=== PATIENT | male | born 1945 | race Caucasian/White ===

== ENCOUNTER 2016-07-05 00:11 | Emergency (ER) | payer MEDICARE, OTHER ==
[~2016-07-05] VITALS: Ht 177.8 cm; Wt 81.8 kg
[2016-07-05 00:22] VITALS: Ht 177.8 cm; Wt 81.8 kg
[2016-07-05] MEDS ORDERED: SODIUM CHLORIDE 0.9% 1L BAG IV* STA (00:31)
[2016-07-05] MEDS ORDERED: VANCOMYCIN 1 GM (PMX) 250 ML IVPB SCH (01:00)
[2016-07-05] MEDS ORDERED: CEFEPIME 1GM/50 ML (PMX) 50 ML IVPB ONE (01:00)
[2016-07-05 01:49] LABS: INR 0.9; PROTIME 12.1 Sec (12.2-14.2); PT RATIO 0.9
[2016-07-05 01:50] LABS: PARTIAL THROMBOPLASTIN TIME 27.7 Sec (25.0-35.0)
[2016-07-05 01:57] LABS: BASOPHILS % 0.3 % (0.0-2.0); EOSINOPHILS # 0.4 10^3/ul (0.0-0.5); EOSINOPHILS % 4.2 % (0.0-7.0); HEMATOCRIT 27.8 % (42.0-52.0); HEMOGLOBIN 8.6 g/dl (14.0-18.0); LYMPHOCYTES # 1.9 10^3/ul (0.8-2.9); LYMPHOCYTES % 19.6 % (15.0-51.0); MEAN CORPUSCULAR HEMOGLOBIN 29.5 pg (29.0-33.0); MEAN CORPUSCULAR HGB CONC 30.9 g/dl (32.0-37.0); MEAN CORPUSCULAR VOLUME 95.2 fl (82.0-101.0); MEAN PLATELET VOLUME 10.9 fl (7.4-10.4); MONOCYTE # 1.2 10^3/ul (0.3-0.9); MONOCYTES % 11.8 % (0.0-11.0); NEUTROPHIL # 6.3 10^3/ul (1.6-7.5); NEUTROPHILS % 63.6 % (39.0-77.0); PLATELET COUNT 215 10^3/UL (140-415); RED BLOOD COUNT 2.92 10^6/ul (4.70-6.10); RED CELL DISTRIBUTION WIDTH 15.7 % (11.5-14.5); WHITE BLOOD COUNT 9.9 10^3/ul (4.8-10.8)
[2016-07-05 02:28] LABS: ALBUMIN 3.5 g/dl (3.3-4.9); POTASSIUM 5.6 mmol/L (3.5-5.1)
[2016-07-05 02:31] LABS: ALBUMIN/GLOBULIN RATIO 0.87; CALCIUM 9.2 mg/dl (8.4-10.2); CREATININE 0.99 mg/dl (0.61-1.24); TOTAL PROTEIN 7.5 g/dl (6.1-8.1)
[2016-07-05 02:44] LABS: TROPONIN-I 0.037 ng/ml (0.00-0.12)
[2016-07-05] MEDS ORDERED: DEXTROSE 50% 50 ML SYRINGE IV ONE (02:56)
[2016-07-05] MEDS ORDERED: ALBUTEROL 0.083% (NEB) 2.5 MG/3 ML AMP HHN ONE (03:00)
[2016-07-05] MEDS ORDERED: INSULIN REGULAR, HUMAN 100 UNIT/1 ML 3ML VIAL IV ONE (03:00)
--- NOTE | 2016-07-05 03:42 | RADRPT ---
PROCEDURE: XR Chest. CLINICAL INDICATION: Sepsis. TECHNIQUE: Single frontal chest x-ray. COMPARISON: None. FINDINGS: Tracheostomy tube tip is at the level of the clavicles. Heart is normal in size.. There is no CHF. . No focal infiltrate is seen. There is no pleural effusion. There is no pneumothorax. The osseou s structures are unremarkable. IMPRESSION: Tracheostomy tube. No focal infiltrate. RPTAT: HMVK .López Rodarte MD, MD Date Time Electronically viewed and signed by .López Rodarte MD, on 07/05/2016 03:41 .K/
--- NOTE | 2016-07-05 03:48 | ERD ---
ER Documentation Chief Complaint Date/Time DATE: 07/05/16 TIME: 03:36 Chief Complaint Gtube pulled out,BIBA RA 89,low O2 sat At [facility] per EMS HPI 71-year-old man with a history of chronic encephalopathy, tracheostomy tube mechanical ventilator dependence, and gastrostomy tube brought in by EMS from snf after gastrostomy tube fell out. He was being suctioned and had increased phlegm and after gastrostomy tube came out nurses had trouble getting a good pulse oximeter reading. Patient has had no recent fevers or chills, no vomiting. HPI was limited as patient is nonverbal although supplemented by reviewing past medical history, snf records, speaking to EMS. Patient was transported here by EMS without further complication. ROS All systems reviewed and are negative except as per history of present illness. Allergies Allergies: Coded Allergies: aspirin (Verified Allergy, Unknown, 07/05/16) PMhx/Soc Chronic encephalopathy and respiratory failure with tracheostomy on mechanical ventilator, hypertension, seizures, stroke with left-sided paralysis dysphagia with gastrostomy tube Hx Neurological Disorder: Yes (epilepsy) Hx Respiratory Disorders: Yes (chronic respiratory failure) Hx Miscellaneous Medical Probl: Yes (DM type 2) Smoking Status: Unknown if ever smoked FmHx Family History: No diabetes Physical Exam Vitals Vital Signs Date Time Temp Pulse Resp B/P Pulse Ox O2 Delivery O2 Flow Rate FiO2 07/05/16 05:03 77 18 100 50 07/05/16 05:00 79 16 112/69 97 Mechanical Ventilator Trach Collar 07/05/16 03:30 84 16 103/65 97 Mechanical Ventilator Trach Collar 07/05/16 03:05 78 19 100 50 07/05/16 02:10 98.0 71 19 105/61 100 Mechanical Ventilator 07/05/16 01:47 77 16 100 50 07/05/16 00:25 94 29 100 50 07/05/16 00:22 99.0 98 29 135/111 100 Physical Exam GENERAL: Elderly, chronically debilitated man, unresponsive, eyes closed, afebrile with tracheostomy in place HEENT: Skin around the tracheostomy site appears clean and dry, no cervical spine deformity, positive dry mucous membranes NEURO: GCS equals 3, left-sided contractures and paralysis on the left, unresponsive, pupils round and reactive CARDIAC: Regular rate and rhythm, no murmurs rubs or gallops LUNGS: Clear bilaterally no wheezing crackles or stridor, secretions through the tracheostomy tube ABDOMEN: Soft nontender, no guarding, no rigidity, no rebound, no psoas sign no obturator sign. Normoactive bowel sounds. Skin around the gastrostomy tube appears clean and dry SKIN: Warm and dry to touch, no abrasions, contusions, or hematomas, no lacerations, no ecchymosis, no target lesions, and without ulcers EXTREMITIES: No clubbing cyanosis or edema, calves are bilaterally symmetrical, no Homans sign, no popliteal cord sign. Distal pulses equal and bilateral PSYCH: Unable to assess Result Diagram: 07/05/16 0050 07/05/16 0512 Results 24 hrs Laboratory Tests Test 07/05/16 00:31 07/05/16 00:50 07/05/16 05:12 07/05/16 05:15 Arterial Blood HCO3 30.9mmol/L Arterial Blood Base Excess 4.6mmol/L Arterial Blood Oxygen Saturation 86.5mmHG [place] Test ACCEPTAB Arterial Blood Gas Puncture Site Right Radial Arterial Blood Carboxyhemoglobin 0.3% Arterial Blood Date Drawn 07/05/2016 12:35:00 AM Arterial Blood Methemoglobin 0.2% Arterial Blood pCO2 (Temp correct) 55.0mmhg Arterial Blood pH (Temp corrected) 7.368 Arterial Blood pO2 (Temp corrected) 54.3mmHG Blood Gas A-a O2 Differential 240.3mmHg Blood Gas Actual Respiration Rate 29 Blood Gas Critical Value Read Back RYAN Colon MD Blood Gas Low PEEP Setting 5.0cmH2O Blood Gas Modality VENT - AC Blood Gas Notified Time 07/05/2016 12:42:00 AM Blood Gas Notified Whom MG Blood Gas Respiration Rate 14.0 Blood Gas Specimen Source Blood arterial Blood Gas Temperature 37.0C Blood Gas Tidal Volume 14.0mL FiO2 50.0% Oxyhemoglobin Percent 86.1% Total Hemoglobin 10.4g/dl Activated Partial Thromboplast Time 27.7Sec Alanine Aminotransferase (ALT/SGPT) 31IU/L Albumin 3.5g/dl Albumin/Globulin Ratio 0.87 Alkaline Phosphatase 75IU/L Anion Gap 15 11 Aspartate Amino Transf (AST/SGOT) 37IU/L Basophils # 0.010^3/ul Basophils % 0.3% Blood Urea Nitrogen 30mg/dl 25mg/dl Calcium Level 9.2mg/dl 8.1mg/dl Carbon Dioxide Level 32mmol/L 29mmol/L Chloride Level 100mmol/L 106mmol/L Creatinine 0.99mg/dl 0.89mg/dl Direct Bilirubin 0.00mg/dl Eosinophils # 0.410^3/ul Eosinophils % 4.2% Globulin 4.00g/dl Glucose Level 93mg/dl 56mg/dl Hematocrit 27.8% Hemoglobin 8.6g/dl INR International Normalized Ratio 0.90 Indirect Bilirubin 0.0mg/dl Lactic Acid Level 1.0mmol/L 0.6mmol/L Lipase 118U/L Lymphocytes # 1.910^3/ul Lymphocytes % 19.6% Mean Corpuscular Hemoglobin 29.5pg Mean Corpuscular Hemoglobin Concent 30.9g/dl Mean Corpuscular Volume 95.2fl Mean Platelet Volume 10.9fl Monocytes # 1.210^3/ul Monocytes % 11.8% Neutrophils # 6.310^3/ul Neutrophils % 63.6% Nucleated Red Blood Cells # 0.010^3/ul Nucleated Red Blood Cells % 0.0/100WBC Platelet Count 95043^3/UL Potassium Level 5.6mmol/L 4.7mmol/L Prothrombin Time 12.1Sec Prothrombin Time Ratio 0.9 Red Blood Count 2.9210^6/ul Red Cell Distribution Width 15.7% Sodium Level 141mmol/L 141mmol/L Total Bilirubin 0.0mg/dl Total Protein 7.5g/dl Troponin I 0.037ng/ml White Blood Count 9.910^3/ul Current Medications Medications (Trade) Dose Ordered Sig/Emma Route PRN Reason Start Time Stop Time Status Last Admin Dose Admin Sodium Chloride 2540 ml 2,540 ml BOLUS OVER 2 HOURS STAT IV* 07/05/16 00:31 07/05/16 00:34 DC 07/05/16 01:39 Cefepime HCl 50 ml @ 100 mls/hr ONCE ONCE IVPB 07/05/16 01:00 07/05/16 01:29 DC 07/05/16 02:08 Vancomycin HCl (Vancocin) 250 ml @ 125 mls/hr ONCE IVPB 07/05/16 01:00 07/05/16 02:59 07/05/16 02:35 Albuterol (Proventil 0.083% (Neb)) 10 mg ONCE ONCE HHN 07/05/16 03:00 07/05/16 03:01 07/05/16 03:05 Dextrose (D50w Syringe) 50 ml ONCE ONCE IV 07/05/16 02:56 07/05/16 02:57 07/05/16 03:21 Insulin Human Regular (Humulin R) 8 unit ONCE ONCE IV 07/05/16 03:00 07/05/16 03:01 07/05/16 03:22 Procedures/MDM My initial suspicion was for sepsis so blood and urine cultures were ordered and antibiotics were administered, although patient's temperature was repeated a couple of times and each time he was afebrile. Given his respiratory secretions I ordered automotive paint technician to provide in-line suctioning through the tracheostomy tube, there was good clear mucus secretion output and resolution of symptoms. Patient's skin remained pink and oxygen saturation was 100% with a good waveform. I initially treated him with cefepime 1 g IV and vancomycin 1 g IV (although I held the full dose of vancomycin as I do not suspect any sort of infection). For dehydration patient received 2.5 L of normal saline intravenously. ABG performed, read by me revealed a pH of 7.37, PCO2 55, PO2 54 consistent with chronic respiratory acidosis. One view chest x-ray performed, read by me revealed atelectatic changes bilaterally, no acute infiltrates, no pneumothorax. There is a tracheostomy tube in proper position. EKG performed, read by me revealed a normal sinus rhythm at 96 bpm with PVCs, there is a first-degree atrioventricular block, normal axis, narrow QRS complex , no concerning ST elevations or depressions noted I reinserted the patient's gastrostomy tube at the bedside. It was 18 Maltese tube which was placed in sterile fashion, balloon was insufflated with 10 cc of normal saline, and placement was verified by me. Tube was secured in place with gauze and tape. Patient tolerated procedure well. CBC revealed anemia with a hematocrit of 28, electrolytes revealed dehydration with a BUN/creatinine of 30/1 and hyperkalemia 5.6. Liver function tests were unremarkable, troponin was negative, lactic acid was low at 1. Critical Care: Time: 35 minutes, this was time separate from other procedures. Treatments/Evaluations: Close monitoring and treatment of unstable vital signs, cardiorespiratory, and neurologic status, while maintaining tight balance of fluid, respiratory, and cardiac interventions. I treated the patient with albuterol 10 mg via nebulizer, dextrose 25 g IV, and regular insulin 8 units IV for mild hyperkalemia. Repeat potassium was normal, lactic acid fell to 0.6. Departure Diagnosis: Primary Impression: Encounter for feeding tube placement Additional Impressions: Dehydration Hyperkalemia Respiratory failure Chronicity: acute on chronic Respiratory failure complication: hypoxia and hypercapnia Qualified Code: J96.21 - Acute on chronic respiratory failure with hypoxia and hypercapnia Condition: Stable KEVAN DAVIS MD Jul 05, 2016 03:46
[2016-07-05 05:40] LABS: POTASSIUM 4.7 mmol/L (3.5-5.1)
[2016-07-05 05:43] LABS: CREATININE 0.89 mg/dl (0.61-1.24)
[2016-07-05 05:44] LABS: CALCIUM 8.1 mg/dl (8.4-10.2)
[2016-07-05 06:17] LABS: AADO2 Arterial 240.3 mmHg (7.0-24.0); Allen Test ACCEPTAB; Arterial Base Excess 4.6 mmol/L (-3.0-3); Arterial COHb 0.3 % (0.0-3.0); Arterial Fraction of Oxyhgb 86.1 % (93.0-99.0); Arterial HCO3 30.9 mmol/L (22.0-26.0); Arterial MetHb 0.2 % (0.0-1.5); Arterial Total Hemglobin 10.4 g/dl (12.0-18.0); MODE VENT - AC
[2016-07-05 06:37] VITALS: TEMP 98.2
[2016-07-05 07:49] VITALS: BP 108/73; PULSE 74; RESP 16
[2016-07-05] MEDS ORDERED: ATOR10TA65 GTB (11:21)
[2016-07-05] MEDS ORDERED: CHLO473M4 MM (11:22)
[2016-07-05] MEDS ORDERED: DIGO250T GTB (11:23)
[2016-07-05] MEDS ORDERED: DOCU-159 GTB (11:24)
[2016-07-05] MEDS ORDERED: FERR325T5 GTB (11:25)
[2016-07-05] MEDS ORDERED: LEVE500S9 GTB (11:26)
[2016-07-05] MEDS ORDERED: LISI2.5T59 GTB (11:26)
[2016-07-05] MEDS ORDERED: MULT9LIQ4 GTB (11:27)
[2016-07-05] MEDS ORDERED: AMIN887L6 GTB (11:28)
[2016-07-05] MEDS ORDERED: FAMO20TA18 GTB (11:28)
[2016-07-05] MEDS ORDERED: ALBU2.5V3 NEB (11:29)
[2016-07-05] MEDS ORDERED: LORA1TAB GTB (11:29)
[2016-07-05] MEDS ORDERED: MAGN400O4 GTB (11:30)
[2016-07-05] MEDS ORDERED: BEN50 GTB (11:30)
[2016-07-05] MEDS ORDERED: DULR PR (11:31)
[2016-07-05] MEDS ORDERED: FLEETOIL PR (11:31)
[2016-07-05] MEDS ORDERED: ACET-141 PO (11:32)
== END 2016-07-05 07:51 | disposition short-term general hospital (02) ==
LOC: E/R 00:11
DX: Z43.1 Encounter for attention to gastrostomy (principal); E86.0 Dehydration; E87.5 Hyperkalemia; J96.21 Acute and chronic respiratory failure with hypoxia; E11.9 Type 2 diabetes mellitus without complications; I10 Essential (primary) hypertension
CPT/HCPCS: 36600; 43760; 71010; 80048; 80053; 82803; 82962; 83605; 83690; 84484; 85025; 85610; 85730; 87040; 94002; 94644; J0692; J1815; J3370; J7030; 93005; 96374; 96375

== ENCOUNTER 2016-07-05 10:10 | Emergency (ER) | payer MEDICARE, OTHER ==
[~2016-07-05] VITALS: Ht 167.6 cm; Wt 70.0 kg
[2016-07-05 10:12] VITALS: Ht 167.6 cm; Wt 70.0 kg
--- NOTE | 2016-07-05 11:04 | ERD ---
ER Documentation Chief Complaint Date/Time DATE: 07/05/16 TIME: 11:02 Chief Complaint BIB RA FOR GTUBE REPLACEMENT. PT WAS SEEN EARLIER TODAY FOR SAME. HPI 71-year-old male with a history of CVA, diabetes mellitus, seizure disorder, chronic encephalopathy, vent dependent respiratory failure status post tracheostomy, decubitus ulcers and G-tube was sent to the ED via rescue ambulance from [facility] for evaluation and replacement of his G- tube. Patient was just seen earlier this morning for G-tube placement after he pulled out his G-tube and a 18 Yemeni was placed. The patient was discharged and transported at approximately 8 AM and now being returned as there is leakage from the tube. No fevers. History is obtained entirely from paramedics and group home records. No other concerns. ROS All systems reviewed and are negative except as per history of present illness. Medications Home Meds Reported Medications Acetaminophen* (Acetaminophen*) 500 MG Extra Strength Tablet, 1000 MG PO Q6H Y for MILD PAIN LEVEL 1-3, TAB 07/05/16 Mineral Oil* (Fleet* Mineral Oil Enema) 133 Ml Oil, 133 ML IL DAILY Y for CONSTIPATION, ENEMA 07/05/16 Bisacodyl* (Bisacodyl*) 10 Mg Supp, 10 MG IL DAILY Y for CONSTIPATION, SUPP 07/05/16 Magnesium Hydroxide* (Milk Of Magnesia*) 400 Mg/5 Ml Oral.susp, 30 ML GTB DAILY Y for CONSTIPATION, ML 07/05/16 Diphenhydramine Hcl* (Benadryl*) 50 Mg Cap, 50 MG GTB Q6 Y for ITCHING, CAP 07/05/16 Albuterol Sulfate* (Albuterol Sulfate* Neb) 0.083%-3 Ml Neb, 2.5 MG NEB Q6 Y for WHEEZING AND SOB, #30 VIAL 07/05/16 Lorazepam* (Lorazepam*) 1 Mg Tablet, 1 MG GTB Q6 Y for ANXIETY, #30 TAB 07/05/16 Amino Acids/Protein Hydrolys (PRO-STAT AWC LIQUID) 887 Ml Liquid, 30 ML GTB BID 07/05/16 Famotidine* (Famotidine*) 20 Mg Tablet, 20 MG GTB BID, #30 TAB 07/05/16 Multivit &Minerals/Ferrous Fum (MULTIVITAMIN LIQUID) 9 Mg/15 Ml Liquid, 9 MG GTB BID 07/05/16 Lisinopril* (Lisinopril*) 2.5 Mg Tablet, 2.5 MG GTB DAILY, #30 TAB HOLD IF SBP<100 AND CALL MD 07/05/16 Levetiracetam* (Keppra*) 500 Mg/5 Ml Solution, 500 MG GTB BID, BOTTLE 07/05/16 Ferrous Sulfate (Ferrous Sulfate) 325 Mg Tablet.dr, 325 MG GTB TID 07/05/16 Docusate Sodium* (Docusate Sodium*) 100 Mg Capsule, 100 MG GTB DAILY, #30 CAP HOLD FOR LOOSE STOOLS 07/05/16 Digoxin* (Digitek*) 250 Mcg Tablet, 50 MCG GTB DAILY, TAB HOLD IF APICAL PULSE<50BPM 07/05/16 Chlorhexidine Gluconate (Peridex) 473 Ml Mouthwash, 15 ML MM BID, BOTTLE 07/05/16 Atorvastatin Calcium (Atorvastatin Calcium) 10 Mg Tablet, 10 MG GTB QHS, #30 TAB 07/05/16 Allergies Allergies: Coded Allergies: aspirin (Verified Allergy, Unknown, 07/05/16) PMhx/Soc Reviewed in chart. As per HPI. Hx Neurological Disorder: Yes (epilepsy) Hx Respiratory Disorders: Yes (chronic respiratory failure) Hx Miscellaneous Medical Probl: Yes (DM type 2) Smoking Status: Never smoker FmHx Unknown Physical Exam Vitals Vital Signs Date Time Temp Pulse Resp B/P Pulse Ox O2 Delivery O2 Flow Rate FiO2 07/05/16 13:20 80 15 100 40 07/05/16 13:00 98.6 74 12 125/78 100 Mechanical Ventilator 07/05/16 11:20 98.6 75 17 129/65 100 Mechanical Ventilator 07/05/16 10:50 75 17 100 40 07/05/16 10:12 98.6 82 19 132/87 100 Physical Exam Const: Chronically ill-appearing, elderly, unresponsive Head: Atraumatic Eyes: Normal Conjunctiva ENT: Normal External Ears, Nose and Mouth. Neck: Supple, nontender. Tracheostomy site clean without erythema , induration or drainage.. Resp: Breath sounds are equal and clear to auscultation bilaterally Cardio: Regular rate and rhythm, no murmurs Abd: Soft, non tender, non distended. Normal bowel sounds. G-tube site with mild surrounding erythema and but no evidence of cellulitis or fasciitis. Ext: No cyanosis, or edema. Contracted. Neur: Unresponsive. Results 24 hrs PROCEDURE: XR Abdomen CLINICAL INDICATION: Confirm NG tube placement TECHNIQUE: An AP supine radiograph of the abdomen was submitted. COMPARISON: None FINDINGS: Contrast has been injected into the stomach through a G tube. The tip of the G tube appears to lie within the fundus of the stomach which is opacified with contrast. There is no extravasation of contrast. The bowel gas pattern is nonspecific. No organomegaly or discrete mass is identified. Vascular calcification is noted. The osseous elements are rarefied with degenerative endplate changes seen to the spine. An inferior vena cava filter is seen to be in place. IMPRESSION: 1. Contrast was injected into the fundus of the stomach through a gastric tube and there is no extravasation of contrast. 2. Nonspecific bowel gas pattern 3. Inferior vena cava filter in place 4. Vascular calcification. 5. Degenerative spine changes. Physician Ranjit Date Time Electronically viewed and signed by Physician Ranjit on 07/05/2016 12:01 RH/ Procedures/MDM DOCUMENTS REVIEWED: ED nurse, prior ED, group home records PROCEDURE: Time: 10:55. G-tube placement: Balloon deflated and 18-gauge G-tube removed and a 20-gauge G-tube inserted without difficulty. Balloon inflated with 10 cc of normal saline. MEDICAL DECISION MAKIN-year-old male with a history of CVA, diabetes mellitus, seizure disorder, chronic encephalopathy, vent dependent respiratory failure status post tracheostomy, decubitus ulcers and G-tube was sent to the ED via rescue ambulance from [facility] for evaluation and replacement of his G-tube. Patient was just seen earlier for similar symptoms an 18 Yemeni was placed. This was removed and a 20 Yemeni was inserted and placement confirmed with a KUB and Gastrografin. There is no leakage. Stable for discharge with precautionary instructions and follow-up with PMD. Departure Diagnosis: Primary Impression: Encounter for feeding tube placement Additional Impressions: Chronic respiratory failure Respiratory failure complication: unspecified whether with hypoxia or hypercapnia Qualified Code: J96.10 - Chronic respiratory failure, unspecified whether with hypoxia or hypercapnia Ventilator dependent Encephalopathy chronic Condition: Stable ELIZABETH DUMONT MD Jul 05, 2016 11:03
[2016-07-05] MEDS ORDERED: ATOR10TA65 GTB (11:21)
[2016-07-05] MEDS ORDERED: CHLO473M4 MM (11:22)
[2016-07-05] MEDS ORDERED: DIGO250T GTB (11:23)
[2016-07-05] MEDS ORDERED: DOCU-159 GTB (11:24)
[2016-07-05] MEDS ORDERED: FERR325T5 GTB (11:25)
[2016-07-05] MEDS ORDERED: LISI2.5T59 GTB (11:26)
[2016-07-05] MEDS ORDERED: LEVE500S9 GTB (11:26)
[2016-07-05] MEDS ORDERED: MULT9LIQ4 GTB (11:27)
[2016-07-05] MEDS ORDERED: FAMO20TA18 GTB (11:28)
[2016-07-05] MEDS ORDERED: AMIN887L6 GTB (11:28)
[2016-07-05] MEDS ORDERED: LORA1TAB GTB (11:29)
[2016-07-05] MEDS ORDERED: ALBU2.5V3 NEB (11:29)
[2016-07-05] MEDS ORDERED: BEN50 GTB (11:30)
[2016-07-05] MEDS ORDERED: MAGN400O4 GTB (11:30)
[2016-07-05] MEDS ORDERED: FLEETOIL PR (11:31)
[2016-07-05] MEDS ORDERED: DULR PR (11:31)
[2016-07-05] MEDS ORDERED: ACET-141 PO (11:32)
--- NOTE | 2016-07-05 12:01 | RADRPT ---
PROCEDURE: XR Abdomen CLINICAL INDICATION: Confirm NG tube placement TECHNIQUE: An AP supine radiograph of the abdomen was submitted. COMPARISON: None FINDINGS: Contrast has been injected into the stomach through a G tube. The tip of the G tube appears to lie within the fundus of the stomach which is opacified with contrast. There is no extravasation of con trast. The bowel gas pattern is nonspecific. No organomegaly or discrete mass is identified. Vascular calcification is noted. The osseous elements are rarefied with degenerative endplate changes seen to the spine. An inferior vena cava filter is seen to be in place. IMPRESSION: 1. Contrast was injected into the fundus of the stomach through a gastric tube and there is no extr avasation of contrast. 2. Nonspecific bowel gas pattern 3. Inferior vena cava filter in place 4. Vascular calcification. 5. Degenerative spine changes. Physician Ranjit Date Time Electronically viewed and signed by Physician Ranjit on 07/05/2016 12:01 /
[2016-07-05 13:00] VITALS: BP 125/78; PULSE 74; TEMP 98.6
[2016-07-05 13:20] VITALS: RESP 15
== END 2016-07-05 15:08 | disposition home or self-care (01) ==
LOC: E/R 10:10
DX: Z43.1 Encounter for attention to gastrostomy (principal); J96.10 Chronic respiratory failure, unspecified whether with hypoxia or hypercapnia; G93.40 Encephalopathy, unspecified; E11.9 Type 2 diabetes mellitus without complications; Z99.11 Dependence on respirator [ventilator] status
CPT/HCPCS: 74000; 94002

== ENCOUNTER 2016-07-30 20:42 | Inpatient (IN) | payer MEDICARE, OTHER ==
[~2016-07-30] VITALS: Ht 172.7 cm; Wt 75.0 kg
[~2016-07-30 20:42] MED LIST: ACET-141 GTB; ALBU2.5V3 NEB; AMIN887L6 GTB; ATOR10TA65 GTB; BEN50 GTB; CHLO473M4 MM; DIGO250T GTB; DOCU-159 GTB; DULR PR; FAMO20TA18 GTB; FERR325T5 GTB; FLEETOIL PR; LEVE500S9 GTB; LISI2.5T59 GTB; LORA1TAB GTB; MAGN400O4 GTB; MULT9LIQ4 GTB
[2016-07-30 20:45] VITALS: Ht 172.7 cm; Wt 75.0 kg
[2016-07-30] MEDS ORDERED: SODIUM CHLORIDE 0.9% 1L BAG IV* STA (20:48)
[2016-07-30] MEDS ORDERED: PIPER-TAZO 3.375 GM IV (PMX) 100 ML IVPB STA (20:48)
[2016-07-30] MEDS ORDERED: ACETAMINOPHEN 650 MG SUPP PR ONE (21:00)
[2016-07-30] MEDS ORDERED: VANCOMYCIN 1 GM (PMX) 250 ML IVPB ONE (21:00)
[2016-07-30 21:12] LABS: ADD SCAN DIFF NO
[2016-07-30 21:22] LABS: Allen Test ACCEPTAB; Arterial Base Excess 3.8 mmol/L (-3.0-3); Arterial COHb 0.3 % (0.0-3.0); Arterial Fraction of Oxyhgb 87.7 % (93.0-99.0); Arterial HCO3 27.1 mmol/L (22.0-26.0); Arterial MetHb 0.5 % (0.0-1.5); Arterial Total Hemglobin 10.7 g/dl (12.0-18.0); MODE VENT - AC
[2016-07-30 21:24] LABS: ADD UMIC YES; URINE BILIRUBIN (Dip) NEGATIVE (NEGATIVE); URINE BLOOD (Dip) 3+ (NEGATIVE); URINE COLOR YELLOW (YELLOW); URINE GLUCOSE (Dip) NEGATIVE (NEGATIVE); URINE KETONES (Dip) NEGATIVE (NEGATIVE); URINE LEUKOCYTE ESTERASE (Dip) 3+ (NEGATIVE); URINE NITRITE (Dip) NEGATIVE (NEGATIVE); URINE TOTAL PROTEIN (Dip) 2+ (NEGATIVE); URINE UROBILINOGEN (Dip) 0.2 E.U./dL (0.1-1.0)
[2016-07-30 21:28] LABS: BASOPHIL # 0.1 10^3/ul (0.0-0.1); BASOPHILS % 0.4 % (0.0-2.0); EOSINOPHILS # 0.1 10^3/ul (0.0-0.5); EOSINOPHILS % 0.7 % (0.0-7.0); HEMATOCRIT 34.4 % (42.0-52.0); HEMOGLOBIN 10.6 g/dl (14.0-18.0); LYMPHOCYTES # 2.1 10^3/ul (0.8-2.9); MEAN CORPUSCULAR HEMOGLOBIN 29.2 pg (29.0-33.0); MEAN CORPUSCULAR HGB CONC 30.8 g/dl (32.0-37.0); MEAN CORPUSCULAR VOLUME 94.8 fl (82.0-101.0); MEAN PLATELET VOLUME 11.2 fl (7.4-10.4); MONOCYTE # 0.9 10^3/ul (0.3-0.9); MONOCYTES % 5.1 % (0.0-11.0); NEUTROPHIL # 13.9 10^3/ul (1.6-7.5); NEUTROPHILS % 81.1 % (39.0-77.0); PLATELET COUNT 287 10^3/UL (140-415); RED BLOOD COUNT 3.63 10^6/ul (4.70-6.10); RED CELL DISTRIBUTION WIDTH 16.4 % (11.5-14.5); WHITE BLOOD COUNT 17.2 10^3/ul (4.8-10.8)
[2016-07-30 21:36] LABS: ALBUMIN/GLOBULIN RATIO 0.88; BILIRUBIN,INDIRECT 0.1 mg/dl (0-1.1); BILIRUBIN,TOTAL 0.1 mg/dl (0.2-1.3); CREATININE 2.42 mg/dl (0.61-1.24); TOTAL PROTEIN 8.5 g/dl (6.1-8.1)
[2016-07-30 21:37] LABS: CALCIUM 9.8 mg/dl (8.4-10.2)
[2016-07-30 21:38] LABS: INR 0.95; PARTIAL THROMBOPLASTIN TIME 26.5 Sec (25.0-35.0); PROTIME 12.7 Sec (12.2-14.2)
[2016-07-30] MEDS ORDERED: AMIN30LI GTB (21:40)
[2016-07-30] MEDS ORDERED: MULT-843 GTB (21:41)
[2016-07-30] MEDS ORDERED: KEP100S GTB (21:42)
[2016-07-30 21:45] LABS: BACTERIA,URINE MODERATE
[2016-07-30] MEDS ORDERED: FERR220S13 GTB (21:45)
[2016-07-30] MEDS ORDERED: UDCOL GTB (21:46)
[2016-07-30] MEDS ORDERED: DIGO0.12 GTB (21:49)
[2016-07-30] MEDS ORDERED: ACET325T33 GTB (21:50)
--- NOTE | 2016-07-30 21:50 | RADRPT ---
PROCEDURE: XR Chest. CLINICAL INDICATION: Shortness of breath. TECHNIQUE: A single portable view of the chest was obtained. COMPARISON: 07/05/2016 FINDINGS: A tracheostomy tube is unchanged. The cardiomediastinal silhouette is within normal limits. Diffuse reticular interstitial changes are once again seen. No dense consolidation or pleural effusion is s een. The soft tissues and osseous structures are unremarkable. IMPRESSION: Stable diffuse reticular interstitial changes. RPTAT: HPNM Physician Dangelo Date Time Electronically viewed and signed by Julio Schneider Physician on 07/30/2016 21:50 /
[2016-07-30] MEDS ORDERED: DIPH50CA30 GTB (21:51)
[2016-07-30] MEDS ORDERED: IPRA3AMP INHALATION (21:52)
[2016-07-30 22:12] LABS: TROPONIN-I 0.102 ng/ml (0.00-0.12)
[2016-07-30] MEDS ORDERED: morphine 4 MG/ML VIAL IV STA (22:17)
[2016-07-31] VITALS (34 sets, daily range): BP systolic 84–161; BP diastolic 44–89; PULSE 78–115; RESP 22–34; TEMP 98.6
--- NOTE | 2016-07-31 00:12 | ERA ---
ER Documentation Chief Complaint Date/Time DATE: 07/30/16 TIME: 23:59 Chief Complaint bib ra c/o tachycardia and fever today, vent dependant. Full code. HPI This 71-year-old male [facility] tachy[facility] and fever. Patient is apparently full code. His normal mental status is noncommunicative according to paramedics. He is a chronic trach vent patient. Unable to obtain a history from the patient for these reasons. ROS Unobtainable Medications Home Meds Reported Medications Ipratropium-Albuterol (Ipratropium-Albuterol) 0.5-3 Mg/3 Ml Ampul.neb, 3 ML INHALATION Q6, #30 VIAL 07/30/16 Diphenhydramine Hcl (BANOPHEN) 50 Mg Capsule, 50 MG GTB Q6H Y for PRN, CAP 07/30/16 Acetaminophen* (Tylenol*) 325 Mg Tablet, 650 MG GTB Q4H Y for MILD PAIN LEVEL 1- 3, TAB 07/30/16 Digoxin* (Lanoxin*) 0.125 Mg/2.5 Ml Solution, 2.5 ML GTB DAILY, ML HOLD IF APICAL PULSE<60BPM 07/30/16 Docusate Sodium* (Docusate Sodium* Liq) 50 Mg/5 Ml Liquid, 10 ML GTB DAILY, ML 07/30/16 Ferrous Sulfate* (Ferrous Sulfate*) 220 Mg/5 Ml Solution, 7.5 ML GTB TID, ML 07/30/16 Levetiracetam* (Keppra* (Ped)) 100 Mg/Ml Liq, 5 ML GTB Q12H for 30 Days, BOTTLE 07/30/16 Multivits,Ca,Minerals/Iron/FA (Thera M Plus Tablet) 1 Each Tablet, 1 EACH GTB BID, TAB 07/30/16 Amino Acids/Protein Hydrolys (PRO-STAT LIQUID) 30 Ml Liquid.pkt, 30 ML GTB BID SUGAR FREE 07/30/16 Acetaminophen* (Acetaminophen*) 500 MG Extra Strength Tablet, 1000 MG GTB Q8H Y for MILD PAIN 4-6/10, TAB 07/05/16 Mineral Oil* (Fleet* Mineral Oil Enema) 133 Ml Oil, 133 ML [place] DAILY Y for CONSTIPATION, ENEMA 07/05/16 Bisacodyl* (Bisacodyl*) 10 Mg Supp, 10 MG FL DAILY Y for CONSTIPATION, SUPP 07/05/16 Magnesium Hydroxide* (Milk Of Magnesia*) 400 Mg/5 Ml Oral.susp, 30 ML GTB DAILY Y for CONSTIPATION, ML 07/05/16 Lorazepam* (Lorazepam*) 1 Mg Tablet, 1 MG GTB Q6 Y for ANXIETY, #30 TAB 07/05/16 Famotidine* (Famotidine*) 20 Mg Tablet, 20 MG GTB BID, #30 TAB 07/05/16 Lisinopril* (Lisinopril*) 2.5 Mg Tablet, 2.5 MG GTB DAILY, #30 TAB HOLD IF SBP<100 AND CALL MD 07/05/16 Chlorhexidine Gluconate (Peridex) 473 Ml Mouthwash, 15 ML MM BID, BOTTLE 07/05/16 Atorvastatin Calcium (Atorvastatin Calcium) 10 Mg Tablet, 5 MG GTB QHS, #30 TAB 07/05/16 Discontinued Reported Medications Diphenhydramine Hcl* (Benadryl*) 50 Mg Cap, 50 MG GTB Q6 Y for ITCHING, CAP 07/05/16 Albuterol Sulfate* (Albuterol Sulfate* Neb) 0.083%-3 Ml Neb, 2.5 MG NEB Q6 Y for WHEEZING AND SOB, #30 VIAL 07/05/16 Amino Acids/Protein Hydrolys (PRO-STAT AWC LIQUID) 887 Ml Liquid, 30 ML GTB BID 07/05/16 Multivit &Minerals/Ferrous Fum (MULTIVITAMIN LIQUID) 9 Mg/15 Ml Liquid, 9 MG GTB BID 07/05/16 Levetiracetam* (Keppra*) 500 Mg/5 Ml Solution, 500 MG GTB BID, BOTTLE 07/05/16 Ferrous Sulfate (Ferrous Sulfate) 325 Mg Tablet.dr, 325 MG GTB TID 07/05/16 Docusate Sodium* (Docusate Sodium*) 100 Mg Capsule, 100 MG GTB DAILY, #30 CAP HOLD FOR LOOSE STOOLS 07/05/16 Digoxin* (Digitek*) 250 Mcg Tablet, 50 MCG GTB DAILY, TAB HOLD IF APICAL PULSE<50BPM 07/05/16 Allergies Allergies: Coded Allergies: aspirin (Verified Allergy, Unknown, 07/30/16) PMhx/Soc Medical and Surgical Hx: pt denies Surgical Hx History of Surgery: Yes (trach, gtube) Anesthesia Reaction: No Hx Neurological Disorder: Yes (epilepsy) Hx Respiratory Disorders: Yes (chronic respiratory failure) Hx Cardiac Disorders: Yes (afib) Hx Psychiatric Problems: No Hx Miscellaneous Medical Probl: Yes (DM type 2) Hx Alcohol Use: No (unable to obtain) Hx Substance Use: No (unable to obtain) Hx Tobacco Use: No (unable to obtain) Smoking Status: Unknown if ever smoked Physical Exam Vitals Vital Signs Date Time Temp Pulse Resp B/P Pulse Ox O2 Delivery O2 Flow Rate FiO2 07/30/16 20:45 104.4 129 20 117/72 100 Physical Exam Const: [] Head: Atraumatic Eyes: Normal Conjunctiva ENT: Normal External Ears, Nose and Mouth. Neck: Full range of motion..~ No meningismus. Resp: Clear to auscultation bilaterally Cardio: Regular rate and rhythm, no murmurs Abd: Soft, non tender, non distended. Normal bowel sounds Skin: No petechiae or rashes Back: No midline or flank tenderness Ext: No cyanosis, or edema Neur: Awake and alert Psych: Normal Mood and Affect Result Diagram: 07/30/16205407/30/162054 Results 24 hrs Laboratory Tests Test 07/30/16 20:54 07/30/16 20:55 07/30/16 22:50 Arterial Blood HCO3 27.1mmol/L Arterial Blood Base Excess 3.8mmol/L Arterial Blood Oxygen Saturation 88.4mmHG [place] Test ACCEPTAB Arterial Blood Gas Puncture Site Right Radial Arterial Blood Carboxyhemoglobin 0.3% Arterial Blood Date Drawn 07/30/2016 9:15:41 PM Arterial Blood Methemoglobin 0.5% Arterial Blood pCO2 (Temp correct) 36.0mmhg Arterial Blood pH (Temp corrected) 7.495 Arterial Blood pO2 (Temp corrected) 53.8mmHG Blood Gas A-a O2 Differential 190.0mmHg Blood Gas Actual Respiration Rate 27 Blood Gas Critical Value Read Back Yareli MCDUFFIE MD Blood Gas Inspiratory Pressure 28.0 Blood Gas Modality VENT - AC Blood Gas Notified Time 07/30/2016 9:22:36 PM Blood Gas Notified Whom MG Blood Gas Respiration Rate 14.0 Blood Gas Specimen Source Blood arterial Blood Gas Temperature 37.0C Blood Gas Tidal Volume 500.0mL FiO2 40.0% Oxyhemoglobin Percent 87.7% Total Hemoglobin 10.7g/dl Activated Partial Thromboplast Time 26.5Sec Alanine Aminotransferase (ALT/SGPT) 24IU/L Albumin 4.0g/dl Albumin/Globulin Ratio 0.88 Alkaline Phosphatase 83IU/L Anion Gap 20 Aspartate Amino Transf (AST/SGOT) 27IU/L Basophils # 0.110^3/ul Basophils % 0.4% Blood Urea Nitrogen 97mg/dl Calcium Level 9.8mg/dl Carbon Dioxide Level 34mmol/L Chloride Level 97mmol/L Creatinine 2.42mg/dl Direct Bilirubin 0.00mg/dl Eosinophils # 0.110^3/ul Eosinophils % 0.7% Globulin 4.50g/dl Glucose Level 120mg/dl Hematocrit 34.4% Hemoglobin 10.6g/dl INR International Normalized Ratio 0.95 Indirect Bilirubin 0.1mg/dl Lactic Acid Level 2.0mmol/L 1.4mmol/L Lymphocytes # 2.110^3/ul Lymphocytes % 12.0% Mean Corpuscular Hemoglobin 29.2pg Mean Corpuscular Hemoglobin Concent 30.8g/dl Mean Corpuscular Volume 94.8fl Mean Platelet Volume 11.2fl Monocytes # 0.910^3/ul Monocytes % 5.1% Neutrophils # 13.910^3/ul Neutrophils % 81.1% Nucleated Red Blood Cells # 0.010^3/ul Nucleated Red Blood Cells % 0.0/100WBC Platelet Count 38154^3/UL Potassium Level 5.0mmol/L Prothrombin Time 12.7Sec Prothrombin Time Ratio 1.0 Red Blood Count 3.6310^6/ul Red Cell Distribution Width 16.4% Sodium Level 146mmol/L Total Bilirubin 0.1mg/dl Total Protein 8.5g/dl Troponin I 0.102ng/ml Urine Bacteria MODERATE Urine Bilirubin NEGATIVE Urine Clarity CLOUDY Urine Color YELLOW Urine Glucose NEGATIVE% Urine Hemoglobin 3+ Urine Ketones NEGATIVE Urine Leukocyte Esterase 3+ Urine Microscopic RBC 2-5/HPF Urine Microscopic WBC >50/HPF Urine Nitrite NEGATIVE Urine Specific [place] 1.010 Urine Total Protein 2+ Urine Urobilinogen 0.2 E.U./dL Urine Yeast OCCASIONAL Urine pH 7.5 White Blood Count 17.210^3/ul Current Medications Medications (Trade) Dose Ordered Sig/Emma Route PRN Reason Start Time Stop Time Status Last Admin Dose Admin Sodium Chloride 2330 ml 2,330 ml BOLUS OVER 2 HOURS STAT IV* 07/30/16 20:48 07/30/16 20:49 DC 07/30/16 21:05 Vancomycin HCl 250 ml @ 125 mls/hr ONCE ONCE IVPB 07/30/16 21:00 07/30/16 22:59 DC 07/30/16 22:10 Piperacillin Sod/ Tazobactam Sod (Zosyn 3.375gm/ 100 ml (Pmx)) 100 ml @ 200 mls/hr ONCE STAT IVPB 07/30/16 20:48 07/30/16 21:17 DC 07/30/16 21:05 Acetaminophen (Tylenol Supp) 650 mg ONCE ONCE FL 07/30/16 21:00 07/30/16 21:01 DC 07/30/16 21:04 Morphine Sulfate (morphine) 4 mg ONCE STAT IV 07/30/16 22:17 07/30/16 22:19 DC 07/30/16 22:24 Procedures/MDM UTI with sepsis accompanied by acute kidney injury and low PaO2 on his normal vent settings. Patient was immediately hydrated with normal saline and treated empirically with vancomycin and Zosyn as he had a very high fever. Tachycardia improved. Patient was a difficult IV stick and central line was placed and noted to administer fluid resuscitation. Ischemic changes on EKG with negative initial troponin. Repeat troponin is pending. Elevated CO2 consistent with contraction alkalosis. Patient had developed lower blood pressure prior to central line placement and fluid administration. Blood cultures, lactate, urine cultures were drawn. Patient responded well to fluids. No signs of fluid overload after fluid both. Is going to be admitted to telemetry in serious condition for further treatment of his septic infection. EKG interpretation: Junctional tachycardia rate of 129, ST depressions in her lateral leads concerning for acute ischemia, normal axis, no consistent ST elevations concerning for STEMI. forepart rounder interpretation: Sinus tachycardia versus junctional rhythm with improved with fluid resuscitation, no other arrhythmias Chest x-ray interpretation: I see no acute process, no widened mediastinum, no infiltrate, no pneumothorax, no fractures Ultrasound-guided central line placement note: Left femoral line. Patient was anesthetized with 2 cc of lidocaine after being sterilized with chlorhexidine wipe, sterile technique was used with count mass Close drape, under ultrasound guidance Seldinger technique was used easily introduce a 7 Vietnamese triple-lumen catheter in the left femoral vein. All ports flushed well is good blood flow. Patient tolerated the procedure well with no complications. Critical care time 38 minutes: Includes management of urinary tract infection with sepsis and some hypotension in a very ill patient with ischemic changes on his EKG, careful fluid administration, immediate empiric antibiotic administration, multiple visits the patient's bedside to reassess status with fluid I resuscitation, chart reviewed, discussion with admitting doctor. This does not include any billable procedures per Departure Diagnosis: Primary Impression: Sepsis secondary to UTI Additional Impressions: ST segment changes on electrocardiogram Acute kidney injury Dehydration Normocytic anemia Condition: Serious LAKISHA ANTONIO DO Jul 31, 2016 00:09
--- NOTE | 2016-07-31 00:39 | HP ---
Date/Time of Note Date/Time of Note DATE: 07/31/16 TIME: 00:39 Assessment/Plan VTE Prophylaxis VTE Prophylaxis Intervention: anti-embolic stocking, other (Enoxaparin) Lines/Catheters IV [facility] Type ([facility] Central Line (Left Femoral) Central line still needed: Yes Assessment/Plan Chief Complaint/Hosp Course ER Course per ER Physician: UTI with sepsis accompanied by acute kidney injury and low PaO2 on his normal vent settings. Patient was immediately hydrated with normal saline and treated empirically with vancomycin and Zosyn as he had a very high fever. Tachycardia improved. Patient was a difficult IV stick and central line was placed and noted to administer fluid resuscitation. Ischemic changes on EKG with negative initial troponin. Repeat troponin is pending. Elevated CO2 consistent with contraction alkalosis. Patient had developed lower blood pressure prior to central line placement and fluid administration. Blood cultures, lactate, urine cultures were drawn. Patient responded well to fluids. No signs of fluid overload after fluid both. Is going to be admitted to telemetry in serious condition for further treatment of his septic infection. EKG interpretation: Junctional tachycardia rate of 129, ST depressions in her lateral leads concerning for acute ischemia, normal axis, no consistent ST elevations concerning for STEMI. commissions specialist interpretation: Sinus tachycardia versus junctional rhythm with improved with fluid resuscitation, no other arrhythmias Chest x-ray interpretation: I see no acute process, no widened mediastinum, no infiltrate, no pneumothorax, no fractures Ultrasound-guided central line placement note: Left femoral line. Patient was anesthetized with 2 cc of lidocaine after being sterilized with chlorhexidine wipe, sterile technique was used with count mass Close drape, under ultrasound guidance Seldinger technique was used easily introduce a 7 [place] triple-lumen catheter in the left femoral vein. All ports flushed well is good blood flow. Patient tolerated the procedure well with no complications. Problems: Assessment/Plan 1) Sepsis secondary to UTI - Blood Cultures x 2 and Urine Culture pending - [facility] - Zosyn 3.35 mg Q 6 hours - AM Labs 2) ST segment changes on electrocardiogram - Monitor on Tele 3) Hypotension despite fluid boluses - Start on Levophed. Titrate to keep SBP > 100 - Upgraded from Tele to ICU status 4) Acute kidney injury - creatinine 2.42, up from baseline per ER Physician 4) Dehydration due to sepsis. BUN = 97 - IV Hydration - AM Labs 5) Normocytic anemia, mild. Hgb = 10.6 - Consider Stool for Occult Blood 6) Chronic Respiratory Failure with Tracheostomy and on Ventilator CONSULT: Dr. Scott 7) Chronic Tube Feeding status. CONSULT: Dietary HPI/ROS Admit Date/Time Admit Date/Time Hx of Present Illness CC and HPI as per ER Physician. No family at bedside. Chief Complaint bib ra c/o tachycardia and fever today, vent dependant. Full code. HPI This 71-year-old male was brought in by ambulance [facility] for tachycardia and fever. Patient is apparently full code. His normal mental status is noncommunicative according to paramedics. He is a chronic trach vent patient. Unable to obtain a history from the patient for these reasons. Despite getting 2.3 L IVF, patient's BP was still low SBP 75 documented, but I saw SBPs in the mid to upper 60s. It was at this time that I made the decision to start Levophed Drip and upgrade patient to the ICU. ROS unobtainable due to patient's condition PMH/Family/Social Past Medical History Medical History: diabetes, other (Epilepsy; Atrial Fibrillation, Chronic Respiratory Failure, Vent-Dependent) Past Surgical History Past Surgical Hx: other (Tracheostomy; G-Tube; unknown if others) Family History Significant Family History: other (No Family History available.) Social History Smoking Status: Unknown if ever smoked Exam/Review of Systems Vital Signs Vitals Vital Signs Date Time Temp Pulse Resp B/P Pulse Ox O2 Delivery O2 Flow Rate FiO2 07/30/16 23:50 74 16 100 60 07/30/16 20:45 104.4 117/72 Exam Exam Const: [] Resting comfortably Head: Normocaphalic/Atraumatic Eyes: Some crusting noted around eyes/eye lashes. Patient did not follow commands to open eyes, and when I tried to gently open each eye individually, patient closed his eyes even tighter. ENT: Normal External Ears, Nose and Mouth. Not cooperative with opening mouth. Neck: Tight muscles with significantly decreased ROM. No meningismus appreciated. Resp: Clear to auscultation bilaterally Cardio: Difficult to hear heart over ventilator, but radial pulses and DP pulses are +2/4, regular and equal. Tele Monitor: Demonstrates a pattern of 2 normal beats and 1 PVC. Abd: Noroactivel bowel sounds. Obese, soft, non tender, non distended. Unable to palpate internal organs well due to body habitus. Skin: No petechiae or rashes. Feet are warm. Pale. Fair turgor. Back: Unable to assess. Ext: No cyanosis, or edema Neur: Sleeping. Only rouses to painful stimuli, but does not open his eyes. Psych: Unable to assess. Labs Result Diagram: 07/30/16205407/30/162054 Medications Medications Home Meds Reported Medications Ipratropium-Albuterol (Ipratropium-Albuterol) 0.5-3 Mg/3 Ml Ampul.neb, 3 ML INHALATION Q6, #30 VIAL 07/30/16 Diphenhydramine Hcl (BANOPHEN) 50 Mg Capsule, 50 MG GTB Q6H Y for PRN, CAP 07/30/16 Acetaminophen* (Tylenol*) 325 Mg Tablet, 650 MG GTB Q4H Y for MILD PAIN LEVEL 1- 3, TAB 07/30/16 Digoxin* (Lanoxin*) 0.125 Mg/2.5 Ml Solution, 2.5 ML GTB DAILY, ML HOLD IF APICAL PULSE<60BPM 07/30/16 Docusate Sodium* (Docusate Sodium* Liq) 50 Mg/5 Ml Liquid, 10 ML GTB DAILY, ML 07/30/16 Ferrous Sulfate* (Ferrous Sulfate*) 220 Mg/5 Ml Solution, 7.5 ML GTB TID, ML 07/30/16 Levetiracetam* (Keppra* (Ped)) 100 Mg/Ml Liq, 5 ML GTB Q12H for 30 Days, BOTTLE 07/30/16 Multivits,Ca,Minerals/Iron/FA (Thera M Plus Tablet) 1 Each Tablet, 1 EACH GTB BID, TAB 07/30/16 Amino Acids/Protein Hydrolys (PRO-STAT LIQUID) 30 Ml Liquid.pkt, 30 ML GTB BID SUGAR FREE 07/30/16 Acetaminophen* (Acetaminophen*) 500 MG Extra Strength Tablet, 1000 MG GTB Q8H Y for MILD PAIN 4-6/10, TAB 07/05/16 Mineral Oil* (Fleet* Mineral Oil Enema) 133 Ml Oil, 133 ML [place] DAILY Y for CONSTIPATION, ENEMA 07/05/16 Bisacodyl* (Bisacodyl*) 10 Mg Supp, 10 MG [place] DAILY Y for CONSTIPATION, SUPP 07/05/16 Magnesium Hydroxide* (Milk Of Magnesia*) 400 Mg/5 Ml Oral.susp, 30 ML GTB DAILY Y for CONSTIPATION, ML 07/05/16 Lorazepam* (Lorazepam*) 1 Mg Tablet, 1 MG GTB Q6 Y for ANXIETY, #30 TAB 07/05/16 Famotidine* (Famotidine*) 20 Mg Tablet, 20 MG GTB BID, #30 TAB 07/05/16 Lisinopril* (Lisinopril*) 2.5 Mg Tablet, 2.5 MG GTB DAILY, #30 TAB HOLD IF SBP<100 AND CALL MD 07/05/16 Chlorhexidine Gluconate (Peridex) 473 Ml Mouthwash, 15 ML MM BID, BOTTLE 07/05/16 Atorvastatin Calcium (Atorvastatin Calcium) 10 Mg Tablet, 5 MG GTB QHS, #30 TAB 07/05/16 Procedures Procedures Laboratory Tests Test 07/30/16 20:54 07/30/16 20:55 07/30/16 22:50 Arterial Blood HCO3 27.1mmol/L Arterial Blood Base Excess 3.8mmol/L Arterial Blood Oxygen Saturation 88.4mmHG [place] Test ACCEPTAB Arterial Blood Gas Puncture Site Right Radial Arterial Blood Carboxyhemoglobin 0.3% Arterial Blood Date Drawn 07/30/2016 9:15:41 PM Arterial Blood Methemoglobin 0.5% Arterial Blood pCO2 (Temp correct) 36.0mmhg Arterial Blood pH (Temp corrected) 7.495 Arterial Blood pO2 (Temp corrected) 53.8mmHG Blood Gas A-a O2 Differential 190.0mmHg Blood Gas Actual Respiration Rate 27 Blood Gas Critical Value Read Back Yareli MCDUFFIE MD Blood Gas Inspiratory Pressure 28.0 Blood Gas Modality VENT - AC Blood Gas Notified Time 07/30/2016 9:22:36 PM Blood Gas Notified Whom MG Blood Gas Respiration Rate 14.0 Blood Gas Specimen Source Blood arterial Blood Gas Temperature 37.0C Blood Gas Tidal Volume 500.0mL FiO2 40.0% Oxyhemoglobin Percent 87.7% Total Hemoglobin 10.7g/dl Activated Partial Thromboplast Time 26.5Sec Alanine Aminotransferase (ALT/SGPT) 24IU/L Albumin 4.0g/dl Albumin/Globulin Ratio 0.88 Alkaline Phosphatase 83IU/L Anion Gap 20 Aspartate Amino Transf (AST/SGOT) 27IU/L Basophils # 0.110^3/ul Basophils % 0.4% Blood Urea Nitrogen 97mg/dl Calcium Level 9.8mg/dl Carbon Dioxide Level 34mmol/L Chloride Level 97mmol/L Creatinine 2.42mg/dl Direct Bilirubin 0.00mg/dl Eosinophils # 0.110^3/ul Eosinophils % 0.7% Globulin 4.50g/dl Glucose Level 120mg/dl Hematocrit 34.4% Hemoglobin 10.6g/dl INR International Normalized Ratio 0.95 Indirect Bilirubin 0.1mg/dl Lactic Acid Level 2.0mmol/L 1.4mmol/L Lymphocytes # 2.110^3/ul Lymphocytes % 12.0% Mean Corpuscular Hemoglobin 29.2pg Mean Corpuscular Hemoglobin Concent 30.8g/dl Mean Corpuscular Volume 94.8fl Mean Platelet Volume 11.2fl Monocytes # 0.910^3/ul Monocytes % 5.1% Neutrophils # 13.910^3/ul Neutrophils % 81.1% Nucleated Red Blood Cells # 0.010^3/ul Nucleated Red Blood Cells % 0.0/100WBC Platelet Count 16273^3/UL Potassium Level 5.0mmol/L Prothrombin Time 12.7Sec Prothrombin Time Ratio 1.0 Red Blood Count 3.6310^6/ul Red Cell Distribution Width 16.4% Sodium Level 146mmol/L Total Bilirubin 0.1mg/dl Total Protein 8.5g/dl Troponin I 0.102ng/ml Urine Bacteria MODERATE Urine Bilirubin NEGATIVE Urine Clarity CLOUDY Urine Color YELLOW Urine Glucose NEGATIVE% Urine Hemoglobin 3+ Urine Ketones NEGATIVE Urine Leukocyte Esterase 3+ Urine Microscopic RBC 2-5/HPF Urine Microscopic WBC >50/HPF Urine Nitrite NEGATIVE Urine Specific [place] 1.010 Urine Total Protein 2+ Urine Urobilinogen 0.2 E.U./dL Urine Yeast OCCASIONAL Urine pH 7.5 White Blood Count 17.210^3/ul RADIOLOGY: PROCEDURE: XR Chest. IMPRESSION: Stable diffuse reticular interstitial changes. ARNULFO BAY DO Jul 31, 2016 00:39
[2016-07-31] MEDS: NORepinephrine 8MG/250 ML (PMX 250 ML IV SCH ×2 (01:26→08:00)
[2016-07-31] MEDS ORDERED: VANCOMYCIN IV PER PHARMACY XX SCH (01:30)
[2016-07-31] MEDS ORDERED: SOD CHLORIDE 0.9% 1,000 ML IV SCH (01:48)
[2016-07-31] MEDS ORDERED: DOBUTamine/D5W 1 MG/ML DRIP 250 ML IV SCH (02:00)
[2016-07-31] MEDS: ACETAMINOPHEN 650 MG SUPP PR PRN ×2 (04:45→20:27)
[2016-07-31] MEDS: PIPER-TAZO 2.25 GM (PMX) 50 ML IVPB SCH ×2 (05:47→14:50)
[2016-07-31] MEDS: FAMOTIDINE 20 MG TAB GTB SCH (09:02)
[2016-07-31] MEDS: ENOXAPARIN 40 MG/0.4 ML SYG SC SCH (09:03)
--- NOTE | 2016-07-31 09:34 | CONS ---
Date/Time of Note Date/Time of Note DATE: 07/31/16 TIME: 09:28 Assessment/Plan Assessment/Plan Additional Assessment/Plan Ventilator settings; AC of 14, tidal volume 500, PEEP of 5, 40% FiO2. Chest x-ray was reviewed from yesterday which is essentially unremarkable except for prominence of bilateral interstitial changes which in all likelihood are chronic in appearance. Assessment recommendations; 1. Patient admitted with UTI and sepsis. Only on low-dose Levophed drip. Patient adequately fluid resuscitated. 2. Renal injury likely acute on chronic. 3. Stable seizure disorder. 4. History of anoxic encephalopathy, patient ventilator dependent. 5. Interstitial lung disease. Next Continue current treatment. Wean down FiO2 to keep O2 saturation between 90-94% . Continue current antibiotic coverage. Further antibiotic adjustment to be done once culture results are obtained. Obtain follow-up serum chemistries. Monitor renal function. Resume tube feeding. Consultation Date/Type/Reason Admit Date/Time Date of Consultation: Jul 31, 2016 Type of Consultation: Pulmonary/critical care Reason for Consultation Pulmonary consultation obtained for management of respiratory failure. Patient admitted for hypotension and sepsis from UTI. Next History of present illness; patient is a 71-year-old white male who was transferred over from assisted after being found to be hypotensive and hypoxemic upon evaluation here patient was diagnosed with UTI with sepsis. Patient was fluid resuscitated and started on pressor support with Levophed drip. Mechanical ventilation was continued. She was obtained from medical records as patient because of advanced dementia/anoxic encephalopathy is unable to give any history whatsoever. The time I saw him in ICU the patient is on ventilator via tracheostomy is awake but does not follow any commands. Next Past medical history; 1. Chronic respiratory failure, ventilator dependent. 2. Status post tracheostomy and G-tube placement. 3. Seizure disorder. 4. Anemia. 5. Hypertension. 6. Hyperlipidemia. 7. History of cardiac arrhythmia. Medications; were reviewed. Allergies; not aspirin. Next Social history, family history, occupational history; all not available. Next Review of systems; currently unable to be obtained. General exam; elderly male, on ventilator via tracheostomy awake currently in no distress. Patient does not respond to any commands. Past Medical History Medical History: diabetes, other (Epilepsy; Atrial Fibrillation, Chronic Respiratory Failure, Vent-Dependent) Past Surgical History Past Surgical Hx: other (Tracheostomy; G-Tube; unknown if others) Social History Smoking Status: Unknown if ever smoked Exam/Review of Systems Vital Signs Vitals Vital Signs Date Time Temp Pulse Resp B/P Pulse Ox O2 Delivery O2 Flow Rate FiO2 07/31/16 06:00 88 24 106/64 100 Mechanical Ventilator 07/31/16 05:03 60 07/31/16 04:30 101.2 Intake and Output 07/30/16 07/30/16 07/31/16 15:00 23:00 07:00 Intake Total 150 ml Output Total 600 ml Balance -450 ml Exam H EENT examination; supple neck, no JVD. No lymphadenopathy. Midline trachea. No thyromegaly. Patient has small pupils bilaterally. Bilateral intraocular lens implants are present. Patient does have fair dentition. Tracheostomy in place with clean insertion site. Chest examination; diminished but clear breath sounds bilaterally. S1-S2 audible, no murmurs. Regular rhythm. Abdomen examination; soft, nondistended. Bowel sounds are audible. G-tube in place. No scars are present. Umbilicus is inverted. Extremity examination; no peripheral edema. Patient does have contractures involving all 4 extremities. BRICK WASHER examination; patient is awake but does not respond to any commands. Results Result Diagram: 07/30/16205407/30/162054 Results 24 hrs Laboratory Tests Test 07/30/16 20:54 07/30/16 20:55 07/30/16 22:50 07/31/16 03:40 Arterial Blood HCO3 27.1 H Arterial Blood Base Excess 3.8 H Arterial Blood Oxygen Saturation 88.4 L Jefferson Test ACCEPTAB Arterial Blood Gas Puncture Site Right Radial Arterial Blood Carboxyhemoglobin 0.3 Arterial Blood Date Drawn 07/30/2016 9:15:41 PM Arterial Blood Methemoglobin 0.5 Arterial Blood pCO2 (Temp correct) 36.0 Arterial Blood pH (Temp corrected) 7.495 H Arterial Blood pO2 (Temp corrected) 53.8 *L Blood Gas A-a O2 Differential 190.0 H Blood Gas Actual Respiration Rate 27 Blood Gas Critical Value Read Back Yareli MCDUFFIE MD Blood Gas Inspiratory Pressure 28.0 Blood Gas Modality VENT - AC Blood Gas Notified Time 07/30/2016 9:22:36 PM Blood Gas Notified Whom MG Blood Gas Respiration Rate 14.0 Blood Gas Specimen Source Blood arterial Blood Gas Temperature 37.0 Blood Gas Tidal Volume 500.0 FiO2 40.0 Oxyhemoglobin Percent 87.7 L Total Hemoglobin 10.7 L Activated Partial Thromboplast Time 26.5 Alanine Aminotransferase (ALT/SGPT) 24 Albumin 4.0 Albumin/Globulin Ratio 0.88 Alkaline Phosphatase 83 Anion Gap 20 H Aspartate Amino Transf (AST/SGOT) 27 Basophils # 0.1 Basophils % 0.4 Blood Urea Nitrogen 97 H Calcium Level 9.8 Carbon Dioxide Level 34 H Chloride Level 97 Creatinine 2.42 H Direct Bilirubin 0.00 Eosinophils # 0.1 Eosinophils % 0.7 Globulin 4.50 H Glucose Level 120 Hematocrit 34.4 #L Hemoglobin 10.6 #L INR International Normalized Ratio 0.95 Indirect Bilirubin 0.1 Lactic Acid Level 2.0 1.4 1.1 Lymphocytes # 2.1 Lymphocytes % 12.0 L Mean Corpuscular Hemoglobin 29.2 Mean Corpuscular Hemoglobin Concent 30.8 L Mean Corpuscular Volume 94.8 Mean Platelet Volume 11.2 H Monocytes # 0.9 Monocytes % 5.1 Neutrophils # 13.9 H Neutrophils % 81.1 H Nucleated Red Blood Cells # 0.0 Nucleated Red Blood Cells % 0.0 Platelet Count 287 # Potassium Level 5.0 Prothrombin Time 12.7 Prothrombin Time Ratio 1.0 Red Blood Count 3.63 #L Red Cell Distribution Width 16.4 H Sodium Level 146 H Total Bilirubin 0.1 L Total Protein 8.5 H Troponin I 0.102 0.229 *H Urine Bacteria MODERATE Urine Bilirubin NEGATIVE Urine Clarity CLOUDY H Urine Color YELLOW Urine Glucose NEGATIVE Urine Hemoglobin 3+ H Urine Ketones NEGATIVE Urine Leukocyte Esterase 3+ H Urine Microscopic RBC 2-5 Urine Microscopic WBC >50 Urine Nitrite NEGATIVE Urine Specific [place] 1.010 Urine Total Protein 2+ H Urine Urobilinogen 0.2 E.U./dL Urine Yeast OCCASIONAL Urine pH 7.5 White Blood Count 17.2 #H Medications Medications Current Medications Piperacillin Sod/ Tazobactam Sod 50 ml @ 200 mls/hr Q8 IVPB Last administered on 07/31/16 05:47; Admin Dose 200 MLS/HR; Start 07/31/16 at 06:00 Sodium Chloride (NS) 1,000 ml @ 80 mls/hr [id number] IV Last administered on 02:42; Admin Dose 80 MLS/HR; Start 07/31/16 at 01:48 Famotidine (Pepcid) 20 mg DAILY GTB Last administered on 07/31/16 09:02; Admin Dose 20 MG; Start 07/31/16 at 09:00 Enoxaparin Sodium 40 mg 40 mg DAILY SC Last administered on 07/31/16 09:03; Admin Dose 40 MG; Start 07/31/16 at 09:00 Dobutamine HCl/ Dextrose 250 ml @ 11.25 mls/ hr TITRATE IV ; Start 07/31/16 at 02:00 Acetaminophen 650 mg 650 mg Q4H PRN [place] PAIN OR TEMP ABOVE 38C Last administered on 07/31/16 04:45; Admin Dose 650 MG; Start 07/31/16 at 05:00 Norepinephrine/ Dextrose (Levophed/D5W) 500 ml @ 1.87 mls/hr TITRATE IV ; Start 07/31/16 at 09:00 Lorazepam (Ativan) 0.25 mg Q4H PRN IV for shaking; Start 07/31/16 at 05:30 AUGUST TERAN Jul 31, 2016 09:34
[2016-07-31] MEDS ORDERED: MAGNESIUM HYDROXIDE 30ML CUP GTB PRN (10:00)
[2016-07-31] MEDS ORDERED: LEVETIRACETAM (100 MG/ML PO SYG) GTB SCH (10:00)
[2016-07-31] MEDS ORDERED: BISACODYL 10 MG SUPP PR PRN (10:00)
[2016-07-31] MEDS ORDERED: MINERAL OIL 133 ML ENEMA PR PRN (10:00)
[2016-07-31 10:10] LABS: ADD SCAN DIFF NO
[2016-07-31 10:17] LABS: BASOPHILS % 0.2 % (0.0-2.0); EOSINOPHILS # 0.3 10^3/ul (0.0-0.5); EOSINOPHILS % 2.6 % (0.0-7.0); HEMATOCRIT 31.1 % (42.0-52.0); HEMOGLOBIN 9.3 g/dl (14.0-18.0); LYMPHOCYTES # 1.2 10^3/ul (0.8-2.9); LYMPHOCYTES % 9.3 % (15.0-51.0); MEAN CORPUSCULAR HEMOGLOBIN 29.2 pg (29.0-33.0); MEAN CORPUSCULAR HGB CONC 29.9 g/dl (32.0-37.0); MEAN CORPUSCULAR VOLUME 97.5 fl (82.0-101.0); MEAN PLATELET VOLUME 11.2 fl (7.4-10.4); MONOCYTE # 0.6 10^3/ul (0.3-0.9); MONOCYTES % 4.5 % (0.0-11.0); NEUTROPHIL # 10.7 10^3/ul (1.6-7.5); NEUTROPHILS % 82.9 % (39.0-77.0); PLATELET COUNT 242 10^3/UL (140-415); RED BLOOD COUNT 3.19 10^6/ul (4.70-6.10); RED CELL DISTRIBUTION WIDTH 16.4 % (11.5-14.5); WHITE BLOOD COUNT 12.9 10^3/ul (4.8-10.8)
--- NOTE | 2016-07-31 11:17 | CONS ---
DATE OF ADMISSION: 07/31/2016 DATE OF CONSULTATION: 07/31/2016 HISTORY OF PRESENT ILLNESS: All this information is taken from the patient's medical record. He is noncommunicative communicate, PEG/trached, and by medical records anoxic brain damage. He was brou ght from a [facility] facility, found to be tachycardic and febrile. Urinary tract infection a pparently the source. His chest x-ray was stable and unchanged per radiologist. Apparently there w as an old chest x-ray done, on an old admission which I will review. The patient is a FULL CODE. F urther than that, we have an incomplete database. MEDICATIONS: Please refer to reconciliation sheet. ALLERGIES: ASPIRIN ACCORDING TO THE PATIENT'S MEDICAL RECORDS. MAJOR MEDICAL PROBLEMS IN THE PAST: To be determined. From what I can obtain from the patient's ch art reading over other physicians' notes, history of acute on chronic kidney failure, normocytic nor mochromic anemia, respiratory failure, PEG trached, tube feeding is all I can ascertain from the jenny rice's medical records. SOCIAL HISTORY: Unknown. FAMILY HISTORY: Unknown. REVIEW OF SYSTEMS: Cannot be obtained. In reviewing the patient's medical records, the next of kin and person to notify is Afua Hunter. I have tried to contact this person. I reached a denice hernandez only, which was full. I could not leave a message for this person. I will review his records fro m fpc facility and see if there is more contact information. PHYSICAL EXAMINATION: GENERAL: Shows a gentleman who looks somewhat dehydrated and drawn. HEENT: He is normocephalic, atraumatic. anicteric, acyanotic. VITAL SIGNS: Blood pressure 121/50, respirations of 23, pulse 95, and 100% saturation on 60% FIO2. CHEST: Shows distant breath sounds throughout both lung bosch. COR: S1, S2, without S3, S4, murmur, gallop, rub. Normal rate, normal rhythm. LABORATORIES: CBC: White blood cell count of 12.9, hemoglobin 9.3, hematocrit 31.1, MCV of 97.5, p latelet count 242,000. Chemistries: Serum sodium 146, potassium 5.0, chloride 97, bicarbonate 34, BUN of 97, creatinine 2.42, blood sugar 120. ASSESSMENT AND PLAN: I will continue to try patient's next of kin person of contact. In the event that we cannot do so, we will letter to her home. The patient is currently a FULL CODE. We may hav e to send a referral to bioethics committee in the event that there is no callback from patient's ne xt of kin, early within the next 3 days, and urgently in the event the patient becomes more hemodyna mically unstable. Dictated By: JODI CONTRERAS MD, LP/SALOME Conf#: [id number] DID#: [id number]
[2016-07-31 12:36] LABS: POTASSIUM 4.7 mmol/L (3.5-5.1)
[2016-07-31 12:39] LABS: CREATININE 1.9 mg/dl (0.61-1.24)
[2016-07-31 12:40] LABS: CALCIUM 7.9 mg/dl (8.4-10.2)
[2016-07-31] MEDS ORDERED: FERROUS SULFATE 220 MG/5 ML ML GTB SCH (13:00)
--- NOTE | 2016-07-31 13:04 | CONS ---
DATE OF ADMISSION: 07/31/2016 DATE OF CONSULTATION: 07/31/2016 TYPE OF CONSULTATION: Infectious disease. REASON FOR CONSULTATION: Antibiotic management. HISTORY OF PRESENT ILLNESS: The patient is a 71-year-old male who was brought in to the emergency r oom from the residential with a fever and tachycardia. He is noncommunicative. He has a chronic t li and he is ventilator dependent. He also has a G-tube in place. On admission, his white count was 17.2, H and H of 10.6 and 34.4, platelet count 287,000. BUN and creatinine 97/2.42. The patien t has a history of heart disease, on digoxin. His urine is growing greater than 10 to the 5th gram-negative rods. His chest x-ray shows stable di ffuse reticular interstitial changes. PAST MEDICAL HISTORY: Operations as outlined. FAMILY HISTORY: Noncontributory. SOCIAL HISTORY: He does not smoke, drink or abuse drugs. ALLERGIES: NONE TO PENICILLIN, SULFA OR FOODS. MEDICATIONS: Per chart review. REVIEW OF SYSTEMS: Positive for epilepsy and atrial fibrillation, as well as chronic respiratory fa ilure, ventilator dependent. PHYSICAL EXAMINATION: GENERAL: The patient is resting comfortably, in no acute distress. VITAL SIGNS: T-max of 104.4. SKIN: Without generalized rash. HEENT: Within normal limits. NECK: Supple. LYMPH NODES: None palpable. CHEST: Decreased breath sounds at the bases. HEART: Without murmur or gallop. ABDOMEN: Soft, obese, nontender, without organosplenomegaly or masses. As noted, he has a tracheos paco in place on his neck and he has a G-tube in the abdomen, without discharge. EXTREMITIES: Without cyanosis, clubbing, or edema. RECTAL AND GENITAL: Exam deferred. NEUROLOGIC EVALUATION: Arouses to painful stimuli. Does not open his eyes. He has no obvious foca l neurological abnormalities, but he is noncommunicative. IMPRESSION: Urinary tract infection with sepsis accompanied by acute kidney injury. The patient was well-hydrated in the emergency room and started on vancomycin and Zosyn. Blood cult ures, lactate and urine cultures were done. He was seen also in consultation by Dr. Sanchez, who note d he had bilateral interstitial changes in the lung. Patient with a UTI and sepsis, on low dose Levo phed. Will continue him currently on his vancomycin and Zosyn. I will dictate my findings to the ulisses rosa, Dr. Sanchez, and Dr. Lopez. Dictated By: MARINO LOGAN MD, JD/SALOME Conf#: [id number] DID#: [id number]
[2016-07-31 13:48] LABS: CK-MB 3.53 ng/ml (0.0-2.4); TROPONIN-I 0.135 ng/ml (0.00-0.12)
--- NOTE | 2016-07-31 14:26 | RADRPT ---
PROCEDURE: Renal US. CLINICAL INDICATION: Renal dysfunction. TECHNIQUE: Multiple sonographic images of the kidneys and urinary bladder were obtained. The imag es were reviewed on a PACS workstation. COMPARISON: No prior studies are available for comparison. FINDINGS: The right kidney measures 11.5 cm. The left kidney measures 10.5 cm. There is no renal mass. There is no hydronephrosis. There is no renal calculus. Renal parenchymal thickness and echogenicity is normal bilaterally. The perirenal regions are normal with no fluid collection or mass. There is a Bernstein catheter in the urinary bladder. IMPRESSION: 1. Normal kidneys with no hydronephrosis. 2. Bernstein catheter in the bladder. 3. Otherwise normal renal ultrasound. RPTAT: QQ .John Jiménez MD, Date Time Electronically viewed and signed by .John Jiménez MD, on 07/31/2016 14:26 .R/
[2016-07-31] MEDS: DEXTROSE 5%-0.45% NACL 1,000 ML IV SCH (14:49)
[2016-07-31] MEDS ORDERED: VANCOMYCIN 750 MG in SOD CHLORIDE 0.9% 150 ML IVPB SCH (15:00)
[2016-07-31] MEDS: FERROUS SULFATE 60 MG/ML 5ML CUP GTB SCH ×2 (16:28→23:12)
--- NOTE | 2016-07-31 17:32 | CONS ---
DATE OF ADMISSION: 07/31/2016 DATE OF CONSULTATION: 07/31/2016 TYPE OF CONSULTATION: Nephrology. REFERRING PHYSICIAN: ARNULFO BAY MD. REASON FOR CONSULTATION: Acute kidney injury, metabolic acidosis, hypernatremia. HISTORY OF PRESENT ILLNESS: This is a 71-year-old male who has a past medical history of hypertensi on, hyperlipidemia, history of a normocytic anemia, chronic respiratory failure with tracheostomy on ventilator. The patient presented with sepsis secondary to UTI and ST segment changes on electroca rdiogram. The patient was very hypotensive. He received fluid boluses for resuscitations and noted to have acute kidney injury with a creatinine of 2.2 up from her baseline as per the emergency room physician. Her BUN was 97. The patient gets admitted to the ICU, has been evaluated by pulmonary and infectious disease service and renal has been consulted for acute kidney injury. REVIEW OF SYSTEMS: As per HPI. PAST MEDICAL HISTORY: Notable for epilepsy, atrial fibrillation, type 2 diabetes, chronic respirato ry failure, status post tracheostomy, status post G-tube. PAST SURGICAL HISTORY: History of tracheostomy. History of G-tube. SOCIAL HISTORY: No smoking, alcohol or recreational drug use. FAMILY HISTORY: Not available. PHYSICAL EXAMINATION: VITAL SIGNS: Temperature 98.4, heart rate 107, respirations 29, blood pressure 119/71, saturation i s 100% on FIO2 100% on mechanical ventilator. HEENT: Normal. Tracheostomy tube site is clear. No discharge. NECK: Supple, no JVD. LUNGS: Clear to auscultation. Bilateral coarse breath sounds. HEART: S1, S2, with tachycardia, no murmur. ABDOMEN: Soft, gastrostomy tube is in place, site is clear. No discharge. EXTREMITIES: No clubbing, cyanosis, or edema. NEUROLOGICAL: Uncooperative for exam. LABORATORY DATA/DIAGNOSTIC IMAGING: Sodium 141, potassium 4.7, chloride 101, bicarbonate 27, BUN 74 , creatinine 1.9, glucose 106, calcium 7.9. Troponin is 0.135. PT 12.7, PTT 26.5, INR 0.95. WBC count 17.2, hemoglobin 10.6, platelet count 287. The patient had a creatinine of 2.42, BUN of 97 on admission. Chest x-ray 1 view portable, done in the emergency room shows stable diffuse reticular interstitial changes. IMPRESSION: This is a 71-year-old male who has been getting admitted for sepsis secondary to urinar y tract infections and renal has been consulted for: 1. Acute kidney injury on possible chronic kidney disease likely secondary to acute tubular necrosi s from sepsis secondary to urinary tract infection. 2. Septic shock, sepsis secondary to urinary tract infection. 3. ST segment changes on electrocardiogram. 4. Moderate to severe dehydration. 5. Normocytic anemia. 6. Rule out chronic kidney disease from type 2 diabetes mellitus. 7. Chronic respiratory failure, status post tracheostomy on ventilator. 8. Status post G-tube for feeding stage G-tube placement. PLAN: Thank you Dr. Moshe Pacheco for this consultation. 1. I will order the patient's urine studies including a urine sodium, urine protein, urine creatin ine, urine eosinophils, CK total, uric acid has been ordered. 2. I will order the patient's renal ultrasound to assess the kidney size and to rule out hydronephr osis. 3. Currently stop Lisinopril, discontinue normal saline IV fluids. Start IV fluids D5 half NS to r un at 70 mL per hour. 4. Continue the other ventilator care and infectious disease care as per the specialist team Thank you Dr. Bay for this consultation. I will continue to follow this patient for acute kidney injury. Total time spent in this patient's evaluation, making our assessment and plan, communicating with th e patient's family member and updating at bedside, communicating with the nursing staff took more th an 90 minutes. Dictated By: ARCHANA KELLEY MD, KP/SALOME Conf#: [id number] DID#: [id number]
[2016-07-31 17:33] LABS: PROTEIN/CREAT RATIO 1.34 RATIO
[2016-07-31] MEDS: LORAZEPAM 2 MG INJ IV PRN (20:25)
[2016-07-31] MEDS: ATORVASTATIN 10 MG TAB GTB SCH (20:34)
[2016-07-31] MEDS ORDERED: LEVETIRACETAM (100 MG/ML) 5ML CUP GTB SCH (23:00)
[2016-07-31] MEDS: LEVETIRACETAM (100 MG/ML) 5ML CUP GTB SCH (23:12)
[2016-08-01] VITALS (91 sets, daily range): BP systolic 74–143; BP diastolic 34–105; PULSE 87–109; RESP 20–37
[2016-08-01] MEDS ORDERED: SOD CHLORIDE 0.9% 500 ML IV ONE
[2016-08-01] MEDS: LEVOFLOXACIN 750MG/D5W (PMX) 150 ML IVPB SCH (01:07)
--- NOTE | 2016-08-01 01:57 | EN ---
Date/Time of Note Date/Time of Note DATE: 08/01/16 TIME: 01:39 ER Progress Note About 8 PM last night, I was notified that patient had a temperature over 101 Axillary and a rash all over his body. At the bedside, patient did not appear to be in distress or discomfort, but he did have a head-to-toe, blanching, deep pink rash. No hives or other skin changes noted. No change in his respiratory pattern, trached and on vent. I also learned that one of his blood cultures was positive for anaerobic, gram positive cocci in pairs and clusters. By my research, most likely a Peptostreptococcus. His urine is growing out > 100K Colonies of Gram Negative Rods, likely E. coli. To my eye, the rash does not appear to be that of a drug reaction, and I have never seen anyone that pink color with any fever, let alone a fever of 101+ axillary. I am left with the possibility that patient is having an allergic reaction to either Zosyn or Vancomycin . . . no way to tell. I put in a call to Dr. Patrick, Infectious Disease specialist, but did not receive a all from him, so I decided to go with my plan. I held both Zosyn and Vanco and added Clindamycin to cover Peptostreptococcus and Levaquin to cover E. coli. About an hour ago, I was notified that patient seemed to be scratching at himself, so I gave him 50 mg of Benadryl IV. I am not sure that steroids would be the best choice for him at this time. ALso, his BP was on the low side, so I gave him a 500 mL bolus of NS and then increased his rate up to 100 mL/hr from 80. I stopped by to see him about 30 minutes ago, and he did not look as red or feel as warm. Overall, he looked better. His temp had normalized. The antibiotics were just about to be hung as there was a delay in getting the medications from the pharmacy. On a final note. in the last couple of hours, I was notified that the other blood culture grew out Aerobic, Gram positive cocci in clusters, which could represent Staph and possibly MRSA. Luckily, the Clindamycin should cover those. I look forward to hearing Dr. Patrick's thoughts on this patient. ARNULFO BAY 10, 2017 01:56
[2016-08-01] MEDS: CLINDAMYCIN 900 MG/D5W (PMX) 50 ML IVPB SCH ×2 (03:01→06:38)
[2016-08-01 06:37] LABS: ADD SCAN DIFF NO
[2016-08-01] MEDS: DEXTROSE 5%-0.45% NACL 1,000 ML IV SCH (06:39)
[2016-08-01 06:53] LABS: BASOPHILS % 0.1 % (0.0-2.0); EOSINOPHILS # 0.8 10^3/ul (0.0-0.5); EOSINOPHILS % 5.6 % (0.0-7.0); HEMATOCRIT 34.2 % (42.0-52.0); HEMOGLOBIN 10.1 g/dl (14.0-18.0); LYMPHOCYTES # 1.6 10^3/ul (0.8-2.9); LYMPHOCYTES % 10.3 % (15.0-51.0); MEAN CORPUSCULAR HEMOGLOBIN 29.2 pg (29.0-33.0); MEAN CORPUSCULAR HGB CONC 29.5 g/dl (32.0-37.0); MEAN CORPUSCULAR VOLUME 98.8 fl (82.0-101.0); MEAN PLATELET VOLUME 11.3 fl (7.4-10.4); MONOCYTE # 1.3 10^3/ul (0.3-0.9); MONOCYTES % 8.4 % (0.0-11.0); NEUTROPHIL # 11.3 10^3/ul (1.6-7.5); NEUTROPHILS % 75.1 % (39.0-77.0); PLATELET COUNT 234 10^3/UL (140-415); RED BLOOD COUNT 3.46 10^6/ul (4.70-6.10); RED CELL DISTRIBUTION WIDTH 16.5 % (11.5-14.5); WHITE BLOOD COUNT 15.1 10^3/ul (4.8-10.8)
[2016-08-01 07:02] LABS: CHOL/HDL RATIO 4.7 RATIO
[2016-08-01 07:04] LABS: POTASSIUM 4.8 mmol/L (3.5-5.1)
[2016-08-01 07:07] LABS: CREATININE 1.63 mg/dl (0.61-1.24); MAGNESIUM 2.3 mg/dl (1.7-2.5); PHOSPHORUS 3.7 mg/dl (2.5-4.9); URIC ACID 9.1 mg/dl (3.1-7.9)
[2016-08-01 07:08] LABS: CALCIUM 8.2 mg/dl (8.4-10.2)
[2016-08-01 07:33] LABS: THYROID STIMULATING HORMONE 2.09 MIU/L (0.465-4.680)
[2016-08-01] MEDS: ENOXAPARIN 40 MG/0.4 ML SYG SC SCH (08:24)
[2016-08-01] MEDS: DOCUSATE SODIUM 10 MG/ML (10ML CUP) GTB SCH (08:24)
[2016-08-01] MEDS: FAMOTIDINE 20 MG TAB GTB SCH (08:24)
[2016-08-01] MEDS: FERROUS SULFATE 60 MG/ML 5ML CUP GTB SCH ×3 (08:24→21:00)
[2016-08-01] MEDS: LORAZEPAM 2 MG INJ IV PRN (08:39)
[2016-08-01] MEDS ORDERED: LISINOPRIL 5 MG TAB GTB SCH (09:00)
--- NOTE | 2016-08-01 10:10 | CONS ---
Date/Time of Note Date/Time of Note DATE: 08/01/16 TIME: 10:06 Assessment/Plan Assessment/Plan Additional Assessment/Plan Ventilator settings; AC of 16, tidal volume 500, PEEP of 0, 30% FiO2. Assessment recommendations 1. Patient admitted for UTI and sepsis. 2. Stable seizure disorder. 3. Interstitial lung disease. 4. Hypernatremia. 5. Renal injury. Likely from prerenal azotemia. Serum creatinine is improved from today. 6. Hypotension from sepsis, currently on low-dose Levophed drip. Neck 7. History of anoxic brain injury. Continue current supportive care. Add PEEP of 5. Increase free water via G- tube to 250 ML every 4 hours for correction of hypernatremia. Consultation Date/Type/Reason Admit Date/Time Jul 31, 2016 at 02:00 Initial Consult Date 07/31/16 Type of Consultation: Pulmonary/critical care 24 HR Interval Summary Free Text/Dictation Patient condition remains critical. Still requiring full ventilator support as well as Levophed for blood pressure maintenance. The patient is not much responsive other than eye opening on sternal rubbing on account of underlying anoxic brain injury. General exam; elderly male, currently in no distress, on ventilator via tracheostomy. Exam/Review of Systems Vital Signs Vitals Vital Signs Date Time Temp Pulse Resp B/P Pulse Ox O2 Delivery O2 Flow Rate FiO2 08/01/16 08:00 99.2 91 22 78/54 96 Mechanical Ventilator 08/01/16 05:19 40 Intake and Output 07/31/16 07/31/16 08/01/16 15:00 23:00 07:00 Intake Total 15 ml 777.75 ml 492.75 ml Output Total 1050 ml 505 ml 175 ml Balance -1035 ml 272.75 ml 317.75 ml Exam H EENT exam is; supple neck, no JVD. No lymphadenopathy. Midline trachea. Tracheostomy in place with clean insertion site. Pupils are small bilaterally. No neck masses. No thyromegaly. Chest examination SC: Diminished but clear breath sounds bilaterally. S1-S2 audible, no murmurs. Regular rhythm. Abdomen examination; soft, nondistended. G-tube in place. Bowel sounds audible. Extremity examination; no peripheral edema. 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 Results Result Diagram: 08/01/16 0551 08/01/16 0551 Results 24 hrs Laboratory Tests Test 07/31/16 13:00 07/31/16 15:05 08/01/16 05:51 Creatine Kinase 166 237 H Creatine Kinase Index 2.1 Creatinine Kinase MB (Mass) 3.53 H Troponin I 0.135 *H Urine Eosinophils % 2.0 H Urine Protein/Creatinine Ratio 1.34 Urine Random Creatinine 37.85 Urine Random Sodium 76 Urine Total Protein 51.0 H Anion Gap 17 H Basophils # 0.0 Basophils % 0.1 Blood Urea Nitrogen 49 #H Calcium Level 8.2 L Carbon Dioxide Level 28 Chloride Level 113 H Cholesterol Level 113 Cholesterol/HDL Ratio 4.7 Creatinine 1.63 H Digoxin Level 1.7 Eosinophils # 0.8 H Eosinophils % 5.6 Free Thyroxine 1.78 Glucose Level 113 HDL Cholesterol 24 L Hematocrit 34.2 L Hemoglobin 10.1 L LDL Cholesterol, Calculated 58 Lymphocytes # 1.6 Lymphocytes % 10.3 L Magnesium Level 2.3 Mean Corpuscular Hemoglobin 29.2 Mean Corpuscular Hemoglobin Concent 29.5 L Mean Corpuscular Volume 98.8 Mean Platelet Volume 11.3 H Monocytes # 1.3 H Monocytes % 8.4 Neutrophils # 11.3 H Neutrophils % 75.1 Nucleated Red Blood Cells # 0.0 Nucleated Red Blood Cells % 0.0 Phosphorus Level 3.7 Platelet Count 234 Potassium Level 4.8 Red Blood Count 3.46 L Red Cell Distribution Width 16.5 H Sodium Level 153 H Thyroid Stimulating Hormone (TSH) 2.090 Triglycerides Level 156 H Uric Acid 9.1 H White Blood Count 15.1 H Medications Medications Current Medications Piperacillin Sod/ Tazobactam Sod (Zosyn 2.25gm/ 50ml (Pmx)) 50 ml @ 200 mls/hr Q8 IVPB Last administered on 07/31/16 14:50; Admin Dose 200 MLS/HR; Start at 06:00; Status Future Hold Famotidine (Pepcid) 20 mg DAILY GTB Last administered on 08/01/16 08:24; Admin Dose 20 MG; Start 07/31/16 at 09:00 Enoxaparin Sodium 40 mg 40 mg DAILY SC Last administered on 08/01/16 08:24; Admin Dose 40 MG; Start 07/31/16 at 09:00 Dobutamine HCl/ Dextrose 250 ml @ 11.25 mls/ hr TITRATE IV ; Start 07/31/16 at 02:00 Acetaminophen 650 mg 650 mg Q4H PRN [place] PAIN OR TEMP ABOVE 38C Last administered on 07/31/16 20:27; Admin Dose 650 MG; Start 07/31/16 at 05:00 Norepinephrine/ Dextrose (Levophed/D5W) 500 ml @ 1.87 mls/hr TITRATE IV Last administered on 08/01/16 05:45; Admin Dose 3.75 MLS/HR; Start 07/31/16 at 09:00 Lorazepam (Ativan) 0.25 mg Q4H PRN IV for shaking Last administered on 08:39; Admin Dose 0.25 MG; Start 07/31/16 at 05:30 Atorvastatin Calcium (Lipitor) 5 mg QHS GTB Last administered on 07/31/16 20:34 ; Admin Dose 5 MG; Start 07/31/16 at 21:00 Bisacodyl (Dulcolax Supp) 10 mg DAILY PRN [place] CONSTIPATION; Start 07/31/16 at 10: 00 Docusate Sodium (Colace Liquid Cup) 100 mg DAILY GTB Last administered on 08:24; Admin Dose 100 MG; Start 08/01/16 at 09:00 Magnesium Hydroxide (Milk Of Mag) 30 ml DAILY PRN GTB CONSTIPATION; Start at 10:00 Mineral Oil 133 ml 133 ml DAILY PRN [place] CONSTIPATION; Start 07/31/16 at 10:00 Dextrose/Sodium Chloride 1,000 ml @ 100 mls/hr Q10H IV Last administered on 06:39; Admin Dose 100 MLS/HR; Start 07/31/16 at 12:30 Vancomycin HCl/ Sodium Chloride (Vancocin/NS) 150 ml @ 75 mls/hr Q24H IVPB Last administered on 07/31/16 16:27; Admin Dose 75 MLS/HR; Start 07/31/16 at 15: 00; Status Future Hold Ferrous Sulfate (Feosol Liquid Cup) 300 mg TID GTB Last administered on 08:24; Admin Dose 300 MG; Start 07/31/16 at 16:00 Levetiracetam 500 mg 500 mg Q12H GTB Last administered on 07/31/16 23:12; Admin Dose 500 MG; Start 07/31/16 at 23:00 Clindamycin HCl/ Dextrose 50 ml @ 50 mls/hr Q6 IVPB Last administered on 06:38; Admin Dose 50 MLS/HR; Start 08/01/16 at 00:00 Levofloxacin/ Dextrose (Levaquin 750 Mg/ D5W 150 ml (Pmx)) 150 ml @ 100 mls/hr Q48H IVPB Last administered on 08/01/16 01:07; Admin Dose 100 MLS/HR; Start at 23:30 Diphenhydramine HCl (Benadryl) 50 mg Q6H PRN IV ITCHING; Start 08/01/16 at 00: 00 AUGUST TERAN Aug 01, 2016 10:10
[2016-08-01] MEDS ORDERED: LORATADINE 10 MG TAB PO ONE (10:30)
[2016-08-01] MEDS ORDERED: PERMETHRIN 5% 60 GM CR TOP ONE ×2 (10:30→21:00)
--- NOTE | 2016-08-01 10:50 | PN ---
DATE: 08/01/2016 SUBJECTIVE: No acute events overnight. The patient is lying comfortably in bed. He is itching. H is T-max yesterday was 101.7, T-current 99.2, pulse 100, respirations 25, blood pressure 86/56 on Le vophed drip, 96 on vent. LABORATORY DATA: WBC 15.1, H and H 10.1 and 34.2, platelets 234, neutrophils 75.1, BUN 49, creatini ne 1.63. Troponin 0.135. MICROBIOLOGY: Urine culture growing gram-negative rods. Blood culture growing gram-positive cocci in clusters. INDWELLINGS: Trach, PEG, Bernstein, femoral line. DIAGNOSTICS: The patient had a renal ultrasound that revealed no hydronephrosis. ANTIMICROBIALS: The patient was started on clindamycin. He is also on Levaquin, status post vancom ycin and Zosyn. PHYSICAL EXAMINATION: GENERAL: This is a chronically ill-appearing, elderly man who is in no distress. HEENT: Head atraumatic, normocephalic. Sclerae anicteric. Buccal mucosa dry. NECK: Supple. Tracheostomy is present. CHEST: Rise symmetrical. Breath sounds diminished to bases. HEART: S1, S2. ABDOMEN: Soft, bowel tones present. EXTREMITIES: Without cyanosis. SKIN: With maculopapular rash over the body and also scratching foreman on his legs. ASSESSMENT: 1. Severe sepsis with shock. 2. Gram-negative rods urinary tract infection. 3. Bacteremia with blood culture growing gram-positive cocci in clusters 2 out of 2 bottles. 4. Rash, possibly allergic to Zosyn. Rule out scabies. 5. Chronic respiratory failure. 6. Acute renal failure, likely acute tubular necrosis. 7. Non-ST elevation myocardial infarction. 8. History of anoxic brain injury. PLAN: We are going to change clindamycin to Zyvox. Continue Levaquin, add aztreonam to the regimen and start the patient on oral Claritin daily. Send skin scrapings for scabies and give him empiric Elimite. Also order cortisone cream topical. Repeat blood cultures and await for final cultures. Dictated By: DEJA ARIAS TOOLING SPECIALIST vicki BOWEN/SALOME Conf#: [id number] [facility]#: [id number]
--- NOTE | 2016-08-01 12:07 | PN ---
DATE: 08/01/2016 SUBJECTIVE DATA: The patient remains on IV pressors for blood pressure support. The patient remains afebrile. OBJECTIVE DATA: VITAL SIGNS: Temperature 99.2, pulse rate 101, respiratory rate 29, blood pressure 126/69, oxygen saturation 94% on 30% FIO2 via mechanical ventilator. GENERAL: This is an elderly 61-year-old male lying in bed in no apparent distress. HEENT: Head normocephalic and atraumatic. Eyes: Anicteric sclerae. Conjunctivae clear. ENT: Nasal septum is midline. Oral mucosa is dry. NECK: Tracheostomy midline. RESPIRATORY: Bilaterally diminished breath sounds. Coarse breath sounds. Tracheostomy connected to mechanical ventilator. On AC mode ventilation. CARDIAC: Regular rate and rhythm with multiple PVCs. ABDOMEN: Soft. Left upper quadrant G-tube site with G-tube site leaking. GENITOURINARY: The patient has a Bernstein catheter in place. EXTREMITIES: No cyanosis, no clubbing. Peripheral pulses diminished. Contracted extremities on bilateral upper and lower extremity contractions. NEUROLOGIC: The patient is awake but not alert. LABORATORY AND DIAGNOSTIC DATA: WBC 15.1, hemoglobin 10.1, hematocrit 34.2, platelet count 234. Sodium 153, potassium 4.8, chloride 113, carbon dioxide 20 , anion gap 17, BUN 49, creatinine 1.63, glucose 113, calcium 8.2. Blood culture positive for gram-positive cocci in clusters. Urine culture positive for gram-negative rods. ASSESSMENT AND PLAN: 1. Sepsis with underlying septic shock secondary to urinary tract infection with underlying gram-positive bacteremia. Continue antibiotics as per infectious diseases. Continue pressors for blood pressure support. 2. Acute on chronic kidney injury in a patient with unknown baseline creatinine. Nephrology is following. Avoid nephrotoxic medications. The patient's BUN and creatinine are improving. 3. Elevated troponins, most probably a type 2 event from underlying sepsis and kidney injury. Monitor. 4. Chronic respiratory failure. Vent dependent. Continue ventilator management as per pulmonary. Continue inhaled bronchodilators. 5. Normocytic normochromic anemia with underlying iron deficiency. Continue iron supplements. Monitor H and H closely. 6. Hemoglobin A1c of 10.0. No known history of diabetes. No known history of recent blood transfusion. We will repeat hemoglobin A1c. The fasting blood sugars are within normal limits. Hence, the patient will not be started on any sliding scale insulin. 7. Dyslipidemia. Continue statins. 8. Seizure disorder. Continue anticonvulsants. 9. History of essential hypertension. Currently, hypotensive. Antihypertensives on hold. 10. Leaking G-tube site. We will involve gastroenterology on the case. 11. Fluid, electrolytes and nutrition. Continue IV fluids as per nephrology. 12. Deep venous thrombosis prophylaxis. Histamine 2 receptor blockers. 13. Plan. Continue antibiotics as per Infectious Disease. Continue pressors for blood pressure support. Palliative care on the patient's case trying to reach the patient's family. Ideally, the patient needs to be a DNR. Poor prognosis. The case discussed with Dr. Underwood. Critical care time: 35 minutes. RENA UNDERWOOD MD, AM/SALOME Conf#: [id number] DID#: [id number]
[2016-08-01] MEDS: DIPHENHYDRAMINE 50 MG INJ IV PRN (12:40)
--- NOTE | 2016-08-01 13:14 | CONS ---
Date/Time of Note Date/Time of Note DATE: 08/01/16 TIME: 13:11 Assessment/Plan Assessment/Plan Additional Assessment/Plan Dysphagia/G-tube malfunction Cleanse site and change dressing daily Abdominal x-ray Recommend new G-tube insertion with EGD Nutrition consult for appropriate rate and type of G-tube feed Sepsis/septic shock secondary to urinary tract infection Management per Primary Infectious disease following Possible diabetes Management per primary Hemoglobin A1c of 10.0., Repeat hemoglobin in process Acute on chronic kidney injury Nephrology following Chronic respiratory failure. Vent dependent. Management per pulmonary History of seizure disorder Management per Primary Further recommendations depend on clinical course Consultation Date/Type/Reason Admit Date/Time Jul 31, 2016 at 02:00 Type of Consultation: Gastroenterology Reason for Consultation Dysfunctional G-tube Hx of Present Illness Mr. Bola Payne is a 71-year-old male with unknown past medical history that was [facility] to further evaluate tachycardia and fever. Patient is status post tracheostomy and has G-tube in place. At bedside , G-tube feed in addition to black colored discharge escaping from G-tube site. G-tube site is also indurated secondary to cellulitis. Presently, known contacts for patient are unavailable. Patient currently being treated for sepsis, acute kidney injury, elevated troponins, chronic respiratory failure, anemia, seizure disorder, and possible diabetes and scabies. Past Medical History Medical History: diabetes, other (Epilepsy; Atrial Fibrillation, Chronic Respiratory Failure, Vent-Dependent) Past Surgical History Past Surgical Hx: other (Tracheostomy; G-Tube; unknown if others) Social History Smoking Status: Unknown if ever smoked Exam/Review of Systems Vital Signs Vitals Vital Signs Date Time Temp Pulse Resp B/P Pulse Ox O2 Delivery O2 Flow Rate FiO2 08/01/16 12:00 97 08/01/16 10:00 29 126/69 94 Mechanical Ventilator 08/01/16 09:00 30 08/01/16 08:00 99.2 Intake and Output 07/31/16 07/31/16 08/01/16 15:00 23:00 07:00 Intake Total 15 ml 777.75 ml 492.75 ml Output Total 1050 ml 505 ml 175 ml Balance -1035 ml 272.75 ml 317.75 ml Exam Constitutional: Nonverbal, thin Psych: Nonverbal Head: normocephalic Eyes: nl conjunctiva, nl lids ENMT: nl external ears & nose, nl lips & teeth, nl nasal mucosa & septum Respiratory: Tracheostomy Cardiovascular: regular rate and rhythm Gastrointestinal: soft, G-tube site indurated Musculoskeletal: Contractures bilateral hands and feet Neurological: Grossly nonfocal Results Result Diagram: 08/01/16 0551 08/01/16 0551 Results 24 hrs Laboratory Tests Test 07/31/16 15:05 08/01/16 05:51 Urine Eosinophils % 2.0 H Urine Protein/Creatinine Ratio 1.34 Urine Random Creatinine 37.85 Urine Random Sodium 76 Urine Total Protein 51.0 H Anion Gap 17 H Basophils # 0.0 Basophils % 0.1 Blood Urea Nitrogen 49 #H Calcium Level 8.2 L Carbon Dioxide Level 28 Chloride Level 113 H Cholesterol Level 113 Cholesterol/HDL Ratio 4.7 Creatine Kinase 237 H Creatinine 1.63 H Digoxin Level 1.7 Eosinophils # 0.8 H Eosinophils % 5.6 Free Thyroxine 1.78 Glucose Level 113 HDL Cholesterol 24 L Hematocrit 34.2 L Hemoglobin 10.1 L Hemoglobin A1c 10.0 H LDL Cholesterol, Calculated 58 Lymphocytes # 1.6 Lymphocytes % 10.3 L Magnesium Level 2.3 Mean Corpuscular Hemoglobin 29.2 Mean Corpuscular Hemoglobin Concent 29.5 L Mean Corpuscular Volume 98.8 Mean Platelet Volume 11.3 H Monocytes # 1.3 H Monocytes % 8.4 Neutrophils # 11.3 H Neutrophils % 75.1 Nucleated Red Blood Cells # 0.0 Nucleated Red Blood Cells % 0.0 Phosphorus Level 3.7 Platelet Count 234 Potassium Level 4.8 Red Blood Count 3.46 L Red Cell Distribution Width 16.5 H Sodium Level 153 H Thyroid Stimulating Hormone (TSH) 2.090 Triglycerides Level 156 H Uric Acid 9.1 H White Blood Count 15.1 H Medications Medications Current Medications Famotidine (Pepcid) 20 mg DAILY GTB Last administered on 08/01/16 08:24; Admin Dose 20 MG; Start 07/31/16 at 09:00 Enoxaparin Sodium 40 mg 40 mg DAILY SC Last administered on 08/01/16 08:24; Admin Dose 40 MG; Start 07/31/16 at 09:00 Dobutamine HCl/ Dextrose 250 ml @ 11.25 mls/ hr TITRATE IV ; Start 07/31/16 at 02:00 Acetaminophen 650 mg 650 mg Q4H PRN [place] PAIN OR TEMP ABOVE 38C Last administered on 07/31/16 20:27; Admin Dose 650 MG; Start 07/31/16 at 05:00 Norepinephrine/ Dextrose (Levophed/D5W) 500 ml @ 1.87 mls/hr TITRATE IV Last administered on 08/01/16 05:45; Admin Dose 3.75 MLS/HR; Start 07/31/16 at 09:00 Lorazepam (Ativan) 0.25 mg Q4H PRN IV for shaking Last administered on 08:39; Admin Dose 0.25 MG; Start 07/31/16 at 05:30 Atorvastatin Calcium (Lipitor) 5 mg QHS GTB Last administered on 07/31/16 20:34 ; Admin Dose 5 MG; Start 07/31/16 at 21:00 Bisacodyl (Dulcolax Supp) 10 mg DAILY PRN [place] CONSTIPATION; Start 07/31/16 at 10: 00 Docusate Sodium (Colace Liquid Cup) 100 mg DAILY GTB Last administered on 08:24; Admin Dose 100 MG; Start 08/01/16 at 09:00 Magnesium Hydroxide (Milk Of Mag) 30 ml DAILY PRN GTB CONSTIPATION; Start at 10:00 Mineral Oil (Fleet Mineral Oil Enema) 133 ml DAILY PRN [place] CONSTIPATION; Start 07/31/16 at 10:00 Ferrous Sulfate (Feosol Liquid Cup) 300 mg TID GTB Last administered on 08:24; Admin Dose 300 MG; Start 07/31/16 at 16:00 Levetiracetam 500 mg 500 mg Q12H GTB Last administered on 07/31/16 23:12; Admin Dose 500 MG; Start 07/31/16 at 23:00 Levofloxacin/ Dextrose (Levaquin 750 Mg/ D5W 150 ml (Pmx)) 150 ml @ 100 mls/hr Q48H IVPB Last administered on 08/01/16 01:07; Admin Dose 100 MLS/HR; Start at 23:30 Diphenhydramine HCl (Benadryl) 50 mg Q6H PRN IV ITCHING Last administered on 12:40; Admin Dose 50 MG; Start 08/01/16 at 00:00 Loratadine (Claritin) 10 mg DAILY PO ; Start 08/01/16 at 12:00 Linezolid 600 mg 600 mg BID PO ; Start 08/01/16 at 21:00 Potassium Chloride 10 meq/ Dextrose 1,005 ml @ 75 mls/hr [id number] IV ; Start 03/10 at 13:00 Ertapenem/Sodium Chloride (Invanz/NS) 100 ml @ 200 mls/hr Q24H IVPB ; Start 03/10 at 14:00 Mupirocin (Bactroban) 1 applic BID TOP ; Start 08/01/16 at 21:00 BIANKA LEAL MD Aug 01, 2016 13:14
[2016-08-01] MEDS: LEVETIRACETAM (100 MG/ML) 5ML CUP GTB SCH ×2 (13:49→23:22)
[2016-08-01] MEDS: LORATADINE 10 MG TAB PO SCH (13:49)
[2016-08-01] MEDS: POTASSIUM CHLORIDE 10 MEQ in DEXTROSE 5% 1,000 ML IV SCH (13:50)
[2016-08-01] MEDS: ERTAPENEM SODIUM 1 GM in SOD CHLORIDE 0.9% 100 ML IVPB SCH (13:50)
--- NOTE | 2016-08-01 14:20 | RADRPT ---
PROCEDURE: XR Abdomen 1 vw. CLINICAL INDICATION: Malfunctioning G tube TECHNIQUE: AP view of the abdomen COMPARISON: None. FINDINGS: Left femoral venous catheter. IVC filter at the L2 vertebral body. The tip of the G tube overlying the left L1 transverse process No organomegaly is identified. There is a nonspecific bowel gas pattern. There is no evidence of b owel obstruction. No free air is identified. No calculi are identified. The axial skeleton is unre markable. IMPRESSION: NG tube overlying the left L1 transverse process. Unremarkable abdomen RPTAT: HGDB .Viraj Frost MD, Date Time Electronically viewed and signed by .Viraj Frost MD, on 08/01/2016 14:20 .B/
[2016-08-01] MEDS: ALTEPLASE (CATHFLO) 2 MG INJ CATHETER PRN ×2 (16:01→18:49)
--- NOTE | 2016-08-01 20:13 | CONS ---
Date/Time of Note Date/Time of Note DATE: 08/01/16 TIME: 20:11 Assessment/Plan Assessment/Plan Additional Assessment/Plan 1. Acute kidney injury on possible chronic kidney disease likely secondary to acute tubular necrosis from sepsis secondary to urinary tract infection. 2. Septic shock, sepsis secondary to urinary tract infection. 3. ST segment changes on electrocardiogram. 4. Moderate to severe dehydration. 5. Normocytic anemia. 6. Rule out chronic kidney disease from type 2 diabetes mellitus. 7. Chronic respiratory failure, status post tracheostomy on ventilator. 8. Status post G-tube for feeding stage G-tube placement. PLAN: Cr better, d/c current iVF D51/2NS start D5W will continue to follow up on patient Consultation Date/Type/Reason Admit Date/Time Jul 31, 2016 at 02:00 Initial Consult Date 07/31/16 Type of Consultation: NEPHROLOGY Reason for Consultation acute kidney injury Referring Provider: MINESH JOLLEY 24 HR Interval Summary Free Text/Dictation Cr improved, Na improved, pt is s/p tracheostomy on ventilator Exam/Review of Systems Vital Signs Vitals Vital Signs Date Time Temp Pulse Resp B/P Pulse Ox O2 Delivery O2 Flow Rate FiO2 08/01/16 19:16 100 26 98 30 08/01/16 18:00 116/57 Mechanical Ventilator 08/01/16 16:00 98.8 Intake and Output 07/31/16 07/31/16 08/01/16 15:00 23:00 07:00 Intake Total 15 ml 777.75 ml 522.75 ml Output Total 1050 ml 505 ml 205 ml Balance -1035 ml 272.75 ml 317.75 ml Exam HEENT: Normal. Tracheostomy tube site is clear. No discharge. NECK: Supple, no JVD. LUNGS: Clear to auscultation. Bilateral coarse breath sounds. HEART: S1, S2, with tachycardia, no murmur. ABDOMEN: Soft, gastrostomy tube is in place, site is clear. No discharge. EXTREMITIES: No clubbing, cyanosis, or edema. NEUROLOGICAL: Uncooperative for exam. Results Result Diagram: 08/01/16 0551 08/01/16 0551 Results 24 hrs Laboratory Tests Test 08/01/16 05:51 Anion Gap 17 H Basophils # 0.0 Basophils % 0.1 Blood Urea Nitrogen 49 #H Calcium Level 8.2 L Carbon Dioxide Level 28 Chloride Level 113 H Cholesterol Level 113 Cholesterol/HDL Ratio 4.7 Creatine Kinase 237 H Creatinine 1.63 H Digoxin Level 1.7 Eosinophils # 0.8 H Eosinophils % 5.6 Free Thyroxine 1.78 Glucose Level 113 HDL Cholesterol 24 L Hematocrit 34.2 L Hemoglobin 10.1 L Hemoglobin A1c 6.0 H LDL Cholesterol, Calculated 58 Lymphocytes # 1.6 Lymphocytes % 10.3 L Magnesium Level 2.3 Mean Corpuscular Hemoglobin 29.2 Mean Corpuscular Hemoglobin Concent 29.5 L Mean Corpuscular Volume 98.8 Mean Platelet Volume 11.3 H Monocytes # 1.3 H Monocytes % 8.4 Neutrophils # 11.3 H Neutrophils % 75.1 Nucleated Red Blood Cells # 0.0 Nucleated Red Blood Cells % 0.0 Phosphorus Level 3.7 Platelet Count 234 Potassium Level 4.8 Red Blood Count 3.46 L Red Cell Distribution Width 16.5 H Sodium Level 153 H Thyroid Stimulating Hormone (TSH) 2.090 Triglycerides Level 156 H Uric Acid 9.1 H White Blood Count 15.1 H Medications Medications Current Medications Famotidine (Pepcid) 20 mg DAILY GTB Last administered on 08/01/16 08:24; Admin Dose 20 MG; Start 07/31/16 at 09:00 Enoxaparin Sodium 40 mg 40 mg DAILY SC Last administered on 08/01/16 08:24; Admin Dose 40 MG; Start 07/31/16 at 09:00 Dobutamine HCl/ Dextrose 250 ml @ 11.25 mls/ hr TITRATE IV ; Start 07/31/16 at 02:00 Acetaminophen 650 mg 650 mg Q4H PRN [place] PAIN OR TEMP ABOVE 38C Last administered on 07/31/16 20:27; Admin Dose 650 MG; Start 07/31/16 at 05:00 Norepinephrine/ Dextrose (Levophed/D5W) 500 ml @ 1.87 mls/hr TITRATE IV Last administered on 08/01/16 05:45; Admin Dose 3.75 MLS/HR; Start 07/31/16 at 09:00 Lorazepam (Ativan) 0.25 mg Q4H PRN IV for shaking Last administered on 08:39; Admin Dose 0.25 MG; Start 07/31/16 at 05:30 Atorvastatin Calcium (Lipitor) 5 mg QHS GTB Last administered on 07/31/16 20:34 ; Admin Dose 5 MG; Start 07/31/16 at 21:00 Bisacodyl (Dulcolax Supp) 10 mg DAILY PRN [place] CONSTIPATION; Start 07/31/16 at 10: 00 Docusate Sodium (Colace Liquid Cup) 100 mg DAILY GTB Last administered on 08:24; Admin Dose 100 MG; Start 08/01/16 at 09:00 Magnesium Hydroxide (Milk Of Mag) 30 ml DAILY PRN GTB CONSTIPATION; Start at 10:00 Mineral Oil (Fleet Mineral Oil Enema) 133 ml DAILY PRN [place] CONSTIPATION; Start 07/31/16 at 10:00 Ferrous Sulfate (Feosol Liquid Cup) 300 mg TID GTB Last administered on 13:49; Admin Dose 300 MG; Start 07/31/16 at 16:00 Levetiracetam 500 mg 500 mg Q12H GTB Last administered on 08/01/16 13:49; Admin Dose 500 MG; Start 07/31/16 at 23:00 Levofloxacin/ Dextrose (Levaquin 750 Mg/ D5W 150 ml (Pmx)) 150 ml @ 100 mls/hr Q48H IVPB Last administered on 08/01/16 01:07; Admin Dose 100 MLS/HR; Start at 23:30 Diphenhydramine HCl (Benadryl) 50 mg Q6H PRN IV ITCHING Last administered on 12:40; Admin Dose 50 MG; Start 08/01/16 at 00:00 Loratadine (Claritin) 10 mg DAILY PO Last administered on 08/01/16 13:49; Admin Dose 10 MG; Start 08/01/16 at 12:00 Linezolid 600 mg 600 mg BID PO ; Start 08/01/16 at 21:00 Potassium Chloride 10 meq/ Dextrose 1,005 ml @ 75 mls/hr [id number] IV Last administered on 08/01/16 13:50; Admin Dose 75 MLS/HR; Start 08/01/16 at 13:00 Ertapenem/Sodium Chloride (Invanz/NS) 100 ml @ 200 mls/hr Q24H IVPB Last administered on 3/10/17at 13:50; Admin Dose 200 MLS/HR; Start 08/01/16 at 14:00 Mupirocin (Bactroban) 1 applic BID TOP ; Start 08/01/16 at 21:00 Permethrin (Elimite 5% Cr) 1 applic ONCE ONCE TOP ; Start 08/01/16 at 21:00; Stop 08/01/16 at 21:01 ARCHANA KELLEY MD Aug 01, 2016 20:13
[2016-08-01] MEDS ORDERED: AZTREONAM 1 GM/NS (PMX) 50 ML IVPB SCH (21:00)
[2016-08-01] MEDS: ZYVOX 600 MG TAB PO SCH (21:00)
[2016-08-01] MEDS: ATORVASTATIN 10 MG TAB GTB SCH (21:00)
[2016-08-01] MEDS: MUPIROCIN 2% 22 GM OINT TOP SCH (21:36)
[2016-08-01] MEDS ORDERED: ALTEPLASE (CATHFLO) 2 MG INJ CATHETER PRN (22:00)
[2016-08-02] VITALS (85 sets, daily range): BP systolic 68–141; BP diastolic 48–91; PULSE 47–111; RESP 15–38
[2016-08-02] MEDS: DIPHENHYDRAMINE 50 MG INJ IV PRN (00:02)
[2016-08-02] MEDS: ACETAMINOPHEN 650 MG SUPP PR PRN (00:29)
[2016-08-02] MEDS: LORAZEPAM 2 MG INJ IV PRN (00:48)
[2016-08-02 02:15] LABS: AADO2 Arterial 99.8 mmHg (7.0-24.0); Allen Test ACCEPTAB; Arterial Base Excess 0.4 mmol/L (-3.0-3); Arterial COHb 0.3 % (0.0-3.0); Arterial Fraction of Oxyhgb 89.5 % (93.0-99.0); Arterial HCO3 26.1 mmol/L (22.0-26.0); Arterial MetHb 0.3 % (0.0-1.5); Arterial Total Hemglobin 9.2 g/dl (12.0-18.0); MODE AC
[2016-08-02] MEDS: POTASSIUM CHLORIDE 10 MEQ in DEXTROSE 5% 1,000 ML IV SCH ×2 (02:24→05:58)
[2016-08-02 05:12] LABS: ADD SCAN DIFF NO
[2016-08-02 05:13] LABS: BASOPHILS % 0.1 % (0.0-2.0); EOSINOPHILS # 0.8 10^3/ul (0.0-0.5); HEMATOCRIT 26.5 % (42.0-52.0); HEMOGLOBIN 7.7 g/dl (14.0-18.0); LYMPHOCYTES # 1.7 10^3/ul (0.8-2.9); LYMPHOCYTES % 13.9 % (15.0-51.0); MEAN CORPUSCULAR HEMOGLOBIN 28.5 pg (29.0-33.0); MEAN CORPUSCULAR HGB CONC 29.1 g/dl (32.0-37.0); MEAN CORPUSCULAR VOLUME 98.1 fl (82.0-101.0); MEAN PLATELET VOLUME 11.1 fl (7.4-10.4); MONOCYTE # 1.1 10^3/ul (0.3-0.9); MONOCYTES % 8.6 % (0.0-11.0); NEUTROPHIL # 8.8 10^3/ul (1.6-7.5); NEUTROPHILS % 71.1 % (39.0-77.0); PLATELET COUNT 200 10^3/UL (140-415); RED CELL DISTRIBUTION WIDTH 16.6 % (11.5-14.5); WHITE BLOOD COUNT 12.4 10^3/ul (4.8-10.8)
[2016-08-02 05:28] LABS: POTASSIUM 4.3 mmol/L (3.5-5.1)
[2016-08-02 05:31] LABS: CREATININE 1.63 mg/dl (0.61-1.24)
[2016-08-02 05:32] LABS: CALCIUM 8.2 mg/dl (8.4-10.2)
--- NOTE | 2016-08-02 05:50 | RADRPT ---
PROCEDURE: XR Chest. CLINICAL INDICATION: RESP DISTRESS; NEW TRACH PLACEMENT TODAY TECHNIQUE: Portable single view of the chest COMPARISON: 07/30/2016 FINDINGS: Tracheostomy tube overlies the upper airway. The heart size is within normal limits. No focal infi ltrate or pleural effusion. Mild interstitial prominence is unchanged. IMPRESSION: New tracheostomy tube appears in good position. RPTAT: HLBE Sade Aguirre Physician Date Time Electronically viewed and signed by Sade Aguirre, Physician on 08/02/2016 05:50 LE/
--- NOTE | 2016-08-02 08:06 | CONS ---
Date/Time of Note Date/Time of Note DATE: 08/02/16 TIME: 08:02 Assessment/Plan Assessment/Plan Additional Assessment/Plan Anemia New Onset Stool ob Monitor Hgb Q8hrs, transfuse 2 units for Hgb <7.5 PPI Drip Dysphagia/G-tube malfunction Cleanse site and change dressing daily Abdominal x-ray, neg for SBO G tube in place Recommend new G-tube insertion with EGD Nutrition consult for appropriate rate and type of G-tube feed Sepsis/septic shock secondary to urinary tract infection Management per Primary Infectious disease following Possible diabetes Management per primary Hemoglobin A1c of 10.0., Repeat hemoglobin in process Acute on chronic kidney injury Nephrology following Chronic respiratory failure. Vent dependent. Management per pulmonary History of seizure disorder Management per Primary Further recommendations depend on clinical course Pt seen in collaboration with Dr. Pires Consultation Date/Type/Reason Admit Date/Time Jul 31, 2016 at 02:00 Initial Consult Date 07/31/16 Type of Consultation: GI Referring Provider: MINESH JOLLEY 24 HR Interval Summary Free Text/Dictation Hgb 7.7, 2 units and redraw ordered 2/2 to no signs of overt bleeding CT abdomen completed but not results No residual in G tube Exam/Review of Systems Vital Signs Vitals Vital Signs Date Time Temp Pulse Resp B/P Pulse Ox O2 Delivery O2 Flow Rate FiO2 08/02/16 06:30 83 18 94/48 100 08/02/16 06:00 99.1 Mechanical Ventilator 08/02/16 05:50 60 Intake and Output 08/01/16 08/01/16 08/02/16 15:00 23:00 07:00 Intake Total 1282.50 ml 641.25 ml 537 ml Output Total 250 ml 235 ml 340 ml Balance 1032.50 ml 406.25 ml 197 ml Exam Constitutional: Nonverbal, thin Psych: Nonverbal Head: normocephalic Eyes: nl conjunctiva, nl lids ENMT: nl external ears & nose, nl lips & teeth, nl nasal mucosa & septum Respiratory: Tracheostomy Cardiovascular: regular rate and rhythm Gastrointestinal: soft, G-tube site indurated Musculoskeletal: Contractures bilateral hands and feet Neurological: Grossly nonfocal Results Result Diagram: 08/02/16 0430 08/02/16 0430 Results 24 hrs Laboratory Tests Test 08/02/16 01:34 08/02/16 04:30 Arterial Blood HCO3 26.1 H Arterial Blood Base Excess 0.4 Arterial Blood Oxygen Saturation 90.0 L Jefferson Test ACCEPTAB Arterial Blood Gas Puncture Site Right Radial Arterial Blood Carboxyhemoglobin 0.3 Arterial Blood Date Drawn 08/02/2016 2:00:53 AM Arterial Blood Methemoglobin 0.3 Arterial Blood pCO2 (Temp correct) 47.4 H Arterial Blood pH (Temp corrected) 7.359 Arterial Blood pO2 (Temp corrected) 58.4 L Blood Gas A-a O2 Differential 99.8 H Blood Gas Actual Respiration Rate 25 Blood Gas Inspiratory Pressure 58.0 Blood Gas Low PEEP Setting 5.0 Blood Gas Modality AC Blood Gas Notified Time 08/02/2016 2:14:52 AM Blood Gas Notified Whom [employer] Blood Gas Respiration Rate 16.0 Blood Gas Specimen Source Blood arterial Blood Gas Temperature 37.0 Blood Gas Tidal Volume 500.0 FiO2 30.0 Oxyhemoglobin Percent 89.5 L Total Hemoglobin 9.2 L Anion Gap 15 Basophils # 0.0 Basophils % 0.1 Blood Urea Nitrogen 35 #H Calcium Level 8.2 L Carbon Dioxide Level 28 Chloride Level 111 H Creatinine 1.63 H Eosinophils # 0.8 H Eosinophils % 6.0 Glucose Level 103 Hematocrit 26.5 #L Hemoglobin 7.7 #L Lymphocytes # 1.7 Lymphocytes % 13.9 L Magnesium Level 2.0 Mean Corpuscular Hemoglobin 28.5 L Mean Corpuscular Hemoglobin Concent 29.1 L Mean Corpuscular Volume 98.1 Mean Platelet Volume 11.1 H Monocytes # 1.1 H Monocytes % 8.6 Neutrophils # 8.8 H Neutrophils % 71.1 Nucleated Red Blood Cells # 0.0 Nucleated Red Blood Cells % 0.0 Phosphorus Level 3.0 Platelet Count 200 Potassium Level 4.3 Red Blood Count 2.70 #L Red Cell Distribution Width 16.6 H Sodium Level 150 H White Blood Count 12.4 H Medications Medications Current Medications Famotidine (Pepcid) 20 mg DAILY GTB Last administered on 08/01/16 08:24; Admin Dose 20 MG; Start 07/31/16 at 09:00 Enoxaparin Sodium 40 mg 40 mg DAILY SC Last administered on 08/01/16 08:24; Admin Dose 40 MG; Start 07/31/16 at 09:00 Dobutamine HCl/ Dextrose 250 ml @ 11.25 mls/ hr TITRATE IV ; Start 07/31/16 at 02:00 Acetaminophen 650 mg 650 mg Q4H PRN IN PAIN OR TEMP ABOVE 38C Last administered on 08/02/16 00:29; Admin Dose 650 MG; Start 07/31/16 at 05:00 Norepinephrine/ Dextrose (Levophed/D5W) 500 ml @ 1.87 mls/hr TITRATE IV Last administered on 08/01/16 05:45; Admin Dose 3.75 MLS/HR; Start 07/31/16 at 09:00 Lorazepam (Ativan) 0.25 mg Q4H PRN IV for shaking Last administered on 00:48; Admin Dose 0.25 MG; Start 07/31/16 at 05:30 Atorvastatin Calcium (Lipitor) 5 mg QHS GTB Last administered on 07/31/16 20:34 ; Admin Dose 5 MG; Start 07/31/16 at 21:00 Bisacodyl (Dulcolax Supp) 10 mg DAILY PRN IN CONSTIPATION; Start 07/31/16 at 10: 00 Docusate Sodium (Colace Liquid Cup) 100 mg DAILY GTB Last administered on 08:24; Admin Dose 100 MG; Start 08/01/16 at 09:00 Magnesium Hydroxide (Milk Of Mag) 30 ml DAILY PRN GTB CONSTIPATION; Start at 10:00 Mineral Oil (Fleet Mineral Oil Enema) 133 ml DAILY PRN IN CONSTIPATION; Start 07/31/16 at 10:00 Ferrous Sulfate (Feosol Liquid Cup) 300 mg TID GTB Last administered on 13:49; Admin Dose 300 MG; Start 07/31/16 at 16:00 Levetiracetam 500 mg 500 mg Q12H GTB Last administered on 08/01/16 23:22; Admin Dose 500 MG; Start 07/31/16 at 23:00 Levofloxacin/ Dextrose (Levaquin 750 Mg/ D5W 150 ml (Pmx)) 150 ml @ 100 mls/hr Q48H IVPB Last administered on 08/01/16 01:07; Admin Dose 100 MLS/HR; Start at 23:30 Diphenhydramine HCl (Benadryl) 50 mg Q6H PRN IV ITCHING Last administered on 00:02; Admin Dose 50 MG; Start 08/01/16 at 00:00 Loratadine (Claritin) 10 mg DAILY PO Last administered on 08/01/16 13:49; Admin Dose 10 MG; Start 08/01/16 at 12:00 Linezolid 600 mg 600 mg BID PO ; Start 08/01/16 at 21:00 Potassium Chloride 10 meq/ Dextrose 1,005 ml @ 75 mls/hr [id number] IV Last administered on 08/02/16 05:58; Admin Dose 75 MLS/HR; Start 08/01/16 at 13:00; Status Future Hold Ertapenem/Sodium Chloride (Invanz/NS) 100 ml @ 200 mls/hr Q24H IVPB Last administered on 08/01/16 13:50; Admin Dose 200 MLS/HR; Start 08/01/16 at 14:00 Mupirocin (Bactroban) 1 applic BID TOP Last administered on 08/01/16 21:36; Admin Dose 1 APPLIC; Start 08/01/16 at 21:00 NOEMY SU Aug 02, 2016 08:06
[2016-08-02] MEDS ORDERED: BISACODYL 10 MG SUPP PR ONE (08:30)
[2016-08-02] MEDS ORDERED: PANTOPRAZOLE IV 80 MG in SOD CHLORIDE 0.9% 100 ML IV SCH (08:30)
[2016-08-02] MEDS: MUPIROCIN 2% 22 GM OINT TOP SCH ×2 (08:51→21:00)
[2016-08-02] MEDS: LORATADINE 10 MG TAB PO SCH (08:51)
[2016-08-02] MEDS: DOCUSATE SODIUM 10 MG/ML (10ML CUP) GTB SCH (08:51)
[2016-08-02] MEDS: PANTOPRAZOLE 40 MG INJ IV SCH ×2 (08:51→21:59)
[2016-08-02] MEDS: ZYVOX 600 MG TAB PO SCH ×2 (08:51→21:59)
[2016-08-02] MEDS: FERROUS SULFATE 60 MG/ML 5ML CUP GTB SCH ×3 (08:51→21:59)
--- NOTE | 2016-08-02 09:02 | RADRPT ---
PROCEDURE: CT abdomen and pelvis without contrast. CLINICAL INDICATION: Pain of the gastrostomy site. TECHNIQUE: CT scan of the abdomen and pelvis without contrast was performed on a multi-slice CT [facility] . Sagittal and coronal reformatted images were obtained from the axial source images. DLP 755.6 mGycm. CTDIvol 14.6 mGy COMPARISON: None FINDINGS: Scarring is seen in the lung bases with bronchial wall thickening and trace peribronchial ground-gla ss. Small foci of mucus plugging are present. Coronary artery calcifications are seen in the heart . There is limited evaluation of the solid viscera from the lack of IV contrast. There is a gastrostomy tube appears grossly uncomplicated. No abnormal fluid collection is seen arou nd the gastrostomy tube. There is a 5 mm left mid kidney renal stone. No right-sided renal calculi are present. There is no ureteral stone with no hydronephrosis or perinephric fat stranding. There is mild hepatomegaly of the liver with no gross focal lesion or biliary ductal dilatation. Th e gallbladder is unremarkable without inflammation. The spleen is unremarkable without mass. The adrenal glands are within normal limits without mass. The pancreas is unremarkable without focal lesion or surrounding inflammatory changes. There is no bowel obstruction or focal bowel inflammation. The appendix is unremarkable. There is a moderately fecal filled colon.. There is no free air or free fluid. There are no enlarged lymph nodes. An IVC filter is present inferior to renal veins. There is aortic atherosclerosis without aneurysma l dilatation. Degenerative changes are seen in the lumbar spine with no acute osseous abnormality. The prostate is at the upper limits of normal in size. Bernstein catheter seen in the bladder which is collapsed. IMPRESSION: There is a 5 mm left mid kidney renal stone. There is no ureteral stone or hydronephrosis bilateral ly. No evidence of bowel obstruction or inflammation. There is a moderately fecal filled colon. IVC filter is present. Gastrostomy tube is in place. No CT evidence for abscess around the gastrostomy tube. Mild hepatomegaly. Atherosclerotic disease is present. RPTAT: AA .Skyler Banegas MD, Date Time Electronically viewed and signed by .Skyler Banegas MD, on 08/02/2016 09:01 .Robby/
--- NOTE | 2016-08-02 09:08 | CONS ---
Date/Time of Note Date/Time of Note DATE: 08/02/16 TIME: 09:07 Assessment/Plan Assessment/Plan Chief Complaint/Hosp Course ID PROGRESS NOTE TOTAL ABX DAY => Zyvox #2 + Ertapenem #2 s/p Clindamycin IV/Levaquin s/p Vancomycin IV/ Zosyn. 24H INTERVAL SUMMARY * Chronic encephalopathic, non-communicative extreme fair skin w/diffuse erythematous pruritic rash, face, chest, ABD * Looks comfortable Reginald: 07/30/16 Rcvd: 07/30/16 Source: BLOOD Sp Descrip: Microbiology BLOOD CULTURE Preliminary BCULT GRAM BOTTLE 1 Gram positive cocci in pairs and clusters BCULT GRAM BOTTLE 2 Gram positive cocci in clusters 2 of 2 bottles . seen on gram stain of the broth Organism 1 COAGULASE NEGATIVE STAPH COAG NEG M.I.C. RX --------- --- CEFAZOLIN R CIPROFLOXACIN >=8 R CLINDAMYCIN >=8 R DOXYCYCLINE R ERYTHROMYCIN >=8 R LEVOFLOXACIN >=8 R OXACILLIN >=4 R PENICILLIN-G >=0.5 R RIFAMPIN <=0.5 S TRIMETHOPRIM/SULFAMETHOXAZOLE 80 R PHYSICAL EXAMINATION: GENERAL: Non-communicative, vented, VSS, NAD HEENT: (+)facial erythematous rash NECK: Trach (+) secure to Vent CHEST: Equal chest rise bilaterally, without dyspnea on observation HEART: Pulse RRR ABDOMEN: Soft/peg EXTREMITIES: Warm SKIN: With maculopapular rash over the body and also scratching foreman on his legs. ID ASSESSMENT: 71 yo M w/PMHx anoxic encephalopathy w/SZs disorder, Trach/Peg admit from SNF with: 1. Severe sepsis with shock /2 #2 associated on admission with: * Fever >104.+ * Hypotension * Tachycardia * Leukocytosis * Troponin leak in setting sepsis 2. Complicated MDRO Gram-negative rods urinary tract infection. * s/p renal ultrasound that revealed no hydronephrosis. * URINE CULTURE Final Organism 1 ESCHERICHIA COLI (ESBL) COLONY COUNT >100,000 CFU/ml . MULTI DRUG RESISTANT ORGANISM 3. Bacteremia with blood culture growing gram-positive cocci in clusters 2 out of 2 bottles = Probable skin contaminant * BLOOD CULTURE Preliminary BCULT GRAM BOTTLE 1 Gram positive cocci in pairs and clusters BCULT GRAM BOTTLE 2 Gram positive cocci in clusters 2 of 2 bottles . seen on gram stain of the broth Organism 1 COAGULASE NEGATIVE STAPH 4. Anemia -> suspect GIB w/dark GI content leak @ GT 5. GT Malfx w/GT site ABD wall excoriation/cellulitis * No CT evidence for abscess around the gastrostomy tube. 6. Acute renal failure, likely acute tubular necrosis. 7. Nephrolithiasis per CT: There is a 5 mm left mid kidney renal stone. There is no ureteral stone or hydronephrosis bilaterally. 8. Non-STEMI vs Troponin leak in setting demand ischemia 9. Atherosclerosis per CT 10.Pruritic maculopapular rash over the body and also scratching foreman on his legs => Unclear if rash is acute post IV ABX Zosyn/Vanco or chronic? * s/p Empiric Elimite for scabies = rationale is SNF resident (+)MRSA Nares INVASIVES: Trach/Peg/FC/Left Fem TLC ABX ALLERGY: ?Zosyn vs Vanco IV = RASH CURRENT ABX: TOTAL ABX DAY => Zyvox #2 + Ertapenem #2 s/p Clindamycin IV/Levaquin s/p Vancomycin IV/ Zosyn. ID RECOMMENDATIONS: 1. Continue current ABX, watch PLT on Zyvox w/anemia 2. GI on case-> per notes EGD w/GT replacement planned 3. Add Bactroban to bilateral nares and attempt MRSA decolonization w/Hibiclens bath Q-shift head-Toe x 3 days 4. GT site culture . . Problems: Consultation Date/Type/Reason Admit Date/Time Jul 31, 2016 at 02:00 Initial Consult Date 07/31/16 Type of Consultation: ID Referring Provider: MINESH JOLLEY Exam/Review of Systems Vital Signs Vitals Vital Signs Date Time Temp Pulse Resp B/P Pulse Ox O2 Delivery O2 Flow Rate FiO2 08/02/16 08:15 81 31 111/56 100 Mechanical Ventilator 08/02/16 08:00 98.8 08/02/16 05:50 60 Intake and Output 08/01/16 08/01/16 08/02/16 15:00 23:00 07:00 Intake Total 1282.50 ml 641.25 ml 537 ml Output Total 250 ml 235 ml 375 ml Balance 1032.50 ml 406.25 ml 162 ml Results Result Diagram: 08/02/16 0430 08/02/16 0430 Results 24 hrs Laboratory Tests Test 08/02/16 01:34 08/02/16 04:30 Arterial Blood HCO3 26.1 H Arterial Blood Base Excess 0.4 Arterial Blood Oxygen Saturation 90.0 L [place] Test ACCEPTAB Arterial Blood Gas Puncture Site Right Radial Arterial Blood Carboxyhemoglobin 0.3 Arterial Blood Date Drawn 08/02/2016 2:00:53 AM Arterial Blood Methemoglobin 0.3 Arterial Blood pCO2 (Temp correct) 47.4 H Arterial Blood pH (Temp corrected) 7.359 Arterial Blood pO2 (Temp corrected) 58.4 L Blood Gas A-a O2 Differential 99.8 H Blood Gas Actual Respiration Rate 25 Blood Gas Inspiratory Pressure 58.0 Blood Gas Low PEEP Setting 5.0 Blood Gas Modality AC Blood Gas Notified Time 08/02/2016 2:14:52 AM Blood Gas Notified Whom [employer] Blood Gas Respiration Rate 16.0 Blood Gas Specimen Source Blood arterial Blood Gas Temperature 37.0 Blood Gas Tidal Volume 500.0 FiO2 30.0 Oxyhemoglobin Percent 89.5 L Total Hemoglobin 9.2 L Anion Gap 15 Basophils # 0.0 Basophils % 0.1 Blood Urea Nitrogen 35 #H Calcium Level 8.2 L Carbon Dioxide Level 28 Chloride Level 111 H Creatinine 1.63 H Eosinophils # 0.8 H Eosinophils % 6.0 Glucose Level 103 Hematocrit 26.5 #L Hemoglobin 7.7 #L Lymphocytes # 1.7 Lymphocytes % 13.9 L Magnesium Level 2.0 Mean Corpuscular Hemoglobin 28.5 L Mean Corpuscular Hemoglobin Concent 29.1 L Mean Corpuscular Volume 98.1 Mean Platelet Volume 11.1 H Monocytes # 1.1 H Monocytes % 8.6 Neutrophils # 8.8 H Neutrophils % 71.1 Nucleated Red Blood Cells # 0.0 Nucleated Red Blood Cells % 0.0 Phosphorus Level 3.0 Platelet Count 200 Potassium Level 4.3 Red Blood Count 2.70 #L Red Cell Distribution Width 16.6 H Sodium Level 150 H White Blood Count 12.4 H Medications Medications Current Medications Enoxaparin Sodium 40 mg 40 mg DAILY SC Last administered on 08/01/16 08:24; Admin Dose 40 MG; Start 07/31/16 at 09:00 Dobutamine HCl/ Dextrose 250 ml @ 11.25 mls/ hr TITRATE IV ; Start 07/31/16 at 02:00 Acetaminophen 650 mg 650 mg Q4H PRN [place] PAIN OR TEMP ABOVE 38C Last administered on 08/02/16 00:29; Admin Dose 650 MG; Start 07/31/16 at 05:00 Norepinephrine/ Dextrose (Levophed/D5W) 500 ml @ 1.87 mls/hr TITRATE IV Last administered on 08/01/16 05:45; Admin Dose 3.75 MLS/HR; Start 07/31/16 at 09:00 Lorazepam (Ativan) 0.25 mg Q4H PRN IV for shaking Last administered on 00:48; Admin Dose 0.25 MG; Start 07/31/16 at 05:30 Atorvastatin Calcium (Lipitor) 5 mg QHS GTB Last administered on 07/31/16 20:34 ; Admin Dose 5 MG; Start 07/31/16 at 21:00 Bisacodyl (Dulcolax Supp) 10 mg DAILY PRN [place] CONSTIPATION; Start 07/31/16 at 10: 00 Docusate Sodium (Colace Liquid Cup) 100 mg DAILY GTB Last administered on 08:51; Admin Dose 100 MG; Start 08/01/16 at 09:00 Magnesium Hydroxide (Milk Of Mag) 30 ml DAILY PRN GTB CONSTIPATION; Start at 10:00 Mineral Oil (Fleet Mineral Oil Enema) 133 ml DAILY PRN [place] CONSTIPATION; Start 07/31/16 at 10:00 Ferrous Sulfate (Feosol Liquid Cup) 300 mg TID GTB Last administered on 08:51; Admin Dose 300 MG; Start 07/31/16 at 16:00 Levetiracetam 500 mg 500 mg Q12H GTB Last administered on 08/01/16 23:22; Admin Dose 500 MG; Start 07/31/16 at 23:00 Levofloxacin/ Dextrose (Levaquin 750 Mg/ D5W 150 ml (Pmx)) 150 ml @ 100 mls/hr Q48H IVPB Last administered on 08/01/16 01:07; Admin Dose 100 MLS/HR; Start at 23:30 Diphenhydramine HCl (Benadryl) 50 mg Q6H PRN IV ITCHING Last administered on 00:02; Admin Dose 50 MG; Start 08/01/16 at 00:00 Loratadine (Claritin) 10 mg DAILY PO Last administered on 08/02/16 08:51; Admin Dose 10 MG; Start 08/01/16 at 12:00 Linezolid 600 mg 600 mg BID PO Last administered on 08/02/16 08:51; Admin Dose 600 MG; Start 08/01/16 at 21:00 Potassium Chloride 10 meq/ Dextrose 1,005 ml @ 75 mls/hr [id number] IV Last administered on 08/02/16 05:58; Admin Dose 75 MLS/HR; Start 08/01/16 at 13:00; Status Future Hold Ertapenem/Sodium Chloride (Invanz/NS) 100 ml @ 200 mls/hr Q24H IVPB Last administered on 08/01/16 13:50; Admin Dose 200 MLS/HR; Start 08/01/16 at 14:00 Mupirocin (Bactroban) 1 applic BID TOP Last administered on 08/02/16 08:51; Admin Dose 1 APPLIC; Start 08/01/16 at 21:00 Pantoprazole (Protonix Iv) 40 mg BID IV Last administered on 08/02/16 08:51; Admin Dose 40 MG; Start 08/02/16 at 09:00 SCOTT MENDEZ NP Aug 02, 2016 09:07
--- NOTE | 2016-08-02 09:19 | PN ---
Date/Time of Note Date/Time of Note DATE: 08/02/16 TIME: 09:18 Assessment/Plan VTE Prophylaxis VTE Prophylaxis Intervention: heparin Lines/Catheters IV C[facility]ter Type [facility]from [facility] Central Line Central line still needed: Yes Urinary Cath still in place: Yes Reason Cath still needed: terminal illness/intractable pain Assessment/Plan Chief Complaint/Hosp Course 1. Sepsis with underlying septic shock secondary to urinary tract infection, underlying gram-positive bacteremia. Continue antibiotics as per infectious diseases. Continue pressors for blood pressure support. 2. Acute on chronic kidney injury in a patient with unknown baseline creatinine. Nephrology is following. Avoid nephrotoxic medications. The patient's BUN and creatinine are improving. 3. Elevated troponins, most probably a type II event from underlying sepsis and kidney injury. Monitor. 4. Chronic respiratory failure. Vent dependent. Continue ventilator management as per pulmonary. Continue inhaled bronchodilators. 5. Normocytic normochromic anemia with underlying iron deficiency. Continue iron supplements. Monitor H and H closely. Transfuse as needed. 6. Hypernatremia. Unable to give free water because the patient has G-tube site leaking. IV fluid management as per nephrology 7. Dyslipidemia. Continue statin. 8. Seizure disorder. Continue anticonvulsants. 9. History of essential hypertension. Currently, hypotensive. Antihypertensives on hold. 10. Leaking G-tube site. Gastroenterology on the case. 11. Fluid, electrolytes and nutrition. Continue IV fluids as per nephrology. 12. Deep venous thrombosis prophylaxis. Heparin on hold because of worsening anemia. 13. Gastrointestinal prophylaxis. Histamine 2 receptor blockers. 14. Plan. Continue antibiotics as per Infectious Disease. Continue pressors for blood pressure support. Palliative care on the patient's case trying to reach the patient's family. Ideally, the patient needs to be a DNR. Poor prognosis. The patient currently has a left femoral triple-lumen catheter. This needs to come out because of high risk for infection in a patient who is already septic. However, the patient on IV pressors. The patient has poor IV access. The patient needs a PICC line. Unable to get in contact with the patient's DURABLE POWER OF STOCK SUPERVISOR. The patient needs a PICC line and is a medical necessity. Likewise, the patient needs blood transfusion which is a medical necessity. Patient is unable to sign the consent and we are unable to get in contact with the responsible democrat. The case was discussed with Dr. Underwood. Critical care time: 35 minutes. Problems: Exam/Review of Systems Vital Signs Vitals Vital Signs Date Time Temp Pulse Resp B/P Pulse Ox O2 Delivery O2 Flow Rate FiO2 08/02/16 08:15 81 31 111/56 100 Mechanical Ventilator 08/02/16 08:00 98.8 08/02/16 05:50 60 Intake and Output 08/01/16 08/01/16 08/02/16 15:00 23:00 07:00 Intake Total 1282.50 ml 641.25 ml 537 ml Output Total 250 ml 235 ml 375 ml Balance 1032.50 ml 406.25 ml 162 ml Exam GENERAL: This is an elderly 61-year-old male lying in bed in no apparent distress. HEENT: Head normocephalic and atraumatic. Eyes: Anicteric sclerae. Conjunctivae clear. ENT: Nasal septum is midline. Oral mucosa is dry. NECK: Tracheostomy midline. RESPIRATORY: Bilaterally diminished breath sounds. Coarse breath sounds. Tracheostomy connected to mechanical ventilator. On AC mode ventilation. CARDIAC: Regular rate and rhythm with multiple PVCs. ABDOMEN: Soft. Left upper quadrant G-tube site with G-tube site leaking. GENITOURINARY: The patient has a Bernstein catheter in place. EXTREMITIES: No cyanosis, no clubbing. Peripheral pulses diminished. Contracted extremities on bilateral upper and lower extremity contractions. NEUROLOGIC: The patient is awake but not alert. Results Result Diagram: 08/02/16 0430 08/02/16 0430 Results 24 hrs Laboratory Tests Test 08/02/16 01:34 08/02/16 04:30 Arterial Blood HCO3 26.1 H Arterial Blood Base Excess 0.4 Arterial Blood Oxygen Saturation 90.0 L Jefferson Test ACCEPTAB Arterial Blood Gas Puncture Site Right Radial Arterial Blood Carboxyhemoglobin 0.3 Arterial Blood Date Drawn 08/02/2016 2:00:53 AM Arterial Blood Methemoglobin 0.3 Arterial Blood pCO2 (Temp correct) 47.4 H Arterial Blood pH (Temp corrected) 7.359 Arterial Blood pO2 (Temp corrected) 58.4 L Blood Gas A-a O2 Differential 99.8 H Blood Gas Actual Respiration Rate 25 Blood Gas Inspiratory Pressure 58.0 Blood Gas Low PEEP Setting 5.0 Blood Gas Modality AC Blood Gas Notified Time 08/02/2016 2:14:52 AM Blood Gas Notified Whom [employer] AG[employer] Blood Gas Respiration Rate 16.0 Blood Gas Specimen Source Blood arterial Blood Gas Temperature 37.0 Blood Gas Tidal Volume 500.0 FiO2 30.0 Oxyhemoglobin Percent 89.5 L Total Hemoglobin 9.2 L Anion Gap 15 Basophils # 0.0 Basophils % 0.1 Blood Urea Nitrogen 35 #H Calcium Level 8.2 L Carbon Dioxide Level 28 Chloride Level 111 H Creatinine 1.63 H Eosinophils # 0.8 H Eosinophils % 6.0 Glucose Level 103 Hematocrit 26.5 #L Hemoglobin 7.7 #L Lymphocytes # 1.7 Lymphocytes % 13.9 L Magnesium Level 2.0 Mean Corpuscular Hemoglobin 28.5 L Mean Corpuscular Hemoglobin Concent 29.1 L Mean Corpuscular Volume 98.1 Mean Platelet Volume 11.1 H Monocytes # 1.1 H Monocytes % 8.6 Neutrophils # 8.8 H Neutrophils % 71.1 Nucleated Red Blood Cells # 0.0 Nucleated Red Blood Cells % 0.0 Phosphorus Level 3.0 Platelet Count 200 Potassium Level 4.3 Red Blood Count 2.70 #L Red Cell Distribution Width 16.6 H Sodium Level 150 H White Blood Count 12.4 H Medications Medications Current Medications Enoxaparin Sodium 40 mg 40 mg DAILY SC Last administered on 08/01/16 08:24; Admin Dose 40 MG; Start 07/31/16 at 09:00 Dobutamine HCl/ Dextrose 250 ml @ 11.25 mls/ hr TITRATE IV ; Start 07/31/16 at 02:00 Acetaminophen 650 mg 650 mg Q4H PRN [place] PAIN OR TEMP ABOVE 38C Last administered on 08/02/16 00:29; Admin Dose 650 MG; Start 07/31/16 at 05:00 Norepinephrine/ Dextrose (Levophed/D5W) 500 ml @ 1.87 mls/hr TITRATE IV Last administered on 08/01/16 05:45; Admin Dose 3.75 MLS/HR; Start 07/31/16 at 09:00 Lorazepam (Ativan) 0.25 mg Q4H PRN IV for shaking Last administered on 00:48; Admin Dose 0.25 MG; Start 07/31/16 at 05:30 Atorvastatin Calcium (Lipitor) 5 mg QHS GTB Last administered on 07/31/16 20:34 ; Admin Dose 5 MG; Start 07/31/16 at 21:00 Bisacodyl (Dulcolax Supp) 10 mg DAILY PRN [place] CONSTIPATION; Start 07/31/16 at 10: 00 Docusate Sodium (Colace Liquid Cup) 100 mg DAILY GTB Last administered on 08:51; Admin Dose 100 MG; Start 08/01/16 at 09:00 Magnesium Hydroxide (Milk Of Mag) 30 ml DAILY PRN GTB CONSTIPATION; Start at 10:00 Mineral Oil (Fleet Mineral Oil Enema) 133 ml DAILY PRN [place] CONSTIPATION; Start 07/31/16 at 10:00 Ferrous Sulfate (Feosol Liquid Cup) 300 mg TID GTB Last administered on 08:51; Admin Dose 300 MG; Start 07/31/16 at 16:00 Levetiracetam 500 mg 500 mg Q12H GTB Last administered on 08/01/16 23:22; Admin Dose 500 MG; Start 07/31/16 at 23:00 Levofloxacin/ Dextrose (Levaquin 750 Mg/ D5W 150 ml (Pmx)) 150 ml @ 100 mls/hr Q48H IVPB Last administered on 08/01/16 01:07; Admin Dose 100 MLS/HR; Start at 23:30 Diphenhydramine HCl (Benadryl) 50 mg Q6H PRN IV ITCHING Last administered on 00:02; Admin Dose 50 MG; Start 08/01/16 at 00:00 Loratadine (Claritin) 10 mg DAILY PO Last administered on 08/02/16 08:51; Admin Dose 10 MG; Start 08/01/16 at 12:00 Linezolid 600 mg 600 mg BID PO Last administered on 08/02/16 08:51; Admin Dose 600 MG; Start 08/01/16 at 21:00 Potassium Chloride 10 meq/ Dextrose 1,005 ml @ 75 mls/hr [id number] IV Last administered on 08/02/16 05:58; Admin Dose 75 MLS/HR; Start 08/01/16 at 13:00; Status Future Hold Ertapenem/Sodium Chloride (Invanz/NS) 100 ml @ 200 mls/hr Q24H IVPB Last administered on 08/01/16 13:50; Admin Dose 200 MLS/HR; Start 08/01/16 at 14:00 Mupirocin (Bactroban) 1 applic BID TOP Last administered on 08/02/16 08:51; Admin Dose 1 APPLIC; Start 08/01/16 at 21:00 Pantoprazole (Protonix Iv) 40 mg BID IV Last administered on 08/02/16 08:51; Admin Dose 40 MG; Start 08/02/16 at 09:00 RENA JAY NP Aug 02, 2016 09:19
[2016-08-02 09:26] LABS: HEMATOCRIT 28.3 % (42.0-52.0); HEMOGLOBIN 8.1 g/dl (14.0-18.0)
--- NOTE | 2016-08-02 09:46 | CONS ---
Date/Time of Note Date/Time of Note DATE: 08/02/16 TIME: 09:44 Assessment/Plan Assessment/Plan Additional Assessment/Plan 1. Acute kidney injury on possible chronic kidney disease likely secondary to acute tubular necrosis from sepsis secondary to urinary tract infection. 2. Septic shock, sepsis secondary to urinary tract infection. 3. ST segment changes on electrocardiogram. 4. Moderate to severe dehydration. 5. Normocytic anemia. 6. Rule out chronic kidney disease from type 2 diabetes mellitus. 7. Chronic respiratory failure, status post tracheostomy on ventilator. 8. Status post G-tube for feeding stage G-tube placement. PLAN: Cr better, and Na slowly improving continue D5 W continue free water as ordered will continue to follow up on patient Consultation Date/Type/Reason Admit Date/Time Jul 31, 2016 at 02:00 Initial Consult Date 07/31/16 Type of Consultation: NEPHROLOGY Reason for Consultation acute kidney injury,Hypernatremia Referring Provider: MINESH JOLLEY 24 HR Interval Summary Free Text/Dictation Na improving, Cr improving, on D5W with free water Exam/Review of Systems Vital Signs Vitals Vital Signs Date Time Temp Pulse Resp B/P Pulse Ox O2 Delivery O2 Flow Rate FiO2 08/02/16 08:15 81 31 111/56 100 Mechanical Ventilator 08/02/16 08:00 98.8 08/02/16 05:50 60 Intake and Output 08/01/16 08/01/16 08/02/16 15:00 23:00 07:00 Intake Total 1282.50 ml 641.25 ml 537 ml Output Total 250 ml 235 ml 375 ml Balance 1032.50 ml 406.25 ml 162 ml Exam HEENT: Normal. Tracheostomy tube site is clear. No discharge. NECK: Supple, no JVD. LUNGS: Clear to auscultation. Bilateral coarse breath sounds. HEART: S1, S2, with tachycardia, no murmur. ABDOMEN: Soft, gastrostomy tube is in place, site is clear. No discharge. EXTREMITIES: No clubbing, cyanosis, or edema. NEUROLOGICAL: Uncooperative for exam. Results Result Diagram: 08/02/16 0840 08/02/16 0430 Results 24 hrs Laboratory Tests Test 08/02/16 01:34 08/02/16 04:30 08/02/16 08:40 Arterial Blood HCO3 26.1 H Arterial Blood Base Excess 0.4 Arterial Blood Oxygen Saturation 90.0 L Jefferson Test ACCEPTAB Arterial Blood Gas Puncture Site Right Radial Arterial Blood Carboxyhemoglobin 0.3 Arterial Blood Date Drawn 08/02/2016 2:00:53 AM Arterial Blood Methemoglobin 0.3 Arterial Blood pCO2 (Temp correct) 47.4 H Arterial Blood pH (Temp corrected) 7.359 Arterial Blood pO2 (Temp corrected) 58.4 L Blood Gas A-a O2 Differential 99.8 H Blood Gas Actual Respiration Rate 25 Blood Gas Inspiratory Pressure 58.0 Blood Gas Low PEEP Setting 5.0 Blood Gas Modality AC Blood Gas Notified Time 08/02/2016 2:14:52 AM Blood Gas Notified Whom [employer] HE[employer] COORDINATOR Blood Gas Respiration Rate 16.0 Blood Gas Specimen Source Blood arterial Blood Gas Temperature 37.0 Blood Gas Tidal Volume 500.0 FiO2 30.0 Oxyhemoglobin Percent 89.5 L Total Hemoglobin 9.2 L Anion Gap 15 Basophils # 0.0 Basophils % 0.1 Blood Urea Nitrogen 35 #H Calcium Level 8.2 L Carbon Dioxide Level 28 Chloride Level 111 H Creatinine 1.63 H Eosinophils # 0.8 H Eosinophils % 6.0 Glucose Level 103 Hematocrit 26.5 #L 28.3 L Hemoglobin 7.7 #L 8.1 L Lymphocytes # 1.7 Lymphocytes % 13.9 L Magnesium Level 2.0 Mean Corpuscular Hemoglobin 28.5 L Mean Corpuscular Hemoglobin Concent 29.1 L Mean Corpuscular Volume 98.1 Mean Platelet Volume 11.1 H Monocytes # 1.1 H Monocytes % 8.6 Neutrophils # 8.8 H Neutrophils % 71.1 Nucleated Red Blood Cells # 0.0 Nucleated Red Blood Cells % 0.0 Phosphorus Level 3.0 Platelet Count 200 Potassium Level 4.3 Red Blood Count 2.70 #L Red Cell Distribution Width 16.6 H Sodium Level 150 H White Blood Count 12.4 H Medications Medications Current Medications Dobutamine HCl/ Dextrose 250 ml @ 11.25 mls/ hr TITRATE IV ; Start 07/31/16 at 02:00 Acetaminophen 650 mg 650 mg Q4H PRN [place] PAIN OR TEMP ABOVE 38C Last administered on 08/02/16t 00:29; Admin Dose 650 MG; Start 07/31/16 at 05:00 Norepinephrine/ Dextrose (Levophed/D5W) 500 ml @ 1.87 mls/hr TITRATE IV Last administered on 08/01/16 05:45; Admin Dose 3.75 MLS/HR; Start 07/31/16 at 09:00 Lorazepam (Ativan) 0.25 mg Q4H PRN IV for shaking Last administered on 00:48; Admin Dose 0.25 MG; Start 07/31/16 at 05:30 Atorvastatin Calcium (Lipitor) 5 mg QHS GTB Last administered on 07/31/16 20:34 ; Admin Dose 5 MG; Start 07/31/16 at 21:00 Bisacodyl (Dulcolax Supp) 10 mg DAILY PRN [place] CONSTIPATION; Start 07/31/16 at 10: 00 Docusate Sodium (Colace Liquid Cup) 100 mg DAILY GTB Last administered on 08:51; Admin Dose 100 MG; Start 08/01/16 at 09:00 Magnesium Hydroxide (Milk Of Mag) 30 ml DAILY PRN GTB CONSTIPATION; Start at 10:00 Mineral Oil (Fleet Mineral Oil Enema) 133 ml DAILY PRN [place] CONSTIPATION; Start 07/31/16 at 10:00 Ferrous Sulfate (Feosol Liquid Cup) 300 mg TID GTB Last administered on 08:51; Admin Dose 300 MG; Start 07/31/16 at 16:00 Levetiracetam 500 mg 500 mg Q12H GTB Last administered on 08/01/16 23:22; Admin Dose 500 MG; Start 07/31/16 at 23:00 Levofloxacin/ Dextrose (Levaquin 750 Mg/ D5W 150 ml (Pmx)) 150 ml @ 100 mls/hr Q48H IVPB Last administered on 08/01/16 01:07; Admin Dose 100 MLS/HR; Start at 23:30 Diphenhydramine HCl (Benadryl) 50 mg Q6H PRN IV ITCHING Last administered on 00:02; Admin Dose 50 MG; Start 08/01/16 at 00:00 Loratadine (Claritin) 10 mg DAILY PO Last administered on 08/02/16 08:51; Admin Dose 10 MG; Start 08/01/16 at 12:00 Linezolid 600 mg 600 mg BID PO Last administered on 08/02/16 08:51; Admin Dose 600 MG; Start 08/01/16 at 21:00 Potassium Chloride 10 meq/ Dextrose 1,005 ml @ 75 mls/hr [id number] IV Last administered on 08/02/16 05:58; Admin Dose 75 MLS/HR; Start 08/01/16 at 13:00; Status Future Hold Ertapenem/Sodium Chloride (Invanz/NS) 100 ml @ 200 mls/hr Q24H IVPB Last administered on 08/01/16 13:50; Admin Dose 200 MLS/HR; Start 08/01/16 at 14:00 Mupirocin (Bactroban) 1 applic BID TOP Last administered on 08/02/16 08:51; Admin Dose 1 APPLIC; Start 08/01/16 at 21:00 Pantoprazole (Protonix Iv) 40 mg BID IV Last administered on 08/02/16 08:51; Admin Dose 40 MG; Start 08/02/16 at 09:00 Heparin Sodium (Porcine) (Heparin (5000 Units/0.5 ml)) 5,000 unit BID SC ; Start 08/02/16 at 21:00 ARCHANA KELLEY MD Aug 02, 2016 09:45
--- NOTE | 2016-08-02 10:20 | CONS ---
Date/Time of Note Date/Time of Note DATE: 08/02/16 TIME: 10:15 Assessment/Plan Assessment/Plan Additional Assessment/Plan Ventilator settings; AC of 16, tidal volume 500, PEEP of 5, 60% FiO2. Chest x-ray was reviewed from today which is essentially clear. Next Assessment recommendations; 1. Patient with chronic respiratory failure, ventilator dependent admitted for UTI and sepsis. 2. Hypotension, currently on low-dose Levophed. 3. Acute renal injury with improving serum creatinine. 4. Anoxic brain injury however patient is awake and able to move upper extremities spontaneously. 5. Stable seizure disorder. 6. History of anemia. 7. Hypernatremia with improved serum sodium from today. After patient started on 3 water via G-tube. 8. Patient currently unable to be weaned from ventilator. He was assessed at bedside and has extremely poor spontaneous minute ventilation. Continue current treatment. Prognosis remains poor. Consultation Date/Type/Reason Admit Date/Time Jul 31, 2016 at 02:00 Initial Consult Date 07/31/16 Type of Consultation: Pulmonary/critical care Referring Provider: MINESH JOLLEY 24 HR Interval Summary Free Text/Dictation Patient condition is stable. Still requiring full ventilator support. Requiring low-dose Levophed for blood pressure maintenance. Because of anoxic brain injury patient remains completely unresponsive. General exam; elderly male, on ventilator via tracheostomy currently in no distress. Unresponsive. Exam/Review of Systems Vital Signs Vitals Vital Signs Date Time Temp Pulse Resp B/P Pulse Ox O2 Delivery O2 Flow Rate FiO2 08/02/16 08:15 81 31 111/56 100 Mechanical Ventilator 08/02/16 08:00 98.8 08/02/16 05:50 60 Intake and Output 08/01/16 08/01/16 08/02/16 15:00 23:00 07:00 Intake Total 1282.50 ml 641.25 ml 537 ml Output Total 250 ml 235 ml 375 ml Balance 1032.50 ml 406.25 ml 162 ml Exam H EENT examination; supple neck, no JVD. No lymphadenopathy. Midline trachea. Tracheostomy placed with clean insertion site. Patient is mostly edentulous with a few teeth remaining in the lower jaw. Bilateral intraocular lens implants are present. No neck masses, no thyromegaly, no lymphadenopathy. Chest examination; diminished but clear breath sounds bilaterally. S1-S2 audible, no murmurs. Regular rhythm. Abdomen examination; soft, no organomegaly, nondistended. G-tube in place. Bowel sounds audible. Extremity examination; no peripheral edema. SECURITIES ANALYST examination a micro patient remains unresponsive. Results Result Diagram: 08/02/16 0840 08/02/16 0430 Results 24 hrs Laboratory Tests Test 08/02/16 01:34 08/02/16 04:30 08/02/16 08:40 Arterial Blood HCO3 26.1 H Arterial Blood Base Excess 0.4 Arterial Blood Oxygen Saturation 90.0 L Jefferson Test ACCEPTAB Arterial Blood Gas Puncture Site Right Radial Arterial Blood Carboxyhemoglobin 0.3 Arterial Blood Date Drawn 08/02/2016 2:00:53 AM Arterial Blood Methemoglobin 0.3 Arterial Blood pCO2 (Temp correct) 47.4 H Arterial Blood pH (Temp corrected) 7.359 Arterial Blood pO2 (Temp corrected) 58.4 L Blood Gas A-a O2 Differential 99.8 H Blood Gas Actual Respiration Rate 25 Blood Gas Inspiratory Pressure 58.0 Blood Gas Low PEEP Setting 5.0 Blood Gas Modality AC Blood Gas Notified Time 08/02/2016 2:14:52 AM Blood Gas Notified Whom [employer] ESTIMATOR Blood Gas Respiration Rate 16.0 Blood Gas Specimen Source Blood arterial Blood Gas Temperature 37.0 Blood Gas Tidal Volume 500.0 FiO2 30.0 Oxyhemoglobin Percent 89.5 L Total Hemoglobin 9.2 L Anion Gap 15 Basophils # 0.0 Basophils % 0.1 Blood Urea Nitrogen 35 #H Calcium Level 8.2 L Carbon Dioxide Level 28 Chloride Level 111 H Creatinine 1.63 H Eosinophils # 0.8 H Eosinophils % 6.0 Glucose Level 103 Hematocrit 26.5 #L 28.3 L Hemoglobin 7.7 #L 8.1 L Lymphocytes # 1.7 Lymphocytes % 13.9 L Magnesium Level 2.0 Mean Corpuscular Hemoglobin 28.5 L Mean Corpuscular Hemoglobin Concent 29.1 L Mean Corpuscular Volume 98.1 Mean Platelet Volume 11.1 H Monocytes # 1.1 H Monocytes % 8.6 Neutrophils # 8.8 H Neutrophils % 71.1 Nucleated Red Blood Cells # 0.0 Nucleated Red Blood Cells % 0.0 Phosphorus Level 3.0 Platelet Count 200 Potassium Level 4.3 Red Blood Count 2.70 #L Red Cell Distribution Width 16.6 H Sodium Level 150 H White Blood Count 12.4 H Medications Medications Current Medications Dobutamine HCl/ Dextrose 250 ml @ 11.25 mls/ hr TITRATE IV ; Start 07/31/16 at 02:00 Acetaminophen 650 mg 650 mg Q4H PRN [place] PAIN OR TEMP ABOVE 38C Last administered on 08/02/16 00:29; Admin Dose 650 MG; Start 07/31/16 at 05:00 Norepinephrine/ Dextrose (Levophed/D5W) 500 ml @ 1.87 mls/hr TITRATE IV Last administered on 08/01/16 05:45; Admin Dose 3.75 MLS/HR; Start 07/31/16 at 09:00 Lorazepam (Ativan) 0.25 mg Q4H PRN IV for shaking Last administered on 00:48; Admin Dose 0.25 MG; Start 07/31/16 at 05:30 Atorvastatin Calcium (Lipitor) 5 mg QHS GTB Last administered on 07/31/16 20:34 ; Admin Dose 5 MG; Start 07/31/16 at 21:00 Bisacodyl (Dulcolax Supp) 10 mg DAILY PRN [place] CONSTIPATION; Start 07/31/16 at 10: 00 Docusate Sodium (Colace Liquid Cup) 100 mg DAILY GTB Last administered on 08:51; Admin Dose 100 MG; Start 08/01/16 at 09:00 Magnesium Hydroxide (Milk Of Mag) 30 ml DAILY PRN GTB CONSTIPATION; Start at 10:00 Mineral Oil (Fleet Mineral Oil Enema) 133 ml DAILY PRN [place] CONSTIPATION; Start 07/31/16 at 10:00 Ferrous Sulfate (Feosol Liquid Cup) 300 mg TID GTB Last administered on 08:51; Admin Dose 300 MG; Start 07/31/16 at 16:00 Levetiracetam 500 mg 500 mg Q12H GTB Last administered on 08/01/16 23:22; Admin Dose 500 MG; Start 07/31/16 at 23:00 Levofloxacin/ Dextrose (Levaquin 750 Mg/ D5W 150 ml (Pmx)) 150 ml @ 100 mls/hr Q48H IVPB Last administered on 08/01/16 01:07; Admin Dose 100 MLS/HR; Start at 23:30 Diphenhydramine HCl (Benadryl) 50 mg Q6H PRN IV ITCHING Last administered on 00:02; Admin Dose 50 MG; Start 08/01/16 at 00:00 Loratadine (Claritin) 10 mg DAILY PO Last administered on 08/02/16 08:51; Admin Dose 10 MG; Start 08/01/16 at 12:00 Linezolid 600 mg 600 mg BID PO Last administered on 08/02/16 08:51; Admin Dose 600 MG; Start 08/01/16 at 21:00 Potassium Chloride 10 meq/ Dextrose 1,005 ml @ 75 mls/hr [id number] IV Last administered on 08/02/16 05:58; Admin Dose 75 MLS/HR; Start 08/01/16 at 13:00; Status Future Hold Ertapenem/Sodium Chloride (Invanz/NS) 100 ml @ 200 mls/hr Q24H IVPB Last administered on 08/01/16 13:50; Admin Dose 200 MLS/HR; Start 08/01/16 at 14:00 Mupirocin (Bactroban) 1 applic BID TOP Last administered on 08/02/16 08:51; Admin Dose 1 APPLIC; Start 08/01/16 at 21:00 Pantoprazole (Protonix Iv) 40 mg BID IV Last administered on 08/02/16 08:51; Admin Dose 40 MG; Start 08/02/16 at 09:00 Heparin Sodium (Porcine) (Heparin (5000 Units/0.5 ml)) 5,000 unit BID SC ; Start 08/02/16 at 21:00 AUGUST TERAN 11, 2017 10:20
[2016-08-02] MEDS: DEXTROSE 5% 1,000 ML IV SCH (10:49)
[2016-08-02] MEDS: LEVETIRACETAM (100 MG/ML) 5ML CUP GTB SCH (10:49)
[2016-08-02] MEDS: LEVETIRACETAM IV 500 MG in DEXTROSE 5% 100 ML IVPB SCH ×2 (13:10→22:01)
[2016-08-02] MEDS: ERTAPENEM SODIUM 1 GM in SOD CHLORIDE 0.9% 100 ML IVPB SCH (13:37)
[2016-08-02] MEDS ORDERED: LIDOCAINE 1% (MDV) 20 ML INJ SC ONE (14:00)
--- NOTE | 2016-08-02 16:26 | RADRPT ---
PROCEDURE: XR Chest. CLINICAL INDICATION: Respiratory distress. Right PICC line placement. TECHNIQUE: AP view of the chest was performed. COMPARISON: August 02, 2016 FINDINGS: There is a right PICC line with the tip in the superior vena cava. This line is ready for use. The tracheostomy tube is stable and in good positioning. There are no findings of fluid overload or acute infiltrate. No pneumothorax or pleural effusion. Osteopenia is noted. There is no interval change. IMPRESSION: Right PICC line in good positioning and ready for use. Tracheostomy tube is stable. No acute infil trate or findings of fluid overload. Overall, no significant interval change. RPTAT: QQ. .Elena Hernandez MD, MD Date Time Electronically viewed and signed by .Elena Hernandez MD, MD on 08/02/2016 16:26 .F/
[2016-08-02] MEDS ORDERED: SOD CHLORIDE 0.9% 100 ML ONE (16:43)
--- NOTE | 2016-08-02 18:27 | RADRPT ---
PROCEDURE: US guidance for PICC line CLINICAL INDICATION: PICC line placement TECHNIQUE: Multiple real-time images were acquired of the patient's arm utilizing a high resolutio n transducer. This was performed by the PICC line nurse for venous access. COMPARISON: None FINDINGS: Ultrasound guidance for PICC line placement. IMPRESSION: Ultrasound guidance for PICC line placement. RPTAT: AA .Jonas Brunner MD, MD Date Time Electronically viewed and signed by .Jonas Brunner MD, on 08/02/2016 18:27 .S/
[2016-08-02] MEDS: ATORVASTATIN 10 MG TAB GTB SCH (21:59)
[2016-08-02] MEDS: HEPARIN 5,000 UNIT/0.5 ML SYG SC SCH (22:02)
[2016-08-02] MEDS: LEVOFLOXACIN 750MG/D5W (PMX) 150 ML IVPB SCH (23:55)
[2016-08-03] VITALS (76 sets, daily range): BP systolic 85–136; BP diastolic 43–98; PULSE 66–104; RESP 15–34
[2016-08-03] MEDS: DEXTROSE 5% 1,000 ML IV SCH ×3 (04:18→20:35)
[2016-08-03 05:04] LABS: ADD SCAN DIFF NO
[2016-08-03 05:16] LABS: BASOPHILS % 0.2 % (0.0-2.0); EOSINOPHILS # 0.6 10^3/ul (0.0-0.5); EOSINOPHILS % 5.6 % (0.0-7.0); HEMATOCRIT 28.9 % (42.0-52.0); HEMOGLOBIN 8.5 g/dl (14.0-18.0); LYMPHOCYTES # 1.4 10^3/ul (0.8-2.9); LYMPHOCYTES % 13.4 % (15.0-51.0); MEAN CORPUSCULAR HEMOGLOBIN 27.8 pg (29.0-33.0); MEAN CORPUSCULAR HGB CONC 29.4 g/dl (32.0-37.0); MEAN CORPUSCULAR VOLUME 94.4 fl (82.0-101.0); MEAN PLATELET VOLUME 11.6 fl (7.4-10.4); MONOCYTE # 0.8 10^3/ul (0.3-0.9); MONOCYTES % 7.6 % (0.0-11.0); NEUTROPHIL # 7.6 10^3/ul (1.6-7.5); NEUTROPHILS % 72.8 % (39.0-77.0); PLATELET COUNT 181 10^3/UL (140-415); RED BLOOD COUNT 3.06 10^6/ul (4.70-6.10); RED CELL DISTRIBUTION WIDTH 17.2 % (11.5-14.5); WHITE BLOOD COUNT 10.5 10^3/ul (4.8-10.8)
[2016-08-03 05:42] LABS: POTASSIUM 4.2 mmol/L (3.5-5.1)
[2016-08-03 05:44] LABS: CREATININE 1.23 mg/dl (0.61-1.24)
[2016-08-03 05:45] LABS: CALCIUM 8.5 mg/dl (8.4-10.2)
[2016-08-03 07:52] LABS: MAGNESIUM 1.7 mg/dl (1.7-2.5); PHOSPHORUS 2.8 mg/dl (2.5-4.9)
--- NOTE | 2016-08-03 08:10 | CONS ---
Date/Time of Note Date/Time of Note DATE: 08/03/16 TIME: 08:09 Assessment/Plan Assessment/Plan Additional Assessment/Plan Anemia New Onset Stool ob Monitor Hgb Q8hrs, transfuse 2 units for Hgb <7.5 PPI Drip Dysphagia/G-tube malfunction Cleanse site and change dressing daily Abdominal x-ray, neg for SBO G tube in place CT abdomen does not indicate G-tube site abscess Plan for bedside replacement on Thursday Hold tube feeds until G-tube replaced Nutrition consult for appropriate rate and type of G-tube feed Sepsis/septic shock secondary to urinary tract infection Management per Primary Infectious disease following Possible diabetes Management per primary Hemoglobin A1c of 10.0., Repeat hemoglobin actually 6.0 Acute on chronic kidney injury Nephrology following Chronic respiratory failure. Vent dependent. Management per pulmonary History of seizure disorder Management per Primary Further recommendations depend on clinical course Pt seen in collaboration with Dr. Pires Consultation Date/Type/Reason Admit Date/Time Jul 31, 2016 at 02:00 Initial Consult Date 07/31/16 Type of Consultation: Gastroenterology Referring Provider: MINESH JOLLEY 24 HR Interval Summary Free Text/Dictation CT does not indicate abscess about G-tube site We will hold meds Exchange G-tube on Thursday Exam/Review of Systems Vital Signs Vitals Vital Signs Date Time Temp Pulse Resp B/P Pulse Ox O2 Delivery O2 Flow Rate FiO2 08/03/16 07:34 80 08/03/16 05:45 24 97/58 97 08/03/16 05:11 35 08/03/16 05:00 Mechanical Ventilator 08/03/16 04:00 98.6 Intake and Output 08/02/16 08/02/16 08/03/16 15:00 23:00 07:00 Intake Total 942.46 ml 1058.08 ml 654.96 ml Output Total 800 ml 710 ml 460 ml Balance 142.46 ml 348.08 ml 194.96 ml Exam Constitutional: Nonverbal, thin Psych: Nonverbal Head: normocephalic Eyes: nl conjunctiva, nl lids ENMT: nl external ears & nose, nl lips & teeth, nl nasal mucosa & septum Respiratory: Tracheostomy Cardiovascular: regular rate and rhythm Gastrointestinal: soft, G-tube site indurated Musculoskeletal: Contractures bilateral hands and feet Neurological: Grossly nonfocal Results Result Diagram: 08/03/16 0400 08/03/16 0400 Results 24 hrs Laboratory Tests Test 08/02/16 08:40 08/02/16 13:00 08/03/16 04:00 Hematocrit 28.3 L 28.9 L Hemoglobin 8.1 L 8.5 L Stool Occult Blood NEGATIVE Anion Gap 15 Basophils # 0.0 Basophils % 0.2 Blood Urea Nitrogen 22 #H Calcium Level 8.5 Carbon Dioxide Level 26 Chloride Level 109 Creatinine 1.23 Eosinophils # 0.6 H Eosinophils % 5.6 Glucose Level 101 Lymphocytes # 1.4 Lymphocytes % 13.4 L Magnesium Level 1.7 Mean Corpuscular Hemoglobin 27.8 L Mean Corpuscular Hemoglobin Concent 29.4 L Mean Corpuscular Volume 94.4 Mean Platelet Volume 11.6 H Monocytes # 0.8 Monocytes % 7.6 Neutrophils # 7.6 H Neutrophils % 72.8 Nucleated Red Blood Cells # 0.0 Nucleated Red Blood Cells % 0.0 Phosphorus Level 2.8 Platelet Count 181 Potassium Level 4.2 Red Blood Count 3.06 L Red Cell Distribution Width 17.2 H Sodium Level 146 H Troponin I 0.053 White Blood Count 10.5 Medications Medications Current Medications Dobutamine HCl/ Dextrose 250 ml @ 11.25 mls/ hr TITRATE IV ; Start 07/31/16 at 02:00 Acetaminophen 650 mg 650 mg Q4H PRN MD PAIN OR TEMP ABOVE 38C Last administered on 08/02/16 00:29; Admin Dose 650 MG; Start 07/31/16 at 05:00 Norepinephrine/ Dextrose (Levophed/D5W) 500 ml @ 1.87 mls/hr TITRATE IV Last administered on 08/01/16 05:45; Admin Dose 3.75 MLS/HR; Start 07/31/16 at 09:00 Lorazepam (Ativan) 0.25 mg Q4H PRN IV for shaking Last administered on 00:48; Admin Dose 0.25 MG; Start 07/31/16 at 05:30 Atorvastatin Calcium (Lipitor) 5 mg QHS GTB Last administered on 08/02/16 21: 59; Admin Dose 5 MG; Start 07/31/16 at 21:00 Bisacodyl (Dulcolax Supp) 10 mg DAILY PRN MD CONSTIPATION; Start 07/31/16 at 10: 00 Docusate Sodium (Colace Liquid Cup) 100 mg DAILY GTB Last administered on 08:51; Admin Dose 100 MG; Start 08/01/16 at 09:00 Magnesium Hydroxide (Milk Of Mag) 30 ml DAILY PRN GTB CONSTIPATION; Start at 10:00 Mineral Oil (Fleet Mineral Oil Enema) 133 ml DAILY PRN MD CONSTIPATION; Start 07/31/16 at 10:00 Ferrous Sulfate 300 mg 300 mg TID GTB Last administered on 08/02/16 21:59; Admin Dose 300 MG; Start 07/31/16 at 16:00 Levofloxacin/ Dextrose (Levaquin 750 Mg/ D5W 150 ml (Pmx)) 150 ml @ 100 mls/hr Q48H IVPB Last administered on 08/02/16 23:55; Admin Dose 100 MLS/HR; Start at 23:30 Diphenhydramine HCl (Benadryl) 50 mg Q6H PRN IV ITCHING Last administered on 00:02; Admin Dose 50 MG; Start 08/01/16 at 00:00 Loratadine (Claritin) 10 mg DAILY PO Last administered on 08/02/16 08:51; Admin Dose 10 MG; Start 08/01/16 at 12:00 Linezolid 600 mg 600 mg BID PO Last administered on 08/02/16 21:59; Admin Dose 600 MG; Start 08/01/16 at 21:00 Ertapenem/Sodium Chloride (Invanz/NS) 100 ml @ 200 mls/hr Q24H IVPB Last administered on 08/02/16 13:37; Admin Dose 200 MLS/HR; Start 08/01/16 at 14:00 Mupirocin (Bactroban) 1 applic BID TOP Last administered on 08/02/16 21:00; Admin Dose 1 APPLIC; Start 08/01/16 at 21:00 Pantoprazole (Protonix Iv) 40 mg BID IV Last administered on 08/02/16 21:59; Admin Dose 40 MG; Start 08/02/16 at 09:00 Heparin Sodium (Porcine) 5000 unit 5,000 unit BID SC Last administered on 22:02; Admin Dose 5,000 UNIT; Start 08/02/16 at 21:00 Dextrose 1,000 ml @ 70 mls/hr [id number] IV Last administered on 08/03/16 04:18 ; Admin Dose 70 MLS/HR; Start 08/02/16 at 11:00 Levetiracetam/ Dextrose (Keppra Iv/D5W) 105 ml @ 420 mls/hr Q12 IVPB Last administered on 08/02/16 22:01; Admin Dose 420 MLS/HR; Start 08/02/16 at 12:30 IV Flush (NS 10 ml) 10 ml PRN PRN IV FLUSH LINE; Start 08/02/16 at 17:00 NOEMY SU Aug 03, 2016 08:10
[2016-08-03] MEDS: FERROUS SULFATE 60 MG/ML 5ML CUP GTB SCH ×3 (08:23→20:36)
[2016-08-03] MEDS: LORATADINE 10 MG TAB PO SCH (08:23)
[2016-08-03] MEDS: DOCUSATE SODIUM 10 MG/ML (10ML CUP) GTB SCH (08:23)
[2016-08-03] MEDS: ZYVOX 600 MG TAB PO SCH ×2 (08:23→20:37)
[2016-08-03] MEDS: MUPIROCIN 2% 22 GM OINT TOP SCH ×2 (08:35→20:35)
[2016-08-03] MEDS: PANTOPRAZOLE 40 MG INJ IV SCH ×2 (08:35→20:35)
[2016-08-03] MEDS: HEPARIN 5,000 UNIT/0.5 ML SYG SC SCH ×2 (08:37→20:43)
--- NOTE | 2016-08-03 09:04 | PN ---
Date/Time of Note Date/Time of Note DATE: 08/03/16 TIME: 09:01 Assessment/Plan VTE Prophylaxis VTE Prophylaxis Intervention: heparin Lines/Catheters IV C[facility]ter Type (from [facility]): PICC Line Central line still needed: Yes Urinary Cath still in place: Yes Reason Cath still needed: terminal illness/intractable pain Assessment/Plan Chief Complaint/Hosp Course 1. Sepsis with underlying septic shock secondary to urinary tract infection [ E. coli ESBL], underlying gram-positive bacteremia. Continue antibiotics as per infectious diseases. Continue pressors for blood pressure support. 2. Acute on chronic kidney injury in a patient with unknown baseline creatinine. Nephrology is following. Avoid nephrotoxic medications. The patient's BUN and creatinine are improving. 3. Elevated troponins, most probably a type II event from underlying sepsis and kidney injury. Monitor. 4. Chronic respiratory failure. Vent dependent. Continue ventilator management as per pulmonary. Continue inhaled bronchodilators. 5. Normocytic normochromic anemia with underlying iron deficiency. Continue iron supplements. Monitor H and H closely. Transfuse as needed. 6. Hypernatremia. Improving. Unable to give free water because the patient has G-tube site leaking. IV fluid management as per nephrology 7. Dyslipidemia. Continue statin. 8. Seizure disorder. Continue anticonvulsants. 9. History of essential hypertension. Currently, hypotensive. Antihypertensives on hold. 10. Leaking G-tube site. Gastroenterology on the case. Plan for replacement. 11. Fluid, electrolytes and nutrition. Continue IV fluids as per nephrology. 12. Deep venous thrombosis prophylaxis. Heparin on hold because of worsening anemia. Bilateral lower extremity sequential compression devices 13. Gastrointestinal prophylaxis. Histamine 2 receptor blockers. 14. Plan. Continue antibiotics as per Infectious Disease. Continue pressors for blood pressure support. Palliative care on the patient's case trying to reach the patient's family. Ideally, the patient needs to be a DNR. Poor prognosis. The case was discussed with Dr. Underwood. Critical care time: 35 minutes. Problems: Subjective 24 Hr Interval Summary Free Text/Dictation The patient remains on low-dose Levophed for blood pressure support. Exam/Review of Systems Vital Signs Vitals Vital Signs Date Time Temp Pulse Resp B/P Pulse Ox O2 Delivery O2 Flow Rate FiO2 08/03/16 08:00 88 08/03/16 07:45 99.6 20 111/58 98 Mechanical Ventilator 08/03/16 05:11 35 Intake and Output 08/02/16 08/02/16 08/03/16 15:00 23:00 07:00 Intake Total 942.46 ml 1058.08 ml 724.96 ml Output Total 800 ml 710 ml 560 ml Balance 142.46 ml 348.08 ml 164.96 ml Exam GENERAL: This is an elderly 61-year-old male lying in bed in no apparent distress. HEENT: Head normocephalic and atraumatic. Eyes: Anicteric sclerae. Conjunctivae clear. ENT: Nasal septum is midline. Oral mucosa is dry. NECK: Tracheostomy midline. RESPIRATORY: Bilaterally diminished breath sounds. Coarse breath sounds. Tracheostomy connected to mechanical ventilator. On AC mode ventilation. CARDIAC: Regular rate and rhythm with multiple PVCs. ABDOMEN: Soft. Left upper quadrant G-tube site with G-tube site leaking. GENITOURINARY: The patient has a Bernstein catheter in place. EXTREMITIES: No cyanosis, no clubbing. Peripheral pulses diminished. Contracted extremities on bilateral upper and lower extremity contractions. NEUROLOGIC: The patient is awake but not alert. Results Result Diagram: 08/03/16 0400 08/03/16 0400 Results 24 hrs Laboratory Tests Test 08/02/16 13:00 08/03/16 04:00 Stool Occult Blood NEGATIVE Anion Gap 15 Basophils # 0.0 Basophils % 0.2 Blood Urea Nitrogen 22 #H Calcium Level 8.5 Carbon Dioxide Level 26 Chloride Level 109 Creatinine 1.23 Eosinophils # 0.6 H Eosinophils % 5.6 Glucose Level 101 Hematocrit 28.9 L Hemoglobin 8.5 L Lymphocytes # 1.4 Lymphocytes % 13.4 L Magnesium Level 1.7 Mean Corpuscular Hemoglobin 27.8 L Mean Corpuscular Hemoglobin Concent 29.4 L Mean Corpuscular Volume 94.4 Mean Platelet Volume 11.6 H Monocytes # 0.8 Monocytes % 7.6 Neutrophils # 7.6 H Neutrophils % 72.8 Nucleated Red Blood Cells # 0.0 Nucleated Red Blood Cells % 0.0 Phosphorus Level 2.8 Platelet Count 181 Potassium Level 4.2 Red Blood Count 3.06 L Red Cell Distribution Width 17.2 H Sodium Level 146 H Troponin I 0.053 White Blood Count 10.5 Medications Medications Current Medications Dobutamine HCl/ Dextrose 250 ml @ 11.25 mls/ hr TITRATE IV ; Start 07/31/16 at 02:00 Acetaminophen 650 mg 650 mg Q4H PRN [place] PAIN OR TEMP ABOVE 38C Last administered on 08/02/16 00:29; Admin Dose 650 MG; Start 07/31/16 at 05:00 Norepinephrine/ Dextrose (Levophed/D5W) 500 ml @ 1.87 mls/hr TITRATE IV Last administered on 08/01/16 05:45; Admin Dose 3.75 MLS/HR; Start 07/31/16 at 09:00 Lorazepam (Ativan) 0.25 mg Q4H PRN IV for shaking Last administered on 00:48; Admin Dose 0.25 MG; Start 07/31/16 at 05:30 Atorvastatin Calcium (Lipitor) 5 mg QHS GTB Last administered on 08/02/16 21: 59; Admin Dose 5 MG; Start 07/31/16 at 21:00 Bisacodyl (Dulcolax Supp) 10 mg DAILY PRN [place] CONSTIPATION; Start 07/31/16 at 10: 00 Docusate Sodium (Colace Liquid Cup) 100 mg DAILY GTB Last administered on 08:51; Admin Dose 100 MG; Start 08/01/16 at 09:00 Magnesium Hydroxide (Milk Of Mag) 30 ml DAILY PRN GTB CONSTIPATION; Start at 10:00 Mineral Oil (Fleet Mineral Oil Enema) 133 ml DAILY PRN CA CONSTIPATION; Start 07/31/16 at 10:00 Ferrous Sulfate 300 mg 300 mg TID GTB Last administered on 08/02/16 21:59; Admin Dose 300 MG; Start 07/31/16 at 16:00 Levofloxacin/ Dextrose (Levaquin 750 Mg/ D5W 150 ml (Pmx)) 150 ml @ 100 mls/hr Q48H IVPB Last administered on 08/02/16 23:55; Admin Dose 100 MLS/HR; Start at 23:30 Diphenhydramine HCl (Benadryl) 50 mg Q6H PRN IV ITCHING Last administered on 00:02; Admin Dose 50 MG; Start 08/01/16 at 00:00 Loratadine (Claritin) 10 mg DAILY PO Last administered on 08/02/16 08:51; Admin Dose 10 MG; Start 08/01/16 at 12:00 Linezolid 600 mg 600 mg BID PO Last administered on 08/02/16 21:59; Admin Dose 600 MG; Start 08/01/16 at 21:00 Ertapenem/Sodium Chloride (Invanz/NS) 100 ml @ 200 mls/hr Q24H IVPB Last administered on 08/02/16 13:37; Admin Dose 200 MLS/HR; Start 08/01/16 at 14:00 Mupirocin (Bactroban) 1 applic BID TOP Last administered on 08/03/16 08:35; Admin Dose 1 APPLIC; Start 08/01/16 at 21:00 Pantoprazole (Protonix Iv) 40 mg BID IV Last administered on 08/03/16 08:35; Admin Dose 40 MG; Start 08/02/16 at 09:00 Heparin Sodium (Porcine) 5000 unit 5,000 unit BID SC Last administered on 08:37; Admin Dose 5,000 UNIT; Start 08/02/16 at 21:00 Dextrose 1,000 ml @ 70 mls/hr [id number] IV Last administered on 08/03/16 04:18 ; Admin Dose 70 MLS/HR; Start 08/02/16 at 11:00 Levetiracetam/ Dextrose (Keppra Iv/D5W) 105 ml @ 420 mls/hr Q12 IVPB Last administered on 08/02/16 22:01; Admin Dose 420 MLS/HR; Start 08/02/16 at 12:30 IV Flush (NS 10 ml) 10 ml PRN PRN IV FLUSH LINE; Start 08/02/16 at 17:00 RENA JAY NP Aug 03, 2016 09:04
--- NOTE | 2016-08-03 10:08 | CONS ---
Date/Time of Note Date/Time of Note DATE: 08/03/16 TIME: 10:05 Assessment/Plan Assessment/Plan Additional Assessment/Plan Ventilator settings are AC of 16, tidal volume 500, PEEP of 5, 35% FiO2. Next Assessment recommendations; 1. Patient admitted for UTI and sepsis with continued clinical improvement. Currently on low-dose Levophed drip currently on a tapering dose. 2. History of chronic respiratory failure, patient ventilator dependent. Next 3. Acute renal injury with normalization of serum creatinine. 4. Hyponatremia with marked improvement as well. 5. Anemia. Continue current treatment. Switch the patient to SIMV with a rate of 12 pressure support 10, tidal volume 500, 30% FiO2. Consultation Date/Type/Reason Admit Date/Time Jul 31, 2016 at 02:00 Initial Consult Date 07/31/16 Type of Consultation: Pulmonary/critical care Referring Provider: MINESH JOLLEY 24 HR Interval Summary Free Text/Dictation Patient condition is stable. Has remained hemodynamically stable. Currently on a very low-dose Levophed drip at 1 nando per minute. Because of underlying anoxic brain injury patient is awake but is completely unresponsive to any commands. General exam; elderly male, on ventilator via tracheostomy currently in no distress. Awake. Exam/Review of Systems Vital Signs Vitals Vital Signs Date Time Temp Pulse Resp B/P Pulse Ox O2 Delivery O2 Flow Rate FiO2 08/03/16 09:30 74 16 108/57 97 Mechanical Ventilator 08/03/16 08:00 35 08/03/16 07:45 99.6 Intake and Output 08/02/16 08/02/16 08/03/16 15:00 23:00 07:00 Intake Total 942.46 ml 1058.08 ml 724.96 ml Output Total 800 ml 710 ml 560 ml Balance 142.46 ml 348.08 ml 164.96 ml Exam HEENT examination; supple neck, no JVD. No lymphadenopathy. Midline trachea. No thyromegaly. Tracheostomy in place. Insertion site is clean. Patient is edentulous. Has bilateral intraocular lens implants. Chest examination; diminished but clear breath sounds bilaterally. S1-S2 audible, no murmurs. Regular rhythm. Abdomen examination; soft, no organomegaly. Nondistended. G-tube in place. Bowel sounds audible. Extremity examination; no peripheral edema. Patient has contractures involving all 4 extremities. HOUSEKEEPER/LAUNDRY ASSISTANT examination; patient is awake but does not follow any commands. Results Result Diagram: 08/03/16 0400 08/03/16 0400 Results 24 hrs Laboratory Tests Test 08/02/16 13:00 08/03/16 04:00 Stool Occult Blood NEGATIVE Anion Gap 15 Basophils # 0.0 Basophils % 0.2 Blood Urea Nitrogen 22 #H Calcium Level 8.5 Carbon Dioxide Level 26 Chloride Level 109 Creatinine 1.23 Eosinophils # 0.6 H Eosinophils % 5.6 Glucose Level 101 Hematocrit 28.9 L Hemoglobin 8.5 L Lymphocytes # 1.4 Lymphocytes % 13.4 L Magnesium Level 1.7 Mean Corpuscular Hemoglobin 27.8 L Mean Corpuscular Hemoglobin Concent 29.4 L Mean Corpuscular Volume 94.4 Mean Platelet Volume 11.6 H Monocytes # 0.8 Monocytes % 7.6 Neutrophils # 7.6 H Neutrophils % 72.8 Nucleated Red Blood Cells # 0.0 Nucleated Red Blood Cells % 0.0 Phosphorus Level 2.8 Platelet Count 181 Potassium Level 4.2 Red Blood Count 3.06 L Red Cell Distribution Width 17.2 H Sodium Level 146 H Troponin I 0.053 White Blood Count 10.5 Medications Medications Current Medications Dobutamine HCl/ Dextrose 250 ml @ 11.25 mls/ hr TITRATE IV ; Start 07/31/16 at 02:00 Acetaminophen 650 mg 650 mg Q4H PRN [place] PAIN OR TEMP ABOVE 38C Last administered on 08/02/16 00:29; Admin Dose 650 MG; Start 07/31/16 at 05:00 Norepinephrine/ Dextrose (Levophed/D5W) 500 ml @ 1.87 mls/hr TITRATE IV Last administered on 08/01/16 05:45; Admin Dose 3.75 MLS/HR; Start 07/31/16 at 09:00 Lorazepam (Ativan) 0.25 mg Q4H PRN IV for shaking Last administered on 00:48; Admin Dose 0.25 MG; Start 07/31/16 at 05:30 Atorvastatin Calcium (Lipitor) 5 mg QHS GTB Last administered on 08/02/16 21: 59; Admin Dose 5 MG; Start 07/31/16 at 21:00 Bisacodyl (Dulcolax Supp) 10 mg DAILY PRN [place] CONSTIPATION; Start 07/31/16 at 10: 00 Docusate Sodium (Colace Liquid Cup) 100 mg DAILY GTB Last administered on 08:51; Admin Dose 100 MG; Start 08/01/16 at 09:00 Magnesium Hydroxide (Milk Of Mag) 30 ml DAILY PRN GTB CONSTIPATION; Start at 10:00 Mineral Oil (Fleet Mineral Oil Enema) 133 ml DAILY PRN PA CONSTIPATION; Start 07/31/16 at 10:00 Ferrous Sulfate 300 mg 300 mg TID GTB Last administered on 08/02/16 21:59; Admin Dose 300 MG; Start 07/31/16 at 16:00 Levofloxacin/ Dextrose (Levaquin 750 Mg/ D5W 150 ml (Pmx)) 150 ml @ 100 mls/hr Q48H IVPB Last administered on 08/02/16 23:55; Admin Dose 100 MLS/HR; Start at 23:30 Diphenhydramine HCl (Benadryl) 50 mg Q6H PRN IV ITCHING Last administered on 00:02; Admin Dose 50 MG; Start 08/01/16 at 00:00 Loratadine (Claritin) 10 mg DAILY PO Last administered on 08/02/16 08:51; Admin Dose 10 MG; Start 08/01/16 at 12:00 Linezolid 600 mg 600 mg BID PO Last administered on 08/02/16 21:59; Admin Dose 600 MG; Start 08/01/16 at 21:00 Ertapenem/Sodium Chloride (Invanz/NS) 100 ml @ 200 mls/hr Q24H IVPB Last administered on 08/02/16 13:37; Admin Dose 200 MLS/HR; Start 08/01/16 at 14:00 Mupirocin (Bactroban) 1 applic BID TOP Last administered on 08/03/16 08:35; Admin Dose 1 APPLIC; Start 08/01/16 at 21:00 Pantoprazole (Protonix Iv) 40 mg BID IV Last administered on 08/03/16 08:35; Admin Dose 40 MG; Start 08/02/16 at 09:00 Heparin Sodium (Porcine) 5000 unit 5,000 unit BID SC Last administered on 08:37; Admin Dose 5,000 UNIT; Start 08/02/16 at 21:00 Dextrose 1,000 ml @ 70 mls/hr [id number] IV Last administered on 08/03/16 04:18 ; Admin Dose 70 MLS/HR; Start 08/02/16 at 11:00 Levetiracetam/ Dextrose (Keppra Iv/D5W) 105 ml @ 420 mls/hr Q12 IVPB Last administered on 08/02/16 22:01; Admin Dose 420 MLS/HR; Start 08/02/16 at 12:30 IV Flush (NS 10 ml) 10 ml PRN PRN IV FLUSH LINE; Start 08/02/16 at 17:00 AUGUST TERAN Aug 03, 2016 10:08
[2016-08-03] MEDS: LEVETIRACETAM IV 500 MG in DEXTROSE 5% 100 ML IVPB SCH ×2 (10:59→20:35)
--- NOTE | 2016-08-03 14:13 | CONS ---
Date/Time of Note Date/Time of Note DATE: 08/03/16 TIME: 14:07 Assessment/Plan Assessment/Plan Chief Complaint/Hosp Course ID PROGRESS NOTE TOTAL ABX DAY #4 => Zyvox #3 + Ertapenem #3 s/p Clindamycin IV/Levaquin s/p Vancomycin IV/ Zosyn. 24H INTERVAL SUMMARY * Clinically status quo -- weaning pressors, Chronic encephalopathic, non- communicative extreme fair skin w/diffuse erythematous pruritic rash, face, chest, ABD * New PICC line * BCx (+)Staph-CoNS = skin contaminant * GT site w/mild drainage/leak -> 08/02/16 wound cx (-) 24H Reginald: 08/02/16-1400 Rcvd: 08/02/16-1418 ABD WALL Sp Descrip: Microbiology GRAM STAIN Final POLYMORPH. LEUKOCYTE NONE SEEN . NO ORGANISM SEEN WOUND CULTURE Preliminary No growth after 1 day Reginald: 07/30/16-2114 Rcvd: 07/30/16 Source: BLOOD Sp Descrip: Microbiology BLOOD CULTURE Preliminary BCULT GRAM BOTTLE 1 Gram positive cocci in pairs and clusters BCULT GRAM BOTTLE 2 Gram positive cocci in clusters 2 of 2 bottles . seen on gram stain of the broth Organism 1 COAGULASE NEGATIVE STAPH COAG NEG M.I.C. RX --------- --- CEFAZOLIN R CIPROFLOXACIN >=8 R CLINDAMYCIN >=8 R DOXYCYCLINE R ERYTHROMYCIN >=8 R LEVOFLOXACIN >=8 R OXACILLIN >=4 R PENICILLIN-G >=0.5 R RIFAMPIN <=0.5 S TRIMETHOPRIM/SULFAMETHOXAZOLE 80 R PHYSICAL EXAMINATION: GENERAL: Non-communicative, vented, VSS, NAD HEENT: (+)facial erythematous rash NECK: Trach (+) secure to Vent CHEST: Equal chest rise bilaterally, without dyspnea on observation HEART: Pulse RRR ABDOMEN: Soft/peg EXTREMITIES: Warm SKIN: With maculopapular rash over the body and also scratching foreman on his legs. ID ASSESSMENT: 71 yo M w/PMHx anoxic encephalopathy w/SZs disorder, Trach/Peg admit from SNF with: 1. Severe sepsis with shock 2nd/2 #2 associated on admission with: * Fever >104.+ * Hypotension * Tachycardia * Leukocytosis * Troponin leak in setting sepsis 2. Complicated MDRO Gram-negative rods urinary tract infection. * s/p renal ultrasound that revealed no hydronephrosis. * URINE CULTURE Final Organism 1 ESCHERICHIA COLI (ESBL) COLONY COUNT >100,000 CFU/ml . MULTI DRUG RESISTANT ORGANISM 3. Bacteremia with blood culture growing gram-positive cocci in clusters 2 out of 2 bottles = Probable skin contaminant * BLOOD CULTURE Preliminary BCULT GRAM BOTTLE 1 Gram positive cocci in pairs and clusters BCULT GRAM BOTTLE 2 Gram positive cocci in clusters 2 of 2 bottles . seen on gram stain of the broth Organism 1 COAGULASE NEGATIVE STAPH 4. Anemia -> suspect GIB w/dark GI content leak @ GT 5. GT Malfx w/GT site ABD wall excoriation/cellulitis * No CT evidence for abscess around the gastrostomy tube. * 08/02/16 ABD WALL Microbiology GRAM STAIN Final POLYMORPH. LEUKOCYTE NONE SEEN //NO ORGANISM SEEN WOUND CULTURE Preliminary No growth after 1 day 6. Acute renal failure, likely acute tubular necrosis. 7. Nephrolithiasis per CT: There is a 5 mm left mid kidney renal stone. There is no ureteral stone or hydronephrosis bilaterally. 8. Non-STEMI vs Troponin leak in setting demand ischemia 9. Atherosclerosis per CT 10.Pruritic maculopapular rash over the body and also scratching foreman on his legs => Unclear if rash is acute post IV ABX Zosyn/Vanco or chronic? * s/p Empiric Elimite for scabies = rationale is SNF resident (+)MRSA Nares->Bactroban onboard INVASIVES: Trach/Peg/FC/Left Fem TLC ABX ALLERGY: ?Zosyn vs Vanco IV = RASH CURRENT ABX: TOTAL ABX DAY #4 => Zyvox #3 + Ertapenem #3 s/p Clindamycin IV/Levaquin s/p Vancomycin IV/ Zosyn. ID RECOMMENDATIONS: 1. Continue current ABX, watch PLT on Zyvox w/anemia 2. GI on case-> per notes EGD w/GT replacement planned 3. Attempt MRSA decolonization w/Hibiclens bath Q-shift head-Toe x 3 days 4. GT site culture/ local wound care . . Problems: Consultation Date/Type/Reason Admit Date/Time Jul 31, 2016 at 02:00 Initial Consult Date 07/31/16 Type of Consultation: ID Referring Provider: MINESH JOLLEY Exam/Review of Systems Vital Signs Vitals Vital Signs Date Time Temp Pulse Resp B/P Pulse Ox O2 Delivery O2 Flow Rate FiO2 08/03/16 12:30 71 16 122/66 97 Mechanical Ventilator 08/03/16 11:45 99.2 08/03/16 11:10 35 Intake and Output 08/02/16 08/02/16 08/03/16 15:00 23:00 07:00 Intake Total 942.46 ml 1058.08 ml 724.96 ml Output Total 800 ml 710 ml 560 ml Balance 142.46 ml 348.08 ml 164.96 ml Results Result Diagram: 08/03/16 0400 08/03/16 0400 Results 24 hrs Laboratory Tests Test 08/03/16 04:00 Anion Gap 15 Basophils # 0.0 Basophils % 0.2 Blood Urea Nitrogen 22 #H Calcium Level 8.5 Carbon Dioxide Level 26 Chloride Level 109 Creatinine 1.23 Eosinophils # 0.6 H Eosinophils % 5.6 Glucose Level 101 Hematocrit 28.9 L Hemoglobin 8.5 L Lymphocytes # 1.4 Lymphocytes % 13.4 L Magnesium Level 1.7 Mean Corpuscular Hemoglobin 27.8 L Mean Corpuscular Hemoglobin Concent 29.4 L Mean Corpuscular Volume 94.4 Mean Platelet Volume 11.6 H Monocytes # 0.8 Monocytes % 7.6 Neutrophils # 7.6 H Neutrophils % 72.8 Nucleated Red Blood Cells # 0.0 Nucleated Red Blood Cells % 0.0 Phosphorus Level 2.8 Platelet Count 181 Potassium Level 4.2 Red Blood Count 3.06 L Red Cell Distribution Width 17.2 H Sodium Level 146 H Troponin I 0.053 White Blood Count 10.5 Medications Medications Current Medications Dobutamine HCl/ Dextrose 250 ml @ 11.25 mls/ hr TITRATE IV ; Start 07/31/16 at 02:00 Acetaminophen 650 mg 650 mg Q4H PRN [place] PAIN OR TEMP ABOVE 38C Last administered on 08/02/16 00:29; Admin Dose 650 MG; Start 07/31/16 at 05:00 Norepinephrine/ Dextrose (Levophed/D5W) 500 ml @ 1.87 mls/hr TITRATE IV Last administered on 08/01/16 05:45; Admin Dose 3.75 MLS/HR; Start 07/31/16 at 09:00 Lorazepam (Ativan) 0.25 mg Q4H PRN IV for shaking Last administered on 00:48; Admin Dose 0.25 MG; Start 07/31/16 at 05:30 Atorvastatin Calcium (Lipitor) 5 mg QHS GTB Last administered on 08/02/16 21: 59; Admin Dose 5 MG; Start 07/31/16 at 21:00 Bisacodyl (Dulcolax Supp) 10 mg DAILY PRN [place] CONSTIPATION; Start 07/31/16 at 10: 00 Docusate Sodium (Colace Liquid Cup) 100 mg DAILY GTB Last administered on 08:51; Admin Dose 100 MG; Start 08/01/16 at 09:00 Magnesium Hydroxide (Milk Of Mag) 30 ml DAILY PRN GTB CONSTIPATION; Start at 10:00 Mineral Oil (Fleet Mineral Oil Enema) 133 ml DAILY PRN [place] CONSTIPATION; Start 07/31/16 at 10:00 Ferrous Sulfate 300 mg 300 mg TID GTB Last administered on 08/02/16 21:59; Admin Dose 300 MG; Start 07/31/16 at 16:00 Levofloxacin/ Dextrose (Levaquin 750 Mg/ D5W 150 ml (Pmx)) 150 ml @ 100 mls/hr Q48H IVPB Last administered on 08/02/16 23:55; Admin Dose 100 MLS/HR; Start at 23:30 Diphenhydramine HCl (Benadryl) 50 mg Q6H PRN IV ITCHING Last administered on 00:02; Admin Dose 50 MG; Start 08/01/16 at 00:00 Loratadine (Claritin) 10 mg DAILY PO Last administered on 08/02/16 08:51; Admin Dose 10 MG; Start 08/01/16 at 12:00 Linezolid 600 mg 600 mg BID PO Last administered on 08/02/16 21:59; Admin Dose 600 MG; Start 08/01/16 at 21:00 Ertapenem/Sodium Chloride (Invanz/NS) 100 ml @ 200 mls/hr Q24H IVPB Last administered on 08/02/16 13:37; Admin Dose 200 MLS/HR; Start 08/01/16 at 14:00 Mupirocin (Bactroban) 1 applic BID TOP Last administered on 08/03/16 08:35; Admin Dose 1 APPLIC; Start 08/01/16 at 21:00 Pantoprazole (Protonix Iv) 40 mg BID IV Last administered on 08/03/16 08:35; Admin Dose 40 MG; Start 08/02/16 at 09:00 Heparin Sodium (Porcine) 5000 unit 5,000 unit BID SC Last administered on 08:37; Admin Dose 5,000 UNIT; Start 08/02/16 at 21:00 Dextrose 1,000 ml @ 70 mls/hr [id number] IV Last administered on 08/03/16 04:18 ; Admin Dose 70 MLS/HR; Start 08/02/16 at 11:00 Levetiracetam/ Dextrose (Keppra Iv/D5W) 105 ml @ 420 mls/hr Q12 IVPB Last administered on 08/03/16 10:59; Admin Dose 420 MLS/HR; Start 08/02/16 at 12:30 IV Flush (NS 10 ml) 10 ml PRN PRN IV FLUSH LINE; Start 08/02/16 at 17:00 SCOTT MENDEZ NP Aug 03, 2016 14:13
[2016-08-03] MEDS: ERTAPENEM SODIUM 1 GM in SOD CHLORIDE 0.9% 100 ML IVPB SCH (14:49)
[2016-08-03] MEDS: ATORVASTATIN 10 MG TAB GTB SCH (20:36)
--- NOTE | 2016-08-03 21:28 | CONS ---
Date/Time of Note Date/Time of Note DATE: 08/03/16 TIME: 21:27 Assessment/Plan Assessment/Plan Additional Assessment/Plan 1. Acute kidney injury on possible chronic kidney disease likely secondary to acute tubular necrosis from sepsis secondary to urinary tract infection. 2. Septic shock, sepsis secondary to urinary tract infection. 3. ST segment changes on electrocardiogram. 4. Moderate to severe dehydration. 5. Normocytic anemia. 6. Rule out chronic kidney disease from type 2 diabetes mellitus. 7. Chronic respiratory failure, status post tracheostomy on ventilator. 8. Status post G-tube for feeding stage G-tube placement. PLAN: Cr better, and Na slowly improving continue D5 W continue free water as ordered will continue to follow up on patient Consultation Date/Type/Reason Admit Date/Time Jul 31, 2016 at 02:00 Initial Consult Date 07/31/16 Type of Consultation: NEPHROLOGY Reason for Consultation acute kidney injury, Hypernatremia Referring Provider: MINESH JOLLEY 24 HR Interval Summary Free Text/Dictation Cr improved, Na better , Exam/Review of Systems Vital Signs Vitals Vital Signs Date Time Temp Pulse Resp B/P Pulse Ox O2 Delivery O2 Flow Rate FiO2 08/03/16 20:00 75 08/03/16 17:10 16 100 35 08/03/16 17:00 136/64 Mechanical Ventilator 08/03/16 16:00 98.9 Intake and Output 08/02/16 08/02/16 08/03/16 15:00 23:00 07:00 Intake Total 942.46 ml 1058.08 ml 724.96 ml Output Total 800 ml 710 ml 560 ml Balance 142.46 ml 348.08 ml 164.96 ml Exam HEENT: Normal. Tracheostomy tube site is clear. No discharge. NECK: Supple, no JVD. LUNGS: Clear to auscultation. Bilateral coarse breath sounds. HEART: S1, S2, with tachycardia, no murmur. ABDOMEN: Soft, gastrostomy tube is in place, site is clear. No discharge. EXTREMITIES: No clubbing, cyanosis, or edema. NEUROLOGICAL: Uncooperative for exam. Results Result Diagram: 08/03/16 0400 08/03/16 0400 Results 24 hrs Laboratory Tests Test 08/03/16 04:00 Anion Gap 15 Basophils # 0.0 Basophils % 0.2 Blood Urea Nitrogen 22 #H Calcium Level 8.5 Carbon Dioxide Level 26 Chloride Level 109 Creatinine 1.23 Eosinophils # 0.6 H Eosinophils % 5.6 Glucose Level 101 Hematocrit 28.9 L Hemoglobin 8.5 L Lymphocytes # 1.4 Lymphocytes % 13.4 L Magnesium Level 1.7 Mean Corpuscular Hemoglobin 27.8 L Mean Corpuscular Hemoglobin Concent 29.4 L Mean Corpuscular Volume 94.4 Mean Platelet Volume 11.6 H Monocytes # 0.8 Monocytes % 7.6 Neutrophils # 7.6 H Neutrophils % 72.8 Nucleated Red Blood Cells # 0.0 Nucleated Red Blood Cells % 0.0 Phosphorus Level 2.8 Platelet Count 181 Potassium Level 4.2 Red Blood Count 3.06 L Red Cell Distribution Width 17.2 H Sodium Level 146 H Troponin I 0.053 White Blood Count 10.5 Medications Medications Current Medications Dobutamine HCl/ Dextrose 250 ml @ 11.25 mls/ hr TITRATE IV ; Start 07/31/16 at 02:00 Acetaminophen 650 mg 650 mg Q4H PRN [place] PAIN OR TEMP ABOVE 38C Last administered on 08/02/16 00:29; Admin Dose 650 MG; Start 07/31/16 at 05:00 Norepinephrine/ Dextrose (Levophed/D5W) 500 ml @ 1.87 mls/hr TITRATE IV Last administered on 08/01/16 05:45; Admin Dose 3.75 MLS/HR; Start 07/31/16 at 09:00 Lorazepam (Ativan) 0.25 mg Q4H PRN IV for shaking Last administered on 00:48; Admin Dose 0.25 MG; Start 07/31/16 at 05:30 Atorvastatin Calcium (Lipitor) 5 mg QHS GTB Last administered on 08/02/16 21: 59; Admin Dose 5 MG; Start 07/31/16 at 21:00 Bisacodyl (Dulcolax Supp) 10 mg DAILY PRN [place] CONSTIPATION; Start 07/31/16 at 10: 00 Docusate Sodium (Colace Liquid Cup) 100 mg DAILY GTB Last administered on 08:51; Admin Dose 100 MG; Start 08/01/16 at 09:00 Magnesium Hydroxide (Milk Of Mag) 30 ml DAILY PRN GTB CONSTIPATION; Start at 10:00 Mineral Oil (Fleet Mineral Oil Enema) 133 ml DAILY PRN [place] CONSTIPATION; Start 07/31/16 at 10:00 Ferrous Sulfate 300 mg 300 mg TID GTB Last administered on 08/02/16 21:59; Admin Dose 300 MG; Start 07/31/16 at 16:00 Levofloxacin/ Dextrose (Levaquin 750 Mg/ D5W 150 ml (Pmx)) 150 ml @ 100 mls/hr Q48H IVPB Last administered on 08/02/16 23:55; Admin Dose 100 MLS/HR; Start at 23:30 Diphenhydramine HCl (Benadryl) 50 mg Q6H PRN IV ITCHING Last administered on 00:02; Admin Dose 50 MG; Start 08/01/16 at 00:00 Loratadine (Claritin) 10 mg DAILY PO Last administered on 08/02/16 08:51; Admin Dose 10 MG; Start 08/01/16 at 12:00 Linezolid 600 mg 600 mg BID PO Last administered on 08/02/16 21:59; Admin Dose 600 MG; Start 08/01/16 at 21:00 Ertapenem/Sodium Chloride (Invanz/NS) 100 ml @ 200 mls/hr Q24H IVPB Last administered on 08/03/16 14:49; Admin Dose 200 MLS/HR; Start 08/01/16 at 14:00 Mupirocin (Bactroban) 1 applic BID TOP Last administered on 08/03/16 20:35; Admin Dose 1 APPLIC; Start 08/01/16 at 21:00 Pantoprazole (Protonix Iv) 40 mg BID IV Last administered on 08/03/16 20:35; Admin Dose 40 MG; Start 08/02/16 at 09:00 Heparin Sodium (Porcine) 5000 unit 5,000 unit BID SC Last administered on 20:43; Admin Dose 5,000 UNIT; Start 08/02/16 at 21:00 Dextrose 1,000 ml @ 70 mls/hr [id number] IV Last administered on 08/03/16 20:35 ; Admin Dose 70 MLS/HR; Start 08/02/16 at 11:00 Levetiracetam/ Dextrose (Keppra Iv/D5W) 105 ml @ 420 mls/hr Q12 IVPB Last administered on 08/03/16t 20:35; Admin Dose 420 MLS/HR; Start 08/02/16 at 12:30 IV Flush (NS 10 ml) 10 ml PRN PRN IV FLUSH LINE; Start 08/02/16 at 17:00 ARCHANA KELLEY MD Aug 03, 2016 21:28
[2016-08-04] VITALS (68 sets, daily range): BP systolic 72–128; BP diastolic 40–71; PULSE 52–89; RESP 14–27
[2016-08-04] MEDS: ACETAMINOPHEN 650 MG SUPP PR PRN (05:47)
[2016-08-04 06:25] LABS: ADD SCAN DIFF NO
[2016-08-04 06:32] LABS: BASOPHILS % 0.2 % (0.0-2.0); EOSINOPHILS # 0.5 10^3/ul (0.0-0.5); EOSINOPHILS % 4.7 % (0.0-7.0); HEMOGLOBIN 8.5 g/dl (14.0-18.0); LYMPHOCYTES # 1.7 10^3/ul (0.8-2.9); LYMPHOCYTES % 15.3 % (15.0-51.0); MEAN CORPUSCULAR HEMOGLOBIN 28.4 pg (29.0-33.0); MEAN CORPUSCULAR HGB CONC 30.4 g/dl (32.0-37.0); MEAN CORPUSCULAR VOLUME 93.6 fl (82.0-101.0); MEAN PLATELET VOLUME 11.7 fl (7.4-10.4); MONOCYTE # 0.9 10^3/ul (0.3-0.9); NEUTROPHIL # 7.8 10^3/ul (1.6-7.5); NEUTROPHILS % 71.3 % (39.0-77.0); PLATELET COUNT 180 10^3/UL (140-415); RED BLOOD COUNT 2.99 10^6/ul (4.70-6.10); RED CELL DISTRIBUTION WIDTH 16.2 % (11.5-14.5); WHITE BLOOD COUNT 10.9 10^3/ul (4.8-10.8)
[2016-08-04 06:47] LABS: POTASSIUM 4.1 mmol/L (3.5-5.1)
[2016-08-04 06:50] LABS: CREATININE 1.11 mg/dl (0.61-1.24)
[2016-08-04 06:51] LABS: CALCIUM 8.5 mg/dl (8.4-10.2); MAGNESIUM 1.4 mg/dl (1.7-2.5); PHOSPHORUS 2.5 mg/dl (2.5-4.9)
--- NOTE | 2016-08-04 08:53 | CONS ---
Date/Time of Note Date/Time of Note DATE: 08/04/16 TIME: 08:51 Assessment/Plan Assessment/Plan Additional Assessment/Plan 1. Acute kidney injury on possible chronic kidney disease likely secondary to acute tubular necrosis from sepsis secondary to urinary tract infection. 2. Septic shock, sepsis secondary to urinary tract infection. 3. ST segment changes on electrocardiogram. 4. Moderate to severe dehydration. 5. Normocytic anemia. 6. Rule out chronic kidney disease from type 2 diabetes mellitus. 7. Chronic respiratory failure, status post tracheostomy on ventilator. 8. Status post G-tube for feeding stage G-tube placement. PLAN: Cr better, and Na improved, magnesium low- replace with Mag sulfate 2 gram IV x1 continue D5 W- decrease rate to 50cc/hr will continue to follow up on patient Consultation Date/Type/Reason Admit Date/Time Jul 31, 2016 at 02:00 Initial Consult Date 07/31/16 Type of Consultation: NEPHROLOGY Referring Provider: MINESH JOLLEY Exam/Review of Systems Vital Signs Vitals Vital Signs Date Time Temp Pulse Resp B/P Pulse Ox O2 Delivery O2 Flow Rate FiO2 08/04/16 08:30 64 16 82/51 98 Mechanical Ventilator 08/04/16 08:00 98.6 08/04/16 05:17 35 Intake and Output 08/03/16 08/03/16 08/04/16 14:59 22:59 06:59 Intake Total 679.96 ml 456.87 ml 560 ml Output Total 675 ml 380 ml 390 ml Balance 4.96 ml 76.87 ml 170 ml Results Result Diagram: 08/04/16 0455 08/04/16 0455 Results 24 hrs Laboratory Tests Test 08/04/16 04:55 Anion Gap 13 Basophils # 0.0 Basophils % 0.2 Blood Urea Nitrogen 16 Calcium Level 8.5 Carbon Dioxide Level 28 Chloride Level 103 Creatinine 1.11 Eosinophils # 0.5 Eosinophils % 4.7 Glucose Level 98 Hematocrit 28.0 L Hemoglobin 8.5 L Lymphocytes # 1.7 Lymphocytes % 15.3 Magnesium Level 1.4 L Mean Corpuscular Hemoglobin 28.4 L Mean Corpuscular Hemoglobin Concent 30.4 L Mean Corpuscular Volume 93.6 Mean Platelet Volume 11.7 H Monocytes # 0.9 Monocytes % 8.0 Neutrophils # 7.8 H Neutrophils % 71.3 Nucleated Red Blood Cells # 0.0 Nucleated Red Blood Cells % 0.0 Phosphorus Level 2.5 Platelet Count 180 Potassium Level 4.1 Red Blood Count 2.99 L Red Cell Distribution Width 16.2 H Sodium Level 140 White Blood Count 10.9 H Medications Medications Current Medications Dobutamine HCl/ Dextrose 250 ml @ 11.25 mls/ hr TITRATE IV ; Start 07/31/16 at 02:00 Acetaminophen 650 mg 650 mg Q4H PRN [place] PAIN OR TEMP ABOVE 38C Last administered on 08/04/16 05:47; Admin Dose 650 MG; Start 07/31/16 at 05:00 Norepinephrine/ Dextrose (Levophed/D5W) 500 ml @ 1.87 mls/hr TITRATE IV Last administered on 08/01/16 05:45; Admin Dose 3.75 MLS/HR; Start 07/31/16 at 09:00 Lorazepam (Ativan) 0.25 mg Q4H PRN IV for shaking Last administered on 00:48; Admin Dose 0.25 MG; Start 07/31/16 at 05:30 Atorvastatin Calcium (Lipitor) 5 mg QHS GTB Last administered on 08/02/16 21: 59; Admin Dose 5 MG; Start 07/31/16 at 21:00 Bisacodyl (Dulcolax Supp) 10 mg DAILY PRN [place] CONSTIPATION; Start 07/31/16 at 10: 00 Docusate Sodium (Colace Liquid Cup) 100 mg DAILY GTB Last administered on 08:51; Admin Dose 100 MG; Start 08/01/16 at 09:00 Magnesium Hydroxide (Milk Of Mag) 30 ml DAILY PRN GTB CONSTIPATION; Start at 10:00 Mineral Oil (Fleet Mineral Oil Enema) 133 ml DAILY PRN [place] CONSTIPATION; Start 07/31/16 at 10:00 Ferrous Sulfate 300 mg 300 mg TID GTB Last administered on 08/02/16 21:59; Admin Dose 300 MG; Start 07/31/16 at 16:00 Levofloxacin/ Dextrose (Levaquin 750 Mg/ D5W 150 ml (Pmx)) 150 ml @ 100 mls/hr Q48H IVPB Last administered on 08/02/16 23:55; Admin Dose 100 MLS/HR; Start at 23:30 Diphenhydramine HCl (Benadryl) 50 mg Q6H PRN IV ITCHING Last administered on 00:02; Admin Dose 50 MG; Start 08/01/16 at 00:00 Loratadine (Claritin) 10 mg DAILY PO Last administered on 08/02/16 08:51; Admin Dose 10 MG; Start 08/01/16 at 12:00 Linezolid 600 mg 600 mg BID PO Last administered on 08/02/16 21:59; Admin Dose 600 MG; Start 08/01/16 at 21:00 Ertapenem/Sodium Chloride (Invanz/NS) 100 ml @ 200 mls/hr Q24H IVPB Last administered on 08/03/16 14:49; Admin Dose 200 MLS/HR; Start 08/01/16 at 14:00 Mupirocin (Bactroban) 1 applic BID TOP Last administered on 08/03/16 20:35; Admin Dose 1 APPLIC; Start 08/01/16 at 21:00 Pantoprazole (Protonix Iv) 40 mg BID IV Last administered on 08/03/16 20:35; Admin Dose 40 MG; Start 08/02/16 at 09:00 Heparin Sodium (Porcine) 5000 unit 5,000 unit BID SC Last administered on 20:43; Admin Dose 5,000 UNIT; Start 08/02/16 at 21:00 Dextrose 1,000 ml @ 70 mls/hr [id number] IV Last administered on 08/03/16 20:35 ; Admin Dose 70 MLS/HR; Start 08/02/16 at 11:00 Levetiracetam/ Dextrose (Keppra Iv/D5W) 105 ml @ 420 mls/hr Q12 IVPB Last administered on 08/03/16 20:35; Admin Dose 420 MLS/HR; Start 08/02/16 at 12:30 IV Flush 10 ml 10 ml PRN PRN IV FLUSH LINE; Start 08/02/16 at 17:00 Magnesium Sulfate (Magnesium Sulfate 2 Gm/50 ml) 50 ml @ 25 mls/hr ONCE ONCE IVPB ; Start 08/04/16 at 09:00; Stop 08/04/16 at 10:59; Status ARCHANA GARCIA MD Aug 04, 2016 08:52
[2016-08-04] MEDS ORDERED: MAGNESIUM SULFATE 2 GM/50 ML 50 ML IVPB ONE (09:00)
[2016-08-04] MEDS: FERROUS SULFATE 60 MG/ML 5ML CUP GTB SCH ×3 (09:00→20:18)
[2016-08-04] MEDS: ZYVOX 600 MG TAB PO SCH (09:00)
[2016-08-04] MEDS: LORATADINE 10 MG TAB PO SCH (09:00)
[2016-08-04] MEDS: DOCUSATE SODIUM 10 MG/ML (10ML CUP) GTB SCH (09:00)
[2016-08-04] MEDS: PANTOPRAZOLE 40 MG INJ IV SCH ×2 (09:37→20:19)
[2016-08-04] MEDS: LEVETIRACETAM IV 500 MG in DEXTROSE 5% 100 ML IVPB SCH ×2 (09:37→20:18)
[2016-08-04] MEDS: HEPARIN 5,000 UNIT/0.5 ML SYG SC SCH ×2 (09:39→20:29)
[2016-08-04] MEDS: MUPIROCIN 2% 22 GM OINT TOP SCH ×2 (09:40→20:19)
--- NOTE | 2016-08-04 09:55 | CONS ---
Date/Time of Note Date/Time of Note DATE: 08/04/16 TIME: 09:51 Assessment/Plan Assessment/Plan Additional Assessment/Plan Ventilator settings; AC of 16, tidal volume 500, PEEP of 5, 35% FiO2. Assessment recommendations; 1. Patient admitted for UTI and sepsis with significant clinical improvement. 2. History of anoxic encephalopathy, patient remains ventilator dependent. 3. Hyponatremia with interval improvement. 4. Acute renal insufficiency with normalization of serum creatinine. 5. Anemia. Continue current treatment. Patient can be transferred to the telemetry unit. Prognosis remains poor. Patient has been unable to be weaned off from ventilator despite numerous attempts. Consultation Date/Type/Reason Admit Date/Time Jul 31, 2016 at 02:00 Initial Consult Date 07/31/16 Type of Consultation: Pulmonary/critical care Referring Provider: MINESH JOLLEY 24 HR Interval Summary Free Text/Dictation Patient's condition remains stable. Has remained hemodynamically stable. Remains unresponsive, on ventilator via tracheostomy. Exam/Review of Systems Vital Signs Vitals Vital Signs Date Time Temp Pulse Resp B/P Pulse Ox O2 Delivery O2 Flow Rate FiO2 08/04/16 08:30 64 16 82/51 98 Mechanical Ventilator 08/04/16 08:00 98.6 08/04/16 05:17 35 Intake and Output 08/03/16 08/03/16 08/04/16 14:59 22:59 06:59 Intake Total 679.96 ml 456.87 ml 560 ml Output Total 675 ml 380 ml 390 ml Balance 4.96 ml 76.87 ml 170 ml Exam H EENT examination of López supple neck, no JVD. No lymphadenopathy. Midline trachea. Patient is edentulous. Tracheostomy in place with clean insertion site. Pupils are small bilaterally. No neck masses. Chest examination PA: Diminished but clear breath sounds bilaterally. S1-S2 audible, no murmurs. Regular rhythm. Abdomen exam is; soft, G-tube in place. Bowel sounds audible. No organomegaly. Extremity exam is; no peripheral edema. Patient has contractures involving all 4 extremities. 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 Results Result Diagram: 08/04/16 0455 08/04/16 0455 Results 24 hrs Laboratory Tests Test 08/04/16 04:55 Anion Gap 13 Basophils # 0.0 Basophils % 0.2 Blood Urea Nitrogen 16 Calcium Level 8.5 Carbon Dioxide Level 28 Chloride Level 103 Creatinine 1.11 Eosinophils # 0.5 Eosinophils % 4.7 Glucose Level 98 Hematocrit 28.0 L Hemoglobin 8.5 L Lymphocytes # 1.7 Lymphocytes % 15.3 Magnesium Level 1.4 L Mean Corpuscular Hemoglobin 28.4 L Mean Corpuscular Hemoglobin Concent 30.4 L Mean Corpuscular Volume 93.6 Mean Platelet Volume 11.7 H Monocytes # 0.9 Monocytes % 8.0 Neutrophils # 7.8 H Neutrophils % 71.3 Nucleated Red Blood Cells # 0.0 Nucleated Red Blood Cells % 0.0 Phosphorus Level 2.5 Platelet Count 180 Potassium Level 4.1 Red Blood Count 2.99 L Red Cell Distribution Width 16.2 H Sodium Level 140 White Blood Count 10.9 H Medications Medications Current Medications Dobutamine HCl/ Dextrose 250 ml @ 11.25 mls/ hr TITRATE IV ; Start 07/31/16 at 02:00 Acetaminophen 650 mg 650 mg Q4H PRN [place] PAIN OR TEMP ABOVE 38C Last administered on 08/04/16 05:47; Admin Dose 650 MG; Start 07/31/16 at 05:00 Norepinephrine/ Dextrose (Levophed/D5W) 500 ml @ 1.87 mls/hr TITRATE IV Last administered on 08/01/16 05:45; Admin Dose 3.75 MLS/HR; Start 07/31/16 at 09:00 Lorazepam (Ativan) 0.25 mg Q4H PRN IV for shaking Last administered on 00:48; Admin Dose 0.25 MG; Start 07/31/16 at 05:30 Atorvastatin Calcium (Lipitor) 5 mg QHS GTB Last administered on 08/02/16 21: 59; Admin Dose 5 MG; Start 07/31/16 at 21:00 Bisacodyl (Dulcolax Supp) 10 mg DAILY PRN [place] CONSTIPATION; Start 07/31/16 at 10: 00 Docusate Sodium (Colace Liquid Cup) 100 mg DAILY GTB Last administered on 08:51; Admin Dose 100 MG; Start 08/01/16 at 09:00 Magnesium Hydroxide (Milk Of Mag) 30 ml DAILY PRN GTB CONSTIPATION; Start at 10:00 Mineral Oil (Fleet Mineral Oil Enema) 133 ml DAILY PRN [place] CONSTIPATION; Start 07/31/16 at 10:00 Ferrous Sulfate 300 mg 300 mg TID GTB Last administered on 08/02/16 21:59; Admin Dose 300 MG; Start 07/31/16 at 16:00 Levofloxacin/ Dextrose (Levaquin 750 Mg/ D5W 150 ml (Pmx)) 150 ml @ 100 mls/hr Q48H IVPB Last administered on 08/02/16 23:55; Admin Dose 100 MLS/HR; Start at 23:30 Diphenhydramine HCl (Benadryl) 50 mg Q6H PRN IV ITCHING Last administered on 00:02; Admin Dose 50 MG; Start 08/01/16 at 00:00 Loratadine (Claritin) 10 mg DAILY PO Last administered on 08/02/16 08:51; Admin Dose 10 MG; Start 08/01/16 at 12:00 Linezolid 600 mg 600 mg BID PO Last administered on 08/02/16 21:59; Admin Dose 600 MG; Start 08/01/16 at 21:00 Ertapenem/Sodium Chloride (Invanz/NS) 100 ml @ 200 mls/hr Q24H IVPB Last administered on 08/03/16 14:49; Admin Dose 200 MLS/HR; Start 08/01/16 at 14:00 Mupirocin (Bactroban) 1 applic BID TOP Last administered on 08/04/16 09:40; Admin Dose 1 APPLIC; Start 08/01/16 at 21:00 Pantoprazole (Protonix Iv) 40 mg BID IV Last administered on 08/04/16 09:37; Admin Dose 40 MG; Start 08/02/16 at 09:00 Heparin Sodium (Porcine) 5000 unit 5,000 unit BID SC Last administered on 09:39; Admin Dose 5,000 UNIT; Start 08/02/16 at 21:00 Dextrose 1,000 ml @ 50 mls/hr Q20H IV Last administered on 08/03/16 20:35; Admin Dose 70 MLS/HR; Start 08/02/16 at 11:00 Levetiracetam/ Dextrose (Keppra Iv/D5W) 105 ml @ 420 mls/hr Q12 IVPB Last administered on 08/04/16 09:37; Admin Dose 420 MLS/HR; Start 08/02/16 at 12:30 IV Flush 10 ml 10 ml PRN PRN IV FLUSH LINE; Start 08/02/16 at 17:00 Magnesium Sulfate (Magnesium Sulfate 2 Gm/50 ml) 50 ml @ 25 mls/hr ONCE ONCE IVPB Last administered on 08/04/16 09:37; Admin Dose 25 MLS/HR; Start at 09:00; Stop 08/04/16 at 10:59 AUGUST TERAN Aug 04, 2016 09:54
--- NOTE | 2016-08-04 11:41 | PN ---
DATE: 08/04/2016 SUBJECTIVE: No events overnight. The patient is spiking fevers with a T-max this morning of 101.1. T-current 98.8. LABORATORIES: WBC today 10.9, H and H 8.5 and 28, platelets 180, no shift, no bands. BUN 16, creat inine 1.11. MICROBIOLOGY: Blood culture on admission grew coagulase-negative staph species. Urine culture grew E. coli ESBL. Nares swab came back positive for MRSA. Repeat blood cultures negative. DIAGNOSTICS: Chest x-ray revealed no focal infiltrate or pleural effusion. INDWELLINGS: Trach, PEG, PICC line placed on 08/02/2016. ANTIMICROBIALS: The patient is on: 1. Zyvox. 2. Invanz. 3. Topical Bactroban to nares. 4. Levaquin. PHYSICAL EXAMINATION: GENERAL: This is a fragile, chronically ill-appearing, elderly man who is lying comfortably in bed. The patient is noncommunicative. HEENT: Head atraumatic, normocephalic. Sclerae anicteric. Buccal mucosa dry. NECK: Supple. Tracheostomy present. CHEST: Rise symmetrical. Breath sounds diminished to bases. HEART: S1, S2. ABDOMEN: Soft, bowel tones present. EXTREMITIES: Without cyanosis. SKIN: With severe exfoliating dermatitis on his face and resolving rash over his body. ASSESSMENT: 1. Severe sepsis status post shock. 2. Urinary tract infection. 3. Coagulase-negative staph bacteremia, likely contaminant. 4. Methicillin-resistant Staphylococcus aureus nares colonization. 5. Rash, likely secondary to allergic reaction to Zosyn or vancomycin, patient received empiric Myron mide. 6. Non-ST segment elevation myocardial infarction. 7. Chronic encephalopathy. PLAN: 1. The patient remains hemodynamically stable; however, spiking fevers with a T-max today 101.1. W e are going to repeat cultures. Discontinue Levaquin. Continue Invanz, Zosyn and Bactroban to nare s. 2. The patient is awaiting GI evaluation for leaking G-tube. Dictated By: DEJA ARIAS TUBE FORMER OPERATOR for [facility] Conf#: [id number] DID#: [id number]
[2016-08-04] MEDS: DEXTROSE 5% 1,000 ML IV SCH (12:25)
--- NOTE | 2016-08-04 14:14 | PN ---
Date/Time of Note Date/Time of Note DATE: 08/04/16 TIME: 14:09 Assessment/Plan VTE Prophylaxis VTE Prophylaxis Intervention: heparin Lines/Catheters IV [facility] Type (from [facility] PICC Line Urinary Cath still in place: Yes Assessment/Plan Chief Complaint/Hosp Course Assessment and plan 1. Status post septic shock secondary to UTI with ESBL. ID following. Continue on antibiotics. On pressors for blood pressure support 2. Acute and chronic CKD. Monitor renal panel. We'll avoid nephrotoxic medications. Sharepoint Trainer following. 3. Elevated troponins. Likely type II. We'll monitor for now. 4. Ventilatory dependent respiratory failure. Continue with pulmonology recommendations. Continue bronchodilators. Continue with pulmonary hygiene 5. Anemia. We'll monitor and transfuse as needed. We'll continue with iron supplement for iron anemia 6. Hypernatremia. We'll monitor. Continue with nephrology recommendations 7. Dyslipidemia. Continue on statin 8. History of seizure. Continue anticonvulsants 9. History of essential hypertension. On hold due to hypotension at this time 10. Dysfunctional G-tube. Gastroenterology following. Tentative plan for placement DVT prophylaxis: SCD GERD prophylaxis: H2 radha Disposition and plan: Continue antibiotics. Other care physician following. gospel worker following. Still trying to find POA. We'll see for possible referral to bioethics committee. Prognosis remains poor. We'll follow-up Discussed plan of care with Dr. Simms Critical care time 30 minutes Problems: Subjective 24 Hr Interval Summary Free Text/Dictation Remains on ventilator. No apparent distress. Exam/Review of Systems Vital Signs Vitals Vital Signs Date Time Temp Pulse Resp B/P Pulse Ox O2 Delivery O2 Flow Rate FiO2 08/04/16 12:15 63 16 107/58 100 Mechanical Ventilator 08/04/16 12:00 35 08/04/16 12:00 97.8 Intake and Output 08/03/16 08/03/16 08/04/16 15:00 23:00 07:00 Intake Total 681.83 ml 455 ml 560 ml Output Total 650 ml 360 ml 375 ml Balance 31.83 ml 95 ml 185 ml Exam General: No acute signs or symptoms of distress Eyes: pupils equal round, Anicteric sclera Neck: No apparent JVD. Tracheostomy in place Cardiac: Remains in regular rate at this is time. Pulmonary: Diminished lung bases. Remains on ventilator GI: PEG tube in place. Noted with leak Extremities: Seen with bilateral upper and lower extremity contractures Neurologic: Awakens a verbal response. No purposeful response Results Result Diagram: 08/04/165 08/04/165 Results 24 hrs Laboratory Tests Test 08/04/16 04:55 Anion Gap 13 Basophils # 0.0 Basophils % 0.2 Blood Urea Nitrogen 16 Calcium Level 8.5 Carbon Dioxide Level 28 Chloride Level 103 Creatinine 1.11 Eosinophils # 0.5 Eosinophils % 4.7 Glucose Level 98 Hematocrit 28.0 L Hemoglobin 8.5 L Lymphocytes # 1.7 Lymphocytes % 15.3 Magnesium Level 1.4 L Mean Corpuscular Hemoglobin 28.4 L Mean Corpuscular Hemoglobin Concent 30.4 L Mean Corpuscular Volume 93.6 Mean Platelet Volume 11.7 H Monocytes # 0.9 Monocytes % 8.0 Neutrophils # 7.8 H Neutrophils % 71.3 Nucleated Red Blood Cells # 0.0 Nucleated Red Blood Cells % 0.0 Phosphorus Level 2.5 Platelet Count 180 Potassium Level 4.1 Red Blood Count 2.99 L Red Cell Distribution Width 16.2 H Sodium Level 140 White Blood Count 10.9 H Medications Medications Current Medications Dobutamine HCl/ Dextrose 250 ml @ 11.25 mls/ hr TITRATE IV ; Start 07/31/16 at 02:00 Acetaminophen 650 mg 650 mg Q4H PRN IN PAIN OR TEMP ABOVE 38C Last administered on 08/04/16 05:47; Admin Dose 650 MG; Start 07/31/16 at 05:00 Norepinephrine/ Dextrose (Levophed/D5W) 500 ml @ 1.87 mls/hr TITRATE IV Last administered on 08/01/16 05:45; Admin Dose 3.75 MLS/HR; Start 07/31/16 at 09:00 Lorazepam (Ativan) 0.25 mg Q4H PRN IV for shaking Last administered on 00:48; Admin Dose 0.25 MG; Start 07/31/16 at 05:30 Atorvastatin Calcium (Lipitor) 5 mg QHS GTB Last administered on 08/02/16 21: 59; Admin Dose 5 MG; Start 07/31/16 at 21:00 Bisacodyl (Dulcolax Supp) 10 mg DAILY PRN IN CONSTIPATION; Start 07/31/16 at 10: 00 Docusate Sodium (Colace Liquid Cup) 100 mg DAILY GTB Last administered on 08:51; Admin Dose 100 MG; Start 08/01/16 at 09:00 Magnesium Hydroxide (Milk Of Mag) 30 ml DAILY PRN GTB CONSTIPATION; Start at 10:00 Mineral Oil (Fleet Mineral Oil Enema) 133 ml DAILY PRN IN CONSTIPATION; Start 07/31/16 at 10:00 Ferrous Sulfate (Feosol Liquid Cup) 300 mg TID GTB Last administered on 21:59; Admin Dose 300 MG; Start 07/31/16 at 16:00 Diphenhydramine HCl (Benadryl) 50 mg Q6H PRN IV ITCHING Last administered on 00:02; Admin Dose 50 MG; Start 08/01/16 at 00:00 Loratadine 10 mg 10 mg DAILY PO Last administered on 08/02/16 08:51; Admin Dose 10 MG; Start 08/01/16 at 12:00 Ertapenem/Sodium Chloride (Invanz/NS) 100 ml @ 200 mls/hr Q24H IVPB Last administered on 08/03/16 14:49; Admin Dose 200 MLS/HR; Start 08/01/16 at 14:00 Mupirocin (Bactroban) 1 applic BID TOP Last administered on 08/04/16 09:40; Admin Dose 1 APPLIC; Start 08/01/16 at 21:00 Pantoprazole (Protonix Iv) 40 mg BID IV Last administered on 08/04/16 09:37; Admin Dose 40 MG; Start 08/02/16 at 09:00 Heparin Sodium (Porcine) 5000 unit 5,000 unit BID SC Last administered on 09:39; Admin Dose 5,000 UNIT; Start 08/02/16 at 21:00 Dextrose 1,000 ml @ 50 mls/hr Q20H IV Last administered on 08/04/16 12:25; Admin Dose 50 MLS/HR; Start 08/02/16 at 11:00 Levetiracetam/ Dextrose (Keppra Iv/D5W) 105 ml @ 420 mls/hr Q12 IVPB Last administered on 08/04/16 09:37; Admin Dose 420 MLS/HR; Start 08/02/16 at 12:30 IV Flush 10 ml 10 ml PRN PRN IV FLUSH LINE; Start 08/02/16 at 17:00 Linezolid (Zyvox 600mg/D5W (Pmx)) 300 ml @ 300 mls/hr Q12 IVPB ; Start at 21:00 ATIF JOHNSON Aug 04, 2016 14:13
[2016-08-04] MEDS: ERTAPENEM SODIUM 1 GM in SOD CHLORIDE 0.9% 100 ML IVPB SCH (14:17)
[2016-08-04] MEDS: ATORVASTATIN 10 MG TAB GTB SCH (20:19)
[2016-08-04] MEDS: LINEZOLID 600 MG/D5W (PMX) 300 ML IVPB SCH (20:19)
--- NOTE | 2016-08-04 20:44 | PN ---
Date/Time of Note Date/Time of Note DATE: 08/04/16 TIME: 20:44 Assessment/Plan Lines/Catheters IV [facility] Type (from [facility]): PICC Line Urinary Cath still in place: Yes Assessment/Plan Chief Complaint/Hosp Course Mr. Bola Payne is a 71-year-old male with unknown past medical history that was transferred to ED from senior living to further evaluate tachycardia and fever. Patient is status post tracheostomy and has G-tube in place. At bedside , G-tube feed in addition to black colored discharge escaping from G-tube site. G-tube site is also indurated secondary to cellulitis. Presently, known contacts for patient are unavailable. Patient currently being treated for sepsis, acute kidney injury, elevated troponins, chronic respiratory failure, anemia, seizure disorder, and possible diabetes and scabies. Problems: Exam/Review of Systems Vital Signs Vitals Vital Signs Date Time Temp Pulse Resp B/P Pulse Ox O2 Delivery O2 Flow Rate FiO2 08/04/16 19:00 60 17 115/60 100 Mechanical Ventilator 08/04/16 17:15 98.5 08/04/16 16:45 35 Intake and Output 08/03/16 08/03/16 08/04/16 15:00 23:00 07:00 Intake Total 681.83 ml 455 ml 560 ml Output Total 650 ml 360 ml 375 ml Balance 31.83 ml 95 ml 185 ml Results Result Diagram: 08/04/16 0455 08/04/16 0455 Results 24 hrs Laboratory Tests Test 08/04/16 04:55 Anion Gap 13 Basophils # 0.0 Basophils % 0.2 Blood Urea Nitrogen 16 Calcium Level 8.5 Carbon Dioxide Level 28 Chloride Level 103 Creatinine 1.11 Eosinophils # 0.5 Eosinophils % 4.7 Glucose Level 98 Hematocrit 28.0 L Hemoglobin 8.5 L Lymphocytes # 1.7 Lymphocytes % 15.3 Magnesium Level 1.4 L Mean Corpuscular Hemoglobin 28.4 L Mean Corpuscular Hemoglobin Concent 30.4 L Mean Corpuscular Volume 93.6 Mean Platelet Volume 11.7 H Monocytes # 0.9 Monocytes % 8.0 Neutrophils # 7.8 H Neutrophils % 71.3 Nucleated Red Blood Cells # 0.0 Nucleated Red Blood Cells % 0.0 Phosphorus Level 2.5 Platelet Count 180 Potassium Level 4.1 Red Blood Count 2.99 L Red Cell Distribution Width 16.2 H Sodium Level 140 White Blood Count 10.9 H Medications Medications Current Medications Dobutamine HCl/ Dextrose 250 ml @ 11.25 mls/ hr TITRATE IV ; Start 07/31/16 at 02:00 Acetaminophen 650 mg 650 mg Q4H PRN [place] PAIN OR TEMP ABOVE 38C Last administered on 08/04/16 05:47; Admin Dose 650 MG; Start 07/31/16 at 05:00 Norepinephrine/ Dextrose (Levophed/D5W) 500 ml @ 1.87 mls/hr TITRATE IV Last administered on 08/01/16 05:45; Admin Dose 3.75 MLS/HR; Start 07/31/16 at 09:00 Lorazepam (Ativan) 0.25 mg Q4H PRN IV for shaking Last administered on 00:48; Admin Dose 0.25 MG; Start 07/31/16 at 05:30 Atorvastatin Calcium (Lipitor) 5 mg QHS GTB Last administered on 08/04/16 20: 19; Admin Dose 5 MG; Start 07/31/16 at 21:00 Bisacodyl (Dulcolax Supp) 10 mg DAILY PRN [place] CONSTIPATION; Start 07/31/16 at 10: 00 Docusate Sodium (Colace Liquid Cup) 100 mg DAILY GTB Last administered on 08:51; Admin Dose 100 MG; Start 08/01/16 at 09:00 Magnesium Hydroxide (Milk Of Mag) 30 ml DAILY PRN GTB CONSTIPATION; Start at 10:00 Mineral Oil (Fleet Mineral Oil Enema) 133 ml DAILY PRN [place] CONSTIPATION; Start 07/31/16 at 10:00 Ferrous Sulfate (Feosol Liquid Cup) 300 mg TID GTB Last administered on 20:18; Admin Dose 300 MG; Start 07/31/16 at 16:00 Diphenhydramine HCl (Benadryl) 50 mg Q6H PRN IV ITCHING Last administered on 00:02; Admin Dose 50 MG; Start 08/01/16 at 00:00 Loratadine 10 mg 10 mg DAILY PO Last administered on 08/02/16 08:51; Admin Dose 10 MG; Start 08/01/16 at 12:00 Ertapenem/Sodium Chloride (Invanz/NS) 100 ml @ 200 mls/hr Q24H IVPB Last administered on 08/04/16 14:17; Admin Dose 200 MLS/HR; Start 08/01/16 at 14:00 Mupirocin (Bactroban) 1 applic BID TOP Last administered on 08/04/16 20:19; Admin Dose 1 APPLIC; Start 08/01/16 at 21:00 Pantoprazole (Protonix Iv) 40 mg BID IV Last administered on 08/04/16 20:19; Admin Dose 40 MG; Start 08/02/16 at 09:00 Heparin Sodium (Porcine) 5000 unit 5,000 unit BID SC Last administered on 20:29; Admin Dose 5,000 UNIT; Start 08/02/16 at 21:00 Dextrose 1,000 ml @ 50 mls/hr Q20H IV Last administered on 08/04/16 12:25; Admin Dose 50 MLS/HR; Start 08/02/16 at 11:00 Levetiracetam/ Dextrose (Keppra Iv/D5W) 105 ml @ 420 mls/hr Q12 IVPB Last administered on 08/04/16 20:18; Admin Dose 420 MLS/HR; Start 08/02/16 at 12:30 IV Flush 10 ml 10 ml PRN PRN IV FLUSH LINE; Start 08/02/16 at 17:00 Linezolid (Zyvox 600mg/D5W (Pmx)) 300 ml @ 300 mls/hr Q12 IVPB Last administered on 08/04/16 20:19; Admin Dose 300 MLS/HR; Start 08/04/16 at 21:00 IBANKA LEAL MD Aug 04, 2016 20:44
[2016-08-04] MEDS: DIPHENHYDRAMINE 50 MG INJ IV PRN (23:39)
[2016-08-05] VITALS (36 sets, daily range): BP systolic 90–130; BP diastolic 54–67; PULSE 57–82; RESP 14–28
[2016-08-05] MEDS: DEXTROSE 5% 1,000 ML IV SCH (05:12)
[2016-08-05 05:50] LABS: ADD SCAN DIFF NO
[2016-08-05 06:11] LABS: BASOPHILS % 0.4 % (0.0-2.0); EOSINOPHILS # 0.7 10^3/ul (0.0-0.5); HEMOGLOBIN 8.4 g/dl (14.0-18.0); LYMPHOCYTES # 2.2 10^3/ul (0.8-2.9); LYMPHOCYTES % 22.3 % (15.0-51.0); MEAN CORPUSCULAR HEMOGLOBIN 28.8 pg (29.0-33.0); MEAN CORPUSCULAR HGB CONC 31.1 g/dl (32.0-37.0); MEAN CORPUSCULAR VOLUME 92.5 fl (82.0-101.0); MEAN PLATELET VOLUME 12.1 fl (7.4-10.4); MONOCYTE # 0.8 10^3/ul (0.3-0.9); MONOCYTES % 8.4 % (0.0-11.0); NEUTROPHILS % 61.4 % (39.0-77.0); PLATELET COUNT 163 10^3/UL (140-415); RED BLOOD COUNT 2.92 10^6/ul (4.70-6.10); RED CELL DISTRIBUTION WIDTH 15.9 % (11.5-14.5); WHITE BLOOD COUNT 9.8 10^3/ul (4.8-10.8)
[2016-08-05 06:14] LABS: POTASSIUM 4.1 mmol/L (3.5-5.1)
[2016-08-05 06:17] LABS: CREATININE 0.98 mg/dl (0.61-1.24)
[2016-08-05 06:18] LABS: CALCIUM 8.2 mg/dl (8.4-10.2); MAGNESIUM 1.8 mg/dl (1.7-2.5); PHOSPHORUS 2.8 mg/dl (2.5-4.9)
--- NOTE | 2016-08-05 07:45 | CONS ---
Date/Time of Note Date/Time of Note DATE: 08/05/16 TIME: 07:43 Assessment/Plan Assessment/Plan Additional Assessment/Plan Ventilator settings are AC of 16, tidal volume 500, PEEP of 5, 35% FiO2. Assessment recommendations; 1. Patient admitted for UTI and sepsis with clinical improvement. 2. History of anoxic encephalopathy, patient remains ventilator dependent. Has been unable to be weaned down any further. 3. Stable seizure disorder. 4. Acute renal injury with normalization of serum creatinine. 5. Hyponatremia with interval improvement. 6. Mild anemia. Continue current treatment. Patient can be transferred to telemetry unit with subsequent transfer to rehab facility. Overall prognosis remains poor. Consultation Date/Type/Reason Admit Date/Time Jul 31, 2016 at 02:00 Initial Consult Date 07/31/16 Type of Consultation: Pulmonary/critical care Referring Provider: MINESH JOLLEY 24 HR Interval Summary Free Text/Dictation Patient condition remains stable. Remains ventilator dependent. Has remained hemodynamically stable. On account of underlying anoxic encephalopathy patient remains completely unresponsive. General exam; elderly male, currently in no distress. Unresponsive. On ventilator via tracheostomy. Exam/Review of Systems Vital Signs Vitals Vital Signs Date Time Temp Pulse Resp B/P Pulse Ox O2 Delivery O2 Flow Rate FiO2 08/05/16 06:00 72 23 107/61 97 Mechanical Ventilator 08/05/16 05:37 35 08/05/16 04:00 98.2 Intake and Output 08/04/16 08/04/16 08/05/16 15:00 23:00 07:00 Intake Total 580.55 ml 906.11 ml 350 ml Output Total 510 ml 495 ml 405 ml Balance 70.55 ml 411.11 ml -55 ml Exam H EENT examination; supple neck, no JVD. No lymphadenopathy. Midline trachea. No thyromegaly. Tracheostomy in place with clean insertion site. Patient is edentulous. Chest examination of López diminished but clear vessel bilaterally. S1-S2 audible, no murmurs. Regular rhythm. Abdomen examination; soft, nondistended. No organomegaly. Bowel sounds audible. G-tube in place. Extremity examination; no peripheral edema. MANAGER CAMP examination; patient remains unresponsive. Results Result Diagram: 08/05/16 0510 08/05/16 0510 Results 24 hrs Laboratory Tests Test 08/05/16 05:10 Anion Gap 10 Basophils # 0.0 Basophils % 0.4 Blood Urea Nitrogen 14 Calcium Level 8.2 L Carbon Dioxide Level 29 Chloride Level 95 L Creatinine 0.98 Eosinophils # 0.7 H Eosinophils % 7.0 Glucose Level 258 #H Hematocrit 27.0 L Hemoglobin 8.4 L Lymphocytes # 2.2 Lymphocytes % 22.3 Magnesium Level 1.8 Mean Corpuscular Hemoglobin 28.8 L Mean Corpuscular Hemoglobin Concent 31.1 L Mean Corpuscular Volume 92.5 Mean Platelet Volume 12.1 H Monocytes # 0.8 Monocytes % 8.4 Neutrophils # 6.0 Neutrophils % 61.4 Nucleated Red Blood Cells # 0.0 Nucleated Red Blood Cells % 0.0 Phosphorus Level 2.8 Platelet Count 163 Potassium Level 4.1 Red Blood Count 2.92 L Red Cell Distribution Width 15.9 H Sodium Level 130 L White Blood Count 9.8 Medications Medications Current Medications Dobutamine HCl/ Dextrose 250 ml @ 11.25 mls/ hr TITRATE IV ; Start 07/31/16 at 02:00 Acetaminophen 650 mg 650 mg Q4H PRN [place] PAIN OR TEMP ABOVE 38C Last administered on 08/04/16 05:47; Admin Dose 650 MG; Start 07/31/16 at 05:00 Norepinephrine/ Dextrose (Levophed/D5W) 500 ml @ 1.87 mls/hr TITRATE IV Last administered on 08/01/16 05:45; Admin Dose 3.75 MLS/HR; Start 07/31/16 at 09:00 Lorazepam (Ativan) 0.25 mg Q4H PRN IV for shaking Last administered on 00:48; Admin Dose 0.25 MG; Start 07/31/16 at 05:30 Atorvastatin Calcium (Lipitor) 5 mg QHS GTB Last administered on 08/04/16 20: 19; Admin Dose 5 MG; Start 07/31/16 at 21:00 Bisacodyl (Dulcolax Supp) 10 mg DAILY PRN [place] CONSTIPATION; Start 07/31/16 at 10: 00 Docusate Sodium (Colace Liquid Cup) 100 mg DAILY GTB Last administered on 08:51; Admin Dose 100 MG; Start 08/01/16 at 09:00 Magnesium Hydroxide (Milk Of Mag) 30 ml DAILY PRN GTB CONSTIPATION; Start at 10:00 Mineral Oil (Fleet Mineral Oil Enema) 133 ml DAILY PRN [place] CONSTIPATION; Start 07/31/16 at 10:00 Ferrous Sulfate (Feosol Liquid Cup) 300 mg TID GTB Last administered on 20:18; Admin Dose 300 MG; Start 07/31/16 at 16:00 Diphenhydramine HCl (Benadryl) 50 mg Q6H PRN IV ITCHING Last administered on 23:39; Admin Dose 50 MG; Start 08/01/16 at 00:00 Loratadine 10 mg 10 mg DAILY PO Last administered on 08/02/16 08:51; Admin Dose 10 MG; Start 08/01/16 at 12:00 Ertapenem/Sodium Chloride (Invanz/NS) 100 ml @ 200 mls/hr Q24H IVPB Last administered on 08/04/16 14:17; Admin Dose 200 MLS/HR; Start 08/01/16 at 14:00 Mupirocin (Bactroban) 1 applic BID TOP Last administered on 08/04/16 20:19; Admin Dose 1 APPLIC; Start 08/01/16 at 21:00 Pantoprazole (Protonix Iv) 40 mg BID IV Last administered on 08/04/16 20:19; Admin Dose 40 MG; Start 08/02/16 at 09:00 Heparin Sodium (Porcine) 5000 unit 5,000 unit BID SC Last administered on 20:29; Admin Dose 5,000 UNIT; Start 08/02/16 at 21:00 Dextrose 1,000 ml @ 50 mls/hr Q20H IV Last administered on 08/05/16 05:12; Admin Dose 50 MLS/HR; Start 08/02/16 at 11:00 Levetiracetam/ Dextrose (Keppra Iv/D5W) 105 ml @ 420 mls/hr Q12 IVPB Last administered on 08/04/16 20:18; Admin Dose 420 MLS/HR; Start 08/02/16 at 12:30 IV Flush 10 ml 10 ml PRN PRN IV FLUSH LINE; Start 08/02/16 at 17:00 Linezolid (Zyvox 600mg/D5W (Pmx)) 300 ml @ 300 mls/hr Q12 IVPB Last administered on 08/04/16t 20:19; Admin Dose 300 MLS/HR; Start 08/04/16 at 21:00 AUGUST TERAN Aug 05, 2016 07:45
--- NOTE | 2016-08-05 07:54 | CONS ---
Date/Time of Note Date/Time of Note DATE: 08/05/16 TIME: 07:52 Assessment/Plan Assessment/Plan Additional Assessment/Plan Anemia, improving New Onset Monitor Hgb Q8hrs, transfuse 2 units for Hgb <7.5 PPI BID Stool OB neg Dysphagia/G-tube malfunction Cleanse site and change dressing BID Abdominal x-ray, neg for SBO G tube in place CT abdomen does not indicate G-tube site abscess Tube repositioned Sepsis/septic shock secondary to urinary tract infection Management per Primary Infectious disease following Possible diabetes Management per primary Hemoglobin A1c of 10.0., Repeat hemoglobin actually 6.0 Acute on chronic kidney injury Nephrology following Chronic respiratory failure. Vent dependent. Management per pulmonary History of seizure disorder Management per Primary Further recommendations depend on clinical course Pt seen in collaboration with Dr. Pires Consultation Date/Type/Reason Admit Date/Time Jul 31, 2016 at 02:00 Initial Consult Date 07/31/16 Type of Consultation: GI Referring Provider: MINESH JOLLEY 24 HR Interval Summary Free Text/Dictation Hgb stable Stool OB neg No leak reported Will start G tube feed Exam/Review of Systems Vital Signs Vitals Vital Signs Date Time Temp Pulse Resp B/P Pulse Ox O2 Delivery O2 Flow Rate FiO2 08/05/16 06:00 72 23 107/61 97 Mechanical Ventilator 08/05/16 05:37 35 08/05/16 04:00 98.2 Intake and Output 08/04/16 08/04/16 08/05/16 15:00 23:00 07:00 Intake Total 580.55 ml 906.11 ml 350 ml Output Total 510 ml 495 ml 405 ml Balance 70.55 ml 411.11 ml -55 ml Exam Constitutional: Nonverbal, thin Psych: Nonverbal Head: normocephalic Eyes: nl conjunctiva, nl lids ENMT: nl external ears & nose, nl lips & teeth, nl nasal mucosa & septum Respiratory: Tracheostomy Cardiovascular: regular rate and rhythm Gastrointestinal: soft, G-tube site indurated Musculoskeletal: Contractures bilateral hands and feet Neurological: Grossly nonfocal Results Result Diagram: 08/05/16 0510 08/05/16 0510 Results 24 hrs Laboratory Tests Test 08/05/16 05:10 Anion Gap 10 Basophils # 0.0 Basophils % 0.4 Blood Urea Nitrogen 14 Calcium Level 8.2 L Carbon Dioxide Level 29 Chloride Level 95 L Creatinine 0.98 Eosinophils # 0.7 H Eosinophils % 7.0 Glucose Level 258 #H Hematocrit 27.0 L Hemoglobin 8.4 L Lymphocytes # 2.2 Lymphocytes % 22.3 Magnesium Level 1.8 Mean Corpuscular Hemoglobin 28.8 L Mean Corpuscular Hemoglobin Concent 31.1 L Mean Corpuscular Volume 92.5 Mean Platelet Volume 12.1 H Monocytes # 0.8 Monocytes % 8.4 Neutrophils # 6.0 Neutrophils % 61.4 Nucleated Red Blood Cells # 0.0 Nucleated Red Blood Cells % 0.0 Phosphorus Level 2.8 Platelet Count 163 Potassium Level 4.1 Red Blood Count 2.92 L Red Cell Distribution Width 15.9 H Sodium Level 130 L White Blood Count 9.8 Medications Medications Current Medications Dobutamine HCl/ Dextrose 250 ml @ 11.25 mls/ hr TITRATE IV ; Start 07/31/16 at 02:00 Acetaminophen 650 mg 650 mg Q4H PRN [place] PAIN OR TEMP ABOVE 38C Last administered on 08/04/16 05:47; Admin Dose 650 MG; Start 07/31/16 at 05:00 Norepinephrine/ Dextrose (Levophed/D5W) 500 ml @ 1.87 mls/hr TITRATE IV Last administered on 08/01/16 05:45; Admin Dose 3.75 MLS/HR; Start 07/31/16 at 09:00 Lorazepam (Ativan) 0.25 mg Q4H PRN IV for shaking Last administered on 00:48; Admin Dose 0.25 MG; Start 07/31/16 at 05:30 Atorvastatin Calcium (Lipitor) 5 mg QHS GTB Last administered on 08/04/16 20: 19; Admin Dose 5 MG; Start 07/31/16 at 21:00 Bisacodyl (Dulcolax Supp) 10 mg DAILY PRN [place] CONSTIPATION; Start 07/31/16 at 10: 00 Docusate Sodium (Colace Liquid Cup) 100 mg DAILY GTB Last administered on 08:51; Admin Dose 100 MG; Start 08/01/16 at 09:00 Magnesium Hydroxide (Milk Of Mag) 30 ml DAILY PRN GTB CONSTIPATION; Start at 10:00 Mineral Oil (Fleet Mineral Oil Enema) 133 ml DAILY PRN [place] CONSTIPATION; Start 07/31/16 at 10:00 Ferrous Sulfate (Feosol Liquid Cup) 300 mg TID GTB Last administered on 20:18; Admin Dose 300 MG; Start 07/31/16 at 16:00 Diphenhydramine HCl (Benadryl) 50 mg Q6H PRN IV ITCHING Last administered on 23:39; Admin Dose 50 MG; Start 08/01/16 at 00:00 Loratadine 10 mg 10 mg DAILY PO Last administered on 08/02/16 08:51; Admin Dose 10 MG; Start 08/01/16 at 12:00 Ertapenem/Sodium Chloride (Invanz/NS) 100 ml @ 200 mls/hr Q24H IVPB Last administered on 08/04/16 14:17; Admin Dose 200 MLS/HR; Start 08/01/16 at 14:00 Mupirocin (Bactroban) 1 applic BID TOP Last administered on 08/04/16 20:19; Admin Dose 1 APPLIC; Start 08/01/16 at 21:00 Pantoprazole (Protonix Iv) 40 mg BID IV Last administered on 08/04/16 20:19; Admin Dose 40 MG; Start 08/02/16 at 09:00 Heparin Sodium (Porcine) 5000 unit 5,000 unit BID SC Last administered on 20:29; Admin Dose 5,000 UNIT; Start 08/02/16 at 21:00 Dextrose 1,000 ml @ 50 mls/hr Q20H IV Last administered on 08/05/16 05:12; Admin Dose 50 MLS/HR; Start 08/02/16 at 11:00 Levetiracetam/ Dextrose (Keppra Iv/D5W) 105 ml @ 420 mls/hr Q12 IVPB Last administered on 08/04/16 20:18; Admin Dose 420 MLS/HR; Start 08/02/16 at 12:30 IV Flush 10 ml 10 ml PRN PRN IV FLUSH LINE; Start 08/02/16 at 17:00 Linezolid (Zyvox 600mg/D5W (Pmx)) 300 ml @ 300 mls/hr Q12 IVPB Last administered on 08/04/16 20:19; Admin Dose 300 MLS/HR; Start 08/04/16 at 21:00 NOEMY SU Aug 05, 2016 07:54
[2016-08-05] MEDS: FERROUS SULFATE 60 MG/ML 5ML CUP GTB SCH ×3 (08:16→21:27)
[2016-08-05] MEDS: DOCUSATE SODIUM 10 MG/ML (10ML CUP) GTB SCH (08:16)
[2016-08-05] MEDS: LORATADINE 10 MG TAB PO SCH (08:16)
[2016-08-05] MEDS: PANTOPRAZOLE 40 MG INJ IV SCH ×2 (08:16→21:27)
[2016-08-05] MEDS: HEPARIN 5,000 UNIT/0.5 ML SYG SC SCH ×2 (08:18→21:31)
[2016-08-05] MEDS: MUPIROCIN 2% 22 GM OINT TOP SCH ×2 (08:23→21:28)
--- NOTE | 2016-08-05 08:57 | CONS ---
Date/Time of Note Date/Time of Note DATE: 08/05/16 TIME: 08:53 Assessment/Plan Assessment/Plan Additional Assessment/Plan 1. Acute kidney injury on possible chronic kidney disease likely secondary to acute tubular necrosis from sepsis secondary to urinary tract infection. 2. Septic shock, sepsis secondary to urinary tract infection. 3. ST segment changes on electrocardiogram. 4. Moderate to severe dehydration. 5. Normocytic anemia. 6. Rule out chronic kidney disease from type 2 diabetes mellitus. 7. Chronic respiratory failure, status post tracheostomy on ventilator. 8. Status post G-tube for feeding stage G-tube placement. PLAN: Cr better, and Na dropped to 130- will switch to NS at 50cc/hour d/c D5W will continue to follow up on patient Consultation Date/Type/Reason Admit Date/Time Jul 31, 2016 at 02:00 Initial Consult Date 07/31/16 Type of Consultation: NEPHROLOGY Referring Provider: MINESH JOLLEY 24 HR Interval Summary Free Text/Dictation Na dropped to 130, BP stable, afebrile Exam/Review of Systems Vital Signs Vitals Vital Signs Date Time Temp Pulse Resp B/P Pulse Ox O2 Delivery O2 Flow Rate FiO2 08/05/16 06:00 72 23 107/61 97 Mechanical Ventilator 08/05/16 05:37 35 08/05/16 04:00 98.2 Intake and Output 08/04/16 08/04/16 08/05/16 15:00 23:00 07:00 Intake Total 580.55 ml 906.11 ml 350 ml Output Total 510 ml 495 ml 405 ml Balance 70.55 ml 411.11 ml -55 ml Exam HEENT: Normal. Tracheostomy tube site is clear. No discharge. NECK: Supple, no JVD. LUNGS: Clear to auscultation. Bilateral coarse breath sounds. HEART: S1, S2, with tachycardia, no murmur. ABDOMEN: Soft, gastrostomy tube is in place, site is clear. No discharge. EXTREMITIES: No clubbing, cyanosis, or edema. NEUROLOGICAL: Uncooperative for exam. Results Result Diagram: 08/05/16 0510 08/05/16 0510 Results 24 hrs Laboratory Tests Test 08/05/16 05:10 Anion Gap 10 Basophils # 0.0 Basophils % 0.4 Blood Urea Nitrogen 14 Calcium Level 8.2 L Carbon Dioxide Level 29 Chloride Level 95 L Creatinine 0.98 Eosinophils # 0.7 H Eosinophils % 7.0 Glucose Level 258 #H Hematocrit 27.0 L Hemoglobin 8.4 L Lymphocytes # 2.2 Lymphocytes % 22.3 Magnesium Level 1.8 Mean Corpuscular Hemoglobin 28.8 L Mean Corpuscular Hemoglobin Concent 31.1 L Mean Corpuscular Volume 92.5 Mean Platelet Volume 12.1 H Monocytes # 0.8 Monocytes % 8.4 Neutrophils # 6.0 Neutrophils % 61.4 Nucleated Red Blood Cells # 0.0 Nucleated Red Blood Cells % 0.0 Phosphorus Level 2.8 Platelet Count 163 Potassium Level 4.1 Red Blood Count 2.92 L Red Cell Distribution Width 15.9 H Sodium Level 130 L White Blood Count 9.8 Medications Medications Current Medications Dobutamine HCl/ Dextrose 250 ml @ 11.25 mls/ hr TITRATE IV ; Start 07/31/16 at 02:00 Acetaminophen 650 mg 650 mg Q4H PRN [place] PAIN OR TEMP ABOVE 38C Last administered on 08/04/16 05:47; Admin Dose 650 MG; Start 07/31/16 at 05:00 Norepinephrine/ Dextrose (Levophed/D5W) 500 ml @ 1.87 mls/hr TITRATE IV Last administered on 08/01/16 05:45; Admin Dose 3.75 MLS/HR; Start 07/31/16 at 09:00 Lorazepam (Ativan) 0.25 mg Q4H PRN IV for shaking Last administered on 00:48; Admin Dose 0.25 MG; Start 07/31/16 at 05:30 Atorvastatin Calcium (Lipitor) 5 mg QHS GTB Last administered on 08/04/16 20: 19; Admin Dose 5 MG; Start 07/31/16 at 21:00 Bisacodyl (Dulcolax Supp) 10 mg DAILY PRN [place] CONSTIPATION; Start 07/31/16 at 10: 00 Docusate Sodium (Colace Liquid Cup) 100 mg DAILY GTB Last administered on 08:16; Admin Dose 100 MG; Start 08/01/16 at 09:00 Magnesium Hydroxide (Milk Of Mag) 30 ml DAILY PRN GTB CONSTIPATION; Start at 10:00 Mineral Oil (Fleet Mineral Oil Enema) 133 ml DAILY PRN [place] CONSTIPATION; Start 07/31/16 at 10:00 Ferrous Sulfate (Feosol Liquid Cup) 300 mg TID GTB Last administered on 08:16; Admin Dose 300 MG; Start 07/31/16 at 16:00 Diphenhydramine HCl (Benadryl) 50 mg Q6H PRN IV ITCHING Last administered on 23:39; Admin Dose 50 MG; Start 08/01/16 at 00:00 Loratadine 10 mg 10 mg DAILY PO Last administered on 08/05/16 08:16; Admin Dose 10 MG; Start 08/01/16 at 12:00 Ertapenem/Sodium Chloride (Invanz/NS) 100 ml @ 200 mls/hr Q24H IVPB Last administered on 08/04/16 14:17; Admin Dose 200 MLS/HR; Start 08/01/16 at 14:00 Mupirocin (Bactroban) 1 applic BID TOP Last administered on 08/05/16 08:23; Admin Dose 1 APPLIC; Start 08/01/16 at 21:00 Pantoprazole (Protonix Iv) 40 mg BID IV Last administered on 08/05/16 08:16; Admin Dose 40 MG; Start 08/02/16 at 09:00 Heparin Sodium (Porcine) 5000 unit 5,000 unit BID SC Last administered on 08:18; Admin Dose 5,000 UNIT; Start 08/02/16 at 21:00 Dextrose 1,000 ml @ 50 mls/hr Q20H IV Last administered on 08/05/16 05:12; Admin Dose 50 MLS/HR; Start 08/02/16 at 11:00 Levetiracetam/ Dextrose (Keppra Iv/D5W) 105 ml @ 420 mls/hr Q12 IVPB Last administered on 08/04/16 20:18; Admin Dose 420 MLS/HR; Start 08/02/16 at 12:30 IV Flush 10 ml 10 ml PRN PRN IV FLUSH LINE; Start 08/02/16 at 17:00 Linezolid (Zyvox 600mg/D5W (Pmx)) 300 ml @ 300 mls/hr Q12 IVPB Last administered on 08/04/16 20:19; Admin Dose 300 MLS/HR; Start 08/04/16 at 21:00 ARCHANA KELLEY MD Aug 05, 2016 08:57
[2016-08-05] MEDS: LINEZOLID 600 MG/D5W (PMX) 300 ML IVPB SCH ×2 (09:13→21:28)
[2016-08-05] MEDS: LEVETIRACETAM IV 500 MG in DEXTROSE 5% 100 ML IVPB SCH ×2 (10:17→21:27)
[2016-08-05] MEDS: SOD CHLORIDE 0.9% 1,000 ML IV SCH (10:33)
--- NOTE | 2016-08-05 12:22 | PN ---
Date/Time of Note Date/Time of Note DATE: 08/05/16 TIME: 12:17 Assessment/Plan VTE Prophylaxis VTE Prophylaxis Intervention: heparin Lines/Catheters IV [facility] PICC Line Urinary Cath still in place: Yes Assessment/Plan Chief Complaint/Hosp Course Assessment and plan 1. Status post septic shock secondary to UTI with ESBL. ID following. Continue on antibiotics. Off of vasopressors at this time. 2. Acute and chronic CKD. Monitor renal panel. We'll avoid nephrotoxic medications. Thread Grinder following. Stable at present 3. Elevated troponins. Likely type II NSTEMI. We'll monitor for now. 4. Ventilatory dependent respiratory failure. Continue with pulmonology recommendations. Continue bronchodilators. Continue with pulmonary hygiene. Stable at present 5. Anemia. Noted with iron anemia. Continue on iron supplement 6. Hypernatremia. Now noted with hyponatremia. Continue electrolyte correction per nephrology 7. Dyslipidemia. Continue on statin 8. History of seizure. Continue anticonvulsants 9. History of essential hypertension. Off of antihypertensives due to previous hypotension. Will monitor 10. Dysfunctional G-tube. Gastroenterology following. Evaluated by GI consult. Dysfunctional G-tube likely positional. Corrected per building wrecker. No plan for replacement. Monitor to feedings for now DVT prophylaxis: SCD GERD prophylaxis: H2 radha Disposition and plan: Started on tube feedings. Monitor fully. Noted with hyponatremia. Continue electrolyte correction per nephrology. Transfer to telemetry. Discharge him cleared by consultants Discussed plan of care with Dr. Simms Critical care time 30 minutes Problems: Subjective 24 Hr Interval Summary Free Text/Dictation Remains on trach to vent. Awakens to verbal response. Still confused at times. Off of vasopressor Exam/Review of Systems Vital Signs Vitals Vital Signs Date Time Temp Pulse Resp B/P Pulse Ox O2 Delivery O2 Flow Rate FiO2 08/05/16 09:32 64 16 100 35 08/05/16 09:00 112/59 Mechanical Ventilator 08/05/16 08:00 98.3 Intake and Output 08/04/16 08/04/16 08/05/16 14:59 22:59 06:59 Intake Total 599.44 ml 907.22 ml 400 ml Output Total 475 ml 520 ml 455 ml Balance 124.44 ml 387.22 ml -55 ml Exam General: No acute signs or symptoms of distress Eyes: Anicteric sclera. Pupils remain equal round Neck: Tracheostomy in place Cardiac: S1-S2 auscultated. Regular rate Pulmonary: No obvious adventitious lung sounds. Still on ventilator GI: PEG tube in place. No leak seen at this time Extremities: Seen with bilateral upper and lower extremity contractures Neurologic: Awakens a verbal response. No purposeful response still Results Result Diagram: 08/05/16 0510 08/05/16 0510 Results 24 hrs Laboratory Tests Test 08/05/16 05:10 Anion Gap 10 Basophils # 0.0 Basophils % 0.4 Blood Urea Nitrogen 14 Calcium Level 8.2 L Carbon Dioxide Level 29 Chloride Level 95 L Creatinine 0.98 Eosinophils # 0.7 H Eosinophils % 7.0 Glucose Level 258 #H Hematocrit 27.0 L Hemoglobin 8.4 L Lymphocytes # 2.2 Lymphocytes % 22.3 Magnesium Level 1.8 Mean Corpuscular Hemoglobin 28.8 L Mean Corpuscular Hemoglobin Concent 31.1 L Mean Corpuscular Volume 92.5 Mean Platelet Volume 12.1 H Monocytes # 0.8 Monocytes % 8.4 Neutrophils # 6.0 Neutrophils % 61.4 Nucleated Red Blood Cells # 0.0 Nucleated Red Blood Cells % 0.0 Phosphorus Level 2.8 Platelet Count 163 Potassium Level 4.1 Red Blood Count 2.92 L Red Cell Distribution Width 15.9 H Sodium Level 130 L White Blood Count 9.8 Medications Medications Current Medications Dobutamine HCl/ Dextrose 250 ml @ 11.25 mls/ hr TITRATE IV ; Start 07/31/16 at 02:00 Acetaminophen 650 mg 650 mg Q4H PRN [place] PAIN OR TEMP ABOVE 38C Last administered on 08/04/16 05:47; Admin Dose 650 MG; Start 07/31/16 at 05:00 Norepinephrine/ Dextrose (Levophed/D5W) 500 ml @ 1.87 mls/hr TITRATE IV Last administered on 08/01/16 05:45; Admin Dose 3.75 MLS/HR; Start 07/31/16 at 09:00 Lorazepam (Ativan) 0.25 mg Q4H PRN IV for shaking Last administered on 00:48; Admin Dose 0.25 MG; Start 07/31/16 at 05:30 Atorvastatin Calcium (Lipitor) 5 mg QHS GTB Last administered on 08/04/16 20: 19; Admin Dose 5 MG; Start 07/31/16 at 21:00 Bisacodyl (Dulcolax Supp) 10 mg DAILY PRN [place] CONSTIPATION; Start 07/31/16 at 10: 00 Docusate Sodium (Colace Liquid Cup) 100 mg DAILY GTB Last administered on 08:16; Admin Dose 100 MG; Start 08/01/16 at 09:00 Magnesium Hydroxide (Milk Of Mag) 30 ml DAILY PRN GTB CONSTIPATION; Start at 10:00 Mineral Oil (Fleet Mineral Oil Enema) 133 ml DAILY PRN [place] CONSTIPATION; Start 07/31/16 at 10:00 Ferrous Sulfate (Feosol Liquid Cup) 300 mg TID GTB Last administered on 08:16; Admin Dose 300 MG; Start 07/31/16 at 16:00 Diphenhydramine HCl (Benadryl) 50 mg Q6H PRN IV ITCHING Last administered on 23:39; Admin Dose 50 MG; Start 08/01/16 at 00:00 Loratadine 10 mg 10 mg DAILY PO Last administered on 08/05/16 08:16; Admin Dose 10 MG; Start 08/01/16 at 12:00 Ertapenem/Sodium Chloride (Invanz/NS) 100 ml @ 200 mls/hr Q24H IVPB Last administered on 08/04/16 14:17; Admin Dose 200 MLS/HR; Start 08/01/16 at 14:00 Mupirocin (Bactroban) 1 applic BID TOP Last administered on 08/05/16 08:23; Admin Dose 1 APPLIC; Start 08/01/16 at 21:00 Pantoprazole (Protonix Iv) 40 mg BID IV Last administered on 08/05/16 08:16; Admin Dose 40 MG; Start 08/02/16 at 09:00 Heparin Sodium (Porcine) 5000 unit 5,000 unit BID SC Last administered on 08:18; Admin Dose 5,000 UNIT; Start 08/02/16 at 21:00 Levetiracetam/ Dextrose (Keppra Iv/D5W) 105 ml @ 420 mls/hr Q12 IVPB Last administered on 08/05/16 10:17; Admin Dose 420 MLS/HR; Start 08/02/16 at 12:30 IV Flush 10 ml 10 ml PRN PRN IV FLUSH LINE; Start 08/02/16 at 17:00 Linezolid 300 ml @ 300 mls/hr Q12 IVPB Last administered on 08/05/16 09:13; Admin Dose 300 MLS/HR; Start 08/04/16 at 21:00 Sodium Chloride (NS) 1,000 ml @ 50 mls/hr Q20H IV Last administered on 10:33; Admin Dose 50 MLS/HR; Start 08/05/16 at 09:00 ATIF JOHNSON Aug 05, 2016 12:21
[2016-08-05] MEDS: ERTAPENEM SODIUM 1 GM in SOD CHLORIDE 0.9% 100 ML IVPB SCH (13:11)
--- NOTE | 2016-08-05 15:06 | PN ---
DATE: 08/05/2016 SUBJECTIVE: No acute events overnight. The patient is lying comfortably in bed. He is afebrile. He is more awake and follows simple commands. VITAL SIGNS: Temperature 98.5, pulse 68, respirations 16, blood pressure 91/54, saturation 100% on FIO2 of 35%. LABORATORY DATA: WBC 9.8, H and H 8.4 and 27, platelets 163, neutrophils 61.4. BUN 14, creatinine 0.98. ANTIMICROBIALS: The patient is on: 1. Invanz. 2. Zyvox. 3. He is also getting topical Bactroban to nares. INDWELLINGS: Trach, PEG, Bernstein, PICC line placed on 08/02/2016. PHYSICAL EXAMINATION: GENERAL: This is a chronically ill-appearing, elderly man who is lying comfortably in bed. HEENT: Head atraumatic, normocephalic. Sclerae anicteric. Buccal mucosa dry. NECK: Supple, tracheostomy present. CHEST: Rise symmetrical. Breath sounds with bilateral scattered crackles. HEART: S1, S2. ABDOMEN: Soft, bowel sounds present. EXTREMITIES: Without cyanosis. ASSESSMENT: 1. Resolving sepsis. 2. Escherichia coli extended-spectrum beta-lactamase urinary tract infection. 3. Coagulase-negative staph bacteremia with repeat blood cultures negative. 4. G-tube site cellulitis. 5. Methicillin-resistant Staphylococcus aureus nares colonization. 6. Rash, improving, status post empiric Elimite, on antihistamine. 7. Chronic encephalopathy, improving. 8. Non-ST elevation myocardial infarction. PLAN: The patient remains stable, overall improving. We will continue him on current antimicrobial s. Add nystatin to G-tube site and Diflucan. Await for repeat cultures. Follow recommendations of consultants. Dictated By: DEJA ARIAS ACID LOADER for MARINO BOWEN/SALOME Conf#: [id number] DID#: [id number]
[2016-08-05] MEDS: FLUCONAZOLE 100 MG TAB PO SCH (16:56)
[2016-08-05] MEDS: NYSTATIN 15 GM OINT TOP SCH (21:28)
[2016-08-05] MEDS: ATORVASTATIN 10 MG TAB GTB SCH (21:29)
[2016-08-06] VITALS (15 sets, daily range): BP systolic 87–99; BP diastolic 51–55; PULSE 61–78; RESP 16–25
[2016-08-06] MEDS: SOD CHLORIDE 0.9% 1,000 ML IV SCH (05:00)
[2016-08-06] MEDS: PANTOPRAZOLE 40 MG INJ IV SCH (08:28)
[2016-08-06] MEDS: FERROUS SULFATE 60 MG/ML 5ML CUP GTB SCH (08:28)
[2016-08-06] MEDS: FLUCONAZOLE 100 MG TAB PO SCH (08:28)
[2016-08-06] MEDS: DOCUSATE SODIUM 10 MG/ML (10ML CUP) GTB SCH (08:28)
[2016-08-06] MEDS: LINEZOLID 600 MG/D5W (PMX) 300 ML IVPB SCH (08:28)
[2016-08-06] MEDS: LORATADINE 10 MG TAB PO SCH (08:28)
[2016-08-06] MEDS: NYSTATIN 15 GM OINT TOP SCH (08:28)
[2016-08-06] MEDS: MUPIROCIN 2% 22 GM OINT TOP SCH (08:29)
[2016-08-06] MEDS: HEPARIN 5,000 UNIT/0.5 ML SYG SC SCH (08:42)
--- NOTE | 2016-08-06 08:53 | CONS ---
Date/Time of Note Date/Time of Note DATE: 08/06/16 TIME: 08:49 Assessment/Plan Assessment/Plan Additional Assessment/Plan Anemia, improving New Onset Monitor Hgb Q8hrs, transfuse 2 units for Hgb <7.5 PPI BID Stool OB neg Dysphagia/G-tube malfunction Cleanse site and change dressing BID Abdominal x-ray, neg for SBO G tube in place CT abdomen does not indicate G-tube site abscess Tube repositioned Monitor G-tube feed every 6 hours Hold tube feeds for residual greater than 150 mL Sepsis/septic shock secondary to urinary tract infection Management per Primary Infectious disease following Possible diabetes Management per primary Hemoglobin A1c of 10.0., Repeat hemoglobin actually 6.0 Acute on chronic kidney injury Nephrology following Chronic respiratory failure. Vent dependent. Management per pulmonary History of seizure disorder Management per Primary Further recommendations depend on clinical course Pt seen in collaboration with Dr. Pires Consultation Date/Type/Reason Admit Date/Time Jul 31, 2016 at 02:00 Initial Consult Date 07/31/16 Type of Consultation: Gastroenterology Referring Provider: MINESH JOLLEY 24 HR Interval Summary Free Text/Dictation 50 mL of residual noted No leaks from G-tube reported We will continue to advance per RD recommendations Exam/Review of Systems Vital Signs Vitals Vital Signs Date Time Temp Pulse Resp B/P Pulse Ox O2 Delivery O2 Flow Rate FiO2 08/06/16 08:03 72 16 98 35 08/06/16 07:58 99/51 08/06/16 07:44 99.1 08/05/16 17:00 Mechanical Ventilator Intake and Output 08/05/16 08/05/16 08/06/16 15:00 23:00 07:00 Intake Total 965 ml 435 ml 1405 ml Output Total 575 ml 125 ml 1200 ml Balance 390 ml 310 ml 205 ml Exam Constitutional: Nonverbal, thin Psych: Nonverbal Head: normocephalic Eyes: nl conjunctiva, nl lids ENMT: nl external ears & nose, nl lips & teeth, nl nasal mucosa & septum Respiratory: Tracheostomy Cardiovascular: regular rate and rhythm Gastrointestinal: firm, non tender G-tube site indurated Musculoskeletal: Contractures bilateral hands and feet Neurological: Grossly nonfocal Results Result Diagram: 08/05/1610 08/05/16509 Medications Medications Current Medications Acetaminophen (Tylenol Supp) 650 mg Q4H PRN [place] PAIN OR TEMP ABOVE 38C Last administered on 08/04/16 05:47; Admin Dose 650 MG; Start 07/31/16 at 05:00 Lorazepam (Ativan) 0.25 mg Q4H PRN IV for shaking Last administered on 00:48; Admin Dose 0.25 MG; Start 07/31/16 at 05:30 Atorvastatin Calcium (Lipitor) 5 mg QHS GTB Last administered on 08/05/16 21: 29; Admin Dose 5 MG; Start 07/31/16 at 21:00 Bisacodyl (Dulcolax Supp) 10 mg DAILY PRN [place] CONSTIPATION; Start 07/31/16 at 10: 00 Docusate Sodium (Colace Liquid Cup) 100 mg DAILY GTB Last administered on 08:28; Admin Dose 100 MG; Start 08/01/16 at 09:00 Magnesium Hydroxide (Milk Of Mag) 30 ml DAILY PRN GTB CONSTIPATION; Start at 10:00 Mineral Oil (Fleet Mineral Oil Enema) 133 ml DAILY PRN [place] CONSTIPATION; Start 07/31/16 at 10:00 Ferrous Sulfate (Feosol Liquid Cup) 300 mg TID GTB Last administered on 08:28; Admin Dose 300 MG; Start 07/31/16 at 16:00 Diphenhydramine HCl (Benadryl) 50 mg Q6H PRN IV ITCHING Last administered on 23:39; Admin Dose 50 MG; Start 08/01/16 at 00:00 Loratadine 10 mg 10 mg DAILY PO Last administered on 08/06/16 08:28; Admin Dose 10 MG; Start 08/01/16 at 12:00 Ertapenem/Sodium Chloride (Invanz/NS) 100 ml @ 200 mls/hr Q24H IVPB Last administered on 08/05/16 13:11; Admin Dose 200 MLS/HR; Start 08/01/16 at 14:00 Mupirocin (Bactroban) 1 applic BID TOP Last administered on 08/06/16 08:29; Admin Dose 1 APPLIC; Start 08/01/16 at 21:00 Pantoprazole (Protonix Iv) 40 mg BID IV Last administered on 08/06/16 08:28; Admin Dose 40 MG; Start 08/02/16 at 09:00 Heparin Sodium (Porcine) 5000 unit 5,000 unit BID SC Last administered on 08:42; Admin Dose 5,000 UNIT; Start 08/02/16 at 21:00 Levetiracetam/ Dextrose (Keppra Iv/D5W) 105 ml @ 420 mls/hr Q12 IVPB Last administered on 08/05/16 21:27; Admin Dose 420 MLS/HR; Start 08/02/16 at 12:30 IV Flush 10 ml 10 ml PRN PRN IV FLUSH LINE; Start 08/02/16 at 17:00 Linezolid 300 ml @ 300 mls/hr Q12 IVPB Last administered on 08/06/16 08:28; Admin Dose 300 MLS/HR; Start 08/04/16 at 21:00 Sodium Chloride (NS) 1,000 ml @ 50 mls/hr Q20H IV Last administered on 10:33; Admin Dose 50 MLS/HR; Start 08/05/16 at 09:00 Nystatin (Nystatin Oint) 1 applic TID TOP Last administered on 08/06/16 08:28 ; Admin Dose 1 APPLIC; Start 08/05/16 at 21:00 Fluconazole (Diflucan) 100 mg DAILY PO Last administered on 08/06/16 08:28; Admin Dose 100 MG; Start 08/05/16 at 15:00 NOEMY SU Aug 06, 2016 08:53
[2016-08-06] MEDS: LEVETIRACETAM IV 500 MG in DEXTROSE 5% 100 ML IVPB SCH (09:26)
[2016-08-06] MEDS ORDERED: PANT40VI7 IV (10:43)
--- NOTE | 2016-08-06 10:45 | PDOCDIS ---
Discharge Instructions DIAGNOSIS Discharge Diagnosis: 1. Septic shock secondary to UTI with ESBL 2. Acute on chronic CKD CONDITION Patient Condition: Stable OTHER ORDERS: Other Orders: 1. Further management and care per residential facility ATIF JOHNSON Aug 06, 2016 10:45
--- NOTE | 2016-08-06 11:13 | DS ---
Date/Time of Note Date/Time of Note DATE: 08/06/16 TIME: 11:01 Discharge Summary Admission/Discharge Info Admit Date/Time Jul 31, 2016 at 02:00 Discharge Date/Time Final Diagnosis 1. Status post septic shock secondary to UTI with ESBL. 2. Acute and chronic CKD. 3. Elevated troponins. Likely type II NSTEMI. 4. Ventilatory dependent respiratory failure. 5. Anemia. Noted with iron anemia. 6. Dyslipidemia. 7. History of seizure. 8. History of essential hypertension. 9. Dysfunctional G-tube.w Patient Condition: Stable Consults 1. Dr. Kel De Leon 2. Dr. Gato Garcia 3. Dr. Rodney Pires 4. Juna Ponce NP 5. Dr. Stew Sanchez Hospital Course This is a 71-year-old male with past medical history of diabetes, atrial for ablation, chronic respiratory failure ventilator dependent, reported history of epilepsy, who came to [facility] due to reports of tachycardia and fever. Patient from reported mental noncommunicative baseline is. He also has PEG tube in place. Patient was noted with hypotension with systolic in the 70s and was placed on Levophed drip. Was placed in ICU initially. Patient was found to have UTI with ESBL. ID consult did follow the patient and placed him on appropriate antibiotics. We did eventually wean the patient off vasopressors and his blood pressure was stabilized. He is otherwise optimized medically. He did have acute on chronic kidney disease and was seen by roping machine tender for this issue. We did monitor his renal panel and avoid nephrotoxic medications as possible. He also was seen with elevated troponins likely type II NSTEMI. He was optimized with his cardiovascular medications. He is also seen by antique clock repairer for ventilatory care. He is also continued on iron supplement for his anemia. Patient also had some medication for his dyslipidemia and was continued on anticonvulsants for have reported dysfunctional G-tube. He was seen by anthropology professor and did have PEG tube positionally fixed. There are his questions he did improve. On the day of discharge patient was in stable condition Discussed plan of care with Dr. Simms Discharge process time is 40 minutes Disposition: snf facility Home Meds Reported Medications Ipratropium-Albuterol (Ipratropium-Albuterol) 0.5-3 Mg/3 Ml Ampul.neb, 3 ML INHALATION Q6, #30 VIAL 07/30/16 Diphenhydramine Hcl (BANOPHEN) 50 Mg Capsule, 50 MG GTB Q6H Y for PRN, CAP 07/30/16 Acetaminophen* (Tylenol*) 325 Mg Tablet, 650 MG GTB Q4H Y for MILD PAIN LEVEL 1- 3, TAB 07/30/16 Digoxin* (Lanoxin*) 0.125 Mg/2.5 Ml Solution, 2.5 ML GTB DAILY, ML HOLD IF APICAL PULSE<60BPM 07/30/16 Docusate Sodium* (Docusate Sodium* Liq) 50 Mg/5 Ml Liquid, 10 ML GTB DAILY, ML 07/30/16 Ferrous Sulfate* (Ferrous Sulfate*) 220 Mg/5 Ml Solution, 7.5 ML GTB TID, ML 07/30/16 Levetiracetam* (Keppra* (Ped)) 100 Mg/Ml Liq, 5 ML GTB Q12H for 30 Days, BOTTLE 07/30/16 Multivits,Ca,Minerals/Iron/FA (Thera M Plus Tablet) 1 Each Tablet, 1 EACH GTB BID, TAB 07/30/16 Amino Acids/Protein Hydrolys (PRO-STAT LIQUID) 30 Ml Liquid.pkt, 30 ML GTB BID SUGAR FREE 07/30/16 Acetaminophen* (Acetaminophen*) 500 MG Extra Strength Tablet, 1000 MG GTB Q8H Y for MILD PAIN -11/01, TAB 07/05/16 Mineral Oil* (Fleet* Mineral Oil Enema) 133 Ml Oil, 133 ML OR DAILY Y for CONSTIPATION, ENEMA 07/05/16 Bisacodyl* (Bisacodyl*) 10 Mg Supp, 10 MG OR DAILY Y for CONSTIPATION, SUPP 07/05/16 Magnesium Hydroxide* (Milk Of Magnesia*) 400 Mg/5 Ml Oral.susp, 30 ML GTB DAILY Y for CONSTIPATION, ML 07/05/16 Lorazepam* (Lorazepam*) 1 Mg Tablet, 1 MG GTB Q6 Y for ANXIETY, #30 TAB 07/05/16 Famotidine* (Famotidine*) 20 Mg Tablet, 20 MG GTB BID, #30 TAB 07/05/16 Lisinopril* (Lisinopril*) 2.5 Mg Tablet, 2.5 MG GTB DAILY, #30 TAB HOLD IF SBP<100 AND CALL MD 07/05/16 Chlorhexidine Gluconate (Peridex) 473 Ml Mouthwash, 15 ML MM BID, BOTTLE 07/05/16 Atorvastatin Calcium (Atorvastatin Calcium) 10 Mg Tablet, 5 MG GTB QHS, #30 TAB 07/05/16 Discontinued Reported Medications Diphenhydramine Hcl* (Benadryl*) 50 Mg Cap, 50 MG GTB Q6 Y for ITCHING, CAP 07/05/16 Albuterol Sulfate* (Albuterol Sulfate* Neb) 0.083%-3 Ml Neb, 2.5 MG NEB Q6 Y for WHEEZING AND SOB, #30 VIAL 07/05/16 Amino Acids/Protein Hydrolys (PRO-STAT AWC LIQUID) 887 Ml Liquid, 30 ML GTB BID 07/05/16 Multivit &Minerals/Ferrous Fum (MULTIVITAMIN LIQUID) 9 Mg/15 Ml Liquid, 9 MG GTB BID 07/05/16 Levetiracetam* (Keppra*) 500 Mg/5 Ml Solution, 500 MG GTB BID, BOTTLE 07/05/16 Ferrous Sulfate (Ferrous Sulfate) 325 Mg Tablet., 325 MG GTB TID 07/05/16 Docusate Sodium* (Docusate Sodium*) 100 Mg Capsule, 100 MG GTB DAILY, #30 CAP HOLD FOR LOOSE STOOLS 07/05/16 Digoxin* (Digitek*) 250 Mcg Tablet, 50 MCG GTB DAILY, TAB HOLD IF APICAL PULSE<50BPM 07/05/16 Follow-up Plan CONDITION Patient Condition: Stable OTHER ORDERS: Other Orders: 1. Further management and care per fpc facility ATIF JOHNSON Aug 06, 2016 11:12
--- NOTE | 2016-08-06 11:59 | CONS ---
Date/Time of Note Date/Time of Note DATE: 08/06/16 TIME: 11:57 Assessment/Plan Assessment/Plan Additional Assessment/Plan 1. Acute kidney injury on possible chronic kidney disease likely secondary to acute tubular necrosis from sepsis secondary to urinary tract infection. 2. Septic shock, sepsis secondary to urinary tract infection. 3. ST segment changes on electrocardiogram. 4. Moderate to severe dehydration. 5. Normocytic anemia. 6. Rule out chronic kidney disease from type 2 diabetes mellitus. 7. Chronic respiratory failure, status post tracheostomy on ventilator. 8. Status post G-tube for feeding stage G-tube placement. PLAN: Cr better, and Na dropped to 130 yesterday - on NS at 50cc/hour- no labs today to review yet, will order stat will continue to follow up on patient Consultation Date/Type/Reason Admit Date/Time Jul 31, 2016 at 02:00 Initial Consult Date 07/31/16 Type of Consultation: NEPHROLOGY Referring Provider: MINESH JOLLEY 24 HR Interval Summary Free Text/Dictation pt stable, afebrile, no labs today to review, na was 130 yesterday Exam/Review of Systems Vital Signs Vitals Vital Signs Date Time Temp Pulse Resp B/P Pulse Ox O2 Delivery O2 Flow Rate FiO2 08/06/16 11:12 72 16 99 35 08/06/16 07:58 99/51 08/06/16 07:44 99.1 08/05/16 17:00 Mechanical Ventilator Intake and Output 08/05/16 08/05/16 08/06/16 15:00 23:00 07:00 Intake Total 965 ml 435 ml 1405 ml Output Total 575 ml 125 ml 1200 ml Balance 390 ml 310 ml 205 ml Exam HEENT: Normal. Tracheostomy tube site is clear. No discharge. NECK: Supple, no JVD. LUNGS: Clear to auscultation. Bilateral coarse breath sounds. HEART: S1, S2, with tachycardia, no murmur. ABDOMEN: Soft, gastrostomy tube is in place, site is clear. No discharge. EXTREMITIES: No clubbing, cyanosis, or edema. NEUROLOGICAL: Uncooperative for exam. Results Result Diagram: 08/05/1650908/05/1610 Medications Medications Current Medications Acetaminophen (Tylenol Supp) 650 mg Q4H PRN NC PAIN OR TEMP ABOVE 38C Last administered on 08/04/16 05:47; Admin Dose 650 MG; Start 07/31/16 at 05:00 Lorazepam (Ativan) 0.25 mg Q4H PRN IV for shaking Last administered on 00:48; Admin Dose 0.25 MG; Start 07/31/16 at 05:30 Atorvastatin Calcium (Lipitor) 5 mg QHS GTB Last administered on 08/05/16 21: 29; Admin Dose 5 MG; Start 07/31/16 at 21:00 Bisacodyl (Dulcolax Supp) 10 mg DAILY PRN NC CONSTIPATION; Start 07/31/16 at 10: 00 Docusate Sodium (Colace Liquid Cup) 100 mg DAILY GTB Last administered on 08:28; Admin Dose 100 MG; Start 08/01/16 at 09:00 Magnesium Hydroxide (Milk Of Mag) 30 ml DAILY PRN GTB CONSTIPATION; Start at 10:00 Mineral Oil (Fleet Mineral Oil Enema) 133 ml DAILY PRN NC CONSTIPATION; Start 07/31/16 at 10:00 Ferrous Sulfate (Feosol Liquid Cup) 300 mg TID GTB Last administered on 08:28; Admin Dose 300 MG; Start 07/31/16 at 16:00 Diphenhydramine HCl (Benadryl) 50 mg Q6H PRN IV ITCHING Last administered on 23:39; Admin Dose 50 MG; Start 08/01/16 at 00:00 Loratadine 10 mg 10 mg DAILY PO Last administered on 08/06/16 08:28; Admin Dose 10 MG; Start 08/01/16 at 12:00 Ertapenem/Sodium Chloride (Invanz/NS) 100 ml @ 200 mls/hr Q24H IVPB Last administered on 08/05/16 13:11; Admin Dose 200 MLS/HR; Start 08/01/16 at 14:00 Mupirocin (Bactroban) 1 applic BID TOP Last administered on 08/06/16 08:29; Admin Dose 1 APPLIC; Start 08/01/16 at 21:00 Pantoprazole (Protonix Iv) 40 mg BID IV Last administered on 08/06/16 08:28; Admin Dose 40 MG; Start 08/02/16 at 09:00 Heparin Sodium (Porcine) 5000 unit 5,000 unit BID SC Last administered on 08:42; Admin Dose 5,000 UNIT; Start 08/02/16 at 21:00 Levetiracetam/ Dextrose (Keppra Iv/D5W) 105 ml @ 420 mls/hr Q12 IVPB Last administered on 08/06/16 09:26; Admin Dose 420 MLS/HR; Start 08/02/16 at 12:30 IV Flush 10 ml 10 ml PRN PRN IV FLUSH LINE; Start 08/02/16 at 17:00 Linezolid 300 ml @ 300 mls/hr Q12 IVPB Last administered on 08/06/16 08:28; Admin Dose 300 MLS/HR; Start 08/04/16 at 21:00 Sodium Chloride (NS) 1,000 ml @ 50 mls/hr Q20H IV Last administered on 10:33; Admin Dose 50 MLS/HR; Start 08/05/16 at 09:00 Nystatin (Nystatin Oint) 1 applic TID TOP Last administered on 08/06/16 08:28 ; Admin Dose 1 APPLIC; Start 08/05/16 at 21:00 Fluconazole (Diflucan) 100 mg DAILY PO Last administered on 08/06/16 08:28; Admin Dose 100 MG; Start 08/05/16 at 15:00 Influenza Virus Vaccine (Fluzone) 0.5 ml ONCE ONCE IM* ; Start 08/07/16 at 10:00 ; Stop 08/07/16 at 10:01 ARCHANA KELLEY MD Aug 06, 2016 11:59
[2016-08-06 13:28] LABS: POTASSIUM 4.1 mmol/L (3.5-5.1)
[2016-08-06 13:31] LABS: CALCIUM 8.1 mg/dl (8.4-10.2)
--- NOTE | 2016-08-06 14:14 | PN ---
DATE: 08/06/2016 SUBJECTIVE: Patient Kerry is stable following transfer from intensive care unit. No new events o vernight. PHYSICAL EXAMINATION: VITAL SIGNS: Temperature 98, pulse 61, blood pressure 92/50, O2 saturation 96% on 35% FIO2. NECK: Tracheostomy intact. CARDIAC: S1, S2, no added sounds or murmurs. CHEST: Diminished air entry bilaterally. ABDOMEN: Soft, nontender. No guarding or rebound. EXTREMITIES: No cyanosis, clubbing, edema. NEUROLOGIC: Generalized weakness. LABORATORY DATA: Within normal limits; however, hemoglobin was 8.4. Glucose elevated at 258. Mag was replaced at 1.8. IMPRESSION AND PLAN: 1. Vent dependent respiratory failure. 2. Recent urinary tract infection. 3. Encephalopathy. 4. Dysphagia with G-tube. 5. History of seizure disorder. PLAN: 1. Discharge planning. 2. Tube feeding. 3. Vent support. 4. DVT and GI prophylaxis. Dictated By: FEMI PALM/SALOME Conf#: [id number] DID#: [id number]
--- NOTE | 2016-08-06 15:11 | CONS ---
Date/Time of Note Date/Time of Note DATE: 08/06/16 TIME: 15:10 Assessment/Plan Assessment/Plan Chief Complaint/Hosp Course SUBJECTIVE: No acute events overnight. The patient is lying comfortably in bed. He is afebrile. He is more awake and follows simple commands. ANTIMICROBIALS: The patient is on: 1. Invanz. 2. Zyvox. 3. topical Bactroban to nares. 4. Diflucan 5. Topical Nystatin INDWELLINGS: Trach, PEG, Bernstein, PICC line placed on 08/02/2016. PHYSICAL EXAMINATION: GENERAL: This is a chronically ill-appearing, elderly man who is lying comfortably in bed. HEENT: Head atraumatic, normocephalic. Sclerae anicteric. Buccal mucosa dry. NECK: Supple, tracheostomy present. CHEST: Rise symmetrical. Breath sounds with bilateral scattered crackles. HEART: S1, S2. ABDOMEN: Soft, bowel sounds present. EXTREMITIES: Without cyanosis. ASSESSMENT: 1. Resolving sepsis. 2. Escherichia coli extended-spectrum beta-lactamase urinary tract infection. 3. Coagulase-negative staph bacteremia with repeat blood cultures negative. 4. G-tube site cellulitis. 5. Methicillin-resistant Staphylococcus aureus nares colonization. 6. Rash, improving, status post empiric Elimite, on antihistamine. 7. Chronic encephalopathy, improving. 8. Non-ST elevation myocardial infarction. PLAN: The patient remains stable. We will continue him on current antimicrobials. Follow recommendations of consultants. DW staff Problems: Consultation Date/Type/Reason Admit Date/Time Jul 31, 2016 at 02:00 Initial Consult Date 07/31/16 Type of Consultation: ID Referring Provider: MINESH JOLLEY Exam/Review of Systems Vital Signs Vitals Vital Signs Date Time Temp Pulse Resp B/P Pulse Ox O2 Delivery O2 Flow Rate FiO2 08/06/16 13:22 74 18 98 35 08/06/16 12:06 98.2 92/53 08/05/16 17:00 Mechanical Ventilator Intake and Output 08/05/16 08/05/16 08/06/16 15:00 23:00 07:00 Intake Total 965 ml 435 ml 1405 ml Output Total 575 ml 125 ml 1200 ml Balance 390 ml 310 ml 205 ml Results Result Diagram: 08/05/16 0510 08/06/16 1245 Results 24 hrs Laboratory Tests Test 08/06/16 12:45 Anion Gap 12 Blood Urea Nitrogen 13 Calcium Level 8.1 L Carbon Dioxide Level 29 Chloride Level 99 Creatinine 1.00 Glucose Level 93 # Potassium Level 4.1 Sodium Level 136 DEJA ARIAS NP Aug 06, 2016 15:11
[2016-08-07] MEDS ORDERED: INFLUENZA VIRUS VACCINE 0.5 ML SYG IM* ONE (10:00)
== END 2016-08-06 14:37 | DRG 870 ==
LOC: E/R 20:42 → ICU 07-31 02:00 → TEL 08-05 18:36
PROVIDERS: ADMIT Family Medicine; ATTEND Family Medicine
PROC: 06HM33Z Insertion of Infusion Device into Right Femoral Vein, Percutaneous Approach (ICD-10-PCS; principal; 2016-07-31)
PROC: 5A1955Z Respiratory Ventilation, Greater than 96 Consecutive Hours (ICD-10-PCS; 2016-07-31)
PROC: 02HV33Z Insertion of Infusion Device into Superior Vena Cava, Percutaneous Approach (ICD-10-PCS; 2016-08-02)
DX: A41.9 Sepsis, unspecified organism (principal); I21.4 Non-ST elevation (NSTEMI) myocardial infarction; R65.21 Severe sepsis with septic shock; Z99.11 Dependence on respirator [ventilator] status; J96.10 Chronic respiratory failure, unspecified whether with hypoxia or hypercapnia; G93.1 Anoxic brain damage, not elsewhere classified; N17.9 Acute kidney failure, unspecified; N39.0 Urinary tract infection, site not specified; E87.0 Hyperosmolality and hypernatremia; L03.311 Cellulitis of abdominal wall; K94.22 Gastrostomy infection; K94.23 Gastrostomy malfunction; B96.20 Unspecified Escherichia coli [E. coli] as the cause of diseases classified elsewhere; D50.9 Iron deficiency anemia, unspecified; E78.5 Hyperlipidemia, unspecified; E86.0 Dehydration; G40.909 Epilepsy, unspecified, not intractable, without status epilepticus; R21 Rash and other nonspecific skin eruption; E11.22 Type 2 diabetes mellitus with diabetic chronic kidney disease; I12.9 Hypertensive chronic kidney disease with stage 1 through stage 4 chronic kidney disease, or unspecified chronic kidney disease; N18.9 Chronic kidney disease, unspecified; Z93.0 Tracheostomy status
CPT/HCPCS: 36415; 36430; 36569; 36600; 71010; 74000; 74176; 76775; 76937; 80048; 80053; 80061; 80162; 81001; 81003; 82270; 82550; 82553; 82570; 82803; 83036; 83605; 83735; 84100; 84300; 84439; 84443; 84484; 84560; 85014; 85018; 85025; 85610; 85730; 86850; 86900; 86901; 86920; 87040; 87070; 87081; 87086; 89190; 93005; 94002; 94003; 96365; 96366; 96375; C1769; C9113; J1200; J1335; J1650; J1953; J1956; J2060; J2270; J2543; J3370; J3475; J3480; J7030; J7040; J7042; J7070; P9016

== ENCOUNTER 2016-08-31 19:59 | Inpatient (IN) | payer MEDICARE, OTHER ==
[~2016-08-31] VITALS: Ht 172.7 cm; Wt 64.2 kg
[~2016-08-31 19:59] MED LIST changes: +ACET325T33 GTB; -ALBU2.5V3 NEB; +AMIN30LI GTB; -AMIN887L6 GTB; -BEN50 GTB; +BISA10SU75 PR; +DIGO0.12 GTB; -DIGO250T GTB; +DIPH50CA30 GTB; -DOCU-159 GTB; -DULR PR; +FERR220S13 GTB; -FERR325T5 GTB; +IPRA3AMP INHALATION; +KEP100S GTB; -LEVE500S9 GTB; +MULT-843 GTB; -MULT9LIQ4 GTB; +PANT40VI7 IV; +UDCOL GTB
[2016-08-31 20:05] VITALS: Ht 172.7 cm; Wt 64.2 kg
[2016-08-31] MEDS ORDERED: SODIUM CHLORIDE 0.9% 1L BAG IV* STA (20:19)
[2016-08-31] MEDS ORDERED: AZTREONAM 2 GM in SOD CHLORIDE 0.9% 100 ML IVPB ONE (20:30)
[2016-08-31 20:43] LABS: ADD SCAN DIFF NO
[2016-08-31 20:46] LABS: BASOPHIL # 0.1 10^3/ul (0.0-0.1); BASOPHILS % 0.6 % (0.0-2.0); EOSINOPHILS # 0.4 10^3/ul (0.0-0.5); EOSINOPHILS % 2.3 % (0.0-7.0); HEMATOCRIT 32.4 % (42.0-52.0); HEMOGLOBIN 10.2 g/dl (14.0-18.0); LYMPHOCYTES # 2.7 10^3/ul (0.8-2.9); MEAN CORPUSCULAR HEMOGLOBIN 28.9 pg (29.0-33.0); MEAN CORPUSCULAR HGB CONC 31.5 g/dl (32.0-37.0); MEAN CORPUSCULAR VOLUME 91.8 fl (82.0-101.0); MEAN PLATELET VOLUME 10.7 fl (7.4-10.4); MONOCYTE # 1.4 10^3/ul (0.3-0.9); MONOCYTES % 8.9 % (0.0-11.0); NEUTROPHIL # 11.3 10^3/ul (1.6-7.5); NEUTROPHILS % 70.8 % (39.0-77.0); PLATELET COUNT 288 10^3/UL (140-415); RED BLOOD COUNT 3.53 10^6/ul (4.70-6.10); RED CELL DISTRIBUTION WIDTH 16.1 % (11.5-14.5)
[2016-08-31 20:48] LABS: ADD UMIC YES; URINE BILIRUBIN (Dip) NEGATIVE (NEGATIVE); URINE BLOOD (Dip) 1+ (NEGATIVE); URINE COLOR YELLOW (YELLOW); URINE GLUCOSE (Dip) NEGATIVE (NEGATIVE); URINE KETONES (Dip) NEGATIVE (NEGATIVE); URINE LEUKOCYTE ESTERASE (Dip) 3+ (NEGATIVE); URINE NITRITE (Dip) NEGATIVE (NEGATIVE); URINE TOTAL PROTEIN (Dip) TRACE (NEGATIVE); URINE UROBILINOGEN (Dip) 0.2 E.U./dL (0.1-1.0)
[2016-08-31 20:53] LABS: ALBUMIN 4.1 g/dl (3.3-4.9); POTASSIUM 4.8 mmol/L (3.5-5.1)
[2016-08-31] MEDS: LEVOFLOXACIN 750MG/D5W (PMX) 150 ML IVPB ONE ×2 (20:54→22:00)
[2016-08-31 20:55] LABS: CREATININE 2.02 mg/dl (0.61-1.24); INR 0.98; PARTIAL THROMBOPLASTIN TIME 28.4 Sec (25.0-35.0)
[2016-08-31 20:56] LABS: ALBUMIN/GLOBULIN RATIO 0.82; BILIRUBIN,INDIRECT 0.4 mg/dl (0-1.1); BILIRUBIN,TOTAL 0.4 mg/dl (0.2-1.3); TOTAL PROTEIN 9.1 g/dl (6.1-8.1)
[2016-08-31 20:57] LABS: CALCIUM 9.3 mg/dl (8.4-10.2)
[2016-08-31] MEDS ORDERED: LINEZOLID 600 MG/D5W (PMX) 300 ML IVPB SCH (21:00)
[2016-08-31 21:03] LABS: BACTERIA,URINE MANY
[2016-08-31 21:07] LABS: TROPONIN-I 0.015 ng/ml (0.00-0.12)
--- NOTE | 2016-08-31 22:06 | RADRPT ---
PROCEDURE: XR Chest. CLINICAL INDICATION: Sepsis. TECHNIQUE: Portable AP semi - erect view of the chest was obtained. COMPARISON: 08/02/2016 FINDINGS: The cardiomediastinal silhouette is within normal limits. Hyperinflation of the lungs is again note d with diffuse chronic interstitial changes, mild, stable compared to the previous exam. There is n o evidence of acute infiltrate. Tracheostomy remains in satisfactory position. A left-sided PICC i s now present the tip at the cavoatrial junction, the previously seen right-sided PICC is been remov ed. There is no evidence for pleural effusion, pneumothorax or pulmonary vascular congestion. The osseous structures are intact with no evidence for acute abnormality. RPTAT:HJJR IMPRESSION: 1. No evidence of pulmonary infiltrate. 2. Stable hyperinflation of the lungs unable to exclude chronic obstructive pulmonary disease. 3. New left-sided PICC in good position the tip at the cavoatrial junction with the removal of the previously seen right-sided PICC 4. Tracheostomy remains in good position. Physician Quinton Date Time Electronically viewed and signed by Physician Quinton on 08/31/2016 22:05 /
[2016-08-31] MEDS ORDERED: ACETAMINOPHEN 325 MG TAB PO PRN (22:30)
[2016-08-31] MEDS ORDERED: ONDANSETRON 4 MG INJ IV PRN (22:30)
--- NOTE | 2016-08-31 22:59 | ERA ---
ER Documentation Chief Complaint Date/Time DATE: 08/31/16 TIME: 22:50 Chief Complaint REMY RAJesse,from [facility] HPI 71-year-old male with past medical history of diabetes, atrial fibrillation, chronic respiratory failure trach and dependent, reported history of epilepsy, brought to the ER for respiratory distress [facility]. History is limited otherwise secondary to patient being nonverbal. ROS Review of systems limited as patient is nonverbal Medications Home Meds Active Scripts Pantoprazole* (Protonix* IV) 40 Mg Soln, 40 MG IV BID for 30 Days Prov:ATIF JOHNSON 08/06/16 Reported Medications Ipratropium-Albuterol (Ipratropium-Albuterol) 0.5-3 Mg/3 Ml Ampul.neb, 3 ML INHALATION Q6, #30 VIAL 07/30/16 Diphenhydramine Hcl (BANOPHEN) 50 Mg Capsule, 50 MG GTB Q6H Y for PRN, CAP 07/30/16 Acetaminophen* (Tylenol*) 325 Mg Tablet, 650 MG GTB Q4H Y for MILD PAIN LEVEL 1- 3, TAB 07/30/16 Digoxin* (Lanoxin*) 0.125 Mg/2.5 Ml Solution, 2.5 ML GTB DAILY, ML HOLD IF APICAL PULSE<60BPM 07/30/16 Docusate Sodium* (Docusate Sodium* Liq) 50 Mg/5 Ml Liquid, 10 ML GTB DAILY, ML 07/30/16 Ferrous Sulfate* (Ferrous Sulfate*) 220 Mg/5 Ml Solution, 7.5 ML GTB TID, ML 07/30/16 Levetiracetam* (Keppra* (Ped)) 100 Mg/Ml Liq, 5 ML GTB Q12H for 30 Days, BOTTLE 07/30/16 Multivits,Ca,Minerals/Iron/FA (Thera M Plus Tablet) 1 Each Tablet, 1 EACH GTB BID, TAB 07/30/16 Amino Acids/Protein Hydrolys (PRO-STAT LIQUID) 30 Ml Liquid.pkt, 30 ML GTB BID SUGAR FREE 07/30/16 Acetaminophen* (Acetaminophen*) 500 MG Extra Strength Tablet, 1000 MG GTB Q8H Y for MILD PAIN 4-610, TAB 07/05/16 Mineral Oil* (Fleet* Mineral Oil Enema) 133 Ml Oil, 133 ML [place] DAILY Y for CONSTIPATION, ENEMA 07/05/16 Bisacodyl* (Bisacodyl*) 10 Mg Supp, 10 MG [place] DAILY Y for CONSTIPATION, SUPP 07/05/16 Magnesium Hydroxide* (Milk Of Magnesia*) 400 Mg/5 Ml Oral.susp, 30 ML GTB DAILY Y for CONSTIPATION, ML 07/05/16 Lorazepam* (Lorazepam*) 1 Mg Tablet, 1 MG GTB Q6 Y for ANXIETY, #30 TAB 07/05/16 Famotidine* (Famotidine*) 20 Mg Tablet, 20 MG GTB BID, #30 TAB 07/05/16 Lisinopril* (Lisinopril*) 2.5 Mg Tablet, 2.5 MG GTB DAILY, #30 TAB HOLD IF SBP<100 AND CALL MD 07/05/16 Chlorhexidine Gluconate (Peridex) 473 Ml Mouthwash, 15 ML MM BID, BOTTLE 07/05/16 Atorvastatin Calcium (Atorvastatin Calcium) 10 Mg Tablet, 5 MG GTB QHS, #30 TAB 07/05/16 Allergies Allergies: Coded Allergies: aspirin (Verified Allergy, Unknown, 07/30/16) piperacillin (Verified Adverse Reaction, Intermediate, Rash, itching possibly drug related, 08/01/16) Rash, itching possibly drug related, occurred 08/01 1999 tazobactam (Verified Adverse Reaction, Intermediate, Rash, itching possibly drug related, 08/01/16) Rash, itching possibly drug related, occurred 08/01 1999 vancomycin (Verified Adverse Reaction, Unknown, Rash, itching possibly drug related, 08/01/16) Rash, itching possibly drug related, occurred 08/01 1999 PMhx/Soc History of Surgery: Yes (trach, gtube) Anesthesia Reaction: No Hx Neurological Disorder: Yes (epilepsy) Hx Respiratory Disorders: Yes (chronic respiratory failure) Hx Cardiac Disorders: Yes (afib) Hx Psychiatric Problems: No Hx Miscellaneous Medical Probl: Yes (DM type 2) Hx Alcohol Use: No (unable to obtain) Hx Substance Use: No (unable to obtain) Hx Tobacco Use: No (unable to obtain) Smoking Status: Unknown if ever smoked FmHx Family History: other (Unable to obtain) Physical Exam Vitals Vital Signs Date Time Temp Pulse Resp B/P Pulse Ox O2 Delivery O2 Flow Rate FiO2 08/31/16 22:37 85 15 100 40 08/31/16 20:30 Bag Valve Mask 08/31/16 20:05 103 19 100 40 08/31/16 20:05 99.6 122 36 154/100 99 Physical Exam Const: Appears to be in respiratory distress, chronically ill-appearing, coughing frequently Head: Atraumatic Eyes: Normal Conjunctiva ENT: Dry oral mucosa Neck: Trach in place, actively being bagged Resp: Rhonchi bilaterally with diminished breath sounds Cardio: Tachycardic with regular rhythm, no murmurs Abd: Soft, non tender, non distended. Normal bowel sounds Skin: No petechiae or rashes Ext: No cyanosis, or edema. Muscle atrophy in all extremities Neur: Awake and alert, nonverbal Result Diagram: 08/31/16201908/31/162019 Results 24 hrs Laboratory Tests Test 08/31/16 20:20 08/31/16 20:30 White Blood Count 16.010^3/ul Red Blood Count 3.5310^6/ul Hemoglobin 10.2g/dl Hematocrit 32.4% Mean Corpuscular Volume 91.8fl Mean Corpuscular Hemoglobin 28.9pg Mean Corpuscular Hemoglobin Concent 31.5g/dl Red Cell Distribution Width 16.1% Platelet Count 00848^3/UL Mean Platelet Volume 10.7fl Neutrophils % 70.8% Lymphocytes % 17.0% Monocytes % 8.9% Eosinophils % 2.3% Basophils % 0.6% Nucleated Red Blood Cells % 0.0/100WBC Neutrophils # 11.310^3/ul Lymphocytes # 2.710^3/ul Monocytes # 1.410^3/ul Eosinophils # 0.410^3/ul Basophils # 0.110^3/ul Nucleated Red Blood Cells # 0.010^3/ul Prothrombin Time 13.0Sec Prothrombin Time Ratio 1.0 INR International Normalized Ratio 0.98 Activated Partial Thromboplast Time 28.4Sec Sodium Level 138mmol/L Potassium Level 4.8mmol/L Chloride Level 92mmol/L Carbon Dioxide Level 30mmol/L Anion Gap 21 Blood Urea Nitrogen 56mg/dl Creatinine 2.02mg/dl Glucose Level 123mg/dl Lactic Acid Level 0.7mmol/L Calcium Level 9.3mg/dl Total Bilirubin 0.4mg/dl Direct Bilirubin 0.00mg/dl Indirect Bilirubin 0.4mg/dl Aspartate Amino Transf (AST/SGOT) 24IU/L Alanine Aminotransferase (ALT/SGPT) 18IU/L Alkaline Phosphatase 95IU/L Troponin I 0.015ng/ml Total Protein 9.1g/dl Albumin 4.1g/dl Globulin 5.00g/dl Albumin/Globulin Ratio 0.82 Urine Color YELLOW Urine Clarity SLIGHTLY CLOUDY Urine pH 7.0 Urine Specific [place] 1.010 Urine Ketones NEGATIVE Urine Nitrite NEGATIVE Urine Bilirubin NEGATIVE Urine Urobilinogen 0.2 E.U./dL Urine Leukocyte Esterase 3+ Urine Microscopic RBC 2-5/HPF Urine WBC Clumps FEW Urine Microscopic WBC >200/HPF Urine Bacteria MANY Urine Hemoglobin 1+ Urine Glucose NEGATIVE% Urine Total Protein TRACE Current Medications Medications (Trade) Dose Ordered Sig/Emma Route PRN Reason Start Time Stop Time Status Last Admin Dose Admin Sodium Chloride 1760 ml 1,760 ml BOLUS OVER 2 HOURS STAT IV* 08/31/16 20:19 08/31/16 20:24 DC 08/31/16 20:51 Linezolid 300 ml @ 300 mls/hr Q12 IVPB 08/31/16 21:00 08/31/16 20:55 Aztreonam 2 gm/ Sodium Chloride 100 ml @ 100 mls/hr ONCE ONCE IVPB 08/31/16 20:30 08/31/16 21:29 DC 08/31/16 20:52 Levofloxacin/ Dextrose (Levaquin 750 Mg/ D5W 150 ml (Pmx)) 150 ml @ 100 mls/hr ONCE ONCE IVPB 08/31/16 20:30 08/31/16 21:59 DC 08/31/16 22:00 Ondansetron HCl (Zofran Inj) 4 mg ER BRIDGE PRN IV NAUSEA AND/OR VOMITING 08/31/16 22:30 09/01/16 22:29 Acetaminophen (Tylenol Tab) 650 mg ER BRIDGE PRN PO MILD PAIN/FEVER 08/31/16 22:30 09/01/16 22:29 Procedures/MDM EKG: Rate/Rhythm: Sinus tachycardia with first-degree AV block QRS, ST, T-waves: Nonspecific ST changes, No changes consistent w/ acute ischemia Impression: No evidence of ischemia or arrhythmia Labs: Notable for leukocytosis, acute renal failure, positive UA Chest x-ray: IMPRESSION: 1. No evidence of pulmonary infiltrate. 2. Stable hyperinflation of the lungs unable to exclude chronic obstructive pulmonary disease. 3. New left-sided PICC in good position the tip at the cavoatrial junction with the removal of the previously seen right-sided PICC 4. Tracheostomy remains in good position. Physician Quinton Date Time Electronically viewed and signed by Dakota Townsend Physician on 08/31/2016 22:05 MDM: Patient presented with respiratory distress and was placed on a vent and suctioned. After this his respiratory distress improved. Vitals were notable for low-grade fever with tachycardia. This raised concern for sepsis. Patient was actually admitted 1 month ago for sepsis. Chest x-ray did not show any obvious pneumonia. Her urinalysis showed evidence of UTI. The patient has a chronic Bernstein, so this may be a chronic UTI. IV fluids and broad-spectrum antibiotics were given to patient's infectious symptoms have not stabilized and the patient is at risk of rapid decompensation. The patient will be admitted for careful hydration, antibiotic therapy, and infectious source control. Severe Sepsis Assessment: Infectious Source: Pneumonia versus UTI End organ damage indicated by: Acute Resp Failure (sat < 92% w/o oxygen) Acetylene Cutter > 2.0 Severe Sepsis Managment: Blood Cultures X 2 before broad spectrum antibiotics initiated within 3 hours of recognition. 30 ml/kg NS bolus Completed Initial Lactate: normal Repeat Lactate not indicated as initial < 2.0 Critical Care: Time: 35 minutes Treatments/Evaluations: Emergent fluid management, while maintaining close respiratory support. Immediate broad spectrum antibiotic therapy. Simultaneous assessment for possible sources in order to direct therapy. Consideration for invasive and chemical support to prevent respiratory or cardiac collapse. Septic Shock Assessment (1 hour post 30 ml/kg fluid bolus): Hypotension (SBP < 90 or 40 mmHg drop, MAP < 65): No Lactic acid > 4.0 No Accepting Care Team: Current data and ongoing care discussed. Time: Time of admission Primary Provider: Moshe Consulting: none Outstanding Data: cultures Departure Diagnosis: Primary Impression: Acute and chronic respiratory failure Additional Impressions: Sepsis Qualified Code: A41.9 - Sepsis, due to unspecified organism UTI (urinary tract infection) Qualified Code: T83.511A - Urinary tract infection associated with indwelling urethral catheter, initial encounter Acute renal failure Qualified Code: N17.9 - Acute renal failure, unspecified acute renal failure type ANDREAS MORRIS MD Aug 31, 2016 22:59
[2016-08-31 23:00] VITALS: TEMP 97.7
[2016-09-01] VITALS (24 sets, daily range): BP systolic 135–154; BP diastolic 63–73; PULSE 75–96; RESP 16–24
--- NOTE | 2016-09-01 01:06 | HP ---
Date/Time of Note Date/Time of Note DATE: 09/01/16 TIME: 01:06 Assessment/Plan VTE Prophylaxis VTE Prophylaxis Intervention: anti-embolic stocking Assessment/Plan Assessment/Plan 1) Acute and chronic respiratory failure - Admit to Intensive Care - Consult - Pulmonary Reclaimer 2) Sepsis due to UTI, unknown organism - Blood Cultures x 2 and Urine Culture - Broad Spectrum Antibiotics - IV hydration - CBC in AM, serial Lactic Acid 3) UTI (urinary tract infection) - Bernstein Catheter in place , chronic, possible source of UTI - Replace Bernstein after antibiotics on board 5) Acute renal failure - - BMP in AM HPI/ROS Admit Date/Time Admit Date/Time Aug 31, 2016 at 22:10 Hx of Present Illness Patient is brought in from [facility] via ambulance as he is non- verbal and there are no family members, My history is that of the ER Physician. He is a 71-year-old male with past medical history of diabetes, atrial fibrillation, chronic respiratory failure trach and dependent, reported history of epilepsy, brought to the ER for respiratory distress from his [facility] facility. History is limited otherwise secondary to patient being nonverbal. ER Course per ER physician: Patient presented with respiratory distress and was placed on a vent and suctioned. After this his respiratory distress improved. Vitals were notable for low-grade fever with tachycardia. This raised concern for sepsis. Patient was actually admitted 1 month ago for sepsis. Chest x-ray did not show any obvious pneumonia. Her urinalysis showed evidence of UTI. The patient has a chronic Bernstein, so this may be a chronic UTI. IV fluids and broad- spectrum antibiotics were given to patient's infectious symptoms have not stabilized and the patient is at risk of rapid decompensation. The patient will be admitted for careful hydration, antibiotic therapy, and infectious source control. ROS Subjective hx not possible: pt non-verbal PMH/Family/Social Past Medical History epilepsy; DM type 2; chronic respiratory failure; afib Past Surgical History trach, gtube Past Surgical Hx: other Family History Significant Family History: other (Unable to obtain) Social History Alcohol Use: other (Unknown) Smoking Status: Unknown if ever smoked Drug Use: other (Unknown) Exam/Review of Systems Vital Signs Vitals Vital Signs Date Time Temp Pulse Resp B/P Pulse Ox O2 Delivery O2 Flow Rate FiO2 08/31/16 23:00 97.7 83 25 95/61 100 Mechanical Ventilator 4/9/17 22:37 40 Intake and Output 08/31/16 08/31/16 09/01/16 15:00 23:00 07:00 Intake Total 100 ml 1650 ml Balance 100 ml 1650 ml Exam Exam General: Eyes: Sclera White, EOMI HENT: Normocephalic/Atraumatic, External Ears/Nose Normal, Dry Mucus Membranes Neck: Trachea Appears Midline. Patient is ventilated via Tracheostomy Cardiovascular: Normal Rate, Regular Rhythm, but difficult to hear above the vent. Radial pulse +2/4. No pedal Edema. Pulmonary: Coarse rhonchi throughout, mechanically ventilated. Gastrointestinal: Normoactive Bowel Sounds, Soft, Non-Tender/Non-Distended, No Hepatosplenomegaly Appreciated, No Pulsatile Masses Urogenital: Deferred Neurological: Grossly Intact, Non-Focal Integumentary: Normal Moisture and Temperature, Fair Turgor, No Jaundice, No Visible Rash Lymphatic: No Cervical Lymphadenopathy Labs Result Diagram: 08/31/16201908/31/162019 Medications Medications Home Meds Active Scripts Pantoprazole* (Protonix* IV) 40 Mg Soln, 40 MG IV BID for 30 Days Prov:ATIF JOHNSON 08/06/16 Reported Medications Ipratropium-Albuterol (Ipratropium-Albuterol) 0.5-3 Mg/3 Ml Ampul.neb, 3 ML INHALATION Q6, #30 VIAL 07/30/16 Diphenhydramine Hcl (BANOPHEN) 50 Mg Capsule, 50 MG GTB Q6H Y for PRN, CAP 07/30/16 Acetaminophen* (Tylenol*) 325 Mg Tablet, 650 MG GTB Q4H Y for MILD PAIN LEVEL 1- 3, TAB 07/30/16 Digoxin* (Lanoxin*) 0.125 Mg/2.5 Ml Solution, 2.5 ML GTB DAILY, ML HOLD IF APICAL PULSE<60BPM 07/30/16 Docusate Sodium* (Docusate Sodium* Liq) 50 Mg/5 Ml Liquid, 10 ML GTB DAILY, ML 07/30/16 Ferrous Sulfate* (Ferrous Sulfate*) 220 Mg/5 Ml Solution, 7.5 ML GTB TID, ML 07/30/16 Levetiracetam* (Keppra* (Ped)) 100 Mg/Ml Liq, 5 ML GTB Q12H for 30 Days, BOTTLE 07/30/16 Multivits,Ca,Minerals/Iron/FA (Thera M Plus Tablet) 1 Each Tablet, 1 EACH GTB BID, TAB 07/30/16 Amino Acids/Protein Hydrolys (PRO-STAT LIQUID) 30 Ml Liquid.pkt, 30 ML GTB BID SUGAR FREE 07/30/16 Acetaminophen* (Acetaminophen*) 500 MG Extra Strength Tablet, 1000 MG GTB Q8H Y for MILD PAIN -11/01, TAB 07/05/16 Mineral Oil* (Fleet* Mineral Oil Enema) 133 Ml Oil, 133 ML MT DAILY Y for CONSTIPATION, ENEMA 07/05/16 Bisacodyl* (Bisacodyl*) 10 Mg Supp, 10 MG MT DAILY Y for CONSTIPATION, SUPP 07/05/16 Magnesium Hydroxide* (Milk Of Magnesia*) 400 Mg/5 Ml Oral.susp, 30 ML GTB DAILY Y for CONSTIPATION, ML 07/05/16 Lorazepam* (Lorazepam*) 1 Mg Tablet, 1 MG GTB Q6 Y for ANXIETY, #30 TAB 07/05/16 Famotidine* (Famotidine*) 20 Mg Tablet, 20 MG GTB BID, #30 TAB 07/05/16 Lisinopril* (Lisinopril*) 2.5 Mg Tablet, 2.5 MG GTB DAILY, #30 TAB HOLD IF SBP<100 AND CALL MD 07/05/16 Chlorhexidine Gluconate (Peridex) 473 Ml Mouthwash, 15 ML MM BID, BOTTLE 07/05/16 Atorvastatin Calcium (Atorvastatin Calcium) 10 Mg Tablet, 5 MG GTB QHS, #30 TAB 07/05/16 Current Medications Medications (Trade) Dose Ordered Sig/Emma Route PRN Reason Start Time Stop Time Status Last Admin Dose Admin Sodium Chloride 1760 ml 1,760 ml BOLUS OVER 2 HOURS STAT IV* 08/31/16 20:19 08/31/16 20:24 DC 08/31/16 20:51 Linezolid 300 ml @ 300 mls/hr Q12 IVPB 08/31/16 21:00 08/31/16 20:55 Aztreonam 2 gm/ Sodium Chloride 100 ml @ 100 mls/hr ONCE ONCE IVPB 08/31/16 20:30 08/31/16 21:29 DC 08/31/16 20:52 Levofloxacin/ Dextrose (Levaquin 750 Mg/ D5W 150 ml (Pmx)) 150 ml @ 100 mls/hr ONCE ONCE IVPB 08/31/16 20:30 08/31/16 21:59 DC 08/31/16 22:00 Ondansetron HCl (Zofran Inj) 4 mg ER BRIDGE PRN IV NAUSEA AND/OR VOMITING 08/31/16 22:30 09/01/16 22:29 Acetaminophen (Tylenol Tab) 650 mg ER BRIDGE PRN PO MILD PAIN/FEVER 08/31/16 22:30 09/01/16 22:29 Procedures Procedures Laboratory Tests Test 08/31/16 20:20 08/31/16 20:30 White Blood Count 16.010^3/ul Red Blood Count 3.5310^6/ul Hemoglobin 10.2g/dl Hematocrit 32.4% Mean Corpuscular Volume 91.8fl Mean Corpuscular Hemoglobin 28.9pg Mean Corpuscular Hemoglobin Concent 31.5g/dl Red Cell Distribution Width 16.1% Platelet Count 36327^3/UL Mean Platelet Volume 10.7fl Neutrophils % 70.8% Lymphocytes % 17.0% Monocytes % 8.9% Eosinophils % 2.3% Basophils % 0.6% Nucleated Red Blood Cells % 0.0/100WBC Neutrophils # 11.310^3/ul Lymphocytes # 2.710^3/ul Monocytes # 1.410^3/ul Eosinophils # 0.410^3/ul Basophils # 0.110^3/ul Nucleated Red Blood Cells # 0.010^3/ul Prothrombin Time 13.0Sec Prothrombin Time Ratio 1.0 INR International Normalized Ratio 0.98 Activated Partial Thromboplast Time 28.4Sec Sodium Level 138mmol/L Potassium Level 4.8mmol/L Chloride Level 92mmol/L Carbon Dioxide Level 30mmol/L Anion Gap 21 Blood Urea Nitrogen 56mg/dl Creatinine 2.02mg/dl Glucose Level 123mg/dl Lactic Acid Level 0.7mmol/L Calcium Level 9.3mg/dl Total Bilirubin 0.4mg/dl Direct Bilirubin 0.00mg/dl Indirect Bilirubin 0.4mg/dl Aspartate Amino Transf (AST/SGOT) 24IU/L Alanine Aminotransferase (ALT/SGPT) 18IU/L Alkaline Phosphatase 95IU/L Troponin I 0.015ng/ml Total Protein 9.1g/dl Albumin 4.1g/dl Globulin 5.00g/dl Albumin/Globulin Ratio 0.82 Urine Color YELLOW Urine Clarity SLIGHTLY CLOUDY Urine pH 7.0 Urine Specific [place] 1.010 Urine Ketones NEGATIVE Urine Nitrite NEGATIVE Urine Bilirubin NEGATIVE Urine Urobilinogen 0.2 E.U./dL Urine Leukocyte Esterase 3+ Urine Microscopic RBC 2-5/HPF Urine WBC Clumps FEW Urine Microscopic WBC >200/HPF Urine Bacteria MANY Urine Hemoglobin 1+ Urine Glucose NEGATIVE% Urine Total Protein TRACE EKG: Rate/Rhythm: Sinus tachycardia with first-degree AV block QRS, ST, T-waves: Nonspecific ST changes, No changes consistent w/ acute ischemia Impression: No evidence of ischemia or arrhythmia Labs: Notable for leukocytosis, acute renal failure, positive UA Chest x-ray: IMPRESSION: 1. No evidence of pulmonary infiltrate. 2. Stable hyperinflation of the lungs unable to exclude chronic obstructive pulmonary disease. 3. New left-sided PICC in good position the tip at the cavoatrial junction with the removal of the previously seen right-sided PICC 4. Tracheostomy remains in good position. ARNULFO BAY DO Sep 01, 2016 01:06 Urine Urobilinogen 0.2 E.U./dL Urine Leukocyte Esterase 3+ Urine Microscopic RBC 2-5/HPF Urine WBC Clumps FEW Urine Microscopic WBC >200/HPF Urine Bacteria MANY Urine Hemoglobin 1+ Urine Glucose NEGATIVE% Urine Total Protein TRACE EKG: Rate/Rhythm: Sinus tachycardia with first-degree AV block QRS, ST, T-waves: Nonspecific ST changes, No changes consistent w/ acute ischemia Impression: No evidence of ischemia or arrhythmia Labs: Notable for leukocytosis, acute renal failure, positive UA Chest x-ray: IMPRESSION: 1. No evidence of pulmonary infiltrate. 2. Stable hyperinflation of the lungs unable to exclude chronic obstructive pulmonary disease. 3. New left-sided PICC in good position the tip at the cavoatrial junction with the removal of the previously seen right-sided PICC 4. Tracheostomy remains in good position. ARNULFO BAY DO Sep 01, 2016 01:06 Intake and Output 08/31/16 08/31/16 09/01/16 15:00 23:00 07:00 Intake Total 100 ml 1650 ml Balance 100 ml 1650 ml Labs Result Diagram: 08/31/16201908/31/162019 Medications Medications Current Medications Linezolid (Zyvox 600mg/D5W (Pmx)) 300 ml @ 300 mls/hr Q12 IVPB Last administered on 08/31/16t 20:55; Admin Dose 300 MLS/HR; Start 08/31/16 at 21:00 ARNULFO BAY DO Sep 01, 2016 01:06
[2016-09-01] MEDS ORDERED: LEVOFLOXACIN 750MG/D5W (PMX) 150 ML IVPB SCH (01:30)
[2016-09-01] MEDS ORDERED: DIPHENHYDRAMINE 50 MG CAP GTB PRN (01:30)
[2016-09-01] MEDS ORDERED: NITROGLYCERIN (SL) 0.4 MG TAB SL PRN (01:30)
[2016-09-01] MEDS ORDERED: NACL 0.9% 3 ML SYG IV SCH (01:30)
[2016-09-01] MEDS ORDERED: MAGNESIUM HYDROXIDE 30ML CUP GTB PRN (01:30)
[2016-09-01] MEDS ORDERED: ACETAMINOPHEN 325 MG TAB GTB PRN (01:30)
[2016-09-01] MEDS ORDERED: MINERAL OIL 133 ML ENEMA PR PRN (01:30)
[2016-09-01] MEDS ORDERED: LEVETIRACETAM (100 MG/ML PO SYG) GTB SCH (01:30)
[2016-09-01] MEDS ORDERED: BISACODYL 10 MG SUPP PR PRN (01:30)
[2016-09-01] MEDS ORDERED: LORAZEPAM 1 MG TAB GTB PRN (01:30)
[2016-09-01] MEDS: SOD CHLORIDE 0.9% 1,000 ML IV SCH ×3 (02:20→12:18)
[2016-09-01] MEDS: LEVETIRACETAM (100 MG/ML) 5ML CUP GTB SCH ×2 (03:28→13:30)
[2016-09-01] MEDS: AZTREONAM 2 GM in SOD CHLORIDE 0.9% 100 ML IVPB SCH ×2 (06:16→13:30)
[2016-09-01 06:29] LABS: ADD SCAN DIFF NO
[2016-09-01 06:30] LABS: BASOPHILS % 0.3 % (0.0-2.0); EOSINOPHILS # 0.6 10^3/ul (0.0-0.5); EOSINOPHILS % 5.4 % (0.0-7.0); HEMATOCRIT 24.6 % (42.0-52.0); HEMOGLOBIN 7.4 g/dl (14.0-18.0); LYMPHOCYTES # 1.5 10^3/ul (0.8-2.9); LYMPHOCYTES % 13.6 % (15.0-51.0); MEAN CORPUSCULAR HEMOGLOBIN 28.6 pg (29.0-33.0); MEAN CORPUSCULAR HGB CONC 30.1 g/dl (32.0-37.0); MEAN PLATELET VOLUME 10.6 fl (7.4-10.4); MONOCYTE # 1.2 10^3/ul (0.3-0.9); MONOCYTES % 10.4 % (0.0-11.0); NEUTROPHIL # 7.7 10^3/ul (1.6-7.5); PLATELET COUNT 204 10^3/UL (140-415); RED BLOOD COUNT 2.59 10^6/ul (4.70-6.10); RED CELL DISTRIBUTION WIDTH 16.2 % (11.5-14.5)
[2016-09-01 06:55] LABS: ALBUMIN 2.9 g/dl (3.3-4.9)
[2016-09-01 06:56] LABS: POTASSIUM 4.6 mmol/L (3.5-5.1)
[2016-09-01 06:58] LABS: ALBUMIN/GLOBULIN RATIO 0.76; BILIRUBIN,INDIRECT 0.3 mg/dl (0-1.1); BILIRUBIN,TOTAL 0.3 mg/dl (0.2-1.3); CALCIUM 7.8 mg/dl (8.4-10.2); CREATININE 1.38 mg/dl (0.61-1.24); TOTAL PROTEIN 6.7 g/dl (6.1-8.1)
[2016-09-01 06:59] LABS: MAGNESIUM 1.7 mg/dl (1.7-2.5)
[2016-09-01] MEDS: ALBUTEROL/IPRATROPIUM (NEB) 3 ML AMP HHN SCH ×4 (08:28→19:29)
[2016-09-01 08:59] LABS: AADO2 Arterial 136.6 mmHg (7.0-24.0); Allen Test ACCEPTAB; Arterial Base Excess 1.8 mmol/L (-3.0-3); Arterial COHb 0.3 % (0.0-3.0); Arterial Fraction of Oxyhgb 96.3 % (93.0-99.0); Arterial MetHb 0.2 % (0.0-1.5); MODE VENT - AC
[2016-09-01] MEDS ORDERED: LISINOPRIL 5 MG TAB GTB SCH (09:00)
[2016-09-01] MEDS ORDERED: FAMOTIDINE 20 MG TAB PO SCH (09:00)
[2016-09-01] MEDS ORDERED: FAMOTIDINE 20 MG TAB GTB SCH (09:00)
[2016-09-01] MEDS ORDERED: FERROUS SULFATE 220 MG/5 ML ML GTB SCH (09:00)
[2016-09-01] MEDS: MULTIVITAMINS/MINERALS TAB GTB SCH ×2 (10:13→21:04)
[2016-09-01] MEDS: FAMOTIDINE 20 MG TAB PO SCH (10:13)
[2016-09-01] MEDS: DOCUSATE SODIUM 10 MG/ML (10ML CUP) GTB SCH (10:14)
[2016-09-01] MEDS: CHLORHEXIDINE GLUCONATE 15 ML UD CUP MM SCH ×2 (10:14→20:58)
[2016-09-01] MEDS: LINEZOLID 600 MG/D5W (PMX) 300 ML IVPB SCH ×2 (10:15→20:58)
[2016-09-01] MEDS: FERROUS SULFATE 60 MG/ML 5ML CUP GTB SCH ×3 (10:15→20:58)
[2016-09-01] MEDS: ENOXAPARIN 30 MG/0.3 ML SYG SC SCH (10:16)
[2016-09-01 12:36] LABS: HEMATOCRIT 30.4 % (42.0-52.0); HEMOGLOBIN 9.1 g/dl (14.0-18.0)
--- NOTE | 2016-09-01 13:53 | CONS ---
Date/Time of Note Date/Time of Note DATE: 09/01/16 TIME: 13:49 Assessment/Plan Assessment/Plan Additional Assessment/Plan Chest x-ray was reviewed from yesterday was essentially clear. Ventilator settings; AC of 14, tidal volume 500, PEEP of 5, 30% FiO2. Urinalysis was reviewed from yesterday which is grossly positive for infection. Assessment recommendations; next 1. Patient admitted for UTI and sepsis with significant clinical improvement. 2. Intravascular volume depletion with. Renal azotemia, patient currently getting adequate IV hydration. 3. Other comorbidities including chronic respiratory failure which is ventilator dependent. Atrial fibrillation, hypertension, seizure disorder, diabetes which all appear fairly stable. Continue current supportive care. Consultation Date/Type/Reason Admit Date/Time Aug 31, 2016 at 22:10 Date of Consultation: Sep 01, 2016 Type of Consultation: Pulmonary Reason for Consultation Pulmonary consultations requested for management of ventilator, patient admitted for UTI and sepsis with a history of ventilator dependent respiratory failure. History presenting any; patient is a 71-year-old white male who was admitted yesterday transferred over from long term with complaints of fever upon evaluation patient was diagnosed with UTI and sepsis and has been started on antibiotic coverage. Patient however has remained hemodynamically stable. Because of underlying multi-infarct dementia patient is unable to give any history whatsoever, history was obtained from medical records. Past medical history; next 1. Patient with a history of chronic respiratory failure, ventilator dependent. 2. Atrial fibrillation. 3. Seizure disorder. 4. Hypertension. 5. Diabetes. 6. Status post tracheostomy and G-tube placement. 7. Multi-infarct dementia. Medications; were reviewed. Allergies; are to Zosyn, Azactam, vancomycin and aspirin. Social history, family history, occupational history is not available. Review of systems; unable to be obtained. General exam; elderly male, on ventilator via tracheostomy awake but unresponsive to any commands. Currently in no distress. Past Surgical History Past Surgical Hx: other Social History Alcohol Use: other (Unknown) Smoking Status: Unknown if ever smoked Drug Use: other (Unknown) Exam/Review of Systems Vital Signs Vitals Vital Signs Date Time Temp Pulse Resp B/P Pulse Ox O2 Delivery O2 Flow Rate FiO2 09/01/16 13:02 98 21 95 40 09/01/16 12:41 98.0 154/66 08/31/16 23:00 Mechanical Ventilator Intake and Output 08/31/16 08/31/16 09/01/16 15:00 23:00 07:00 Intake Total 100 ml 2650 ml Output Total 850 ml Balance 100 ml 1800 ml Exam HEENT examination; supple neck, no JVD. No lymphadenopathy. Midline trachea. Tracheostomy in place with clean insertion site. Patient is edentulous. There was a small bilaterally. No neck masses. No neck bruits. Chest examination; clear to auscultation. S1-S2 audible, no murmurs. Regular rhythm. Abdomen examination; soft, G-tube in place. No organomegaly. Bowel sounds audible. Extremity exam is; no peripheral edema. [employer]FT [employer] HEAD examination patient is awake but does not follow any commands. Has severe contractures involving all 4 extremities. Results Result Diagram: 09/01/16 1225 09/01/16 0610 Results 24 hrs Laboratory Tests Test 08/31/16 20:20 08/31/16 20:30 08/31/16 22:08 08/31/16 22:45 White Blood Count 16.0 #H Red Blood Count 3.53 #L Hemoglobin 10.2 #L Hematocrit 32.4 L Mean Corpuscular Volume 91.8 Mean Corpuscular Hemoglobin 28.9 L Mean Corpuscular Hemoglobin Concent 31.5 L Red Cell Distribution Width 16.1 H Platelet Count 288 # Mean Platelet Volume 10.7 H Neutrophils % 70.8 Lymphocytes % 17.0 Monocytes % 8.9 Eosinophils % 2.3 Basophils % 0.6 Nucleated Red Blood Cells % 0.0 Neutrophils # 11.3 H Lymphocytes # 2.7 Monocytes # 1.4 H Eosinophils # 0.4 Basophils # 0.1 Nucleated Red Blood Cells # 0.0 Prothrombin Time 13.0 Prothrombin Time Ratio 1.0 INR International Normalized Ratio 0.98 Activated Partial Thromboplast Time 28.4 Sodium Level 138 Potassium Level 4.8 Chloride Level 92 L Carbon Dioxide Level 30 Anion Gap 21 H Blood Urea Nitrogen 56 H Creatinine 2.02 H Glucose Level 123 Lactic Acid Level 0.7 0.8 Calcium Level 9.3 Total Bilirubin 0.4 Direct Bilirubin 0.00 Indirect Bilirubin 0.4 Aspartate Amino Transf (AST/SGOT) 24 Alanine Aminotransferase (ALT/SGPT) 18 Alkaline Phosphatase 95 Troponin I 0.015 Total Protein 9.1 H Albumin 4.1 Globulin 5.00 H Albumin/Globulin Ratio 0.82 Urine Color YELLOW Urine Clarity SLIGHTLY CLOUDY Urine pH 7.0 Urine Specific [place] 1.010 Urine Ketones NEGATIVE Urine Nitrite NEGATIVE Urine Bilirubin NEGATIVE Urine Urobilinogen 0.2 E.U./dL Urine Leukocyte Esterase 3+ H Urine Microscopic RBC 2-5 Urine WBC Clumps FEW Urine Microscopic WBC >200 Urine Bacteria MANY Urine Hemoglobin 1+ H Urine Glucose NEGATIVE Urine Total Protein TRACE Blood Gas Specimen Source Blood arterial Arterial Blood Date Drawn 08/31/2016 10:20:46 PM Arterial Blood pH (Temp corrected) 7.394 Arterial Blood pCO2 (Temp correct) 45.2 H Arterial Blood pO2 (Temp corrected) 96.6 Arterial Blood HCO3 27.0 H Arterial Blood Base Excess 1.8 Arterial Blood Oxygen Saturation 96.8 Jefferson Test ACCEPTAB Arterial Blood Gas Puncture Site Right Radial Arterial Blood Carboxyhemoglobin 0.3 Arterial Blood Methemoglobin 0.2 Blood Gas A-a O2 Differential 136.6 H Oxyhemoglobin Percent 96.3 Total Hemoglobin 10.0 L Blood Gas Temperature 37.0 Blood Gas Respiration Rate 14.0 Blood Gas Actual Respiration Rate 17 Blood Gas Modality VENT - AC FiO2 40.0 Blood Gas Tidal Volume 500.0 Blood Gas High PEEP Setting 5.0 Blood Gas Notified Whom NZ Blood Gas Notified Time 08/31/2016 10:27:11 PM Test 09/01/16 00:45 09/01/16 06:10 09/01/16 12:25 Lactic Acid Level 0.5 0.5 White Blood Count 11.0 #H Red Blood Count 2.59 #L Hemoglobin 7.4 #L 9.1 #L Hematocrit 24.6 #L 30.4 #L Mean Corpuscular Volume 95.0 Mean Corpuscular Hemoglobin 28.6 L Mean Corpuscular Hemoglobin Concent 30.1 L Red Cell Distribution Width 16.2 H Platelet Count 204 # Mean Platelet Volume 10.6 H Neutrophils % 70.0 Lymphocytes % 13.6 L Monocytes % 10.4 Eosinophils % 5.4 Basophils % 0.3 Nucleated Red Blood Cells % 0.0 Neutrophils # 7.7 H Lymphocytes # 1.5 Monocytes # 1.2 H Eosinophils # 0.6 H Basophils # 0.0 Nucleated Red Blood Cells # 0.0 Sodium Level 140 Potassium Level 4.6 Chloride Level 103 # Carbon Dioxide Level 24 Anion Gap 18 H Blood Urea Nitrogen 40 #H Creatinine 1.38 H Glucose Level 93 Calcium Level 7.8 L Magnesium Level 1.7 Total Bilirubin 0.3 Direct Bilirubin 0.00 Indirect Bilirubin 0.3 Aspartate Amino Transf (AST/SGOT) 16 Alanine Aminotransferase (ALT/SGPT) 20 Alkaline Phosphatase 61 Total Protein 6.7 # Albumin 2.9 #L Globulin 3.80 H Albumin/Globulin Ratio 0.76 Medications Medications Current Medications Nitroglycerin (Nitroglycerin (Sl Tab) 0.4 Mg) 1 tab Q5M PRN SL CHEST PAIN; Start 09/01/16 at 01:30 Enoxaparin Sodium 30 mg 30 mg DAILY SC Last administered on 09/01/16 10:16; Admin Dose 30 MG; Start 09/01/16 at 09:00 Aztreonam 2 gm/ Sodium Chloride 100 ml @ 100 mls/hr Q8 IVPB Last administered on 09/01/16 13:30; Admin Dose 100 MLS/HR; Start 09/01/16 at 06:00 Linezolid (Zyvox 600mg/D5W (Pmx)) 300 ml @ 300 mls/hr Q12 IVPB Last administered on 09/01/16 10:15; Admin Dose 300 MLS/HR; Start 09/01/16 at 09:00 Acetaminophen (Tylenol Tab) 650 mg Q4H PRN GTB MILD PAIN LEVEL 1-3; Start 09/01 at 01:30 Atorvastatin Calcium (Lipitor) 5 mg QHS GTB ; Start 09/01/16 at 21:00 Bisacodyl (Dulcolax Supp) 10 mg DAILY PRN NE CONSTIPATION; Start 09/01/16 at 01 :30 Chlorhexidine Gluconate (Peridex) 15 ml BID MM Last administered on 09/01/16 10:14; Admin Dose 15 ML; Start 09/01/16 at 09:00 Diphenhydramine HCl (Benadryl) 50 mg Q6H PRN GTB ITCHING; Start 09/01/16 at 01: 30 Docusate Sodium (Colace Liquid Cup) 100 mg DAILY GTB Last administered on 10:14; Admin Dose 100 MG; Start 09/01/16 at 09:00 Lisinopril (Zestril) 2.5 mg DAILY GTB Last administered on 09/01/16 09:00; Admin Dose 2.5 MG; Start 09/01/16 at 09:00; Status Future Hold Lorazepam (Ativan) 1 mg Q6 PRN GTB ANXIETY; Start 09/01/16 at 01:30 Magnesium Hydroxide (Milk Of Mag) 30 ml DAILY PRN GTB CONSTIPATION; Start 09/01 at 01:30 Mineral Oil (Fleet Mineral Oil Enema) 133 ml DAILY PRN NE CONSTIPATION; Start 09/01/16 at 01:30 Multivitamins/ Minerals (Theragran-M) 1 tab BID GTB Last administered on 10:13; Admin Dose 1 TAB; Start 09/01/16 at 09:00 Famotidine (Pepcid) 20 mg DAILY PO Last administered on 09/01/16 10:13; Admin Dose 20 MG; Start 09/01/16 at 09:00 Levetiracetam (Keppra Liquid) 500 mg Q12H GTB Last administered on 09/01/16 13 :30; Admin Dose 500 MG; Start 09/01/16 at 02:30 Ferrous Sulfate 300 mg 300 mg TID GTB Last administered on 09/01/16 13:30; Admin Dose 300 MG; Start 09/01/16 at 09:00 Sodium Chloride (NS) 1,000 ml @ 75 mls/hr [id number] IV Last administered on 09/01 12:18; Admin Dose 75 MLS/HR; Start 09/01/16 at 12:00 AUGUST TERAN Sep 01, 2016 13:53
[2016-09-01] MEDS ORDERED: AMIKACIN IV PER PHARMACY XX SCH (15:30)
[2016-09-01] MEDS ORDERED: AMIKACIN 950 MG in SOD CHLORIDE 0.9% 100 ML IVPB SCH (17:00)
--- NOTE | 2016-09-01 17:12 | CONS ---
DATE OF ADMISSION: 08/31/2016 DATE OF CONSULTATION: 09/01/2016 REASON FOR CONSULTATION: Antibiotic management. HISTORY OF PRESENT ILLNESS: Bola Payne is a 71-year-old male with numerous problems who comes i n with acute on chronic respiratory failure. His past problems include: 1. Adult-onset diabetes mellitus. 2. Atrial fibrillation. 3. Chronic respiratory failure, trach dependent. 4. History of epilepsy. The patient was brought in with respiratory failure. He is nonverbal. Af ter suctioning his respiratory distress improved. He had low grade fever with tachycardia. The lorenzo ent was actually here 1 month ago for sepsis. Chest x-ray did not show any obvious pneumonia. His urinalysis showed evidence of UTI. He has a chronic Bernstein catheter so this may be colonization. He was therefore admitted for rehydration. On admission, his white count was 16.0, H and H of 10.2 an d 32.4, platelet count 288,000. White count today is 11,000, H and H of 7.4 and 24.6, platelet coun t 204,000. BUN and creatinine is 40/1.38. Urine 3+ leukocyte esterase, greater than 200 white cell s per high-power field. Chest x-ray showed no evidence of pulmonary infiltrate, stable hyperinflati on of the lungs, unable to exclude chronic obstructive pulmonary disease, new left-sided PICC in goo d position with the tip at the cavoatrial junction with removal of previously seen right-sided PICC line, tracheostomy remains in good position. As noted, the patient has evidence of urinary tract in fection, although, he has a chronic Bernstein. MICROBIOLOGY: Mixed gram-negative organisms in the urine. Pulmonary also saw the patient. PAST MEDICAL HISTORY: Operations as outlined. FAMILY HISTORY: Noncontributory. SOCIAL HISTORY: He does not smoke, drink or abuse drugs. ALLERGIES: NONE TO PENICILLIN. HE IS ALLERGIC TO ZOSYN, AZACTAM, VANCOMYCIN AND ASPIRIN. MEDICATIONS: Per chart. REVIEW OF SYSTEMS: As per HPI. PHYSICAL EXAMINATION: GENERAL: The patient is an elderly appearing male who is awake, but nonverbal. VITAL SIGNS: Stable. He is afebrile. SKIN: Without generalized rash. HEENT: Within normal limits. NECK: Supple. Tracheostomy in place was clean without exudate. The patient is edentulous. NECK: Supple. LYMPH NODES: None palpable. CHEST: Decreased breath sounds at the bases. HEART: Without murmur or gallop. ABDOMEN: Soft, nontender. G-tube in place without exudate, without organosplenomegaly or masses. EXTREMITIES: Without cyanosis, clubbing, or edema. RECTAL AND GENITAL: Deferred. NEUROLOGIC: No focal neurological abnormalities. The patient has severe contractions of all extrem ities. LABORATORY: His BUN and creatinine on admission was 40/1.38. White count was 16,000, H and H 10.2 and 32.4. Today H and H is 9.1 and 30.4, platelet count was 288,000. IMPRESSION AND PLAN: The patient was started on aztreonam and linezolid. I think we will place the patient on amikacin until we get the results and stop his Azactam and stop his azithromycin. We aleida l stop his linezolid also. I will dictate my findings to the hospitalist. Dictated By: MARINO LOGAN MD, JD/SALOME Conf#: [id number] DID#: [id number]
--- NOTE | 2016-09-01 18:22 | CONS ---
Date/Time of Note Date/Time of Note DATE: 09/01/16 TIME: 18:09 Assessment/Plan Assessment/Plan Additional Assessment/Plan Assessment * Leaking Gastrostomy Tube * Sepsis * UTI * Ventilator dependent sec to chronic respiratory failure Plan * continue present management * G tube pulled to 2cm position * Monitor for leak * Still on npo Consultation Date/Type/Reason Admit Date/Time Aug 31, 2016 at 22:10 Type of Consultation: Gastroenterology Reason for Consultation Leaking G tube Referring Provider: ARNULFO BAY DO Hx of Present Illness 71 y/o male patient with past medical history of Diabetes mellitus,atrial fibrillation,ventilator dependent,epilepsy,s/p peg secondary to dysphagia was brought to er because of respiratory distress.Emergency room course revealed in distress patient and after suctioning distress was relieved.On the floor g tube was noted to be leaking hence consult unable to do ROS patient is non verbal Past Medical History Medical History: diabetes, urinary tract infection, other (epilepsy,dysphagia) Past Surgical History Past Surgical Hx: other (peg,tracheostomy) Family History Significant Family History: no pertinent family hx Social History Alcohol Use: other (Unknown) Smoking Status: Unknown if ever smoked Drug Use: other (Unknown) Exam/Review of Systems Vital Signs Vitals Vital Signs Date Time Temp Pulse Resp B/P Pulse Ox O2 Delivery O2 Flow Rate FiO2 09/01/16 16:50 90 21 98 40 09/01/16 16:47 98.8 140/63 08/31/16 23:00 Mechanical Ventilator Intake and Output 08/31/16 08/31/16 09/01/16 15:00 23:00 07:00 Intake Total 100 ml 2650 ml Output Total 850 ml Balance 100 ml 1800 ml Exam Constitutional: non-verbal Head: normocephalic Eyes: PERRL, nl conjunctiva, nl sclera ENMT: nl external ears & nose Neck: other (tracheostomy), supple Respiratory: diminished breath sounds, normal air movement, other (trach to ventilator) Cardiovascular: nl pulses, regular rate and rhythm Gastrointestinal: bowel sounds, non-tender, other (G tube leaking), soft Genitourinary - Male: other (alicia cathether) Extremities: other (deferred) Neurological: other (deferred) Skin: nl turgor Results Result Diagram: 09/01/16 1225 09/01/16 0610 Results 24 hrs Laboratory Tests Test 4/9/17 20:20 08/31/16 20:30 08/31/16 22:08 08/31/16 22:45 White Blood Count 16.0 #H Red Blood Count 3.53 #L Hemoglobin 10.2 #L Hematocrit 32.4 L Mean Corpuscular Volume 91.8 Mean Corpuscular Hemoglobin 28.9 L Mean Corpuscular Hemoglobin Concent 31.5 L Red Cell Distribution Width 16.1 H Platelet Count 288 # Mean Platelet Volume 10.7 H Neutrophils % 70.8 Lymphocytes % 17.0 Monocytes % 8.9 Eosinophils % 2.3 Basophils % 0.6 Nucleated Red Blood Cells % 0.0 Neutrophils # 11.3 H Lymphocytes # 2.7 Monocytes # 1.4 H Eosinophils # 0.4 Basophils # 0.1 Nucleated Red Blood Cells # 0.0 Prothrombin Time 13.0 Prothrombin Time Ratio 1.0 INR International Normalized Ratio 0.98 Activated Partial Thromboplast Time 28.4 Sodium Level 138 Potassium Level 4.8 Chloride Level 92 L Carbon Dioxide Level 30 Anion Gap 21 H Blood Urea Nitrogen 56 H Creatinine 2.02 H Glucose Level 123 Lactic Acid Level 0.7 0.8 Calcium Level 9.3 Total Bilirubin 0.4 Direct Bilirubin 0.00 Indirect Bilirubin 0.4 Aspartate Amino Transf (AST/SGOT) 24 Alanine Aminotransferase (ALT/SGPT) 18 Alkaline Phosphatase 95 Troponin I 0.015 Total Protein 9.1 H Albumin 4.1 Globulin 5.00 H Albumin/Globulin Ratio 0.82 Urine Color YELLOW Urine Clarity SLIGHTLY CLOUDY Urine pH 7.0 Urine Specific [place] 1.010 Urine Ketones NEGATIVE Urine Nitrite NEGATIVE Urine Bilirubin NEGATIVE Urine Urobilinogen 0.2 E.U./dL Urine Leukocyte Esterase 3+ H Urine Microscopic RBC 2-5 Urine WBC Clumps FEW Urine Microscopic WBC >200 Urine Bacteria MANY Urine Hemoglobin 1+ H Urine Glucose NEGATIVE Urine Total Protein TRACE Blood Gas Specimen Source Blood arterial Arterial Blood Date Drawn 08/31/2016 10:20:46 PM Arterial Blood pH (Temp corrected) 7.394 Arterial Blood pCO2 (Temp correct) 45.2 H Arterial Blood pO2 (Temp corrected) 96.6 Arterial Blood HCO3 27.0 H Arterial Blood Base Excess 1.8 Arterial Blood Oxygen Saturation 96.8 Jefferson Test ACCEPTAB Arterial Blood Gas Puncture Site Right Radial Arterial Blood Carboxyhemoglobin 0.3 Arterial Blood Methemoglobin 0.2 Blood Gas A-a O2 Differential 136.6 H Oxyhemoglobin Percent 96.3 Total Hemoglobin 10.0 L Blood Gas Temperature 37.0 Blood Gas Respiration Rate 14.0 Blood Gas Actual Respiration Rate 17 Blood Gas Modality VENT - AC FiO2 40.0 Blood Gas Tidal Volume 500.0 Blood Gas High PEEP Setting 5.0 Blood Gas Notified Whom [place] Blood Gas Notified Time 08/31/2016 10:27:11 PM Test 09/01/16 00:45 09/01/16 06:10 09/01/16 12:25 Lactic Acid Level 0.5 0.5 White Blood Count 11.0 #H Red Blood Count 2.59 #L Hemoglobin 7.4 #L 9.1 #L Hematocrit 24.6 #L 30.4 #L Mean Corpuscular Volume 95.0 Mean Corpuscular Hemoglobin 28.6 L Mean Corpuscular Hemoglobin Concent 30.1 L Red Cell Distribution Width 16.2 H Platelet Count 204 # Mean Platelet Volume 10.6 H Neutrophils % 70.0 Lymphocytes % 13.6 L Monocytes % 10.4 Eosinophils % 5.4 Basophils % 0.3 Nucleated Red Blood Cells % 0.0 Neutrophils # 7.7 H Lymphocytes # 1.5 Monocytes # 1.2 H Eosinophils # 0.6 H Basophils # 0.0 Nucleated Red Blood Cells # 0.0 Sodium Level 140 Potassium Level 4.6 Chloride Level 103 # Carbon Dioxide Level 24 Anion Gap 18 H Blood Urea Nitrogen 40 #H Creatinine 1.38 H Glucose Level 93 Calcium Level 7.8 L Magnesium Level 1.7 Total Bilirubin 0.3 Direct Bilirubin 0.00 Indirect Bilirubin 0.3 Aspartate Amino Transf (AST/SGOT) 16 Alanine Aminotransferase (ALT/SGPT) 20 Alkaline Phosphatase 61 Total Protein 6.7 # Albumin 2.9 #L Globulin 3.80 H Albumin/Globulin Ratio 0.76 Medications Medications Current Medications Nitroglycerin (Nitroglycerin (Sl Tab) 0.4 Mg) 1 tab Q5M PRN SL CHEST PAIN; Start 09/01/16 at 01:30 Enoxaparin Sodium 30 mg 30 mg DAILY SC Last administered on 09/01/16t 10:16; Admin Dose 30 MG; Start 09/01/16 at 09:00 Linezolid (Zyvox 600mg/D5W (Pmx)) 300 ml @ 300 mls/hr Q12 IVPB Last administered on 09/01/16 10:15; Admin Dose 300 MLS/HR; Start 09/01/16 at 09:00 Acetaminophen (Tylenol Tab) 650 mg Q4H PRN GTB MILD PAIN LEVEL 1-3; Start 09/01 at 01:30 Atorvastatin Calcium (Lipitor) 5 mg QHS GTB ; Start 09/01/16 at 21:00 Bisacodyl (Dulcolax Supp) 10 mg DAILY PRN [place] CONSTIPATION; Start 09/01/16 at 01 :30 Chlorhexidine Gluconate (Peridex) 15 ml BID MM Last administered on 09/01/16 10:14; Admin Dose 15 ML; Start 09/01/16 at 09:00 Diphenhydramine HCl (Benadryl) 50 mg Q6H PRN GTB ITCHING; Start 09/01/16 at 01: 30 Docusate Sodium (Colace Liquid Cup) 100 mg DAILY GTB Last administered on 10:14; Admin Dose 100 MG; Start 09/01/16 at 09:00 Lisinopril (Zestril) 2.5 mg DAILY GTB Last administered on 09/01/16 09:00; Admin Dose 2.5 MG; Start 09/01/16 at 09:00; Status Future Hold Lorazepam (Ativan) 1 mg Q6 PRN GTB ANXIETY; Start 09/01/16 at 01:30 Magnesium Hydroxide (Milk Of Mag) 30 ml DAILY PRN GTB CONSTIPATION; Start 09/01 at 01:30 Mineral Oil (Fleet Mineral Oil Enema) 133 ml DAILY PRN [place] CONSTIPATION; Start 09/01/16 at 01:30 Multivitamins/ Minerals (Theragran-M) 1 tab BID GTB Last administered on 10:13; Admin Dose 1 TAB; Start 09/01/16 at 09:00 Famotidine (Pepcid) 20 mg DAILY PO Last administered on 09/01/16 10:13; Admin Dose 20 MG; Start 09/01/16 at 09:00 Levetiracetam (Keppra Liquid) 500 mg Q12H GTB Last administered on 09/01/16 13 :30; Admin Dose 500 MG; Start 09/01/16 at 02:30 Ferrous Sulfate 300 mg 300 mg TID GTB Last administered on 09/01/16 13:30; Admin Dose 300 MG; Start 09/01/16 at 09:00 Sodium Chloride (NS) 1,000 ml @ 75 mls/hr [id number] IV Last administered on 09/01 12:18; Admin Dose 75 MLS/HR; Start 09/01/16 at 12:00 Amikacin Sulfate AMIKACIN PER PHARMACY NOTE XX ; Start 09/01/16 at 15:30 Amikacin Sulfate/ Sodium Chloride (Amikacin/NS) 103.8 ml @ 102 mls/hr Q24H IVPB ; Start 09/01/16 at 17:00 Miscellaneous Information (*Rx Drug Level Order Reminder*) RANDOM AMIKACIN LEVEL 4... ONCE ONCE XX ; Start 09/02/16 at 04:00; Stop 09/02/16 at 04:01 BIANKA LEAL MD Sep 01, 2016 18:19
[2016-09-01] MEDS ORDERED: DEXTROSE 50% 50 ML SYRINGE IV PRN ×2 (20:30)
[2016-09-01] MEDS ORDERED: GLUCOSE GEL 15 GRAM TUBE BUCCAL PRN (20:30)
[2016-09-01] MEDS ORDERED: GLUCAGON 1 MG INJ IM PRN (20:30)
[2016-09-01] MEDS ORDERED: GLUCOSE GEL 15 GRAM TUBE PO PRN ×2 (20:30)
[2016-09-01] MEDS: ATORVASTATIN 10 MG TAB GTB SCH (20:58)
[2016-09-01] MEDS: INSULIN ASPART [NOVOLOG] 3 ML PEN SC SCH (21:00)
[2016-09-02] VITALS (24 sets, daily range): BP systolic 111–160; BP diastolic 57–76; PULSE 50–74; RESP 14–28
[2016-09-02] MEDS: SOD CHLORIDE 0.9% 1,000 ML IV SCH (01:20)
[2016-09-02] MEDS: ACCU-CHEK XX SCH (02:00)
[2016-09-02] MEDS: LEVETIRACETAM (100 MG/ML) 5ML CUP GTB SCH ×2 (02:17→14:57)
[2016-09-02 03:53] LABS: ADD SCAN DIFF NO
[2016-09-02 04:04] LABS: BASOPHIL # 0.1 10^3/ul (0.0-0.1); BASOPHILS % 0.9 % (0.0-2.0); EOSINOPHILS # 0.7 10^3/ul (0.0-0.5); EOSINOPHILS % 9.5 % (0.0-7.0); HEMATOCRIT 29.3 % (42.0-52.0); HEMOGLOBIN 8.9 g/dl (14.0-18.0); LYMPHOCYTES # 1.9 10^3/ul (0.8-2.9); LYMPHOCYTES % 27.5 % (15.0-51.0); MEAN CORPUSCULAR HEMOGLOBIN 28.9 pg (29.0-33.0); MEAN CORPUSCULAR HGB CONC 30.4 g/dl (32.0-37.0); MEAN CORPUSCULAR VOLUME 95.1 fl (82.0-101.0); MEAN PLATELET VOLUME 11.2 fl (7.4-10.4); MONOCYTE # 0.8 10^3/ul (0.3-0.9); NEUTROPHIL # 3.4 10^3/ul (1.6-7.5); NEUTROPHILS % 49.7 % (39.0-77.0); PLATELET COUNT 218 10^3/UL (140-415); RED BLOOD COUNT 3.08 10^6/ul (4.70-6.10); RED CELL DISTRIBUTION WIDTH 16.2 % (11.5-14.5); WHITE BLOOD COUNT 6.9 10^3/ul (4.8-10.8)
[2016-09-02 04:06] LABS: POTASSIUM 4.7 mmol/L (3.5-5.1)
[2016-09-02 04:08] LABS: CREATININE 1.19 mg/dl (0.61-1.24)
[2016-09-02 04:09] LABS: CALCIUM 8.7 mg/dl (8.4-10.2)
[2016-09-02] MEDS: ALBUTEROL/IPRATROPIUM (NEB) 3 ML AMP HHN SCH (07:38)
[2016-09-02] MEDS: INSULIN ASPART [NOVOLOG] 3 ML PEN SC SCH ×3 (07:55→17:47)
[2016-09-02] MEDS: LINEZOLID 600 MG/D5W (PMX) 300 ML IVPB SCH ×2 (08:19→21:31)
[2016-09-02] MEDS: DOCUSATE SODIUM 10 MG/ML (10ML CUP) GTB SCH (08:19)
[2016-09-02] MEDS: CHLORHEXIDINE GLUCONATE 15 ML UD CUP MM SCH ×2 (08:19→21:30)
[2016-09-02] MEDS: MULTIVITAMINS/MINERALS TAB GTB SCH ×2 (08:19→21:31)
[2016-09-02] MEDS: FAMOTIDINE 20 MG TAB PO SCH (08:19)
[2016-09-02] MEDS: FERROUS SULFATE 60 MG/ML 5ML CUP GTB SCH ×3 (08:19→21:30)
[2016-09-02] MEDS: ENOXAPARIN 30 MG/0.3 ML SYG SC SCH (08:21)
[2016-09-02] MEDS: ALBUTEROL 18 GM INHALER INH SCH ×4 (09:00→21:42)
[2016-09-02] MEDS: IPRATROPIUM (HFA) 12.9 GM INHALER INH SCH ×4 (09:00→21:42)
--- NOTE | 2016-09-02 10:54 | CONS ---
Date/Time of Note Date/Time of Note DATE: 09/02/16 TIME: 10:52 Assessment/Plan Assessment/Plan Additional Assessment/Plan Ventilator settings; AC of 14, tidal volume 500, PEEP of 5, 30% FiO2. Assessment recommendations; 1. Patient admitted for UTI and sepsis with clinical improvement. 2. Dehydration with intravascular volume depletion with interval improvement as well. 3. Chronic respiratory failure, ventilator dependent. 4. Multi-infarct dementia. 5. History of atrial fibrillation, hypertension, seizures and diabetes which all appear fairly stable. Continue current supportive care. Consultation Date/Type/Reason Admit Date/Time Aug 31, 2016 at 22:10 Initial Consult Date 09/01/16 Type of Consultation: Pulmonary Referring Provider: ARNULFO BAY DO 24 HR Interval Summary Free Text/Dictation Patient condition remains unchanged. Remains ventilator dependent. Has remained hemodynamically stable. Exam; elderly male, on ventilator via tracheostomy unresponsive. Currently in no distress. Exam/Review of Systems Vital Signs Vitals Vital Signs Date Time Temp Pulse Resp B/P Pulse Ox O2 Delivery O2 Flow Rate FiO2 09/02/16 09:35 85 28 97 40 09/02/16 07:40 97.9 120/59 08/31/16 23:00 Mechanical Ventilator Intake and Output 09/01/16 09/01/16 09/02/16 15:00 23:00 07:00 Intake Total 0 ml 1320 ml Output Total 1500 ml 1000 ml Balance -1500 ml 320 ml Exam HEENT exam is; supple neck, tracheostomy in place. No thyromegaly. No neck masses. Patient is edentulous. Pupils are small bilaterally. Chest examination; diminished but clear breath sound. S1-S2 audible, no murmurs. Regular rhythm. Abdomen examination; soft, nondistended. G-tube in place. Bowel sounds audible. Extremity exam is; no peripheral edema. Patient has a fractures involving all 4 extremities. SYSTEMS ANALYST examination; patient remains unresponsive. Results Result Diagram: 09/02/16 0346 09/02/16 0346 Results 24 hrs Laboratory Tests Test 09/01/16 12:25 09/01/16 21:54 09/02/16 03:46 09/02/16 08:13 Hemoglobin 9.1 #L 8.9 L Hematocrit 30.4 #L 29.3 L Bedside Glucose 139 111 White Blood Count 6.9 # Red Blood Count 3.08 L Mean Corpuscular Volume 95.1 Mean Corpuscular Hemoglobin 28.9 L Mean Corpuscular Hemoglobin Concent 30.4 L Red Cell Distribution Width 16.2 H Platelet Count 218 Mean Platelet Volume 11.2 H Neutrophils % 49.7 Lymphocytes % 27.5 Monocytes % 12.0 H Eosinophils % 9.5 H Basophils % 0.9 Nucleated Red Blood Cells % 0.0 Neutrophils # 3.4 Lymphocytes # 1.9 Monocytes # 0.8 Eosinophils # 0.7 H Basophils # 0.1 Nucleated Red Blood Cells # 0.0 Sodium Level 139 Potassium Level 4.7 Chloride Level 101 Carbon Dioxide Level 26 Anion Gap 17 H Blood Urea Nitrogen 29 #H Creatinine 1.19 Glucose Level 101 Calcium Level 8.7 Medications Medications Current Medications Nitroglycerin (Nitroglycerin (Sl Tab) 0.4 Mg) 1 tab Q5M PRN SL CHEST PAIN; Start 09/01/16 at 01:30 Enoxaparin Sodium 30 mg 30 mg DAILY SC Last administered on 09/02/16 08:21; Admin Dose 30 MG; Start 09/01/16 at 09:00 Linezolid (Zyvox 600mg/D5W (Pmx)) 300 ml @ 300 mls/hr Q12 IVPB Last administered on 09/02/16 08:19; Admin Dose 300 MLS/HR; Start 09/01/16 at 09:00 Acetaminophen (Tylenol Tab) 650 mg Q4H PRN GTB MILD PAIN LEVEL 1-3; Start 09/01 at 01:30 Atorvastatin Calcium (Lipitor) 5 mg QHS GTB Last administered on 09/01/16 20: 58; Admin Dose 5 MG; Start 09/01/16 at 21:00 Bisacodyl (Dulcolax Supp) 10 mg DAILY PRN [place] CONSTIPATION; Start 09/01/16 at 01 :30 Chlorhexidine Gluconate (Peridex) 15 ml BID MM Last administered on 09/02/16 08:19; Admin Dose 15 ML; Start 09/01/16 at 09:00 Diphenhydramine HCl (Benadryl) 50 mg Q6H PRN GTB ITCHING; Start 09/01/16 at 01: 30 Docusate Sodium (Colace Liquid Cup) 100 mg DAILY GTB Last administered on 08:19; Admin Dose 100 MG; Start 09/01/16 at 09:00 Lisinopril (Zestril) 2.5 mg DAILY GTB Last administered on 09/01/16 09:00; Admin Dose 2.5 MG; Start 09/01/16 at 09:00; Status Future Hold Lorazepam (Ativan) 1 mg Q6 PRN GTB ANXIETY; Start 09/01/16 at 01:30 Magnesium Hydroxide (Milk Of Mag) 30 ml DAILY PRN GTB CONSTIPATION; Start 09/01 at 01:30 Mineral Oil (Fleet Mineral Oil Enema) 133 ml DAILY PRN [place] CONSTIPATION; Start 09/01/16 at 01:30 Multivitamins/ Minerals (Theragran-M) 1 tab BID GTB Last administered on 08:19; Admin Dose 1 TAB; Start 09/01/16 at 09:00 Famotidine (Pepcid) 20 mg DAILY PO Last administered on 09/02/16 08:19; Admin Dose 20 MG; Start 09/01/16 at 09:00 Levetiracetam (Keppra Liquid) 500 mg Q12H GTB Last administered on 09/02/16 02 :17; Admin Dose 500 MG; Start 09/01/16 at 02:30 Ferrous Sulfate (Feosol Liquid Cup) 300 mg TID GTB Last administered on 08:19; Admin Dose 300 MG; Start 09/01/16 at 09:00 Amikacin Sulfate AMIKACIN PER PHARMACY NOTE XX ; Start 09/01/16 at 15:30 Amikacin Sulfate/ Sodium Chloride (Amikacin/NS) 103.8 ml @ 102 mls/hr Q24H IVPB Last administered on 09/01/16 18:22; Admin Dose 102 MLS/HR; Start at 17:00 Diagnostic Test (Pha) (Accu-Chek) 1 ea 02 XX ; Start 09/02/16 at 02:00 Miscellaneous Information 1 ea NOTE XX ; Start 09/01/16 at 20:30 Glucose (Glutose) 15 gm Q15M PRN PO DECREASED GLUCOSE; Start 09/01/16 at 20:30 Glucose (Glutose) 22.5 gm Q15M PRN PO DECREASED GLUCOSE; Start 09/01/16 at 20: 30 Dextrose (D50w Syringe) 25 ml Q15M PRN IV DECREASED GLUCOSE; Start 09/01/16 at 20:30 Dextrose (D50w Syringe) 50 ml Q15M PRN IV DECREASED GLUCOSE; Start 09/01/16 at 20:30 Glucagon (Glucagen) 1 mg Q15M PRN IM DECREASED GLUCOSE; Start 09/01/16 at 20:30 Glucose 15 gm 15 gm Q15M PRN BUCCAL DECREASED GLUCOSE; Start 09/01/16 at 20:30 Sodium Chloride (1/2 NS) 1,000 ml @ 75 mls/hr [id number] IV ; Start 09/02/16 at 11 :00; Status AUGUST ALVAREZ Sep 02, 2016 10:54
--- NOTE | 2016-09-02 11:01 | PN ---
Date/Time of Note Date/Time of Note DATE: 09/02/16 TIME: 10:50 Assessment/Plan VTE Prophylaxis VTE Prophylaxis Intervention: LMWH Lines/Catheters IV Catheter Type (from Nrs): PICC Line Central line still needed: Yes Urinary Cath still in place: Yes Reason Cath still needed: urinary retention Assessment/Plan Chief Complaint/Hosp Course A/P: 71 M from SNF p/w sepsis and res distress. 1. Sepsis - sec to UTI likely, also possibly PNA. - continue current abx per ID rec's, tylenol prn, f/u cx results. 2. Patient with a history of chronic respiratory failure, ventilator dependent - - monitor, f/u pulm rec's, mech vent, abx 3. Atrial fibrillation - rate controlled - monitor HR, 4. Seizure disorder - continue keppra 5. Hypertension - stable, monitor 6. Diabetes - continue ISS 7. Status post tracheostomy and G-tube placement. 8. Multi-infarct dementia. 9. ARF - pre-renal - improved with IVF's - monitor BUN/Cr, IVF's 10. GI ppx - H2 radha Problems: Subjective 24 Hr Interval Summary Free Text/Dictation Pt seen by pulm,. GI, and ID teams. G tube adjusted yesterday, no leaking presently. Exam/Review of Systems Vital Signs Vitals Vital Signs Date Time Temp Pulse Resp B/P Pulse Ox O2 Delivery O2 Flow Rate FiO2 09/02/16 09:35 85 28 97 40 09/02/16 07:40 97.9 120/59 08/31/16 23:00 Mechanical Ventilator Intake and Output 09/01/16 09/01/16 09/02/16 14:59 22:59 06:59 Intake Total 0 ml 1320 ml Output Total 1500 ml 1000 ml Balance -1500 ml 320 ml Exam General: lying in bed Eyes: Sclera White, EOMI HENT: Normocephalic/Atraumatic, External Ears/Nose Normal, Moist Mucus Membranes Neck: Supple, trach in place Cardiovascular: Normal Rate, Regular Rhythm, Normal S1 and S2, No Murmur, Pulmonary: Clear to Auscultation Bilaterally, Normal Respiratory Effort, No Rales, Rhonchi or Wheezes Gastrointestinal: Normoactive Bowel Sounds, Soft, Non-Tender/Non-Distended, No Hepatosplenomegaly Appreciated, No Pulsatile Masses Musculoskeletal: Normal Muscle Bulk and Tone Neurological: no focal deficits Integumentary: Normal Moisture and Temperature, Good Turgor, No Jaundice, No Rash Results Result Diagram: 09/02/16 0346 09/02/16 0346 Results 24 hrs Laboratory Tests Test 09/01/16 12:25 09/01/16 21:54 09/02/16 03:46 09/02/16 08:13 Hemoglobin 9.1 #L 8.9 L Hematocrit 30.4 #L 29.3 L Bedside Glucose 139 111 White Blood Count 6.9 # Red Blood Count 3.08 L Mean Corpuscular Volume 95.1 Mean Corpuscular Hemoglobin 28.9 L Mean Corpuscular Hemoglobin Concent 30.4 L Red Cell Distribution Width 16.2 H Platelet Count 218 Mean Platelet Volume 11.2 H Neutrophils % 49.7 Lymphocytes % 27.5 Monocytes % 12.0 H Eosinophils % 9.5 H Basophils % 0.9 Nucleated Red Blood Cells % 0.0 Neutrophils # 3.4 Lymphocytes # 1.9 Monocytes # 0.8 Eosinophils # 0.7 H Basophils # 0.1 Nucleated Red Blood Cells # 0.0 Sodium Level 139 Potassium Level 4.7 Chloride Level 101 Carbon Dioxide Level 26 Anion Gap 17 H Blood Urea Nitrogen 29 #H Creatinine 1.19 Glucose Level 101 Calcium Level 8.7 Medications Medications Current Medications Nitroglycerin (Nitroglycerin (Sl Tab) 0.4 Mg) 1 tab Q5M PRN SL CHEST PAIN; Start 09/01/16 at 01:30 Enoxaparin Sodium 30 mg 30 mg DAILY SC Last administered on 09/02/16 08:21; Admin Dose 30 MG; Start 09/01/16 at 09:00 Linezolid (Zyvox 600mg/D5W (Pmx)) 300 ml @ 300 mls/hr Q12 IVPB Last administered on 09/02/16 08:19; Admin Dose 300 MLS/HR; Start 09/01/16 at 09:00 Acetaminophen (Tylenol Tab) 650 mg Q4H PRN GTB MILD PAIN LEVEL 1-3; Start 09/01 at 01:30 Atorvastatin Calcium (Lipitor) 5 mg QHS GTB Last administered on 09/01/16 20: 58; Admin Dose 5 MG; Start 09/01/16 at 21:00 Bisacodyl (Dulcolax Supp) 10 mg DAILY PRN [place] CONSTIPATION; Start 09/01/16 at 01 :30 Chlorhexidine Gluconate (Peridex) 15 ml BID MM Last administered on 09/02/16 08:19; Admin Dose 15 ML; Start 09/01/16 at 09:00 Diphenhydramine HCl (Benadryl) 50 mg Q6H PRN GTB ITCHING; Start 09/01/16 at 01: 30 Docusate Sodium (Colace Liquid Cup) 100 mg DAILY GTB Last administered on 08:19; Admin Dose 100 MG; Start 09/01/16 at 09:00 Lisinopril (Zestril) 2.5 mg DAILY GTB Last administered on 09/01/16 09:00; Admin Dose 2.5 MG; Start 09/01/16 at 09:00; Status Future Hold Lorazepam (Ativan) 1 mg Q6 PRN GTB ANXIETY; Start 09/01/16 at 01:30 Magnesium Hydroxide (Milk Of Mag) 30 ml DAILY PRN GTB CONSTIPATION; Start 09/01 at 01:30 Mineral Oil (Fleet Mineral Oil Enema) 133 ml DAILY PRN [place] CONSTIPATION; Start 09/01/16 at 01:30 Multivitamins/ Minerals (Theragran-M) 1 tab BID GTB Last administered on 08:19; Admin Dose 1 TAB; Start 09/01/16 at 09:00 Famotidine (Pepcid) 20 mg DAILY PO Last administered on 09/02/16 08:19; Admin Dose 20 MG; Start 09/01/16 at 09:00 Levetiracetam (Keppra Liquid) 500 mg Q12H GTB Last administered on 09/02/16 02 :17; Admin Dose 500 MG; Start 09/01/16 at 02:30 Ferrous Sulfate 300 mg 300 mg TID GTB Last administered on 09/02/16 08:19; Admin Dose 300 MG; Start 09/01/16 at 09:00 Sodium Chloride (NS) 1,000 ml @ 75 mls/hr [id number] IV Last administered on 09/01 12:18; Admin Dose 75 MLS/HR; Start 09/01/16 at 12:00 Amikacin Sulfate AMIKACIN PER PHARMACY NOTE XX ; Start 09/01/16 at 15:30 Amikacin Sulfate/ Sodium Chloride (Amikacin/NS) 103.8 ml @ 102 mls/hr Q24H IVPB Last administered on 09/01/16t 18:22; Admin Dose 102 MLS/HR; Start at 17:00 Diagnostic Test (Pha) (Accu-Chek) 1 ea 02 XX ; Start 09/02/16 at 02:00 Miscellaneous Information 1 ea NOTE XX ; Start 09/01/16 at 20:30 Glucose (Glutose) 15 gm Q15M PRN PO DECREASED GLUCOSE; Start 09/01/16 at 20:30 Glucose (Glutose) 22.5 gm Q15M PRN PO DECREASED GLUCOSE; Start 09/01/16 at 20: 30 Dextrose (D50w Syringe) 25 ml Q15M PRN IV DECREASED GLUCOSE; Start 09/01/16 at 20:30 Dextrose (D50w Syringe) 50 ml Q15M PRN IV DECREASED GLUCOSE; Start 09/01/16 at 20:30 Glucagon (Glucagen) 1 mg Q15M PRN IM DECREASED GLUCOSE; Start 09/01/16 at 20:30 Glucose (Glutose) 15 gm Q15M PRN BUCCAL DECREASED GLUCOSE; Start 09/01/16 at 20 :30 SILVANA SCHWARTZ Sep 02, 2016 11:00
[2016-09-02] MEDS: SOD CHLORIDE 0.45% 1,000 ML IV SCH (11:51)
--- NOTE | 2016-09-02 12:26 | PN ---
Date/Time of Note Date/Time of Note DATE: 09/02/16 TIME: 12:23 Assessment/Plan VTE Prophylaxis VTE Prophylaxis Intervention: SCD's Lines/Catheters IV Catheter Type (from Nrs): PICC Line Central line still needed: Yes Urinary Cath still in place: Yes Reason Cath still needed: urinary retention Assessment/Plan Assessment/Plan Assessment * Leaking Gastrostomy Tube resolved * Sepsis * UTI * Ventilator dependent sec to chronic respiratory failure Plan * continue present management * G tube pulled to 2cm position * Monitor for leak * resume tube feeding Subjective 24 Hr Interval Summary Free Text/Dictation * course reviewed with rn * patient seen and examined * no leak in gastrostomy tube * tolerating feeding Exam/Review of Systems Vital Signs Vitals Vital Signs Date Time Temp Pulse Resp B/P Pulse Ox O2 Delivery O2 Flow Rate FiO2 09/02/16 12:12 98.0 50 20 111/57 97 09/02/16 11:12 40 08/31/16 23:00 Mechanical Ventilator Intake and Output 09/01/16 09/01/16 09/02/16 15:00 23:00 07:00 Intake Total 0 ml 1320 ml Output Total 1500 ml 1000 ml Balance -1500 ml 320 ml Exam Constitutional: frail Neck: supple Respiratory: diminished breath sounds, other (trach to ventilator) Cardiovascular: nl pulses, regular rate and rhythm Gastrointestinal: non-tender, other (g tube in placed no leak), soft Extremities: normal pulses Results Result Diagram: 09/02/16 0346 09/02/16 0346 Results 24 hrs Laboratory Tests Test 09/01/16 12:25 09/01/16 21:54 09/02/16 03:46 09/02/16 08:13 Hemoglobin 9.1 #L 8.9 L Hematocrit 30.4 #L 29.3 L Bedside Glucose 139 111 White Blood Count 6.9 # Red Blood Count 3.08 L Mean Corpuscular Volume 95.1 Mean Corpuscular Hemoglobin 28.9 L Mean Corpuscular Hemoglobin Concent 30.4 L Red Cell Distribution Width 16.2 H Platelet Count 218 Mean Platelet Volume 11.2 H Neutrophils % 49.7 Lymphocytes % 27.5 Monocytes % 12.0 H Eosinophils % 9.5 H Basophils % 0.9 Nucleated Red Blood Cells % 0.0 Neutrophils # 3.4 Lymphocytes # 1.9 Monocytes # 0.8 Eosinophils # 0.7 H Basophils # 0.1 Nucleated Red Blood Cells # 0.0 Sodium Level 139 Potassium Level 4.7 Chloride Level 101 Carbon Dioxide Level 26 Anion Gap 17 H Blood Urea Nitrogen 29 #H Creatinine 1.19 Glucose Level 101 Calcium Level 8.7 Medications Medications Current Medications Nitroglycerin (Nitroglycerin (Sl Tab) 0.4 Mg) 1 tab Q5M PRN SL CHEST PAIN; Start 09/01/16 at 01:30 Enoxaparin Sodium 30 mg 30 mg DAILY SC Last administered on 09/02/16 08:21; Admin Dose 30 MG; Start 09/01/16 at 09:00 Linezolid (Zyvox 600mg/D5W (Pmx)) 300 ml @ 300 mls/hr Q12 IVPB Last administered on 09/02/16 08:19; Admin Dose 300 MLS/HR; Start 09/01/16 at 09:00 Acetaminophen (Tylenol Tab) 650 mg Q4H PRN GTB MILD PAIN LEVEL 1-3; Start 09/01 at 01:30 Atorvastatin Calcium (Lipitor) 5 mg QHS GTB Last administered on 09/01/16 20: 58; Admin Dose 5 MG; Start 09/01/16 at 21:00 Bisacodyl (Dulcolax Supp) 10 mg DAILY PRN [place] CONSTIPATION; Start 09/01/16 at 01 :30 Chlorhexidine Gluconate (Peridex) 15 ml BID MM Last administered on 09/02/16 08:19; Admin Dose 15 ML; Start 09/01/16 at 09:00 Diphenhydramine HCl (Benadryl) 50 mg Q6H PRN GTB ITCHING; Start 09/01/16 at 01: 30 Docusate Sodium (Colace Liquid Cup) 100 mg DAILY GTB Last administered on 08:19; Admin Dose 100 MG; Start 09/01/16 at 09:00 Lisinopril (Zestril) 2.5 mg DAILY GTB Last administered on 09/01/16 09:00; Admin Dose 2.5 MG; Start 09/01/16 at 09:00; Status Future Hold Lorazepam (Ativan) 1 mg Q6 PRN GTB ANXIETY; Start 09/01/16 at 01:30 Magnesium Hydroxide (Milk Of Mag) 30 ml DAILY PRN GTB CONSTIPATION; Start 09/01 at 01:30 Mineral Oil (Fleet Mineral Oil Enema) 133 ml DAILY PRN [place] CONSTIPATION; Start 09/01/16 at 01:30 Multivitamins/ Minerals (Theragran-M) 1 tab BID GTB Last administered on 08:19; Admin Dose 1 TAB; Start 09/01/16 at 09:00 Famotidine (Pepcid) 20 mg DAILY PO Last administered on 09/02/16 08:19; Admin Dose 20 MG; Start 09/01/16 at 09:00 Levetiracetam (Keppra Liquid) 500 mg Q12H GTB Last administered on 09/02/16 02 :17; Admin Dose 500 MG; Start 09/01/16 at 02:30 Ferrous Sulfate (Feosol Liquid Cup) 300 mg TID GTB Last administered on 08:19; Admin Dose 300 MG; Start 09/01/16 at 09:00 Amikacin Sulfate AMIKACIN PER PHARMACY NOTE XX ; Start 09/01/16 at 15:30 Amikacin Sulfate/ Sodium Chloride (Amikacin/NS) 103.8 ml @ 102 mls/hr Q24H IVPB Last administered on 09/01/16 18:22; Admin Dose 102 MLS/HR; Start at 17:00 Diagnostic Test (Pha) (Accu-Chek) 1 ea 02 XX ; Start 09/02/16 at 02:00 Miscellaneous Information 1 ea NOTE XX ; Start 09/01/16 at 20:30 Glucose (Glutose) 15 gm Q15M PRN PO DECREASED GLUCOSE; Start 09/01/16 at 20:30 Glucose (Glutose) 22.5 gm Q15M PRN PO DECREASED GLUCOSE; Start 09/01/16 at 20: 30 Dextrose (D50w Syringe) 25 ml Q15M PRN IV DECREASED GLUCOSE; Start 09/01/16 at 20:30 Dextrose (D50w Syringe) 50 ml Q15M PRN IV DECREASED GLUCOSE; Start 09/01/16 at 20:30 Glucagon (Glucagen) 1 mg Q15M PRN IM DECREASED GLUCOSE; Start 09/01/16 at 20:30 Glucose 15 gm 15 gm Q15M PRN BUCCAL DECREASED GLUCOSE; Start 09/01/16 at 20:30 Sodium Chloride (1/2 NS) 1,000 ml @ 75 mls/hr [id number] IV Last administered on 09/02/16t 11:51; Admin Dose 75 MLS/HR; Start 09/02/16 at 11:00 Insulin Aspart (Novolog Insulin Pen) NOVOLOG *MODERATE* ALGORITHM Q6 SC ; Start 09/02/16 at 12:00 BIANKA LEAL MD Sep 02, 2016 12:26
--- NOTE | 2016-09-02 14:21 | PN ---
DATE: 09/02/2016 INFECTIOUS DISEASE PROGRESS NOTE SUBJECTIVE: No acute changes. The patient is lying comfortably in bed. Afebrile. LABORATORY DATA: WBC 6.9 today, H and H 8.9 and 29.3, platelets 218, neutrophils 49.7. BUN 29, cre atinine 1.19. MICROBIOLOGY: Urine culture growing Kimberlyn albicans and gram-negative rods. Blood cultures remain negative. Sputum culture growing gram-negative rods. INDWELLINGS: Trach, PEG, Bernstein, left upper extremity PICC line placed on 08/02/2016. DIAGNOSTICS: Chest x-ray on admission revealed no evidence of pulmonary infiltrates. ALLERGIES: 1. ZOSYN. 2. VANCOMYCIN. ANTIMICROBIALS: The patient is on: 1. Amikacin. 2. Zyvox. PHYSICAL EXAMINATION: GENERAL: This is a well-developed, chronically ill-appearing, elderly man who is in no distress. HEENT: Head atraumatic, normocephalic. Sclerae anicteric. Buccal mucosa dry. NECK: Supple. Tracheostomy present. CHEST: Rise symmetrical. Breath sounds diminished to bases. HEART: S1, S2. ABDOMEN: Soft. Bowel sounds present. ASSESSMENT: 1. Sepsis with fevers and leukocytosis on admission. 2. Polymicrobial urinary tract infection. 3. Chronic respiratory failure. 4. Questionable pneumonia versus sputum colonization. 5. Encephalopathy. 6. History of [id number] myocardial infarction. PLAN: The patient remains stable. We are going to add Diflucan to the regimen, await for final cul tures. Continue him on current antimicrobials. Dictated By: DEJA ARIAS STEP FINISHER for [facility] Conf#: [id number] DID#: [id number]
[2016-09-02] MEDS: FLUCONAZOLE 100 MG TAB GTB SCH (14:57)
[2016-09-02] MEDS: ATORVASTATIN 10 MG TAB GTB SCH (21:31)
[2016-09-02] MEDS ORDERED: LEVOFLOXACIN 750MG/D5W (PMX) 150 ML IVPB SCH (22:00)
[2016-09-03] VITALS (24 sets, daily range): BP systolic 118–165; BP diastolic 65–95; PULSE 64–79; RESP 16–28
[2016-09-03] MEDS: SOD CHLORIDE 0.45% 1,000 ML IV SCH ×4 (00:09→22:38)
[2016-09-03] MEDS: ACCU-CHEK XX SCH (02:00)
[2016-09-03] MEDS: LEVETIRACETAM (100 MG/ML) 5ML CUP GTB SCH ×2 (02:54→14:30)
[2016-09-03] MEDS: INSULIN ASPART [NOVOLOG] 3 ML PEN SC SCH ×4 (05:37→18:00)
[2016-09-03 06:17] LABS: ADD SCAN DIFF NO
[2016-09-03 06:19] LABS: BASOPHIL # 0.1 10^3/ul (0.0-0.1); BASOPHILS % 0.7 % (0.0-2.0); EOSINOPHILS # 0.6 10^3/ul (0.0-0.5); EOSINOPHILS % 4.8 % (0.0-7.0); HEMATOCRIT 32.4 % (42.0-52.0); HEMOGLOBIN 9.8 g/dl (14.0-18.0); LYMPHOCYTES % 16.2 % (15.0-51.0); MEAN CORPUSCULAR HEMOGLOBIN 28.2 pg (29.0-33.0); MEAN CORPUSCULAR HGB CONC 30.2 g/dl (32.0-37.0); MEAN CORPUSCULAR VOLUME 93.4 fl (82.0-101.0); MEAN PLATELET VOLUME 10.9 fl (7.4-10.4); MONOCYTE # 0.9 10^3/ul (0.3-0.9); MONOCYTES % 6.9 % (0.0-11.0); NEUTROPHIL # 8.8 10^3/ul (1.6-7.5); NEUTROPHILS % 70.9 % (39.0-77.0); PLATELET COUNT 278 10^3/UL (140-415); RED BLOOD COUNT 3.47 10^6/ul (4.70-6.10); RED CELL DISTRIBUTION WIDTH 15.9 % (11.5-14.5); WHITE BLOOD COUNT 12.4 10^3/ul (4.8-10.8)
[2016-09-03 06:41] LABS: CALCIUM 9.2 mg/dl (8.4-10.2); CREATININE 0.95 mg/dl (0.61-1.24); POTASSIUM 4.1 mmol/L (3.5-5.1)
[2016-09-03] MEDS: METOCLOPRAMIDE 10 MG INJ IV PRN (06:51)
[2016-09-03] MEDS: IPRATROPIUM (HFA) 12.9 GM INHALER INH SCH ×4 (08:00→21:11)
[2016-09-03] MEDS: LINEZOLID 600 MG/D5W (PMX) 300 ML IVPB SCH ×2 (08:16→21:57)
[2016-09-03] MEDS: CHLORHEXIDINE GLUCONATE 15 ML UD CUP MM SCH ×2 (08:16→21:56)
[2016-09-03] MEDS: ENOXAPARIN 30 MG/0.3 ML SYG SC SCH (08:48)
[2016-09-03] MEDS: ALBUTEROL 18 GM INHALER INH SCH ×4 (09:00→21:11)
[2016-09-03] MEDS: FLUCONAZOLE 100 MG TAB GTB SCH (09:00)
[2016-09-03] MEDS: FERROUS SULFATE 60 MG/ML 5ML CUP GTB SCH ×3 (09:00→21:00)
[2016-09-03] MEDS: DOCUSATE SODIUM 10 MG/ML (10ML CUP) GTB SCH (09:00)
[2016-09-03] MEDS: MULTIVITAMINS/MINERALS TAB GTB SCH ×2 (09:00→21:00)
[2016-09-03] MEDS: FAMOTIDINE 20 MG TAB PO SCH (09:00)
[2016-09-03] MEDS ORDERED: IOHEXOL 14.3 MG(I)/ML (ADULT) BTL PO ONE (10:00)
--- NOTE | 2016-09-03 10:04 | PN ---
Date/Time of Note Date/Time of Note DATE: 09/03/16 TIME: 09:56 Assessment/Plan VTE Prophylaxis VTE Prophylaxis Intervention: SCD's Lines/Catheters [facility] ([facility] PICC Line Central line still needed: Yes Urinary Cath still in place: Yes Reason Cath still needed: urinary retention Assessment/Plan Assessment/Plan Assessment * Abdominal distension * Ileus vs bowel obstruction vs others * Leaking Gastrostomy Tube resolved * Sepsis * UTI * Ventilator dependent sec to chronic respiratory failure Plan * hold tube feeding * CT abdomen/pelvis with contrast stat * stool for C difficile Subjective 24 Hr Interval Summary Free Text/Dictation * course reviewed with Nurse * patient seen and examined * abdominal distension ,diarrhea noted * G tube feeding on hold * no leak on dressing site Exam/Review of Systems Vital Signs Vitals Vital Signs Date Time Temp Pulse Resp B/P Pulse Ox O2 Delivery O2 Flow Rate FiO2 09/03/16 08:48 75 19 95 35 09/03/16 07:53 98.0 118/76 08/31/16 23:00 Mechanical Ventilator Intake and Output 09/02/16 09/02/16 09/03/16 15:00 23:00 07:00 Intake Total 675 ml 1210 ml 1350 ml Output Total 1000 ml 1700 ml Balance 675 ml 210 ml -350 ml Exam Constitutional: frail Neck: supple Respiratory: diminished breath sounds, other (on ventilator) Cardiovascular: nl pulses, regular rate and rhythm Gastrointestinal: bowel sounds, distended, other (g tube in placed ,no leak), soft, No rebound or guarding Results Result Diagram: 09/03/16 0545 09/03/16 0545 Results 24 hrs Laboratory Tests Test 09/02/16 11:50 09/02/16 17:46 09/03/16 00:07 09/03/16 05:36 Bedside Glucose 115 111 102 115 Test 09/03/16 05:45 09/03/16 07:42 White Blood Count 12.4 #H Red Blood Count 3.47 L Hemoglobin 9.8 L Hematocrit 32.4 L Mean Corpuscular Volume 93.4 Mean Corpuscular Hemoglobin 28.2 L Mean Corpuscular Hemoglobin Concent 30.2 L Red Cell Distribution Width 15.9 H Platelet Count 278 # Mean Platelet Volume 10.9 H Neutrophils % 70.9 Lymphocytes % 16.2 Monocytes % 6.9 Eosinophils % 4.8 Basophils % 0.7 Nucleated Red Blood Cells % 0.0 Neutrophils # 8.8 H Lymphocytes # 2.0 Monocytes # 0.9 Eosinophils # 0.6 H Basophils # 0.1 Nucleated Red Blood Cells # 0.0 Sodium Level 133 L Potassium Level 4.1 Chloride Level 99 Carbon Dioxide Level 26 Anion Gap 12 Blood Urea Nitrogen 20 Creatinine 0.95 Glucose Level 115 Calcium Level 9.2 Lab Scanned Report REFERENCE LAB Medications Medications Current Medications Nitroglycerin (Nitroglycerin (Sl Tab) 0.4 Mg) 1 tab Q5M PRN SL CHEST PAIN; Start 09/01/16 at 01:30 Enoxaparin Sodium 30 mg 30 mg DAILY SC Last administered on 09/03/16 08:48; Admin Dose 30 MG; Start 09/01/16 at 09:00 Linezolid (Zyvox 600mg/D5W (Pmx)) 300 ml @ 300 mls/hr Q12 IVPB Last administered on 09/03/16 08:16; Admin Dose 300 MLS/HR; Start 09/01/16 at 09:00 Acetaminophen (Tylenol Tab) 650 mg Q4H PRN GTB MILD PAIN LEVEL 1-3; Start 09/01 at 01:30 Atorvastatin Calcium (Lipitor) 5 mg QHS GTB Last administered on 09/02/16 21: 31; Admin Dose 5 MG; Start 09/01/16 at 21:00 Bisacodyl (Dulcolax Supp) 10 mg DAILY PRN [place] CONSTIPATION; Start 09/01/16 at 01 :30 Chlorhexidine Gluconate (Peridex) 15 ml BID MM Last administered on 09/03/16 08:16; Admin Dose 15 ML; Start 09/01/16 at 09:00 Diphenhydramine HCl (Benadryl) 50 mg Q6H PRN GTB ITCHING; Start 09/01/16 at 01: 30 Docusate Sodium (Colace Liquid Cup) 100 mg DAILY GTB Last administered on 08:19; Admin Dose 100 MG; Start 09/01/16 at 09:00 Lisinopril (Zestril) 2.5 mg DAILY GTB Last administered on 09/01/16 09:00; Admin Dose 2.5 MG; Start 09/01/16 at 09:00; Status Future Hold Lorazepam (Ativan) 1 mg Q6 PRN GTB ANXIETY; Start 09/01/16 at 01:30 Magnesium Hydroxide (Milk Of Mag) 30 ml DAILY PRN GTB CONSTIPATION; Start 09/01 at 01:30 Mineral Oil (Fleet Mineral Oil Enema) 133 ml DAILY PRN [place] CONSTIPATION; Start 09/01/16 at 01:30 Multivitamins/ Minerals (Theragran-M) 1 tab BID GTB Last administered on 21:31; Admin Dose 1 TAB; Start 09/01/16 at 09:00 Famotidine (Pepcid) 20 mg DAILY PO Last administered on 09/02/16 08:19; Admin Dose 20 MG; Start 09/01/16 at 09:00 Levetiracetam (Keppra Liquid) 500 mg Q12H GTB Last administered on 09/03/16 02 :54; Admin Dose 500 MG; Start 09/01/16 at 02:30 Ferrous Sulfate (Feosol Liquid Cup) 300 mg TID GTB Last administered on 21:30; Admin Dose 300 MG; Start 09/01/16 at 09:00 Amikacin Sulfate (Amikacin Iv Per Pharmacy) AMIKACIN PER PHARMACY NOTE XX ; Start 09/01/16 at 15:30 Diagnostic Test (Pha) (Accu-Chek) 1 ea 02 XX ; Start 09/02/16 at 02:00 Miscellaneous Information 1 ea NOTE XX ; Start 09/01/16 at 20:30 Glucose (Glutose) 15 gm Q15M PRN PO DECREASED GLUCOSE; Start 09/01/16 at 20:30 Glucose (Glutose) 22.5 gm Q15M PRN PO DECREASED GLUCOSE; Start 09/01/16 at 20: 30 Dextrose (D50w Syringe) 25 ml Q15M PRN IV DECREASED GLUCOSE; Start 09/01/16 at 20:30 Dextrose (D50w Syringe) 50 ml Q15M PRN IV DECREASED GLUCOSE; Start 09/01/16 at 20:30 Glucagon (Glucagen) 1 mg Q15M PRN IM DECREASED GLUCOSE; Start 09/01/16 at 20:30 Glucose 15 gm 15 gm Q15M PRN BUCCAL DECREASED GLUCOSE; Start 09/01/16 at 20:30 Sodium Chloride (1/2 NS) 1,000 ml @ 75 mls/hr [id number] IV Last administered on 09/03/16 02:54; Admin Dose 75 MLS/HR; Start 09/02/16 at 11:00 Insulin Aspart (Novolog Insulin Pen) NOVOLOG *MODERATE* ALGORITHM Q6 SC ; Start 09/02/16 at 12:00 Fluconazole 100 mg 100 mg DAILY GTB Last administered on 09/02/16 14:57; Admin Dose 100 MG; Start 09/02/16 at 14:00 Amikacin Sulfate/ Sodium Chloride (Amikacin/NS) 103.8 ml @ 102 mls/hr Q48H IVPB ; Start 09/03/16 at 18:00 Metoclopramide HCl (Reglan) 10 mg Q6H PRN IV VOMITTING Last administered on 06:51; Admin Dose 10 MG; Start 09/03/16 at 06:36 BIANKA LEAL MD Sep 03, 2016 10:04
--- NOTE | 2016-09-03 11:12 | PN ---
Date/Time of Note Date/Time of Note DATE: 09/03/16 TIME: 11:08 Assessment/Plan VTE Prophylaxis VTE Prophylaxis Intervention: LMWH Lines/Catheters IV Catheter Type (from Nrsg): PICC Line Central line still needed: Yes Urinary Cath still in place: Yes Reason Cath still needed: urinary retention Assessment/Plan Chief Complaint/Hosp Course A/P: 71 M from [facility] p/w sepsis and res distress. 1. Sepsis - sec to UTI likely, also possibly PNA. Now also with abd distension and diarrhea. Res cx = ESBL ecoli, Citrobacter, and Pseudomonas all positive - continue current abx per ID rec's, tylenol prn, f/u cx results. - check c diff, and CT A/P as well 2. Patient with a history of chronic respiratory failure, ventilator dependent - - monitor, f/u pulm rec's, mech vent, abx 3. Atrial fibrillation - rate controlled - monitor HR, 4. Seizure disorder - continue keppra 5. Hypertension - stable, monitor 6. Diabetes - continue ISS 7. Status post tracheostomy and G-tube - this G tube was leaking and it was fixed by GI team earlier - monitor 8. Multi-infarct dementia. 9. ARF - pre-renal - improved with IVF's - monitor BUN/Cr, IVF's 10. GI ppx - H2 radha Problems: Subjective 24 Hr Interval Summary Free Text/Dictation Pt with some abd distension and diarrhea this AM. Exam/Review of Systems Vital Signs Vitals Vital Signs Date Time Temp Pulse Resp B/P Pulse Ox O2 Delivery O2 Flow Rate FiO2 09/03/16 11:05 92 18 94 35 09/03/16 07:53 98.0 118/76 08/31/16 23:00 Mechanical Ventilator Intake and Output 09/02/16 09/02/16 09/03/16 15:00 23:00 07:00 Intake Total 675 ml 1210 ml 1350 ml Output Total 1000 ml 1700 ml Balance 675 ml 210 ml -350 ml Exam General: lying in bed Eyes: Sclera White, EOMI HENT: Normocephalic/Atraumatic, External Ears/Nose Normal, Moist Mucus Membranes Neck: Supple, trach in place Cardiovascular: Normal Rate, Regular Rhythm, Normal S1 and S2, No Murmur, Pulmonary: Clear to Auscultation Bilaterally, Normal Respiratory Effort, No Rales, Rhonchi or Wheezes Gastrointestinal: Normoactive Bowel Sounds, slightly firm, No Hepatosplenomegaly Appreciated, No Pulsatile Masses Musculoskeletal: Normal Muscle Bulk and Tone Neurological: no focal deficits Integumentary: Normal Moisture and Temperature, Good Turgor, No Jaundice, No Rash Results Result Diagram: 09/03/16 0545 09/03/16 0545 Results 24 hrs Laboratory Tests Test 09/02/16 11:50 09/02/16 17:46 09/03/16 00:07 09/03/16 05:36 Bedside Glucose 115 111 102 115 Test 09/03/16 05:45 09/03/16 07:42 White Blood Count 12.4 #H Red Blood Count 3.47 L Hemoglobin 9.8 L Hematocrit 32.4 L Mean Corpuscular Volume 93.4 Mean Corpuscular Hemoglobin 28.2 L Mean Corpuscular Hemoglobin Concent 30.2 L Red Cell Distribution Width 15.9 H Platelet Count 278 # Mean Platelet Volume 10.9 H Neutrophils % 70.9 Lymphocytes % 16.2 Monocytes % 6.9 Eosinophils % 4.8 Basophils % 0.7 Nucleated Red Blood Cells % 0.0 Neutrophils # 8.8 H Lymphocytes # 2.0 Monocytes # 0.9 Eosinophils # 0.6 H Basophils # 0.1 Nucleated Red Blood Cells # 0.0 Sodium Level 133 L Potassium Level 4.1 Chloride Level 99 Carbon Dioxide Level 26 Anion Gap 12 Blood Urea Nitrogen 20 Creatinine 0.95 Glucose Level 115 Calcium Level 9.2 Lab Scanned Report REFERENCE LAB Medications Medications Current Medications Nitroglycerin (Nitroglycerin (Sl Tab) 0.4 Mg) 1 tab Q5M PRN SL CHEST PAIN; Start 09/01/16 at 01:30 Enoxaparin Sodium 30 mg 30 mg DAILY SC Last administered on 09/03/16 08:48; Admin Dose 30 MG; Start 09/01/16 at 09:00 Linezolid (Zyvox 600mg/D5W (Pmx)) 300 ml @ 300 mls/hr Q12 IVPB Last administered on 09/03/16 08:16; Admin Dose 300 MLS/HR; Start 09/01/16 at 09:00 Acetaminophen (Tylenol Tab) 650 mg Q4H PRN GTB MILD PAIN LEVEL 1-3; Start 09/01 at 01:30 Atorvastatin Calcium (Lipitor) 5 mg QHS GTB Last administered on 09/02/16 21: 31; Admin Dose 5 MG; Start 09/01/16 at 21:00 Bisacodyl (Dulcolax Supp) 10 mg DAILY PRN [place] CONSTIPATION; Start 09/01/16 at 01 :30 Chlorhexidine Gluconate (Peridex) 15 ml BID MM Last administered on 09/03/16 08:16; Admin Dose 15 ML; Start 09/01/16 at 09:00 Diphenhydramine HCl (Benadryl) 50 mg Q6H PRN GTB ITCHING; Start 09/01/16 at 01: 30 Docusate Sodium (Colace Liquid Cup) 100 mg DAILY GTB Last administered on 08:19; Admin Dose 100 MG; Start 09/01/16 at 09:00 Lisinopril (Zestril) 2.5 mg DAILY GTB Last administered on 09/01/16 09:00; Admin Dose 2.5 MG; Start 09/01/16 at 09:00; Status Future Hold Lorazepam (Ativan) 1 mg Q6 PRN GTB ANXIETY; Start 09/01/16 at 01:30 Magnesium Hydroxide (Milk Of Mag) 30 ml DAILY PRN GTB CONSTIPATION; Start 09/01 at 01:30 Mineral Oil (Fleet Mineral Oil Enema) 133 ml DAILY PRN [place] CONSTIPATION; Start 09/01/16 at 01:30 Multivitamins/ Minerals (Theragran-M) 1 tab BID GTB Last administered on 21:31; Admin Dose 1 TAB; Start 09/01/16 at 09:00 Famotidine (Pepcid) 20 mg DAILY PO Last administered on 09/02/16 08:19; Admin Dose 20 MG; Start 09/01/16 at 09:00 Levetiracetam (Keppra Liquid) 500 mg Q12H GTB Last administered on 09/03/16 02 :54; Admin Dose 500 MG; Start 09/01/16 at 02:30 Ferrous Sulfate (Feosol Liquid Cup) 300 mg TID GTB Last administered on 21:30; Admin Dose 300 MG; Start 09/01/16 at 09:00 Amikacin Sulfate (Amikacin Iv Per Pharmacy) AMIKACIN PER PHARMACY NOTE XX ; Start 09/01/16 at 15:30 Diagnostic Test (Pha) (Accu-Chek) 1 ea 02 XX ; Start 09/02/16 at 02:00 Miscellaneous Information 1 ea NOTE XX ; Start 09/01/16 at 20:30 Glucose (Glutose) 15 gm Q15M PRN PO DECREASED GLUCOSE; Start 09/01/16 at 20:30 Glucose (Glutose) 22.5 gm Q15M PRN PO DECREASED GLUCOSE; Start 09/01/16 at 20: 30 Dextrose (D50w Syringe) 25 ml Q15M PRN IV DECREASED GLUCOSE; Start 09/01/16 at 20:30 Dextrose (D50w Syringe) 50 ml Q15M PRN IV DECREASED GLUCOSE; Start 09/01/16 at 20:30 Glucagon (Glucagen) 1 mg Q15M PRN IM DECREASED GLUCOSE; Start 09/01/16 at 20:30 Glucose 15 gm 15 gm Q15M PRN BUCCAL DECREASED GLUCOSE; Start 09/01/16 at 20:30 Sodium Chloride (1/2 NS) 1,000 ml @ 75 mls/hr [id number] IV Last administered on 09/03/16 02:54; Admin Dose 75 MLS/HR; Start 09/02/16 at 11:00 Insulin Aspart (Novolog Insulin Pen) NOVOLOG *MODERATE* ALGORITHM Q6 SC ; Start 09/02/16 at 12:00 Fluconazole 100 mg 100 mg DAILY GTB Last administered on 09/02/16 14:57; Admin Dose 100 MG; Start 09/02/16 at 14:00 Amikacin Sulfate/ Sodium Chloride (Amikacin/NS) 103.8 ml @ 102 mls/hr Q48H IVPB ; Start 09/03/16 at 18:00 Metoclopramide HCl (Reglan) 10 mg Q6H PRN IV VOMITTING Last administered on 06:51; Admin Dose 10 MG; Start 09/03/16 at 06:36 SILVANA SCHWARTZ Sep 03, 2016 11:12
[2016-09-03] MEDS ORDERED: SOD CHLORIDE 0.9% 100 ML ONE (12:42)
[2016-09-03] MEDS ORDERED: IODIXANOL LOCM 100 ML BTL ONE (12:42)
--- NOTE | 2016-09-03 14:40 | RADRPT ---
PROCEDURE: CT Abdomen and Pelvis with contrast. CLINICAL INDICATION: Abdomen and pelvis pain. Check gastrostomy tube position. Abdominal distensi on. TECHNIQUE: CT scan of the abdomen and pelvis with contrast was performed. The patient was scanned following the uncomplicated intravenous administration of 100 cc of Visipaque 320. Coronal and sag ittal reformatted images were obtained from the axial source images. Images were reviewed on a high- resolution PACS workstation. Total exam DLP is 663.53 mGy-cm. CTDIvol is 11.71 mGy. One or more o f the following dose reduction techniques were used: Automated exposure control, adjustment of the m A and/or kV according to patient size, use of iterative reconstruction technique. COMPARISON: Noncontrast CT scan of the abdomen and pelvis dated 08/01/2016. FINDINGS: The lung bases are normal. There is no pleural effusion. The liver is normal in size and attenuation. There is no focal hepatic lesion. The gallbladder and bile ducts are normal. The spleen is normal in size. There is no focal splenic lesion. Both adrenals are normal with no enlargement or mass. The pancreas is unremarkable with no mass or evidence of pancreatitis. Both kidneys demonstrate normal contrast enhancement. There is no solid renal mass or hydronephros is. There are small benign bilateral renal cysts. The abdominal aorta is not dilated. There is calcification in the aorta consistent with atherosclero sis. There is an inferior vena cava filter in satisfactory position below the level of the renal ve ins. There is no retroperitoneal lymphadenopathy or mass. There is no pelvic lymphadenopathy or mass. There is a Bernstein catheter in the urinary bladder. The periappendiceal region is unremarkable with no evidence of appendicitis. The gastrostomy tube is in satisfactory position in the stomach. There is mildly distended distal s mall bowel and ascending colon. The bowel and mesentery are otherwise normal. There is no free fluid or free gas. There are degenerative changes of the spine. There is no fracture or lytic lesion. IMPRESSION: 1. Small benign bilateral renal cysts. 2. Atherosclerosis. 3. IVC filter in satisfactory position. 4. Bernstein catheter in the bladder. 5. Gastrostomy tube tip in the stomach. 6. Mildly distended distal small bowel and ascending colon which may indicate ileus. No definite e vidence of obstruction. Follow-up advised. 7. Degenerative changes of the spine. RPTAT: QQ .John Jiménez MD, MD Date Time Electronically viewed and signed by .John Jiménez MD, MD on 09/03/2016 14:39 .R/
--- NOTE | 2016-09-03 17:30 | PN ---
DATE: 09/03/2016 SUBJECTIVE: No acute changes. The patient is lying comfortably in bed. No fevers. LABORATORY DATA: WBC today 12.4 with platelets 278, neutrophils 70.9. BUN 20, creatinine 0.95. DIAGNOSTICS: CT of the abdomen and pelvis this morning revealed no evidence of obstruction, questio nable ileus. ANTIMICROBIALS: The patient is on: 1. Amikacin. 2. Fluconazole. MICROBIOLOGY: Urine culture grew E. coli ESBL, Kimberlyn albicans. Sputum culture growing E. coli ES BL, Citrobacter koseri, Pseudomonas aeruginosa. Blood cultures have been negative. INDWELLINGS: Trach, PEG, Bernstein. PHYSICAL EXAMINATION: GENERAL: This is a chronically ill-appearing, elderly man who is in no distress. HEENT: Head atraumatic, normocephalic. Sclerae anicteric. Buccal mucosa dry. NECK: Supple. Tracheostomy present. CHEST: Rise symmetrical. Breath sounds diminished to bases. HEART: S1, S2. ABDOMEN: Distended, soft. Bowel sounds present. EXTREMITIES: Without cyanosis. Bilateral trace edema. ASSESSMENT: 1. Recurrent urinary tract infection. 2. Abdominal distention with possible ileus, gastroenterology on case, CT of the abdomen and pelvis noted. 3. Chronic respiratory failure with colonized sputum, rule out pneumonia. 4. History of non-ST elevation myocardial infarction. 5. Chronic encephalopathy. 6. Status post sepsis with fevers and leukocytosis on admission. PLAN: The patient remains hemodynamically stable. Followed by multiple consultants. We are going to add colistin inhalation to the regimen. Continue him on current antimicrobials. Dictated By: DEJA ARIAS CHOPPER GUN OPERATOR for [facility] Conf#: [id number] DID#: [id number]
[2016-09-03] MEDS: AMIKACIN 950 MG in SOD CHLORIDE 0.9% 100 ML IVPB SCH (18:06)
[2016-09-03] MEDS: ATORVASTATIN 10 MG TAB GTB SCH (21:00)
[2016-09-03] MEDS: COLISTIMETHATE (25 MG/ML INHAL SYG) NEB SCH (21:12)
[2016-09-04] VITALS (23 sets, daily range): BP systolic 108–148; BP diastolic 67–80; PULSE 69–80; RESP 1–26
[2016-09-04] MEDS: ACCU-CHEK XX SCH (02:00)
[2016-09-04] MEDS: LEVETIRACETAM (100 MG/ML) 5ML CUP GTB SCH ×2 (02:12→13:43)
[2016-09-04] MEDS: INSULIN ASPART [NOVOLOG] 3 ML PEN SC SCH ×5 (06:00→23:52)
[2016-09-04 06:45] LABS: ADD SCAN DIFF NO
[2016-09-04 06:48] LABS: BASOPHIL # 0.1 10^3/ul (0.0-0.1); BASOPHILS % 0.7 % (0.0-2.0); EOSINOPHILS # 0.4 10^3/ul (0.0-0.5); EOSINOPHILS % 3.9 % (0.0-7.0); HEMATOCRIT 31.5 % (42.0-52.0); HEMOGLOBIN 9.9 g/dl (14.0-18.0); LYMPHOCYTES # 1.5 10^3/ul (0.8-2.9); LYMPHOCYTES % 15.4 % (15.0-51.0); MEAN CORPUSCULAR HEMOGLOBIN 28.8 pg (29.0-33.0); MEAN CORPUSCULAR HGB CONC 31.4 g/dl (32.0-37.0); MEAN CORPUSCULAR VOLUME 91.6 fl (82.0-101.0); MEAN PLATELET VOLUME 10.5 fl (7.4-10.4); MONOCYTE # 0.8 10^3/ul (0.3-0.9); MONOCYTES % 7.9 % (0.0-11.0); NEUTROPHIL # 6.8 10^3/ul (1.6-7.5); NEUTROPHILS % 71.7 % (39.0-77.0); PLATELET COUNT 274 10^3/UL (140-415); RED BLOOD COUNT 3.44 10^6/ul (4.70-6.10); RED CELL DISTRIBUTION WIDTH 15.8 % (11.5-14.5); WHITE BLOOD COUNT 9.5 10^3/ul (4.8-10.8)
[2016-09-04 06:58] LABS: POTASSIUM 3.3 mmol/L (3.5-5.1)
[2016-09-04 07:01] LABS: CALCIUM 8.7 mg/dl (8.4-10.2); CREATININE 1.04 mg/dl (0.61-1.24)
[2016-09-04] MEDS: IPRATROPIUM (HFA) 12.9 GM INHALER INH SCH ×4 (08:00→21:27)
[2016-09-04] MEDS: ALBUTEROL 18 GM INHALER INH SCH ×4 (08:12→21:27)
[2016-09-04] MEDS: DOCUSATE SODIUM 10 MG/ML (10ML CUP) GTB SCH (08:33)
[2016-09-04] MEDS: FLUCONAZOLE 100 MG TAB GTB SCH (08:33)
[2016-09-04] MEDS: FERROUS SULFATE 60 MG/ML 5ML CUP GTB SCH ×3 (08:33→21:00)
[2016-09-04] MEDS: MULTIVITAMINS/MINERALS TAB GTB SCH ×2 (08:33→21:00)
[2016-09-04] MEDS: FAMOTIDINE 20 MG TAB PO SCH (08:34)
[2016-09-04] MEDS: COLISTIMETHATE (25 MG/ML INHAL SYG) NEB SCH ×2 (09:00→20:00)
[2016-09-04] MEDS: CHLORHEXIDINE GLUCONATE 15 ML UD CUP MM SCH ×2 (09:07→21:17)
[2016-09-04] MEDS: LINEZOLID 600 MG/D5W (PMX) 300 ML IVPB SCH ×2 (09:07→21:17)
[2016-09-04] MEDS: ENOXAPARIN 30 MG/0.3 ML SYG SC SCH (09:12)
[2016-09-04] MEDS ORDERED: POTASSIUM CHLORIDE (SR) 20 MEQ TAB PO STA (10:36)
--- NOTE | 2016-09-04 10:41 | PN ---
Date/Time of Note Date/Time of Note DATE: 09/04/16 TIME: 10:36 Assessment/Plan VTE Prophylaxis VTE Prophylaxis Intervention: LMWH Lines/Catheters IV Catheter Type (from Nrsg): PICC Line Central line still needed: Yes Urinary Cath still in place: Yes Reason Cath still needed: urinary retention Assessment/Plan Chief Complaint/Hosp Course A/P: 71 M from [facility] p/w sepsis and res distress. 1. Sepsis - sec to UTI likely, also possibly PNA. Ucx = + ESBL ecoli and Kimberlyn. Res cx = ESBL ecoli, Citrobacter, and Pseudomonas all positive. C diff neg. - continue current abx per ID rec's (Colistin added yesterday), tylenol prn, f/u cx results. - f/u ID rec's 2. Chronic respiratory failure, ventilator dependent - monitor, f/u pulm rec's, mech vent, abx 3. Atrial fibrillation - rate controlled - monitor HR, 4. Seizure disorder - continue keppra 5. Hypertension - stable, monitor 6. Diabetes - continue ISS 7. Status post tracheostomy and G-tube - this G tube was leaking and it was fixed by GI team earlier - monitor 8. Multi-infarct dementia. 9. ARF - pre-renal - improved with IVF's - monitor BUN/Cr, IVF's 10. GI ppx - H2 radha Problems: Subjective 24 Hr Interval Summary Free Text/Dictation No acute events overnight. Had CT A/P yesterday. Exam/Review of Systems Vital Signs Vitals Vital Signs Date Time Temp Pulse Resp B/P Pulse Ox O2 Delivery O2 Flow Rate FiO2 09/04/16 09:00 75 23 97 30 09/04/16 07:58 98.2 132/69 08/31/16 23:00 Mechanical Ventilator Intake and Output 09/03/16 09/03/16 09/04/16 15:00 23:00 07:00 Intake Total 1950 ml 600 ml Output Total 1100 ml 1300 ml Balance 850 ml -700 ml Exam General: lying in bed Eyes: Sclera White, EOMI HENT: Normocephalic/Atraumatic, External Ears/Nose Normal, Moist Mucus Membranes Neck: Supple, trach in place Cardiovascular: Normal Rate, Regular Rhythm, Normal S1 and S2, No Murmur, Pulmonary: Clear to Auscultation Bilaterally, Normal Respiratory Effort, No Rales, Rhonchi or Wheezes Gastrointestinal: Normoactive Bowel Sounds, slightly firm, No Hepatosplenomegaly Appreciated, No Pulsatile Masses Musculoskeletal: Normal Muscle Bulk and Tone Neurological: no focal deficits Integumentary: Normal Moisture and Temperature, Good Turgor, No Jaundice, No Rash Results Result Diagram: 09/04/16 0619 09/04/16 0619 Results 24 hrs Laboratory Tests Test 09/03/16 12:13 09/03/16 18:01 09/04/16 02:11 09/04/16 06:00 Bedside Glucose 101 82 86 99 Test 09/04/16 06:19 White Blood Count 9.5 # Red Blood Count 3.44 L Hemoglobin 9.9 L Hematocrit 31.5 L Mean Corpuscular Volume 91.6 Mean Corpuscular Hemoglobin 28.8 L Mean Corpuscular Hemoglobin Concent 31.4 L Red Cell Distribution Width 15.8 H Platelet Count 274 Mean Platelet Volume 10.5 H Neutrophils % 71.7 Lymphocytes % 15.4 Monocytes % 7.9 Eosinophils % 3.9 Basophils % 0.7 Nucleated Red Blood Cells % 0.0 Neutrophils # 6.8 Lymphocytes # 1.5 Monocytes # 0.8 Eosinophils # 0.4 Basophils # 0.1 Nucleated Red Blood Cells # 0.0 Sodium Level 135 Potassium Level 3.3 L Chloride Level 98 Carbon Dioxide Level 25 Anion Gap 15 Blood Urea Nitrogen 13 Creatinine 1.04 Glucose Level 95 Calcium Level 8.7 Medications Medications Current Medications Nitroglycerin (Nitroglycerin (Sl Tab) 0.4 Mg) 1 tab Q5M PRN SL CHEST PAIN; Start 09/01/16 at 01:30 Enoxaparin Sodium 30 mg 30 mg DAILY SC Last administered on 09/04/16 09:12; Admin Dose 30 MG; Start 09/01/16 at 09:00 Linezolid (Zyvox 600mg/D5W (Pmx)) 300 ml @ 300 mls/hr Q12 IVPB Last administered on 09/04/16 09:07; Admin Dose 300 MLS/HR; Start 09/01/16 at 09:00 Acetaminophen (Tylenol Tab) 650 mg Q4H PRN GTB MILD PAIN LEVEL 1-3; Start 09/01 at 01:30 Atorvastatin Calcium (Lipitor) 5 mg QHS GTB Last administered on 09/02/16 21: 31; Admin Dose 5 MG; Start 09/01/16 at 21:00 Bisacodyl (Dulcolax Supp) 10 mg DAILY PRN [place] CONSTIPATION; Start 09/01/16 at 01 :30 Chlorhexidine Gluconate (Peridex) 15 ml BID MM Last administered on 09/04/16 09:07; Admin Dose 15 ML; Start 09/01/16 at 09:00 Diphenhydramine HCl (Benadryl) 50 mg Q6H PRN GTB ITCHING; Start 09/01/16 at 01: 30 Docusate Sodium (Colace Liquid Cup) 100 mg DAILY GTB Last administered on 08:19; Admin Dose 100 MG; Start 09/01/16 at 09:00 Lisinopril (Zestril) 2.5 mg DAILY GTB Last administered on 09/01/16 09:00; Admin Dose 2.5 MG; Start 09/01/16 at 09:00; Status Future Hold Lorazepam (Ativan) 1 mg Q6 PRN GTB ANXIETY; Start 09/01/16 at 01:30 Magnesium Hydroxide (Milk Of Mag) 30 ml DAILY PRN GTB CONSTIPATION; Start 09/01 at 01:30 Mineral Oil (Fleet Mineral Oil Enema) 133 ml DAILY PRN [place] CONSTIPATION; Start 09/01/16 at 01:30 Multivitamins/ Minerals (Theragran-M) 1 tab BID GTB Last administered on 21:31; Admin Dose 1 TAB; Start 09/01/16 at 09:00 Famotidine (Pepcid) 20 mg DAILY PO Last administered on 09/02/16 08:19; Admin Dose 20 MG; Start 09/01/16 at 09:00 Levetiracetam (Keppra Liquid) 500 mg Q12H GTB Last administered on 09/03/16 02 :54; Admin Dose 500 MG; Start 09/01/16 at 02:30 Ferrous Sulfate (Feosol Liquid Cup) 300 mg TID GTB Last administered on 21:30; Admin Dose 300 MG; Start 09/01/16 at 09:00 Amikacin Sulfate (Amikacin Iv Per Pharmacy) AMIKACIN PER PHARMACY NOTE XX ; Start 09/01/16 at 15:30 Diagnostic Test (Pha) (Accu-Chek) 1 ea 02 XX ; Start 09/02/16 at 02:00 Miscellaneous Information 1 ea NOTE XX ; Start 09/01/16 at 20:30 Glucose (Glutose) 15 gm Q15M PRN PO DECREASED GLUCOSE; Start 09/01/16 at 20:30 Glucose (Glutose) 22.5 gm Q15M PRN PO DECREASED GLUCOSE; Start 09/01/16 at 20: 30 Dextrose (D50w Syringe) 25 ml Q15M PRN IV DECREASED GLUCOSE; Start 09/01/16 at 20:30 Dextrose (D50w Syringe) 50 ml Q15M PRN IV DECREASED GLUCOSE; Start 09/01/16 at 20:30 Glucagon (Glucagen) 1 mg Q15M PRN IM DECREASED GLUCOSE; Start 09/01/16 at 20:30 Glucose 15 gm 15 gm Q15M PRN BUCCAL DECREASED GLUCOSE; Start 09/01/16 at 20:30 Sodium Chloride (1/2 NS) 1,000 ml @ 75 mls/hr [id number] IV Last administered on 09/03/16 22:38; Admin Dose 75 MLS/HR; Start 09/02/16 at 11:00 Insulin Aspart (Novolog Insulin Pen) NOVOLOG *MODERATE* ALGORITHM Q6 SC ; Start 09/02/16 at 12:00 Fluconazole 100 mg 100 mg DAILY GTB Last administered on 09/02/16 14:57; Admin Dose 100 MG; Start 09/02/16 at 14:00 Amikacin Sulfate/ Sodium Chloride (Amikacin/NS) 103.8 ml @ 102 mls/hr Q48H IVPB Last administered on 09/03/16 18:06; Admin Dose 102 MLS/HR; Start at 18:00 Metoclopramide HCl (Reglan) 10 mg Q6H PRN IV VOMITTING Last administered on 06:51; Admin Dose 10 MG; Start 09/03/16 at 06:36 SILVANA SCHWARTZ Sep 04, 2016 10:41
[2016-09-04] MEDS ORDERED: POTASSIUM CHLORIDE 250 ML IVPB ONE (11:32)
[2016-09-04] MEDS: DEXTROSE 5%-0.45% NACL 1,000 ML IV SCH (11:39)
--- NOTE | 2016-09-04 15:27 | PN ---
Date/Time of Note Date/Time of Note DATE: 09/04/16 TIME: 15:20 Assessment/Plan VTE Prophylaxis VTE Prophylaxis Intervention: SCD's Lines/Catheters IV Catheter Type (from Nrs): PICC Line Central line still needed: Yes Urinary Cath still in place: Yes Reason Cath still needed: urinary retention Assessment/Plan Assessment/Plan Assessment * Abdominal distension improving * Ileus * CT abdomen /pelvis 09/03/2016 * 1. Small benign bilateral renal cysts. 2. Atherosclerosis. 3. IVC filter in satisfactory position. 4. Bernstein catheter in the bladder. 5. Gastrostomy tube tip in the stomach. 6. Mildly distended distal small bowel and ascending colon which may indicate ileus. No definite evidence of obstruction. Follow-up advised. 7. Degenerative changes of the spine. * Leaking Gastrostomy Tube resolved * Sepsis * UTI * Ventilator dependent sec to chronic respiratory failure Plan * hold tube feeding * kub in am * Reglan 10 mg iv Subjective 24 Hr Interval Summary Free Text/Dictation * course reviewed with RN * patient seen and examined * abdomen distended episode of vomiting * CT abdomen /pelvis with contrast 09/03/2016 * 1. Small benign bilateral renal cysts. 2. Atherosclerosis. 3. IVC filter in satisfactory position. 4. Bernstein catheter in the bladder. 5. Gastrostomy tube tip in the stomach. 6. Mildly distended distal small bowel and ascending colon which may indicate ileus. No definite evidence of obstruction. Follow-up advised. 7. Degenerative changes of the spine. Exam/Review of Systems Vital Signs Vitals Vital Signs Date Time Temp Pulse Resp B/P Pulse Ox O2 Delivery O2 Flow Rate FiO2 09/04/16 13:00 83 22 99 35 09/04/16 12:06 96.8 108/70 08/31/16 23:00 Mechanical Ventilator Intake and Output 09/03/16 09/03/16 09/04/16 15:00 23:00 07:00 Intake Total 1950 ml 600 ml Output Total 1100 ml 1300 ml Balance 850 ml -700 ml Exam Constitutional: frail, non-verbal Respiratory: diminished breath sounds, other (trach to vent) Cardiovascular: nl pulses, regular rate and rhythm Gastrointestinal: distended, non-tender, other (g tube in placed), soft, No rebound or guarding Results Result Diagram: 09/04/1661809/04/16618 Results 24 hrs Laboratory Tests Test 09/03/16 18:01 09/04/16 02:11 09/04/16 06:00 09/04/16 06:19 Bedside Glucose 82 86 99 White Blood Count 9.5 # Red Blood Count 3.44 L Hemoglobin 9.9 L Hematocrit 31.5 L Mean Corpuscular Volume 91.6 Mean Corpuscular Hemoglobin 28.8 L Mean Corpuscular Hemoglobin Concent 31.4 L Red Cell Distribution Width 15.8 H Platelet Count 274 Mean Platelet Volume 10.5 H Neutrophils % 71.7 Lymphocytes % 15.4 Monocytes % 7.9 Eosinophils % 3.9 Basophils % 0.7 Nucleated Red Blood Cells % 0.0 Neutrophils # 6.8 Lymphocytes # 1.5 Monocytes # 0.8 Eosinophils # 0.4 Basophils # 0.1 Nucleated Red Blood Cells # 0.0 Sodium Level 135 Potassium Level 3.3 L Chloride Level 98 Carbon Dioxide Level 25 Anion Gap 15 Blood Urea Nitrogen 13 Creatinine 1.04 Glucose Level 95 Calcium Level 8.7 Test 09/04/16 11:56 Bedside Glucose 110 Medications Medications Current Medications Nitroglycerin (Nitroglycerin (Sl Tab) 0.4 Mg) 1 tab Q5M PRN SL CHEST PAIN; Start 09/01/16 at 01:30 Enoxaparin Sodium 30 mg 30 mg DAILY SC Last administered on 09/04/16 09:12; Admin Dose 30 MG; Start 09/01/16 at 09:00 Linezolid (Zyvox 600mg/D5W (Pmx)) 300 ml @ 300 mls/hr Q12 IVPB Last administered on 09/04/16 09:07; Admin Dose 300 MLS/HR; Start 09/01/16 at 09:00 Acetaminophen (Tylenol Tab) 650 mg Q4H PRN GTB MILD PAIN LEVEL 1-3; Start 09/01 at 01:30 Atorvastatin Calcium (Lipitor) 5 mg QHS GTB Last administered on 09/02/16 21: 31; Admin Dose 5 MG; Start 09/01/16 at 21:00 Bisacodyl (Dulcolax Supp) 10 mg DAILY PRN [place] CONSTIPATION; Start 09/01/16 at 01 :30 Chlorhexidine Gluconate (Peridex) 15 ml BID MM Last administered on 09/04/16 09:07; Admin Dose 15 ML; Start 09/01/16 at 09:00 Diphenhydramine HCl (Benadryl) 50 mg Q6H PRN GTB ITCHING; Start 09/01/16 at 01: 30 Docusate Sodium (Colace Liquid Cup) 100 mg DAILY GTB Last administered on 08:19; Admin Dose 100 MG; Start 09/01/16 at 09:00 Lisinopril (Zestril) 2.5 mg DAILY GTB Last administered on 09/01/16 09:00; Admin Dose 2.5 MG; Start 09/01/16 at 09:00; Status Future Hold Lorazepam (Ativan) 1 mg Q6 PRN GTB ANXIETY; Start 09/01/16 at 01:30 Magnesium Hydroxide (Milk Of Mag) 30 ml DAILY PRN GTB CONSTIPATION; Start 09/01 at 01:30 Mineral Oil (Fleet Mineral Oil Enema) 133 ml DAILY PRN [place] CONSTIPATION; Start 09/01/16 at 01:30 Multivitamins/ Minerals (Theragran-M) 1 tab BID GTB Last administered on 21:31; Admin Dose 1 TAB; Start 09/01/16 at 09:00 Famotidine (Pepcid) 20 mg DAILY PO Last administered on 09/02/16 08:19; Admin Dose 20 MG; Start 09/01/16 at 09:00 Levetiracetam (Keppra Liquid) 500 mg Q12H GTB Last administered on 09/03/16 02 :54; Admin Dose 500 MG; Start 09/01/16 at 02:30 Ferrous Sulfate (Feosol Liquid Cup) 300 mg TID GTB Last administered on 21:30; Admin Dose 300 MG; Start 09/01/16 at 09:00 Amikacin Sulfate (Amikacin Iv Per Pharmacy) AMIKACIN PER PHARMACY NOTE XX ; Start 09/01/16 at 15:30 Diagnostic Test (Pha) (Accu-Chek) 1 ea 02 XX ; Start 09/02/16 at 02:00 Miscellaneous Information 1 ea NOTE XX ; Start 09/01/16 at 20:30 Glucose (Glutose) 15 gm Q15M PRN PO DECREASED GLUCOSE; Start 09/01/16 at 20:30 Glucose (Glutose) 22.5 gm Q15M PRN PO DECREASED GLUCOSE; Start 09/01/16 at 20: 30 Dextrose (D50w Syringe) 25 ml Q15M PRN IV DECREASED GLUCOSE; Start 09/01/16 at 20:30 Dextrose (D50w Syringe) 50 ml Q15M PRN IV DECREASED GLUCOSE; Start 09/01/16 at 20:30 Glucagon (Glucagen) 1 mg Q15M PRN IM DECREASED GLUCOSE; Start 09/01/16 at 20:30 Glucose (Glutose) 15 gm Q15M PRN BUCCAL DECREASED GLUCOSE; Start 09/01/16 at 20 :30 Insulin Aspart (Novolog Insulin Pen) NOVOLOG *MODERATE* ALGORITHM Q6 SC ; Start 09/02/16 at 12:00 Fluconazole 100 mg 100 mg DAILY GTB Last administered on 09/02/16 14:57; Admin Dose 100 MG; Start 09/02/16 at 14:00 Amikacin Sulfate/ Sodium Chloride (Amikacin/NS) 103.8 ml @ 102 mls/hr Q48H IVPB Last administered on 09/03/16 18:06; Admin Dose 102 MLS/HR; Start at 18:00 Metoclopramide HCl 10 mg 10 mg Q6H PRN IV VOMITTING Last administered on 06:51; Admin Dose 10 MG; Start 09/03/16 at 06:36 Dextrose/Sodium Chloride 1,000 ml @ 75 mls/hr [id number] IV Last administered on 09/04/16 11:39; Admin Dose 75 MLS/HR; Start 09/04/16 at 11:00 Potassium Chloride (KCl 40 MEQ/250 ML NS) 250 ml @ 62.5 mls/hr ONCE ONCE IVPB Last administered on 09/04/16 11:39; Admin Dose 62.5 MLS/HR; Start 09/04/16 at 11:32; Stop 09/04/16 at 15:31 BIANKA LEAL MD Sep 04, 2016 15:27
--- NOTE | 2016-09-04 15:31 | PN ---
DATE: 09/04/2016 SUBJECTIVE: No acute events. No fevers. The patient is lying comfortably in bed. LABORATORY DATA: WBC today 9.5, no shift, no bands. BUN 13, creatinine 1.04. ANTIMICROBIALS: The patient is on: 1. Amikacin 2. Fluconazole. INDWELLINGS: Trach, PEG, Bernstein. PHYSICAL EXAMINATION: GENERAL: Fragile, elderly man in no distress. HEENT: Head atraumatic, normocephalic. Sclerae anicteric. Buccal mucosa dry. NECK: Supple. Tracheostomy present. CHEST: Rise symmetrical. Breath sounds diminished to bases. HEART: S1, S2. ABDOMEN: Distended, soft. Bowel sounds present. EXTREMITIES: Without cyanosis. SKIN: No jaundice, no cyanosis. ASSESSMENT: 1. Urinary tract infection, recurrent, with urine culture grew Escherichia coli ESBL and Kimberlyn al bicans, covered with amikacin and Diflucan. 2. 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 3. Chronic encephalopathy. 4. Dysphagia. 5. Anemia. PLAN: The patient remains stable, covered with appropriate antimicrobials. Dictated By: DEJA ARIAS MARINE SPECIALIST for [facility] Conf#: [id number] DID#: [id number]
[2016-09-04] MEDS: ATORVASTATIN 10 MG TAB GTB SCH (21:00)
[2016-09-05] VITALS (24 sets, daily range): BP systolic 94–143; BP diastolic 52–69; PULSE 65–87; RESP 14–69
[2016-09-05] MEDS: ACCU-CHEK XX SCH (02:00)
[2016-09-05] MEDS: LEVETIRACETAM (100 MG/ML) 5ML CUP GTB SCH ×2 (02:30→14:04)
[2016-09-05] MEDS: DEXTROSE 5%-0.45% NACL 1,000 ML IV SCH ×2 (05:36→13:40)
[2016-09-05] MEDS: INSULIN ASPART [NOVOLOG] 3 ML PEN SC SCH ×3 (06:00→18:00)
[2016-09-05 07:09] LABS: ADD SCAN DIFF NO
[2016-09-05 07:18] LABS: BASOPHILS % 0.4 % (0.0-2.0); EOSINOPHILS # 0.4 10^3/ul (0.0-0.5); EOSINOPHILS % 4.1 % (0.0-7.0); HEMATOCRIT 28.6 % (42.0-52.0); HEMOGLOBIN 8.6 g/dl (14.0-18.0); LYMPHOCYTES # 1.7 10^3/ul (0.8-2.9); LYMPHOCYTES % 16.6 % (15.0-51.0); MEAN CORPUSCULAR HEMOGLOBIN 27.9 pg (29.0-33.0); MEAN CORPUSCULAR HGB CONC 30.1 g/dl (32.0-37.0); MEAN CORPUSCULAR VOLUME 92.9 fl (82.0-101.0); MEAN PLATELET VOLUME 10.9 fl (7.4-10.4); MONOCYTE # 0.7 10^3/ul (0.3-0.9); NEUTROPHIL # 7.2 10^3/ul (1.6-7.5); NEUTROPHILS % 71.4 % (39.0-77.0); PLATELET COUNT 241 10^3/UL (140-415); RED BLOOD COUNT 3.08 10^6/ul (4.70-6.10); RED CELL DISTRIBUTION WIDTH 15.9 % (11.5-14.5); WHITE BLOOD COUNT 10.1 10^3/ul (4.8-10.8)
[2016-09-05 07:31] LABS: POTASSIUM 3.6 mmol/L (3.5-5.1)
[2016-09-05 07:34] LABS: CALCIUM 8.3 mg/dl (8.4-10.2); CREATININE 1.07 mg/dl (0.61-1.24)
[2016-09-05 07:51] LABS: MAGNESIUM 1.4 mg/dl (1.7-2.5); PHOSPHORUS 3.3 mg/dl (2.5-4.9)
[2016-09-05] MEDS: IPRATROPIUM (HFA) 12.9 GM INHALER INH SCH ×4 (08:02→21:41)
[2016-09-05] MEDS: FLUCONAZOLE 100 MG TAB GTB SCH (08:06)
[2016-09-05] MEDS: DOCUSATE SODIUM 10 MG/ML (10ML CUP) GTB SCH (08:06)
[2016-09-05] MEDS: MULTIVITAMINS/MINERALS TAB GTB SCH ×2 (08:06→20:45)
[2016-09-05] MEDS: FERROUS SULFATE 60 MG/ML 5ML CUP GTB SCH ×3 (08:06→20:45)
[2016-09-05] MEDS: FAMOTIDINE 20 MG TAB PO SCH (08:07)
[2016-09-05] MEDS: LINEZOLID 600 MG/D5W (PMX) 300 ML IVPB SCH ×2 (08:43→20:40)
[2016-09-05] MEDS: CHLORHEXIDINE GLUCONATE 15 ML UD CUP MM SCH ×2 (08:43→20:45)
[2016-09-05] MEDS: ENOXAPARIN 30 MG/0.3 ML SYG SC SCH (08:46)
[2016-09-05] MEDS: ALBUTEROL 18 GM INHALER INH SCH ×4 (09:10→21:41)
[2016-09-05] MEDS: COLISTIMETHATE (25 MG/ML INHAL SYG) NEB SCH ×2 (09:11→21:40)
--- NOTE | 2016-09-05 09:23 | RADRPT ---
PROCEDURE: XR Abdomen. CLINICAL INDICATION: Abdomen pain. TECHNIQUE: AP supine abdomen x-ray. COMPARISON: 08/01/2016. FINDINGS: The bowel gas pattern is normal with no evidence of obstruction. The gastrostomy tube overlies the stomach. An inferior vena cava filter is present with the superio r tip at the upper L2 level. A Bernstein catheter is present in the bladder. Previously noted left femo ral catheter has been removed. There are no abnormal calcifications overlying the urinary tracts. The osseus structures are unremarkable. Vascular calcifications are present consistent with atherosc lerosis. IMPRESSION: 1. No evidence of bowel obstruction. 2. Left femoral catheter removed. 3. No other change from 08/01/2016. RPTAT: QQ .John Jiménez MD, Date Time Electronically viewed and signed by .John Jiménez MD, on 09/05/2016 09:23 .R/
--- NOTE | 2016-09-05 10:18 | PN ---
Date/Time of Note Date/Time of Note DATE: 09/05/16 TIME: 10:15 Assessment/Plan VTE Prophylaxis VTE Prophylaxis Intervention: LMWH Lines/Catheters IV Catheter Type (from Nrsg): PICC Line Central line still needed: Yes Urinary Cath still in place: Yes Reason Cath still needed: urinary retention Assessment/Plan Chief Complaint/Hosp Course A/P: 71 [facility] from [facility] p/w sepsis and res distress. 1. Sepsis - sec to UTI likely, also possibly PNA. Ucx = + ESBL ecoli and Kimberlyn. Res cx = ESBL ecoli, Citrobacter, and Pseudomonas all positive. C diff neg. - continue current abx per ID rec's, Amikacin, Fluconazole, Colistin, tylenol prn, f/u final cx results. - f/u ID rec's 2. Chronic respiratory failure, ventilator dependent - monitor, f/u pulm rec's, mech vent, abx 3. Atrial fibrillation - rate controlled - monitor HR, 4. Seizure disorder - continue keppra 5. Hypertension - stable, monitor 6. Diabetes - continue ISS 7. Status post tracheostomy and G-tube - this G tube was leaking and it was fixed by GI team earlier - monitor - NG tube feeds on hold - KUB performed - f/u GI rec's. 8. 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 ARF - pre-renal - improved with IVF's - monitor BUN/Cr, IVF's 10. GI ppx - H2 radha Problems: Subjective 24 Hr Interval Summary Free Text/Dictation Pt had KUB this AM. Tube feeds still on hold. No acute events overnight. Exam/Review of Systems Vital Signs Vitals Vital Signs Date Time Temp Pulse Resp B/P Pulse Ox O2 Delivery O2 Flow Rate FiO2 09/05/16 08:21 70 09/05/16 07:50 15 96 30 09/05/16 07:48 99.1 108/56 Intake and Output 09/04/16 09/04/16 09/05/16 15:00 23:00 07:00 Intake Total 1000 ml 0 ml Output Total 500 ml 900 ml Balance 500 ml -900 ml Exam General: lying in bed Eyes: Sclera White, EOMI HENT: Normocephalic/Atraumatic, External Ears/Nose Normal, Moist Mucus Membranes Neck: Supple, trach in place Cardiovascular: Normal Rate, Regular Rhythm, Normal S1 and S2, No Murmur, Pulmonary: Clear to Auscultation Bilaterally, Normal Respiratory Effort, No Rales, Rhonchi or Wheezes Gastrointestinal: Normoactive Bowel Sounds, slightly firm, No Hepatosplenomegaly Appreciated, No Pulsatile Masses Musculoskeletal: Normal Muscle Bulk and Tone Neurological: no focal deficits Integumentary: Normal Moisture and Temperature, Good Turgor, No Jaundice, No Rash Results Result Diagram: 09/05/16 0555 09/05/16 0555 Results 24 hrs Laboratory Tests Test 09/04/16 11:56 09/04/16 17:23 09/04/16 21:16 09/04/16 23:51 Bedside Glucose 110 104 121 119 Test 09/05/16 05:45 09/05/16 05:55 09/05/16 06:03 Phosphorus Level 3.3 Magnesium Level 1.4 L White Blood Count 10.1 Red Blood Count 3.08 L Hemoglobin 8.6 L Hematocrit 28.6 L Mean Corpuscular Volume 92.9 Mean Corpuscular Hemoglobin 27.9 L Mean Corpuscular Hemoglobin Concent 30.1 L Red Cell Distribution Width 15.9 H Platelet Count 241 Mean Platelet Volume 10.9 H Neutrophils % 71.4 Lymphocytes % 16.6 Monocytes % 7.0 Eosinophils % 4.1 Basophils % 0.4 Nucleated Red Blood Cells % 0.0 Neutrophils # 7.2 Lymphocytes # 1.7 Monocytes # 0.7 Eosinophils # 0.4 Basophils # 0.0 Nucleated Red Blood Cells # 0.0 Sodium Level 134 L Potassium Level 3.6 Chloride Level 100 Carbon Dioxide Level 24 Anion Gap 14 Blood Urea Nitrogen 11 Creatinine 1.07 Glucose Level 107 Calcium Level 8.3 L Bedside Glucose 101 Medications Medications Current Medications Nitroglycerin (Nitroglycerin (Sl Tab) 0.4 Mg) 1 tab Q5M PRN SL CHEST PAIN; Start 09/01/16 at 01:30 Enoxaparin Sodium 30 mg 30 mg DAILY SC Last administered on 09/05/16 08:46; Admin Dose 30 MG; Start 09/01/16 at 09:00 Linezolid (Zyvox 600mg/D5W (Pmx)) 300 ml @ 300 mls/hr Q12 IVPB Last administered on 09/05/16 08:43; Admin Dose 300 MLS/HR; Start 09/01/16 at 09:00 Acetaminophen (Tylenol Tab) 650 mg Q4H PRN GTB MILD PAIN LEVEL 1-3; Start 09/01 at 01:30 Atorvastatin Calcium (Lipitor) 5 mg QHS GTB Last administered on 09/02/16 21: 31; Admin Dose 5 MG; Start 09/01/16 at 21:00 Bisacodyl (Dulcolax Supp) 10 mg DAILY PRN [place] CONSTIPATION; Start 09/01/16 at 01 :30 Chlorhexidine Gluconate (Peridex) 15 ml BID MM Last administered on 09/05/16 08:43; Admin Dose 15 ML; Start 09/01/16 at 09:00 Diphenhydramine HCl (Benadryl) 50 mg Q6H PRN GTB ITCHING; Start 09/01/16 at 01: 30 Docusate Sodium (Colace Liquid Cup) 100 mg DAILY GTB Last administered on 08:19; Admin Dose 100 MG; Start 09/01/16 at 09:00 Lisinopril (Zestril) 2.5 mg DAILY GTB Last administered on 09/01/16 09:00; Admin Dose 2.5 MG; Start 09/01/16 at 09:00; Status Future Hold Lorazepam (Ativan) 1 mg Q6 PRN GTB ANXIETY; Start 09/01/16 at 01:30 Magnesium Hydroxide (Milk Of Mag) 30 ml DAILY PRN GTB CONSTIPATION; Start 09/01 at 01:30 Mineral Oil (Fleet Mineral Oil Enema) 133 ml DAILY PRN [place] CONSTIPATION; Start 09/01/16 at 01:30 Multivitamins/ Minerals (Theragran-M) 1 tab BID GTB Last administered on 21:31; Admin Dose 1 TAB; Start 09/01/16 at 09:00 Famotidine (Pepcid) 20 mg DAILY PO Last administered on 09/02/16 08:19; Admin Dose 20 MG; Start 09/01/16 at 09:00 Levetiracetam (Keppra Liquid) 500 mg Q12H GTB Last administered on 09/03/16 02 :54; Admin Dose 500 MG; Start 09/01/16 at 02:30 Ferrous Sulfate (Feosol Liquid Cup) 300 mg TID GTB Last administered on 21:30; Admin Dose 300 MG; Start 09/01/16 at 09:00 Amikacin Sulfate (Amikacin Iv Per Pharmacy) AMIKACIN PER PHARMACY NOTE XX ; Start 09/01/16 at 15:30 Diagnostic Test (Pha) (Accu-Chek) 1 ea 02 XX ; Start 09/02/16 at 02:00 Miscellaneous Information 1 ea NOTE XX ; Start 09/01/16 at 20:30 Glucose (Glutose) 15 gm Q15M PRN PO DECREASED GLUCOSE; Start 09/01/16 at 20:30 Glucose (Glutose) 22.5 gm Q15M PRN PO DECREASED GLUCOSE; Start 09/01/16 at 20: 30 Dextrose (D50w Syringe) 25 ml Q15M PRN IV DECREASED GLUCOSE; Start 09/01/16 at 20:30 Dextrose (D50w Syringe) 50 ml Q15M PRN IV DECREASED GLUCOSE; Start 09/01/16 at 20:30 Glucagon (Glucagen) 1 mg Q15M PRN IM DECREASED GLUCOSE; Start 09/01/16 at 20:30 Glucose (Glutose) 15 gm Q15M PRN BUCCAL DECREASED GLUCOSE; Start 09/01/16 at 20 :30 Insulin Aspart (Novolog Insulin Pen) NOVOLOG *MODERATE* ALGORITHM Q6 SC ; Start 09/02/16 at 12:00 Fluconazole 100 mg 100 mg DAILY GTB Last administered on 09/02/16 14:57; Admin Dose 100 MG; Start 09/02/16 at 14:00 Amikacin Sulfate/ Sodium Chloride (Amikacin/NS) 103.8 ml @ 102 mls/hr Q48H IVPB Last administered on 09/03/16 18:06; Admin Dose 102 MLS/HR; Start at 18:00 Metoclopramide HCl 10 mg 10 mg Q6H PRN IV VOMITTING Last administered on 06:51; Admin Dose 10 MG; Start 09/03/16 at 06:36 Dextrose/Sodium Chloride (D5-1/2ns) 1,000 ml @ 75 mls/hr [id number] IV Last administered on 09/05/16 05:36; Admin Dose 75 MLS/HR; Start 09/04/16 at 11:00 Miscellaneous Information AMIKACIN TROUGH @ 1,700 ON... ONCE ONCE XX ; Start 09/05/16 at 17:00; Stop 09/05/16 at 17:01 Magnesium Sulfate (Magnesium Sulfate 2 Gm/50 ml) 50 ml @ 25 mls/hr ONCE ONCE IVPB ; Start 09/05/16 at 10:30; Stop 09/05/16 at 12:29 SILVANA SCHWARTZ Sep 05, 2016 10:18
[2016-09-05] MEDS ORDERED: MAGNESIUM SULFATE 2 GM/50 ML 50 ML IVPB ONE (10:30)
--- NOTE | 2016-09-05 11:12 | CONS ---
Date/Time of Note Date/Time of Note DATE: 09/05/16 TIME: 11:11 Assessment/Plan Assessment/Plan Additional Assessment/Plan Assessment * Abdominal distension improving * Ileus, resolved * CT abdomen /pelvis 09/03/2016 * 1. Small benign bilateral renal cysts. 2. Atherosclerosis. 3. IVC filter in satisfactory position. 4. Bernstein catheter in the bladder. 5. Gastrostomy tube tip in the stomach. 6. Mildly distended distal small bowel and ascending colon which may indicate ileus. No definite evidence of obstruction. Follow-up advised. 7. Degenerative changes of the spine. * Leaking Gastrostomy Tube resolved * Continue tube feed per nutrition recommendation: Recommend Diabeticsource goal 60cc/hr to provide 1728 calories (27/kg), 86 grams protein (1.3/kg) and 1166 free water. Recommend flushing with 150cc water Q 6 hours. * Sepsis * UTI * Ventilator dependent sec to chronic respiratory failure Plan * Restart tube feeding * Hold tube feeding for residual greater than 150 mL * Continue Reglan 10 mg iv * Further recommendations depend on clinical course * Patient seen in collaboration with Dr. Pires Consultation Date/Type/Reason Admit Date/Time Aug 31, 2016 at 22:10 Initial Consult Date 09/01/16 Type of Consultation: GI Referring Provider: ARNULFO BAY DO Exam/Review of Systems Vital Signs Vitals Vital Signs Date Time Temp Pulse Resp B/P Pulse Ox O2 Delivery O2 Flow Rate FiO2 09/05/16 09:10 75 18 98 30 09/05/16 07:48 99.1 108/56 Intake and Output 09/04/16 09/04/16 09/05/16 15:00 23:00 07:00 Intake Total 1000 ml 0 ml Output Total 500 ml 900 ml Balance 500 ml -900 ml Exam Constitutional: frail, non-verbal Respiratory: diminished breath sounds, other (trach to vent) Cardiovascular: nl pulses, regular rate and rhythm Gastrointestinal: distended, non-tender, other (g tube in placed), soft, No rebound or guarding Results Result Diagram: 09/05/16 0555 09/05/16 0555 Results 24 hrs Laboratory Tests Test 09/04/16 11:56 09/04/16 17:23 09/04/16 21:16 09/04/16 23:51 Bedside Glucose 110 104 121 119 Test 09/05/16 05:45 09/05/16 05:55 09/05/16 06:03 Phosphorus Level 3.3 Magnesium Level 1.4 L White Blood Count 10.1 Red Blood Count 3.08 L Hemoglobin 8.6 L Hematocrit 28.6 L Mean Corpuscular Volume 92.9 Mean Corpuscular Hemoglobin 27.9 L Mean Corpuscular Hemoglobin Concent 30.1 L Red Cell Distribution Width 15.9 H Platelet Count 241 Mean Platelet Volume 10.9 H Neutrophils % 71.4 Lymphocytes % 16.6 Monocytes % 7.0 Eosinophils % 4.1 Basophils % 0.4 Nucleated Red Blood Cells % 0.0 Neutrophils # 7.2 Lymphocytes # 1.7 Monocytes # 0.7 Eosinophils # 0.4 Basophils # 0.0 Nucleated Red Blood Cells # 0.0 Sodium Level 134 L Potassium Level 3.6 Chloride Level 100 Carbon Dioxide Level 24 Anion Gap 14 Blood Urea Nitrogen 11 Creatinine 1.07 Glucose Level 107 Calcium Level 8.3 L Bedside Glucose 101 Medications Medications Current Medications Nitroglycerin (Nitroglycerin (Sl Tab) 0.4 Mg) 1 tab Q5M PRN SL CHEST PAIN; Start 09/01/16 at 01:30 Enoxaparin Sodium 30 mg 30 mg DAILY SC Last administered on 09/05/16 08:46; Admin Dose 30 MG; Start 09/01/16 at 09:00 Linezolid (Zyvox 600mg/D5W (Pmx)) 300 ml @ 300 mls/hr Q12 IVPB Last administered on 09/05/16 08:43; Admin Dose 300 MLS/HR; Start 09/01/16 at 09:00 Acetaminophen (Tylenol Tab) 650 mg Q4H PRN GTB MILD PAIN LEVEL 1-3; Start 09/01 at 01:30 Atorvastatin Calcium (Lipitor) 5 mg QHS GTB Last administered on 09/02/16 21: 31; Admin Dose 5 MG; Start 09/01/16 at 21:00 Bisacodyl (Dulcolax Supp) 10 mg DAILY PRN [place] CONSTIPATION; Start 09/01/16 at 01 :30 Chlorhexidine Gluconate (Peridex) 15 ml BID MM Last administered on 09/05/16 08:43; Admin Dose 15 ML; Start 09/01/16 at 09:00 Diphenhydramine HCl (Benadryl) 50 mg Q6H PRN GTB ITCHING; Start 09/01/16 at 01: 30 Docusate Sodium (Colace Liquid Cup) 100 mg DAILY GTB Last administered on 08:19; Admin Dose 100 MG; Start 09/01/16 at 09:00 Lisinopril (Zestril) 2.5 mg DAILY GTB Last administered on 09/01/16 09:00; Admin Dose 2.5 MG; Start 09/01/16 at 09:00; Status Future Hold Lorazepam (Ativan) 1 mg Q6 PRN GTB ANXIETY; Start 09/01/16 at 01:30 Magnesium Hydroxide (Milk Of Mag) 30 ml DAILY PRN GTB CONSTIPATION; Start 09/01 at 01:30 Mineral Oil (Fleet Mineral Oil Enema) 133 ml DAILY PRN [place] CONSTIPATION; Start 09/01/16 at 01:30 Multivitamins/ Minerals (Theragran-M) 1 tab BID GTB Last administered on 21:31; Admin Dose 1 TAB; Start 09/01/16 at 09:00 Famotidine (Pepcid) 20 mg DAILY PO Last administered on 09/02/16 08:19; Admin Dose 20 MG; Start 09/01/16 at 09:00 Levetiracetam (Keppra Liquid) 500 mg Q12H GTB Last administered on 09/03/16 02 :54; Admin Dose 500 MG; Start 09/01/16 at 02:30 Ferrous Sulfate (Feosol Liquid Cup) 300 mg TID GTB Last administered on 21:30; Admin Dose 300 MG; Start 09/01/16 at 09:00 Amikacin Sulfate (Amikacin Iv Per Pharmacy) AMIKACIN PER PHARMACY NOTE XX ; Start 09/01/16 at 15:30 Diagnostic Test (Pha) (Accu-Chek) 1 ea 02 XX ; Start 09/02/16 at 02:00 Miscellaneous Information 1 ea NOTE XX ; Start 09/01/16 at 20:30 Glucose (Glutose) 15 gm Q15M PRN PO DECREASED GLUCOSE; Start 09/01/16 at 20:30 Glucose (Glutose) 22.5 gm Q15M PRN PO DECREASED GLUCOSE; Start 09/01/16 at 20: 30 Dextrose (D50w Syringe) 25 ml Q15M PRN IV DECREASED GLUCOSE; Start 09/01/16 at 20:30 Dextrose (D50w Syringe) 50 ml Q15M PRN IV DECREASED GLUCOSE; Start 09/01/16 at 20:30 Glucagon (Glucagen) 1 mg Q15M PRN IM DECREASED GLUCOSE; Start 09/01/16 at 20:30 Glucose (Glutose) 15 gm Q15M PRN BUCCAL DECREASED GLUCOSE; Start 09/01/16 at 20 :30 Insulin Aspart (Novolog Insulin Pen) NOVOLOG *MODERATE* ALGORITHM Q6 SC ; Start 09/02/16 at 12:00 Fluconazole 100 mg 100 mg DAILY GTB Last administered on 09/02/16 14:57; Admin Dose 100 MG; Start 09/02/16 at 14:00 Amikacin Sulfate/ Sodium Chloride (Amikacin/NS) 103.8 ml @ 102 mls/hr Q48H IVPB Last administered on 09/03/16 18:06; Admin Dose 102 MLS/HR; Start at 18:00 Metoclopramide HCl 10 mg 10 mg Q6H PRN IV VOMITTING Last administered on 06:51; Admin Dose 10 MG; Start 09/03/16 at 06:36 Dextrose/Sodium Chloride (D5-1/2ns) 1,000 ml @ 75 mls/hr [id number] IV Last administered on 09/05/16 05:36; Admin Dose 75 MLS/HR; Start 09/04/16 at 11:00 Miscellaneous Information AMIKACIN TROUGH @ 1,700 ON... ONCE ONCE XX ; Start 09/05/16 at 17:00; Stop 09/05/16 at 17:01 Magnesium Sulfate (Magnesium Sulfate 2 Gm/50 ml) 50 ml @ 25 mls/hr ONCE ONCE IVPB Last administered on 09/05/16 10:42; Admin Dose 25 MLS/HR; Start at 10:30; Stop 09/05/16 at 12:29 NOEMY SU Sep 05, 2016 11:12
--- NOTE | 2016-09-05 15:40 | CONS ---
Date/Time of Note Date/Time of Note DATE: 09/05/16 TIME: 15:39 Assessment/Plan Assessment/Plan Chief Complaint/Hosp Course SUBJECTIVE: No acute events. No fevers. The patient is lying comfortably in bed. ANTIMICROBIALS: The patient is on: 1. Amikacin 2. Fluconazole. INDWELLINGS: Trach, PEG, Bernstein. PHYSICAL EXAMINATION: GENERAL: Fragile, elderly man in no distress. HEENT: Head atraumatic, normocephalic. Sclerae anicteric. Buccal mucosa dry. NECK: Supple. Tracheostomy present. CHEST: Rise symmetrical. Breath sounds diminished to bases. HEART: S1, S2. ABDOMEN: Distended, soft. Bowel sounds present. EXTREMITIES: Without cyanosis. SKIN: No jaundice, no cyanosis. ASSESSMENT: 1. Urinary tract infection, recurrent, with urine culture grew Escherichia coli ESBL and Kimberlyn albicans, covered with amikacin and Diflucan. 2. 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 3. Chronic encephalopathy. 4. Dysphagia. 5. Anemia. PLAN: The patient remains stable, KUB noted, continue on current abx DW staff Problems: Consultation Date/Type/Reason Admit Date/Time Aug 31, 2016 at 22:10 Initial Consult Date 09/01/16 Type of Consultation: ID Referring Provider: ARNULFO BAY DO Exam/Review of Systems Vital Signs Vitals Vital Signs Date Time Temp Pulse Resp B/P Pulse Ox O2 Delivery O2 Flow Rate FiO2 09/05/16 15:23 98.9 62 14 94/52 96 09/05/16 15:20 35 Intake and Output 09/04/16 09/04/16 09/05/16 15:00 23:00 07:00 Intake Total 1000 ml 0 ml Output Total 500 ml 900 ml Balance 500 ml -900 ml Results Result Diagram: 09/05/16 0555 09/05/16 0555 Results 24 hrs Laboratory Tests Test 09/04/16 17:23 09/04/16 21:16 09/04/16 23:51 09/05/16 05:45 Bedside Glucose 104 121 119 Phosphorus Level 3.3 Magnesium Level 1.4 L Test 09/05/16 05:55 09/05/16 06:03 09/05/16 11:45 White Blood Count 10.1 Red Blood Count 3.08 L Hemoglobin 8.6 L Hematocrit 28.6 L Mean Corpuscular Volume 92.9 Mean Corpuscular Hemoglobin 27.9 L Mean Corpuscular Hemoglobin Concent 30.1 L Red Cell Distribution Width 15.9 H Platelet Count 241 Mean Platelet Volume 10.9 H Neutrophils % 71.4 Lymphocytes % 16.6 Monocytes % 7.0 Eosinophils % 4.1 Basophils % 0.4 Nucleated Red Blood Cells % 0.0 Neutrophils # 7.2 Lymphocytes # 1.7 Monocytes # 0.7 Eosinophils # 0.4 Basophils # 0.0 Nucleated Red Blood Cells # 0.0 Sodium Level 134 L Potassium Level 3.6 Chloride Level 100 Carbon Dioxide Level 24 Anion Gap 14 Blood Urea Nitrogen 11 Creatinine 1.07 Glucose Level 107 Calcium Level 8.3 L Bedside Glucose 101 101 Medications Medications Current Medications Nitroglycerin (Nitroglycerin (Sl Tab) 0.4 Mg) 1 tab Q5M PRN SL CHEST PAIN; Start 09/01/16 at 01:30 Enoxaparin Sodium 30 mg 30 mg DAILY SC Last administered on 09/05/16 08:46; Admin Dose 30 MG; Start 09/01/16 at 09:00 Linezolid (Zyvox 600mg/D5W (Pmx)) 300 ml @ 300 mls/hr Q12 IVPB Last administered on 09/05/16 08:43; Admin Dose 300 MLS/HR; Start 09/01/16 at 09:00 Acetaminophen (Tylenol Tab) 650 mg Q4H PRN GTB MILD PAIN LEVEL 1-3; Start 09/01 at 01:30 Atorvastatin Calcium (Lipitor) 5 mg QHS GTB Last administered on 09/02/16 21: 31; Admin Dose 5 MG; Start 09/01/16 at 21:00 Bisacodyl (Dulcolax Supp) 10 mg DAILY PRN [place] CONSTIPATION; Start 09/01/16 at 01 :30 Chlorhexidine Gluconate (Peridex) 15 ml BID MM Last administered on 09/05/16 08:43; Admin Dose 15 ML; Start 09/01/16 at 09:00 Diphenhydramine HCl (Benadryl) 50 mg Q6H PRN GTB ITCHING; Start 09/01/16 at 01: 30 Docusate Sodium (Colace Liquid Cup) 100 mg DAILY GTB Last administered on 08:19; Admin Dose 100 MG; Start 09/01/16 at 09:00 Lisinopril (Zestril) 2.5 mg DAILY GTB Last administered on 09/01/16 09:00; Admin Dose 2.5 MG; Start 09/01/16 at 09:00; Status Future Hold Lorazepam (Ativan) 1 mg Q6 PRN GTB ANXIETY; Start 09/01/16 at 01:30 Magnesium Hydroxide (Milk Of Mag) 30 ml DAILY PRN GTB CONSTIPATION; Start 09/01 at 01:30 Mineral Oil (Fleet Mineral Oil Enema) 133 ml DAILY PRN [place] CONSTIPATION; Start 09/01/16 at 01:30 Multivitamins/ Minerals (Theragran-M) 1 tab BID GTB Last administered on 21:31; Admin Dose 1 TAB; Start 09/01/16 at 09:00 Famotidine (Pepcid) 20 mg DAILY PO Last administered on 09/02/16 08:19; Admin Dose 20 MG; Start 09/01/16 at 09:00 Levetiracetam (Keppra Liquid) 500 mg Q12H GTB Last administered on 09/05/16 14 :04; Admin Dose 500 MG; Start 09/01/16 at 02:30 Ferrous Sulfate (Feosol Liquid Cup) 300 mg TID GTB Last administered on 14:06; Admin Dose 300 MG; Start 09/01/16 at 09:00 Amikacin Sulfate (Amikacin Iv Per Pharmacy) AMIKACIN PER PHARMACY NOTE XX ; Start 09/01/16 at 15:30 Diagnostic Test (Pha) (Accu-Chek) 1 ea 02 XX ; Start 09/02/16 at 02:00 Miscellaneous Information 1 ea NOTE XX ; Start 09/01/16 at 20:30 Glucose (Glutose) 15 gm Q15M PRN PO DECREASED GLUCOSE; Start 09/01/16 at 20:30 Glucose (Glutose) 22.5 gm Q15M PRN PO DECREASED GLUCOSE; Start 09/01/16 at 20: 30 Dextrose (D50w Syringe) 25 ml Q15M PRN IV DECREASED GLUCOSE; Start 09/01/16 at 20:30 Dextrose (D50w Syringe) 50 ml Q15M PRN IV DECREASED GLUCOSE; Start 09/01/16 at 20:30 Glucagon (Glucagen) 1 mg Q15M PRN IM DECREASED GLUCOSE; Start 09/01/16 at 20:30 Glucose (Glutose) 15 gm Q15M PRN BUCCAL DECREASED GLUCOSE; Start 09/01/16 at 20 :30 Insulin Aspart (Novolog Insulin Pen) NOVOLOG *MODERATE* ALGORITHM Q6 SC ; Start 09/02/16 at 12:00 Fluconazole 100 mg 100 mg DAILY GTB Last administered on 09/02/16 14:57; Admin Dose 100 MG; Start 09/02/16 at 14:00 Amikacin Sulfate/ Sodium Chloride (Amikacin/NS) 103.8 ml @ 102 mls/hr Q48H IVPB Last administered on 09/03/16 18:06; Admin Dose 102 MLS/HR; Start at 18:00 Metoclopramide HCl 10 mg 10 mg Q6H PRN IV VOMITTING Last administered on 06:51; Admin Dose 10 MG; Start 09/03/16 at 06:36 Dextrose/Sodium Chloride (D5-1/2ns) 1,000 ml @ 75 mls/hr [id number] IV Last administered on 09/05/16 05:36; Admin Dose 75 MLS/HR; Start 09/04/16 at 11:00 Miscellaneous Information (*Rx Drug Level Order Reminder*) AMIKACIN TROUGH @ 1, 700 ON... ONCE ONCE XX ; Start 09/05/16 at 17:00; Stop 09/05/16 at 17:01 DEJA ARIAS NP Sep 05, 2016 15:40
[2016-09-05] MEDS: AMIKACIN 950 MG in SOD CHLORIDE 0.9% 100 ML IVPB SCH (18:30)
[2016-09-05] MEDS: ATORVASTATIN 10 MG TAB GTB SCH (20:45)
[2016-09-06] VITALS (25 sets, daily range): BP systolic 105–146; BP diastolic 59–77; PULSE 62–81; RESP 14–24
[2016-09-06] MEDS: ACCU-CHEK XX SCH (02:00)
[2016-09-06] MEDS: LEVETIRACETAM (100 MG/ML) 5ML CUP GTB SCH ×2 (02:13→14:03)
[2016-09-06] MEDS: DEXTROSE 5%-0.45% NACL 1,000 ML IV SCH ×2 (03:07→16:20)
[2016-09-06] MEDS: INSULIN ASPART [NOVOLOG] 3 ML PEN SC SCH ×4 (05:57→18:00)
[2016-09-06 06:15] LABS: ADD SCAN DIFF NO
[2016-09-06 06:25] LABS: BASOPHIL # 0.1 10^3/ul (0.0-0.1); BASOPHILS % 0.5 % (0.0-2.0); EOSINOPHILS # 0.6 10^3/ul (0.0-0.5); EOSINOPHILS % 5.5 % (0.0-7.0); HEMATOCRIT 26.2 % (42.0-52.0); HEMOGLOBIN 8.1 g/dl (14.0-18.0); LYMPHOCYTES # 1.7 10^3/ul (0.8-2.9); LYMPHOCYTES % 16.8 % (15.0-51.0); MEAN CORPUSCULAR HEMOGLOBIN 28.1 pg (29.0-33.0); MEAN CORPUSCULAR HGB CONC 30.9 g/dl (32.0-37.0); MEAN PLATELET VOLUME 10.8 fl (7.4-10.4); MONOCYTE # 0.8 10^3/ul (0.3-0.9); MONOCYTES % 7.7 % (0.0-11.0); NEUTROPHIL # 7.2 10^3/ul (1.6-7.5); NEUTROPHILS % 69.2 % (39.0-77.0); PLATELET COUNT 219 10^3/UL (140-415); RED BLOOD COUNT 2.88 10^6/ul (4.70-6.10); RED CELL DISTRIBUTION WIDTH 15.8 % (11.5-14.5); WHITE BLOOD COUNT 10.4 10^3/ul (4.8-10.8)
[2016-09-06 06:34] LABS: MAGNESIUM 1.6 mg/dl (1.7-2.5); PHOSPHORUS 2.8 mg/dl (2.5-4.9)
[2016-09-06] MEDS: ALBUTEROL 18 GM INHALER INH SCH ×5 (07:44→21:11)
[2016-09-06] MEDS: IPRATROPIUM (HFA) 12.9 GM INHALER INH SCH ×4 (07:44→19:23)
[2016-09-06 08:07] LABS: CALCIUM 8.5 mg/dl (8.4-10.2); CREATININE 0.96 mg/dl (0.61-1.24); POTASSIUM 3.6 mmol/L (3.5-5.1)
[2016-09-06] MEDS: COLISTIMETHATE (25 MG/ML INHAL SYG) NEB SCH ×2 (09:23→19:23)
[2016-09-06] MEDS: FERROUS SULFATE 60 MG/ML 5ML CUP GTB SCH ×3 (09:47→20:43)
[2016-09-06] MEDS: MULTIVITAMINS/MINERALS TAB GTB SCH ×2 (09:47→20:43)
[2016-09-06] MEDS: FLUCONAZOLE 100 MG TAB GTB SCH (09:47)
[2016-09-06] MEDS: LINEZOLID 600 MG/D5W (PMX) 300 ML IVPB SCH ×2 (09:48→20:43)
[2016-09-06] MEDS: FAMOTIDINE 20 MG TAB PO SCH (09:48)
[2016-09-06] MEDS: CHLORHEXIDINE GLUCONATE 15 ML UD CUP MM SCH ×2 (09:48→20:43)
[2016-09-06] MEDS: DOCUSATE SODIUM 10 MG/ML (10ML CUP) GTB SCH (09:49)
[2016-09-06] MEDS: ENOXAPARIN 30 MG/0.3 ML SYG SC SCH (09:50)
--- NOTE | 2016-09-06 11:47 | PN ---
Date/Time of Note Date/Time of Note DATE: 09/06/16 TIME: 11:43 Assessment/Plan VTE Prophylaxis VTE Prophylaxis Intervention: LMWH Lines/Catheters IV Catheter Type (from Nrs): PICC Line Central line still needed: Yes Urinary Cath still in place: Yes Reason Cath still needed: urinary retention Assessment/Plan Chief Complaint/Hosp Course A/P: 71 M from SNF p/w sepsis and res distress. 1. Sepsis - sec to UTI likely, also possibly PNA. Ucx = + ESBL ecoli and Kimberlyn. Res cx = ESBL ecoli, Citrobacter, and Pseudomonas all positive. C diff neg. - continue current abx per ID rec's, Amikacin, Fluconazole, Colistin, tylenol prn, f/u final cx results. - f/u ID rec's 2. Chronic respiratory failure, ventilator dependent - monitor, f/u pulm rec's, mech vent, abx 3. Atrial fibrillation - rate controlled - monitor HR, 4. Seizure disorder - continue keppra 5. Hypertension - stable, monitor 6. Diabetes - continue ISS 7. Status post tracheostomy and G-tube - this G tube was leaking and it was fixed by GI team earlier - monitor - continue tube feeds, f/u GI rec's. 8. 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 ARF - pre-renal - improved with IVF's - monitor BUN/Cr, IVF's 10. GI ppx - H2 radha Problems: Subjective 24 Hr Interval Summary Free Text/Dictation Pt has no acute events overnight, a bit more alert today. Started back on tube feeds yesterday, tolerating. Exam/Review of Systems Vital Signs Vitals Vital Signs Date Time Temp Pulse Resp B/P Pulse Ox O2 Delivery O2 Flow Rate FiO2 09/06/16 11:34 98.8 83 20 138/67 96 09/06/16 09:24 35 Intake and Output 09/05/16 09/05/16 09/06/16 15:00 23:00 07:00 Intake Total 580 ml 1225 ml Output Total 900 ml 900 ml Balance -320 ml 325 ml Exam General: lying in bed Eyes: Sclera White, EOMI HENT: Normocephalic/Atraumatic, External Ears/Nose Normal, Moist Mucus Membranes Neck: Supple, trach in place Cardiovascular: Normal Rate, Regular Rhythm, Normal S1 and S2, No Murmur, Pulmonary: Clear to Auscultation Bilaterally, Normal Respiratory Effort, No Rales, Rhonchi or Wheezes Gastrointestinal: Normoactive Bowel Sounds, slightly firm, No Hepatosplenomegaly Appreciated, No Pulsatile Masses Musculoskeletal: Normal Muscle Bulk and Tone Neurological: no focal deficits Integumentary: Normal Moisture and Temperature, Good Turgor, No Jaundice, No Rash Results Result Diagram: 09/06/16 0540 09/06/16 0541 Results 24 hrs Laboratory Tests Test 09/05/16 11:45 09/05/16 17:06 09/06/16 00:52 09/06/16 05:40 Bedside Glucose 101 103 112 White Blood Count 10.4 Red Blood Count 2.88 L Hemoglobin 8.1 L Hematocrit 26.2 L Mean Corpuscular Volume 91.0 Mean Corpuscular Hemoglobin 28.1 L Mean Corpuscular Hemoglobin Concent 30.9 L Red Cell Distribution Width 15.8 H Platelet Count 219 Mean Platelet Volume 10.8 H Neutrophils % 69.2 Lymphocytes % 16.8 Monocytes % 7.7 Eosinophils % 5.5 Basophils % 0.5 Nucleated Red Blood Cells % 0.0 Neutrophils # 7.2 Lymphocytes # 1.7 Monocytes # 0.8 Eosinophils # 0.6 H Basophils # 0.1 Nucleated Red Blood Cells # 0.0 Test 09/06/16 05:41 09/06/16 05:50 Sodium Level 132 L Potassium Level 3.6 Chloride Level 96 L Carbon Dioxide Level 30 Anion Gap 10 Blood Urea Nitrogen 11 Creatinine 0.96 Glucose Level 126 Calcium Level 8.5 Phosphorus Level 2.8 Magnesium Level 1.6 L Bedside Glucose 115 Medications Medications Current Medications Nitroglycerin (Nitroglycerin (Sl Tab) 0.4 Mg) 1 tab Q5M PRN SL CHEST PAIN; Start 09/01/16 at 01:30 Enoxaparin Sodium 30 mg 30 mg DAILY SC Last administered on 09/06/16 09:50; Admin Dose 30 MG; Start 09/01/16 at 09:00 Linezolid (Zyvox 600mg/D5W (Pmx)) 300 ml @ 300 mls/hr Q12 IVPB Last administered on 09/06/16 09:48; Admin Dose 300 MLS/HR; Start 09/01/16 at 09:00 Acetaminophen (Tylenol Tab) 650 mg Q4H PRN GTB MILD PAIN LEVEL 1-3; Start 09/01 at 01:30 Atorvastatin Calcium (Lipitor) 5 mg QHS GTB Last administered on 09/05/16 20: 45; Admin Dose 5 MG; Start 09/01/16 at 21:00 Bisacodyl (Dulcolax Supp) 10 mg DAILY PRN [place] CONSTIPATION; Start 09/01/16 at 01 :30 Chlorhexidine Gluconate (Peridex) 15 ml BID MM Last administered on 09/06/16 09:48; Admin Dose 15 ML; Start 09/01/16 at 09:00 Diphenhydramine HCl (Benadryl) 50 mg Q6H PRN GTB ITCHING; Start 09/01/16 at 01: 30 Docusate Sodium (Colace Liquid Cup) 100 mg DAILY GTB Last administered on 09:49; Admin Dose 100 MG; Start 09/01/16 at 09:00 Lisinopril (Zestril) 2.5 mg DAILY GTB Last administered on 09/01/16 09:00; Admin Dose 2.5 MG; Start 09/01/16 at 09:00; Status Future Hold Lorazepam (Ativan) 1 mg Q6 PRN GTB ANXIETY; Start 09/01/16 at 01:30 Magnesium Hydroxide (Milk Of Mag) 30 ml DAILY PRN GTB CONSTIPATION; Start 09/01 at 01:30 Mineral Oil (Fleet Mineral Oil Enema) 133 ml DAILY PRN [place] CONSTIPATION; Start 09/01/16 at 01:30 Multivitamins/ Minerals (Theragran-M) 1 tab BID GTB Last administered on 09:47; Admin Dose 1 TAB; Start 09/01/16 at 09:00 Famotidine (Pepcid) 20 mg DAILY PO Last administered on 09/06/16 09:48; Admin Dose 20 MG; Start 09/01/16 at 09:00 Levetiracetam (Keppra Liquid) 500 mg Q12H GTB Last administered on 09/06/16 02 :13; Admin Dose 500 MG; Start 09/01/16 at 02:30 Ferrous Sulfate (Feosol Liquid Cup) 300 mg TID GTB Last administered on 09:47; Admin Dose 300 MG; Start 09/01/16 at 09:00 Amikacin Sulfate (Amikacin Iv Per Pharmacy) AMIKACIN PER PHARMACY NOTE XX ; Start 09/01/16 at 15:30 Diagnostic Test (Pha) (Accu-Chek) 1 ea 02 XX ; Start 09/02/16 at 02:00 Miscellaneous Information 1 ea NOTE XX ; Start 09/01/16 at 20:30 Glucose (Glutose) 15 gm Q15M PRN PO DECREASED GLUCOSE; Start 09/01/16 at 20:30 Glucose (Glutose) 22.5 gm Q15M PRN PO DECREASED GLUCOSE; Start 09/01/16 at 20: 30 Dextrose (D50w Syringe) 25 ml Q15M PRN IV DECREASED GLUCOSE; Start 09/01/16 at 20:30 Dextrose (D50w Syringe) 50 ml Q15M PRN IV DECREASED GLUCOSE; Start 09/01/16 at 20:30 Glucagon (Glucagen) 1 mg Q15M PRN IM DECREASED GLUCOSE; Start 09/01/16 at 20:30 Glucose (Glutose) 15 gm Q15M PRN BUCCAL DECREASED GLUCOSE; Start 09/01/16 at 20 :30 Insulin Aspart (Novolog Insulin Pen) NOVOLOG *MODERATE* ALGORITHM Q6 SC ; Start 09/02/16 at 12:00 Fluconazole 100 mg 100 mg DAILY GTB Last administered on 09/06/16 09:47; Admin Dose 100 MG; Start 09/02/16 at 14:00 Amikacin Sulfate/ Sodium Chloride (Amikacin/NS) 103.8 ml @ 102 mls/hr Q48H IVPB Last administered on 09/05/16 18:30; Admin Dose 102 MLS/HR; Start at 18:00 Metoclopramide HCl 10 mg 10 mg Q6H PRN IV VOMITTING Last administered on 06:51; Admin Dose 10 MG; Start 09/03/16 at 06:36 Dextrose/Sodium Chloride 1,000 ml @ 75 mls/hr [id number] IV Last administered on 09/06/16 03:07; Admin Dose 75 MLS/HR; Start 09/04/16 at 11:00 Magnesium Sulfate (Magnesium Sulfate 2 Gm/50 ml) 50 ml @ 25 mls/hr ONCE ONCE IVPB ; Start 09/06/16 at 12:00; Stop 09/06/16 at 13:59 SILVANA SCHWARTZ Sep 06, 2016 11:47
[2016-09-06] MEDS ORDERED: MAGNESIUM SULFATE 2 GM/50 ML 50 ML IVPB ONE (12:00)
--- NOTE | 2016-09-06 12:38 | CONS ---
Date/Time of Note Date/Time of Note DATE: 09/06/16 TIME: 12:37 Assessment/Plan Assessment/Plan Additional Assessment/Plan Assessment * Abdominal distension improving * Ileus, resolved * CT abdomen /pelvis 09/03/2016 * 1. Small benign bilateral renal cysts. 2. Atherosclerosis. 3. IVC filter in satisfactory position. 4. Bernstein catheter in the bladder. 5. Gastrostomy tube tip in the stomach. 6. Mildly distended distal small bowel and ascending colon which may indicate ileus. No definite evidence of obstruction. Follow-up advised. 7. Degenerative changes of the spine. * Leaking Gastrostomy Tube resolved * Continue tube feed per nutrition recommendation: Recommend Diabeticsource goal 60cc/hr to provide 1728 calories (27/kg), 86 grams protein (1.3/kg) and 1166 free water. Recommend flushing with 150cc water Q 6 hours. * Sepsis * UTI * Ventilator dependent sec to chronic respiratory failure Plan * Restart tube feeding * Hold tube feeding for residual greater than 150 mL * Continue Reglan 10 mg iv * Further recommendations depend on clinical course * Patient seen in collaboration with Dr. Pires Consultation Date/Type/Reason Admit Date/Time Aug 31, 2016 at 22:10 Initial Consult Date 09/01/16 Type of Consultation: GI Referring Provider: ARNULFO BAY DO 24 HR Interval Summary Free Text/Dictation Tube feed at 50 with minimal residual Instructed nurse to advance to goal rate of 60 ml/hr Exam/Review of Systems Vital Signs Vitals Vital Signs Date Time Temp Pulse Resp B/P Pulse Ox O2 Delivery O2 Flow Rate FiO2 09/06/16 12:33 81 09/06/16 11:34 98.8 20 138/67 96 09/06/16 09:24 35 Intake and Output 09/05/16 09/05/16 09/06/16 15:00 23:00 07:00 Intake Total 580 ml 1225 ml Output Total 900 ml 900 ml Balance -320 ml 325 ml Exam Constitutional: frail, non-verbal Respiratory: diminished breath sounds, other (trach to vent) Cardiovascular: nl pulses, regular rate and rhythm Gastrointestinal: distended, non-tender, other (g tube in placed), soft, No rebound or guarding Results Result Diagram: 09/06/16 0540 09/06/16 0541 Results 24 hrs Laboratory Tests Test 09/05/16 17:06 09/06/16 00:52 09/06/16 05:40 09/06/16 05:41 Bedside Glucose 103 112 White Blood Count 10.4 Red Blood Count 2.88 L Hemoglobin 8.1 L Hematocrit 26.2 L Mean Corpuscular Volume 91.0 Mean Corpuscular Hemoglobin 28.1 L Mean Corpuscular Hemoglobin Concent 30.9 L Red Cell Distribution Width 15.8 H Platelet Count 219 Mean Platelet Volume 10.8 H Neutrophils % 69.2 Lymphocytes % 16.8 Monocytes % 7.7 Eosinophils % 5.5 Basophils % 0.5 Nucleated Red Blood Cells % 0.0 Neutrophils # 7.2 Lymphocytes # 1.7 Monocytes # 0.8 Eosinophils # 0.6 H Basophils # 0.1 Nucleated Red Blood Cells # 0.0 Sodium Level 132 L Potassium Level 3.6 Chloride Level 96 L Carbon Dioxide Level 30 Anion Gap 10 Blood Urea Nitrogen 11 Creatinine 0.96 Glucose Level 126 Calcium Level 8.5 Phosphorus Level 2.8 Magnesium Level 1.6 L Test 09/06/16 05:50 09/06/16 12:31 Bedside Glucose 115 97 Medications Medications Current Medications Nitroglycerin (Nitroglycerin (Sl Tab) 0.4 Mg) 1 tab Q5M PRN SL CHEST PAIN; Start 09/01/16 at 01:30 Enoxaparin Sodium 30 mg 30 mg DAILY SC Last administered on 09/06/16 09:50; Admin Dose 30 MG; Start 09/01/16 at 09:00 Linezolid (Zyvox 600mg/D5W (Pmx)) 300 ml @ 300 mls/hr Q12 IVPB Last administered on 09/06/16 09:48; Admin Dose 300 MLS/HR; Start 09/01/16 at 09:00 Acetaminophen (Tylenol Tab) 650 mg Q4H PRN GTB MILD PAIN LEVEL 1-3; Start 09/01 at 01:30 Atorvastatin Calcium (Lipitor) 5 mg QHS GTB Last administered on 09/05/16 20: 45; Admin Dose 5 MG; Start 09/01/16 at 21:00 Bisacodyl (Dulcolax Supp) 10 mg DAILY PRN [place] CONSTIPATION; Start 09/01/16 at 01 :30 Chlorhexidine Gluconate (Peridex) 15 ml BID MM Last administered on 09/06/16 09:48; Admin Dose 15 ML; Start 09/01/16 at 09:00 Diphenhydramine HCl (Benadryl) 50 mg Q6H PRN GTB ITCHING; Start 09/01/16 at 01: 30 Docusate Sodium (Colace Liquid Cup) 100 mg DAILY GTB Last administered on 09:49; Admin Dose 100 MG; Start 09/01/16 at 09:00 Lisinopril (Zestril) 2.5 mg DAILY GTB Last administered on 09/01/16 09:00; Admin Dose 2.5 MG; Start 09/01/16 at 09:00; Status Future Hold Lorazepam (Ativan) 1 mg Q6 PRN GTB ANXIETY; Start 09/01/16 at 01:30 Magnesium Hydroxide (Milk Of Mag) 30 ml DAILY PRN GTB CONSTIPATION; Start 09/01 at 01:30 Mineral Oil (Fleet Mineral Oil Enema) 133 ml DAILY PRN [place] CONSTIPATION; Start 09/01/16 at 01:30 Multivitamins/ Minerals (Theragran-M) 1 tab BID GTB Last administered on 09:47; Admin Dose 1 TAB; Start 09/01/16 at 09:00 Famotidine (Pepcid) 20 mg DAILY PO Last administered on 09/06/16 09:48; Admin Dose 20 MG; Start 09/01/16 at 09:00 Levetiracetam (Keppra Liquid) 500 mg Q12H GTB Last administered on 09/06/16 02 :13; Admin Dose 500 MG; Start 09/01/16 at 02:30 Ferrous Sulfate (Feosol Liquid Cup) 300 mg TID GTB Last administered on 09:47; Admin Dose 300 MG; Start 09/01/16 at 09:00 Amikacin Sulfate (Amikacin Iv Per Pharmacy) AMIKACIN PER PHARMACY NOTE XX ; Start 09/01/16 at 15:30 Diagnostic Test (Pha) (Accu-Chek) 1 ea 02 XX ; Start 09/02/16 at 02:00 Miscellaneous Information 1 ea NOTE XX ; Start 09/01/16 at 20:30 Glucose (Glutose) 15 gm Q15M PRN PO DECREASED GLUCOSE; Start 09/01/16 at 20:30 Glucose (Glutose) 22.5 gm Q15M PRN PO DECREASED GLUCOSE; Start 09/01/16 at 20: 30 Dextrose (D50w Syringe) 25 ml Q15M PRN IV DECREASED GLUCOSE; Start 09/01/16 at 20:30 Dextrose (D50w Syringe) 50 ml Q15M PRN IV DECREASED GLUCOSE; Start 09/01/16 at 20:30 Glucagon (Glucagen) 1 mg Q15M PRN IM DECREASED GLUCOSE; Start 09/01/16 at 20:30 Glucose (Glutose) 15 gm Q15M PRN BUCCAL DECREASED GLUCOSE; Start 09/01/16 at 20 :30 Insulin Aspart (Novolog Insulin Pen) NOVOLOG *MODERATE* ALGORITHM Q6 SC ; Start 09/02/16 at 12:00 Fluconazole 100 mg 100 mg DAILY GTB Last administered on 09/06/16 09:47; Admin Dose 100 MG; Start 09/02/16 at 14:00 Amikacin Sulfate/ Sodium Chloride (Amikacin/NS) 103.8 ml @ 102 mls/hr Q48H IVPB Last administered on 09/05/16 18:30; Admin Dose 102 MLS/HR; Start at 18:00 Metoclopramide HCl 10 mg 10 mg Q6H PRN IV VOMITTING Last administered on 06:51; Admin Dose 10 MG; Start 09/03/16 at 06:36 Dextrose/Sodium Chloride 1,000 ml @ 75 mls/hr [id number] IV Last administered on 09/06/16 03:07; Admin Dose 75 MLS/HR; Start 09/04/16 at 11:00 Magnesium Sulfate (Magnesium Sulfate 2 Gm/50 ml) 50 ml @ 25 mls/hr ONCE ONCE IVPB ; Start 09/06/16 at 12:00; Stop 09/06/16 at 13:59 NOEMY SU Sep 06, 2016 12:38
[2016-09-06] MEDS: ALTEPLASE (CATHFLO) 2 MG INJ CATHETER PRN ×2 (13:07→15:26)
[2016-09-06] MEDS: METOCLOPRAMIDE 10 MG INJ IV PRN (14:03)
[2016-09-06] MEDS: ATORVASTATIN 10 MG TAB GTB SCH (20:43)
--- NOTE | 2016-09-06 20:47 | CONS ---
Date/Time of Note Date/Time of Note DATE: 09/06/16 TIME: 20:45 Assessment/Plan Assessment/Plan Chief Complaint/Hosp Course SUBJECTIVE: S/p emesis, TF on hold, no fevers, nad ANTIMICROBIALS: 1. Amikacin 2. Fluconazole. INDWELLINGS: Trach, PEG, Bernstein. PHYSICAL EXAMINATION: GENERAL: Fragile, elderly man in no distress. HEENT: Head atraumatic, normocephalic. Sclerae anicteric. Buccal mucosa dry. NECK: Supple. Tracheostomy present. CHEST: Rise symmetrical. Breath sounds diminished to bases. HEART: S1, S2. ABDOMEN: Distended, soft. Bowel sounds present. EXTREMITIES: Without cyanosis. SKIN: No jaundice, no cyanosis. ASSESSMENT: 1. Urinary tract infection, recurrent, with urine culture grew Escherichia coli ESBL and Kimberlyn albicans, covered with amikacin and Diflucan. 2. 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 3. Chronic encephalopathy. 4. Dysphagia. 5. Anemia. 6. Ileus PLAN: Clinically unchanged, continue abx, Reglan, GI rec-s staff Problems: Consultation Date/Type/Reason Admit Date/Time Aug 31, 2016 at 22:10 Initial Consult Date 09/01/16 Type of Consultation: ID Referring Provider: ARNULFO BAY DO Exam/Review of Systems Vital Signs Vitals Vital Signs Date Time Temp Pulse Resp B/P Pulse Ox O2 Delivery O2 Flow Rate FiO2 09/06/16 19:52 98.1 89 18 121/59 100 09/06/16 19:25 35 Intake and Output 09/05/16 09/05/16 09/06/16 15:00 23:00 07:00 Intake Total 580 ml 1225 ml Output Total 900 ml 900 ml Balance -320 ml 325 ml Results Result Diagram: 09/06/16 0540 09/06/16 0541 Results 24 hrs Laboratory Tests Test 09/06/16 00:52 09/06/16 05:40 09/06/16 05:41 09/06/16 05:50 Bedside Glucose 112 115 White Blood Count 10.4 Red Blood Count 2.88 L Hemoglobin 8.1 L Hematocrit 26.2 L Mean Corpuscular Volume 91.0 Mean Corpuscular Hemoglobin 28.1 L Mean Corpuscular Hemoglobin Concent 30.9 L Red Cell Distribution Width 15.8 H Platelet Count 219 Mean Platelet Volume 10.8 H Neutrophils % 69.2 Lymphocytes % 16.8 Monocytes % 7.7 Eosinophils % 5.5 Basophils % 0.5 Nucleated Red Blood Cells % 0.0 Neutrophils # 7.2 Lymphocytes # 1.7 Monocytes # 0.8 Eosinophils # 0.6 H Basophils # 0.1 Nucleated Red Blood Cells # 0.0 Sodium Level 132 L Potassium Level 3.6 Chloride Level 96 L Carbon Dioxide Level 30 Anion Gap 10 Blood Urea Nitrogen 11 Creatinine 0.96 Glucose Level 126 Calcium Level 8.5 Phosphorus Level 2.8 Magnesium Level 1.6 L Test 09/06/16 12:31 09/06/16 18:13 Bedside Glucose 97 113 Medications Medications Current Medications Nitroglycerin (Nitroglycerin (Sl Tab) 0.4 Mg) 1 tab Q5M PRN SL CHEST PAIN; Start 09/01/16 at 01:30 Enoxaparin Sodium 30 mg 30 mg DAILY SC Last administered on 09/06/16 09:50; Admin Dose 30 MG; Start 09/01/16 at 09:00 Linezolid (Zyvox 600mg/D5W (Pmx)) 300 ml @ 300 mls/hr Q12 IVPB Last administered on 09/06/16 09:48; Admin Dose 300 MLS/HR; Start 09/01/16 at 09:00 Acetaminophen (Tylenol Tab) 650 mg Q4H PRN GTB MILD PAIN LEVEL 1-3; Start 09/01 at 01:30 Atorvastatin Calcium (Lipitor) 5 mg QHS GTB Last administered on 09/05/16 20: 45; Admin Dose 5 MG; Start 09/01/16 at 21:00 Bisacodyl (Dulcolax Supp) 10 mg DAILY PRN [place] CONSTIPATION; Start 09/01/16 at 01 :30 Chlorhexidine Gluconate (Peridex) 15 ml BID MM Last administered on 09/06/16 09:48; Admin Dose 15 ML; Start 09/01/16 at 09:00 Diphenhydramine HCl (Benadryl) 50 mg Q6H PRN GTB ITCHING; Start 09/01/16 at 01: 30 Docusate Sodium (Colace Liquid Cup) 100 mg DAILY GTB Last administered on 09:49; Admin Dose 100 MG; Start 09/01/16 at 09:00 Lisinopril (Zestril) 2.5 mg DAILY GTB Last administered on 09/01/16 09:00; Admin Dose 2.5 MG; Start 09/01/16 at 09:00; Status Future Hold Lorazepam (Ativan) 1 mg Q6 PRN GTB ANXIETY; Start 09/01/16 at 01:30 Magnesium Hydroxide (Milk Of Mag) 30 ml DAILY PRN GTB CONSTIPATION; Start 09/01 at 01:30 Mineral Oil (Fleet Mineral Oil Enema) 133 ml DAILY PRN [place] CONSTIPATION; Start 09/01/16 at 01:30 Multivitamins/ Minerals (Theragran-M) 1 tab BID GTB Last administered on 09:47; Admin Dose 1 TAB; Start 09/01/16 at 09:00 Famotidine (Pepcid) 20 mg DAILY PO Last administered on 09/06/16 09:48; Admin Dose 20 MG; Start 09/01/16 at 09:00 Levetiracetam (Keppra Liquid) 500 mg Q12H GTB Last administered on 09/06/16 14 :03; Admin Dose 500 MG; Start 09/01/16 at 02:30 Ferrous Sulfate (Feosol Liquid Cup) 300 mg TID GTB Last administered on 14:03; Admin Dose 300 MG; Start 09/01/16 at 09:00 Amikacin Sulfate (Amikacin Iv Per Pharmacy) AMIKACIN PER PHARMACY NOTE XX ; Start 09/01/16 at 15:30 Diagnostic Test (Pha) (Accu-Chek) 1 ea 02 XX ; Start 09/02/16 at 02:00 Miscellaneous Information 1 ea NOTE XX ; Start 09/01/16 at 20:30 Glucose (Glutose) 15 gm Q15M PRN PO DECREASED GLUCOSE; Start 09/01/16 at 20:30 Glucose (Glutose) 22.5 gm Q15M PRN PO DECREASED GLUCOSE; Start 09/01/16 at 20: 30 Dextrose (D50w Syringe) 25 ml Q15M PRN IV DECREASED GLUCOSE; Start 09/01/16 at 20:30 Dextrose (D50w Syringe) 50 ml Q15M PRN IV DECREASED GLUCOSE; Start 09/01/16 at 20:30 Glucagon (Glucagen) 1 mg Q15M PRN IM DECREASED GLUCOSE; Start 09/01/16 at 20:30 Glucose (Glutose) 15 gm Q15M PRN BUCCAL DECREASED GLUCOSE; Start 09/01/16 at 20 :30 Insulin Aspart (Novolog Insulin Pen) NOVOLOG *MODERATE* ALGORITHM Q6 SC ; Start 09/02/16 at 12:00 Fluconazole 100 mg 100 mg DAILY GTB Last administered on 09/06/16 09:47; Admin Dose 100 MG; Start 09/02/16 at 14:00 Amikacin Sulfate/ Sodium Chloride (Amikacin/NS) 103.8 ml @ 102 mls/hr Q48H IVPB Last administered on 09/05/16 18:30; Admin Dose 102 MLS/HR; Start at 18:00 Metoclopramide HCl 10 mg 10 mg Q6H PRN IV VOMITTING Last administered on 14:03; Admin Dose 10 MG; Start 09/03/16 at 06:36 Dextrose/Sodium Chloride (D5-1/2ns) 1,000 ml @ 75 mls/hr [id number] IV Last administered on 09/06/16 03:07; Admin Dose 75 MLS/HR; Start 09/04/16 at 11:00 DEJA ARIAS NP Sep 06, 2016 20:47
[2016-09-07] VITALS (23 sets, daily range): BP systolic 125–152; BP diastolic 58–86; PULSE 73–101; RESP 14–21
[2016-09-07] MEDS: DEXTROSE 5%-0.45% NACL 1,000 ML IV SCH ×4 (00:11→19:00)
[2016-09-07] MEDS: ACCU-CHEK XX SCH (02:00)
[2016-09-07] MEDS: LEVETIRACETAM (100 MG/ML) 5ML CUP GTB SCH ×2 (02:17→13:42)
[2016-09-07] MEDS: INSULIN ASPART [NOVOLOG] 3 ML PEN SC SCH ×4 (06:00→17:14)
[2016-09-07 06:33] LABS: ADD SCAN DIFF NO
[2016-09-07 06:49] LABS: BASOPHIL # 0.1 10^3/ul (0.0-0.1); BASOPHILS % 0.6 % (0.0-2.0); EOSINOPHILS # 0.5 10^3/ul (0.0-0.5); EOSINOPHILS % 4.8 % (0.0-7.0); HEMATOCRIT 28.3 % (42.0-52.0); HEMOGLOBIN 8.8 g/dl (14.0-18.0); LYMPHOCYTES # 2.3 10^3/ul (0.8-2.9); LYMPHOCYTES % 22.1 % (15.0-51.0); MEAN CORPUSCULAR HEMOGLOBIN 28.5 pg (29.0-33.0); MEAN CORPUSCULAR HGB CONC 31.1 g/dl (32.0-37.0); MEAN CORPUSCULAR VOLUME 91.6 fl (82.0-101.0); MEAN PLATELET VOLUME 10.6 fl (7.4-10.4); MONOCYTE # 0.9 10^3/ul (0.3-0.9); MONOCYTES % 8.5 % (0.0-11.0); NEUTROPHIL # 6.6 10^3/ul (1.6-7.5); NEUTROPHILS % 63.5 % (39.0-77.0); PLATELET COUNT 250 10^3/UL (140-415); RED BLOOD COUNT 3.09 10^6/ul (4.70-6.10); RED CELL DISTRIBUTION WIDTH 15.9 % (11.5-14.5); WHITE BLOOD COUNT 10.3 10^3/ul (4.8-10.8)
[2016-09-07 07:06] LABS: CALCIUM 8.2 mg/dl (8.4-10.2); CREATININE 0.97 mg/dl (0.61-1.24); MAGNESIUM 2.2 mg/dl (1.7-2.5); PHOSPHORUS 3.6 mg/dl (2.5-4.9); POTASSIUM 3.9 mmol/L (3.5-5.1)
[2016-09-07] MEDS: ALBUTEROL 18 GM INHALER INH SCH ×6 (07:53→20:58)
[2016-09-07] MEDS: IPRATROPIUM (HFA) 12.9 GM INHALER INH SCH ×4 (07:53→19:04)
[2016-09-07] MEDS: COLISTIMETHATE (25 MG/ML INHAL SYG) NEB SCH ×2 (09:00→19:03)
[2016-09-07] MEDS: CHLORHEXIDINE GLUCONATE 15 ML UD CUP MM SCH ×2 (09:45→21:04)
[2016-09-07] MEDS: FLUCONAZOLE 100 MG TAB GTB SCH (09:45)
[2016-09-07] MEDS: DOCUSATE SODIUM 10 MG/ML (10ML CUP) GTB SCH (09:45)
[2016-09-07] MEDS: FERROUS SULFATE 60 MG/ML 5ML CUP GTB SCH ×3 (09:45→21:04)
[2016-09-07] MEDS: MULTIVITAMINS/MINERALS TAB GTB SCH ×2 (09:45→21:04)
[2016-09-07] MEDS: FAMOTIDINE 20 MG TAB PO SCH (09:45)
[2016-09-07] MEDS: LINEZOLID 600 MG/D5W (PMX) 300 ML IVPB SCH ×2 (09:46→21:08)
--- NOTE | 2016-09-07 10:27 | PN ---
Date/Time of Note Date/Time of Note DATE: 09/07/16 TIME: 10:21 Assessment/Plan VTE Prophylaxis VTE Prophylaxis Intervention: LMWH Lines/Catheters IV Catheter Type (from Nrsg): PICC Line Central line still needed: Yes Urinary Cath still in place: Yes Reason Cath still needed: urinary retention Assessment/Plan Chief Complaint/Hosp Course A/P: 71 M from SN[facility] p/w sepsis and res distress. 1. Sepsis - sec to UTI likely, also possibly PNA. Ucx = + ESBL ecoli and Kimberlyn. Res cx = ESBL ecoli, Citrobacter, and Pseudomonas all positive. C diff neg. - continue current abx per ID rec's, Amikacin, Fluconazole, Colistin, tylenol prn, f/u final cx results. - f/u ID rec's 2. Chronic respiratory failure, ventilator dependent - monitor, f/u pulm rec's, mech vent, abx 3. Atrial fibrillation - rate controlled - monitor HR, 4. Seizure disorder - continue keppra 5. Hypertension - stable, monitor 6. Diabetes - continue ISS 7. Status post tracheostomy and G-tube - this G tube was leaking and it was fixed by GI team earlier - monitor - continue tube feeds, f/u GI rec's. 8. 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 ARF - pre-renal - improved with IVF's - monitor BUN/Cr, IVF's 10. GI ppx - H2 radha Problems: Subjective 24 Hr Interval Summary Free Text/Dictation Pt presently on G tube feeds. Exam/Review of Systems Vital Signs Vitals Vital Signs Date Time Temp Pulse Resp B/P Pulse Ox O2 Delivery O2 Flow Rate FiO2 09/07/16 09:10 76 20 100 35 09/07/16 07:46 99.0 125/58 Intake and Output 09/06/16 09/06/16 09/07/16 15:00 23:00 07:00 Intake Total 300 ml 1500 ml 1490 ml Output Total 950 ml 1650 ml Balance 300 ml 550 ml -160 ml Exam General: lying in bed Eyes: Sclera White, EOMI HENT: Normocephalic/Atraumatic, External Ears/Nose Normal, Moist Mucus Membranes Neck: Supple, trach in place Cardiovascular: Normal Rate, Regular Rhythm, Normal S1 and S2, No Murmur, Pulmonary: Clear to Auscultation Bilaterally, Normal Respiratory Effort, No Rales, Rhonchi or Wheezes Gastrointestinal: Normoactive Bowel Sounds, slightly firm, No Hepatosplenomegaly Appreciated, No Pulsatile Masses Musculoskeletal: Normal Muscle Bulk and Tone Neurological: no focal deficits Integumentary: Normal Moisture and Temperature, Good Turgor, No Jaundice, No Rash Results Result Diagram: 09/07/16 0525 09/07/16 0525 Results 24 hrs Laboratory Tests Test 09/06/16 12:31 09/06/16 18:13 09/07/16 00:08 09/07/16 05:25 Bedside Glucose 97 113 108 White Blood Count 10.3 Red Blood Count 3.09 L Hemoglobin 8.8 L Hematocrit 28.3 L Mean Corpuscular Volume 91.6 Mean Corpuscular Hemoglobin 28.5 L Mean Corpuscular Hemoglobin Concent 31.1 L Red Cell Distribution Width 15.9 H Platelet Count 250 Mean Platelet Volume 10.6 H Neutrophils % 63.5 Lymphocytes % 22.1 Monocytes % 8.5 Eosinophils % 4.8 Basophils % 0.6 Nucleated Red Blood Cells % 0.0 Neutrophils # 6.6 Lymphocytes # 2.3 Monocytes # 0.9 Eosinophils # 0.5 Basophils # 0.1 Nucleated Red Blood Cells # 0.0 Sodium Level 131 L Potassium Level 3.9 Chloride Level 95 L Carbon Dioxide Level 31 Anion Gap 9 Blood Urea Nitrogen 14 Creatinine 0.97 Glucose Level 105 Calcium Level 8.2 L Phosphorus Level 3.6 Magnesium Level 2.2 Test 09/07/16 06:11 Bedside Glucose 105 Medications Medications Current Medications Nitroglycerin (Nitroglycerin (Sl Tab) 0.4 Mg) 1 tab Q5M PRN SL CHEST PAIN; Start 09/01/16 at 01:30 Enoxaparin Sodium 30 mg 30 mg DAILY SC Last administered on 09/06/16 09:50; Admin Dose 30 MG; Start 09/01/16 at 09:00 Linezolid (Zyvox 600mg/D5W (Pmx)) 300 ml @ 300 mls/hr Q12 IVPB Last administered on 09/07/16 09:46; Admin Dose 300 MLS/HR; Start 09/01/16 at 09:00 Acetaminophen (Tylenol Tab) 650 mg Q4H PRN GTB MILD PAIN LEVEL 1-3; Start 09/01 at 01:30 Atorvastatin Calcium (Lipitor) 5 mg QHS GTB Last administered on 09/06/16 20: 43; Admin Dose 5 MG; Start 09/01/16 at 21:00 Bisacodyl (Dulcolax Supp) 10 mg DAILY PRN [place] CONSTIPATION; Start 09/01/16 at 01 :30 Chlorhexidine Gluconate (Peridex) 15 ml BID MM Last administered on 09/07/16 09:45; Admin Dose 15 ML; Start 09/01/16 at 09:00 Diphenhydramine HCl (Benadryl) 50 mg Q6H PRN GTB ITCHING; Start 09/01/16 at 01: 30 Docusate Sodium (Colace Liquid Cup) 100 mg DAILY GTB Last administered on 09:45; Admin Dose 100 MG; Start 09/01/16 at 09:00 Lisinopril (Zestril) 2.5 mg DAILY GTB Last administered on 09/01/16 09:00; Admin Dose 2.5 MG; Start 09/01/16 at 09:00; Status Future Hold Lorazepam (Ativan) 1 mg Q6 PRN GTB ANXIETY; Start 09/01/16 at 01:30 Magnesium Hydroxide (Milk Of Mag) 30 ml DAILY PRN GTB CONSTIPATION; Start 09/01 at 01:30 Mineral Oil (Fleet Mineral Oil Enema) 133 ml DAILY PRN [place] CONSTIPATION; Start 09/01/16 at 01:30 Multivitamins/ Minerals (Theragran-M) 1 tab BID GTB Last administered on 09:45; Admin Dose 1 TAB; Start 09/01/16 at 09:00 Famotidine (Pepcid) 20 mg DAILY PO Last administered on 09/07/16 09:45; Admin Dose 20 MG; Start 09/01/16 at 09:00 Levetiracetam (Keppra Liquid) 500 mg Q12H GTB Last administered on 09/07/16 02 :17; Admin Dose 500 MG; Start 09/01/16 at 02:30 Ferrous Sulfate (Feosol Liquid Cup) 300 mg TID GTB Last administered on 09:45; Admin Dose 300 MG; Start 09/01/16 at 09:00 Amikacin Sulfate (Amikacin Iv Per Pharmacy) AMIKACIN PER PHARMACY NOTE XX ; Start 09/01/16 at 15:30 Diagnostic Test (Pha) (Accu-Chek) 1 ea 02 XX ; Start 09/02/16 at 02:00 Miscellaneous Information 1 ea NOTE XX ; Start 09/01/16 at 20:30 Glucose (Glutose) 15 gm Q15M PRN PO DECREASED GLUCOSE; Start 09/01/16 at 20:30 Glucose (Glutose) 22.5 gm Q15M PRN PO DECREASED GLUCOSE; Start 09/01/16 at 20: 30 Dextrose (D50w Syringe) 25 ml Q15M PRN IV DECREASED GLUCOSE; Start 09/01/16 at 20:30 Dextrose (D50w Syringe) 50 ml Q15M PRN IV DECREASED GLUCOSE; Start 09/01/16 at 20:30 Glucagon (Glucagen) 1 mg Q15M PRN IM DECREASED GLUCOSE; Start 09/01/16 at 20:30 Glucose (Glutose) 15 gm Q15M PRN BUCCAL DECREASED GLUCOSE; Start 09/01/16 at 20 :30 Insulin Aspart (Novolog Insulin Pen) NOVOLOG *MODERATE* ALGORITHM Q6 SC ; Start 09/02/16 at 12:00 Fluconazole 100 mg 100 mg DAILY GTB Last administered on 09/07/16 09:45; Admin Dose 100 MG; Start 09/02/16 at 14:00 Amikacin Sulfate/ Sodium Chloride (Amikacin/NS) 103.8 ml @ 102 mls/hr Q48H IVPB Last administered on 09/05/16 18:30; Admin Dose 102 MLS/HR; Start at 18:00 Metoclopramide HCl 10 mg 10 mg Q6H PRN IV VOMITTING Last administered on 14:03; Admin Dose 10 MG; Start 09/03/16 at 06:36 Dextrose/Sodium Chloride (D5-1/2ns) 1,000 ml @ 75 mls/hr [id number] IV Last administered on 09/07/16 00:11; Admin Dose 75 MLS/HR; Start 09/04/16 at 11:00 SILVANA SCHWARTZ Sep 07, 2016 10:27
[2016-09-07] MEDS: ENOXAPARIN 30 MG/0.3 ML SYG SC SCH (10:34)
--- NOTE | 2016-09-07 14:31 | PN ---
Date/Time of Note Date/Time of Note DATE: 09/07/16 TIME: 14:28 Assessment/Plan VTE Prophylaxis VTE Prophylaxis Intervention: SCD's Lines/Catheters IV Catheter Type (from Nrs): PICC Line Central line still needed: Yes Urinary Cath still in place: Yes Reason Cath still needed: urinary retention Assessment/Plan Assessment/Plan Assessment * Abdominal distension resolved * Ileus resolved * CT abdomen /pelvis 09/03/2016 * 1. Small benign bilateral renal cysts. 2. Atherosclerosis. 3. IVC filter in satisfactory position. 4. Bernstein catheter in the bladder. 5. Gastrostomy tube tip in the stomach. 6. Mildly distended distal small bowel and ascending colon which may indicate ileus. No definite evidence of obstruction. Follow-up advised. 7. Degenerative changes of the spine. * Leaking Gastrostomy Tube resolved * Sepsis * UTI * Ventilator dependent sec to chronic respiratory failure Plan * continue present management Subjective 24 Hr Interval Summary Free Text/Dictation * Course reviewed with RN * patient seen and examined * tolerating g tube feeding Exam/Review of Systems Vital Signs Vitals Vital Signs Date Time Temp Pulse Resp B/P Pulse Ox O2 Delivery O2 Flow Rate FiO2 09/07/16 13:54 79 18 100 35 09/07/16 11:45 99.0 142/78 Intake and Output 09/06/16 09/06/16 09/07/16 15:00 23:00 07:00 Intake Total 300 ml 1500 ml 1490 ml Output Total 950 ml 1650 ml Balance 300 ml 550 ml -160 ml Exam Constitutional: frail Respiratory: diminished breath sounds, normal air movement, other (trach to vent) Cardiovascular: nl pulses, regular rate and rhythm Gastrointestinal: bowel sounds, non-tender, soft Results Result Diagram: 09/07/16 0525 09/07/16 0525 Results 24 hrs Laboratory Tests Test 09/06/16 18:13 09/07/16 00:08 09/07/16 05:25 09/07/16 06:11 Bedside Glucose 113 108 105 White Blood Count 10.3 Red Blood Count 3.09 L Hemoglobin 8.8 L Hematocrit 28.3 L Mean Corpuscular Volume 91.6 Mean Corpuscular Hemoglobin 28.5 L Mean Corpuscular Hemoglobin Concent 31.1 L Red Cell Distribution Width 15.9 H Platelet Count 250 Mean Platelet Volume 10.6 H Neutrophils % 63.5 Lymphocytes % 22.1 Monocytes % 8.5 Eosinophils % 4.8 Basophils % 0.6 Nucleated Red Blood Cells % 0.0 Neutrophils # 6.6 Lymphocytes # 2.3 Monocytes # 0.9 Eosinophils # 0.5 Basophils # 0.1 Nucleated Red Blood Cells # 0.0 Sodium Level 131 L Potassium Level 3.9 Chloride Level 95 L Carbon Dioxide Level 31 Anion Gap 9 Blood Urea Nitrogen 14 Creatinine 0.97 Glucose Level 105 Calcium Level 8.2 L Phosphorus Level 3.6 Magnesium Level 2.2 Test 09/07/16 12:36 Bedside Glucose 101 Medications Medications Current Medications Nitroglycerin (Nitroglycerin (Sl Tab) 0.4 Mg) 1 tab Q5M PRN SL CHEST PAIN; Start 09/01/16 at 01:30 Enoxaparin Sodium 30 mg 30 mg DAILY SC Last administered on 09/07/16 10:34; Admin Dose 30 MG; Start 09/01/16 at 09:00 Linezolid (Zyvox 600mg/D5W (Pmx)) 300 ml @ 300 mls/hr Q12 IVPB Last administered on 09/07/16 09:46; Admin Dose 300 MLS/HR; Start 09/01/16 at 09:00 Acetaminophen (Tylenol Tab) 650 mg Q4H PRN GTB MILD PAIN LEVEL 1-3; Start 09/01 at 01:30 Atorvastatin Calcium (Lipitor) 5 mg QHS GTB Last administered on 09/06/16 20: 43; Admin Dose 5 MG; Start 09/01/16 at 21:00 Bisacodyl (Dulcolax Supp) 10 mg DAILY PRN [place] CONSTIPATION; Start 09/01/16 at 01 :30 Chlorhexidine Gluconate (Peridex) 15 ml BID MM Last administered on 09/07/16 09:45; Admin Dose 15 ML; Start 09/01/16 at 09:00 Diphenhydramine HCl (Benadryl) 50 mg Q6H PRN GTB ITCHING; Start 09/01/16 at 01: 30 Docusate Sodium (Colace Liquid Cup) 100 mg DAILY GTB Last administered on 09:45; Admin Dose 100 MG; Start 09/01/16 at 09:00 Lisinopril (Zestril) 2.5 mg DAILY GTB Last administered on 09/01/16 09:00; Admin Dose 2.5 MG; Start 09/01/16 at 09:00; Status Future Hold Lorazepam (Ativan) 1 mg Q6 PRN GTB ANXIETY; Start 09/01/16 at 01:30 Magnesium Hydroxide (Milk Of Mag) 30 ml DAILY PRN GTB CONSTIPATION; Start 09/01 at 01:30 Mineral Oil (Fleet Mineral Oil Enema) 133 ml DAILY PRN [place]ST[place]; Start 09/01/16 at 01:30 Multivitamins/ Minerals (Theragran-M) 1 tab BID GTB Last administered on 09:45; Admin Dose 1 TAB; Start 09/01/16 at 09:00 Famotidine (Pepcid) 20 mg DAILY PO Last administered on 09/07/16 09:45; Admin Dose 20 MG; Start 09/01/16 at 09:00 Levetiracetam (Keppra Liquid) 500 mg Q12H GTB Last administered on 09/07/16 13 :42; Admin Dose 500 MG; Start 09/01/16 at 02:30 Ferrous Sulfate (Feosol Liquid Cup) 300 mg TID GTB Last administered on 13:42; Admin Dose 300 MG; Start 09/01/16 at 09:00 Amikacin Sulfate (Amikacin Iv Per Pharmacy) AMIKACIN PER PHARMACY NOTE XX ; Start 09/01/16 at 15:30 Diagnostic Test (Pha) (Accu-Chek) 1 ea 02 XX ; Start 09/02/16 at 02:00 Miscellaneous Information 1 ea NOTE XX ; Start 09/01/16 at 20:30 Glucose (Glutose) 15 gm Q15M PRN PO DECREASED GLUCOSE; Start 09/01/16 at 20:30 Glucose (Glutose) 22.5 gm Q15M PRN PO DECREASED GLUCOSE; Start 09/01/16 at 20: 30 Dextrose (D50w Syringe) 25 ml Q15M PRN IV DECREASED GLUCOSE; Start 09/01/16 at 20:30 Dextrose (D50w Syringe) 50 ml Q15M PRN IV DECREASED GLUCOSE; Start 09/01/16 at 20:30 Glucagon (Glucagen) 1 mg Q15M PRN IM DECREASED GLUCOSE; Start 09/01/16 at 20:30 Glucose (Glutose) 15 gm Q15M PRN BUCCAL DECREASED GLUCOSE; Start 09/01/16 at 20 :30 Insulin Aspart (Novolog Insulin Pen) NOVOLOG *MODERATE* ALGORITHM Q6 SC ; Start 09/02/16 at 12:00 Fluconazole 100 mg 100 mg DAILY GTB Last administered on 09/07/16 09:45; Admin Dose 100 MG; Start 09/02/16 at 14:00 Amikacin Sulfate/ Sodium Chloride (Amikacin/NS) 103.8 ml @ 102 mls/hr Q48H IVPB Last administered on 09/05/16 18:30; Admin Dose 102 MLS/HR; Start at 18:00 Metoclopramide HCl 10 mg 10 mg Q6H PRN IV VOMITTING Last administered on 14:03; Admin Dose 10 MG; Start 09/03/16 at 06:36 Dextrose/Sodium Chloride (D5-1/2ns) 1,000 ml @ 75 mls/hr [id number] IV Last administered on 09/07/16 00:11; Admin Dose 75 MLS/HR; Start 09/04/16 at 11:00 BIANKA LEAL MD Sep 07, 2016 14:31
--- NOTE | 2016-09-07 15:05 | CONS ---
Date/Time of Note Date/Time of Note DATE: 09/07/16 TIME: 15:03 Assessment/Plan Assessment/Plan Additional Assessment/Plan Ventilator settings; AC of 14, tidal volume 500, PEEP of 5, 30% FiO2. Assessment recommendations; 1. Patient admitted for UTI and sepsis continue on broad-spectrum antibiotic coverage. 2. Chronic respiratory failure. 3. History of hypertension, seizure disorder, atrial fibrillation or diabetes. 4. History of CVA. 5. Ventilator dependence. Continue current treatment. Patient awaiting transfer to rehab/alf. Consultation Date/Type/Reason Admit Date/Time Aug 31, 2016 at 22:10 Initial Consult Date 09/01/16 Type of Consultation: Pulmonary Referring Provider: ARNULFO BAY DO 24 HR Interval Summary Free Text/Dictation Patient condition stable. Has remained hemodynamically stable. Exam; elderly male, awake but not responsive to any commands. Currently in no distress. Exam/Review of Systems Vital Signs Vitals Vital Signs Date Time Temp Pulse Resp B/P Pulse Ox O2 Delivery O2 Flow Rate FiO2 09/07/16 13:54 79 18 100 35 09/07/16 11:45 99.0 142/78 Intake and Output 09/06/16 09/06/16 09/07/16 15:00 23:00 07:00 Intake Total 300 ml 1500 ml 1490 ml Output Total 950 ml 1650 ml Balance 300 ml 550 ml -160 ml Exam HEENT exam is; supple neck, no JVD. No lymphadenopathy. Midline trachea. Patient is edentulous. Tracheostomy in place with clean insertion site. Pupils are small bilaterally. Chest exam; diminished but clear breath sounds. S1-S2 audible, no murmurs. Irregular rhythm. Abdomen exam is; soft, G-tube in place. No organomegaly. Bowel sounds audible. Extremity exam; no peripheral edema. PUMPER HAND examination; patient is awake but does not follow any commands. Results Result Diagram: 09/07/16 0525 09/07/16 0525 Results 24 hrs Laboratory Tests Test 09/06/16 18:13 09/07/16 00:08 09/07/16 05:25 09/07/16 06:11 Bedside Glucose 113 108 105 White Blood Count 10.3 Red Blood Count 3.09 L Hemoglobin 8.8 L Hematocrit 28.3 L Mean Corpuscular Volume 91.6 Mean Corpuscular Hemoglobin 28.5 L Mean Corpuscular Hemoglobin Concent 31.1 L Red Cell Distribution Width 15.9 H Platelet Count 250 Mean Platelet Volume 10.6 H Neutrophils % 63.5 Lymphocytes % 22.1 Monocytes % 8.5 Eosinophils % 4.8 Basophils % 0.6 Nucleated Red Blood Cells % 0.0 Neutrophils # 6.6 Lymphocytes # 2.3 Monocytes # 0.9 Eosinophils # 0.5 Basophils # 0.1 Nucleated Red Blood Cells # 0.0 Sodium Level 131 L Potassium Level 3.9 Chloride Level 95 L Carbon Dioxide Level 31 Anion Gap 9 Blood Urea Nitrogen 14 Creatinine 0.97 Glucose Level 105 Calcium Level 8.2 L Phosphorus Level 3.6 Magnesium Level 2.2 Test 09/07/16 12:36 Bedside Glucose 101 Medications Medications Current Medications Nitroglycerin (Nitroglycerin (Sl Tab) 0.4 Mg) 1 tab Q5M PRN SL CHEST PAIN; Start 09/01/16 at 01:30 Enoxaparin Sodium 30 mg 30 mg DAILY SC Last administered on 09/07/16 10:34; Admin Dose 30 MG; Start 09/01/16 at 09:00 Linezolid (Zyvox 600mg/D5W (Pmx)) 300 ml @ 300 mls/hr Q12 IVPB Last administered on 09/07/16 09:46; Admin Dose 300 MLS/HR; Start 09/01/16 at 09:00 Acetaminophen (Tylenol Tab) 650 mg Q4H PRN GTB MILD PAIN LEVEL 1-3; Start 09/01 at 01:30 Atorvastatin Calcium (Lipitor) 5 mg QHS GTB Last administered on 09/06/16 20: 43; Admin Dose 5 MG; Start 09/01/16 at 21:00 Bisacodyl (Dulcolax Supp) 10 mg DAILY PRN [place] CONSTIPATION; Start 09/01/16 at 01 :30 Chlorhexidine Gluconate (Peridex) 15 ml BID MM Last administered on 09/07/16 09:45; Admin Dose 15 ML; Start 09/01/16 at 09:00 Diphenhydramine HCl (Benadryl) 50 mg Q6H PRN GTB ITCHING; Start 09/01/16 at 01: 30 Docusate Sodium (Colace Liquid Cup) 100 mg DAILY GTB Last administered on 09:45; Admin Dose 100 MG; Start 09/01/16 at 09:00 Lisinopril (Zestril) 2.5 mg DAILY GTB Last administered on 09/01/16 09:00; Admin Dose 2.5 MG; Start 09/01/16 at 09:00; Status Future Hold Lorazepam (Ativan) 1 mg Q6 PRN GTB ANXIETY; Start 09/01/16 at 01:30 Magnesium Hydroxide (Milk Of Mag) 30 ml DAILY PRN GTB CONSTIPATION; Start 09/01 at 01:30 Mineral Oil (Fleet Mineral Oil Enema) 133 ml DAILY PRN [place] CONSTIPATION; Start 09/01/16 at 01:30 Multivitamins/ Minerals (Theragran-M) 1 tab BID GTB Last administered on 09:45; Admin Dose 1 TAB; Start 09/01/16 at 09:00 Famotidine (Pepcid) 20 mg DAILY PO Last administered on 09/07/16 09:45; Admin Dose 20 MG; Start 09/01/16 at 09:00 Levetiracetam (Keppra Liquid) 500 mg Q12H GTB Last administered on 09/07/16 13 :42; Admin Dose 500 MG; Start 09/01/16 at 02:30 Ferrous Sulfate (Feosol Liquid Cup) 300 mg TID GTB Last administered on 13:42; Admin Dose 300 MG; Start 09/01/16 at 09:00 Amikacin Sulfate (Amikacin Iv Per Pharmacy) AMIKACIN PER PHARMACY NOTE XX ; Start 09/01/16 at 15:30 Diagnostic Test (Pha) (Accu-Chek) 1 ea 02 XX ; Start 09/02/16 at 02:00 Miscellaneous Information 1 ea NOTE XX ; Start 09/01/16 at 20:30 Glucose (Glutose) 15 gm Q15M PRN PO DECREASED GLUCOSE; Start 09/01/16 at 20:30 Glucose (Glutose) 22.5 gm Q15M PRN PO DECREASED GLUCOSE; Start 09/01/16 at 20: 30 Dextrose (D50w Syringe) 25 ml Q15M PRN IV DECREASED GLUCOSE; Start 09/01/16 at 20:30 Dextrose (D50w Syringe) 50 ml Q15M PRN IV DECREASED GLUCOSE; Start 09/01/16 at 20:30 Glucagon (Glucagen) 1 mg Q15M PRN IM DECREASED GLUCOSE; Start 09/01/16 at 20:30 Glucose (Glutose) 15 gm Q15M PRN BUCCAL DECREASED GLUCOSE; Start 09/01/16 at 20 :30 Insulin Aspart (Novolog Insulin Pen) NOVOLOG *MODERATE* ALGORITHM Q6 SC ; Start 09/02/16 at 12:00 Fluconazole 100 mg 100 mg DAILY GTB Last administered on 09/07/16 09:45; Admin Dose 100 MG; Start 09/02/16 at 14:00 Amikacin Sulfate/ Sodium Chloride (Amikacin/NS) 103.8 ml @ 102 mls/hr Q48H IVPB Last administered on 09/05/16 18:30; Admin Dose 102 MLS/HR; Start at 18:00 Metoclopramide HCl 10 mg 10 mg Q6H PRN IV VOMITTING Last administered on 14:03; Admin Dose 10 MG; Start 09/03/16 at 06:36 Dextrose/Sodium Chloride (D5-1/2ns) 1,000 ml @ 75 mls/hr [id number] IV Last administered on 09/07/16 00:11; Admin Dose 75 MLS/HR; Start 09/04/16 at 11:00 AUGUST TERAN Sep 07, 2016 15:05
[2016-09-07] MEDS: AMIKACIN 950 MG in SOD CHLORIDE 0.9% 100 ML IVPB SCH (17:57)
--- NOTE | 2016-09-07 20:19 | CONS ---
Date/Time of Note Date/Time of Note DATE: 09/07/16 TIME: 20:18 Assessment/Plan Assessment/Plan Chief Complaint/Hosp Course SUBJECTIVE: No acute events, no fevers/vomiting/diarrhea, tolerates TF, nad ANTIMICROBIALS: 1. Amikacin 2. Fluconazole. 3. [place] INH INDWELLINGS: Trach, PEG, Bernstein. PHYSICAL EXAMINATION: GENERAL: Fragile, elderly man in no distress. HEENT: Head atraumatic, normocephalic. Sclerae anicteric. Buccal mucosa dry. NECK: Supple. Tracheostomy present. CHEST: Rise symmetrical. Breath sounds diminished to bases. HEART: S1, S2. ABDOMEN: Distended, soft. Bowel sounds present. EXTREMITIES: Without cyanosis. SKIN: No jaundice, no cyanosis. ASSESSMENT: 1. Urinary tract infection, recurrent, with urine culture grew Escherichia coli ESBL and Kimber[place] albicans, covered with amikacin and Diflucan. 2. 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 3. Chronic encephalopathy. 4. Dysphagia. 5. Anemia. 6. Ileus PLAN: Clinically unchanged, stable, continue abx, pulmonary/GI rec-s [facility] staff Problems: Consultation Date/Type/Reason Admit Date/Time Aug 31, 2016 at 22:10 Initial Consult Date 09/01/16 Type of Consultation: ID Referring Provider: ARNULFO BAY DO Exam/Review of Systems Vital Signs Vitals Vital Signs Date Time Temp Pulse Resp B/P Pulse Ox O2 Delivery O2 Flow Rate FiO2 09/07/16 19:05 77 14 100 35 09/07/16 15:50 98.8 152/86 Intake and Output 09/06/16 09/06/16 09/07/16 15:00 23:00 07:00 Intake Total 300 ml 1500 ml 1490 ml Output Total 950 ml 1650 ml Balance 300 ml 550 ml -160 ml Results Result Diagram: 09/07/16 0525 09/07/16 0525 Results 24 hrs Laboratory Tests Test 09/07/16 00:08 09/07/16 05:25 09/07/16 06:11 09/07/16 12:36 Bedside Glucose 108 105 101 White Blood Count 10.3 Red Blood Count 3.09 L Hemoglobin 8.8 L Hematocrit 28.3 L Mean Corpuscular Volume 91.6 Mean Corpuscular Hemoglobin 28.5 L Mean Corpuscular Hemoglobin Concent 31.1 L Red Cell Distribution Width 15.9 H Platelet Count 250 Mean Platelet Volume 10.6 H Neutrophils % 63.5 Lymphocytes % 22.1 Monocytes % 8.5 Eosinophils % 4.8 Basophils % 0.6 Nucleated Red Blood Cells % 0.0 Neutrophils # 6.6 Lymphocytes # 2.3 Monocytes # 0.9 Eosinophils # 0.5 Basophils # 0.1 Nucleated Red Blood Cells # 0.0 Sodium Level 131 L Potassium Level 3.9 Chloride Level 95 L Carbon Dioxide Level 31 Anion Gap 9 Blood Urea Nitrogen 14 Creatinine 0.97 Glucose Level 105 Calcium Level 8.2 L Phosphorus Level 3.6 Magnesium Level 2.2 Test 09/07/16 17:12 Bedside Glucose 90 Medications Medications Current Medications Nitroglycerin (Nitroglycerin (Sl Tab) 0.4 Mg) 1 tab Q5M PRN SL CHEST PAIN; Start 09/01/16 at 01:30 Enoxaparin Sodium 30 mg 30 mg DAILY SC Last administered on 09/07/16 10:34; Admin Dose 30 MG; Start 09/01/16 at 09:00 Linezolid (Zyvox 600mg/D5W (Pmx)) 300 ml @ 300 mls/hr Q12 IVPB Last administered on 09/07/16 09:46; Admin Dose 300 MLS/HR; Start 09/01/16 at 09:00 Acetaminophen (Tylenol Tab) 650 mg Q4H PRN GTB MILD PAIN LEVEL 1-3; Start 09/01 at 01:30 Atorvastatin Calcium (Lipitor) 5 mg QHS GTB Last administered on 09/06/16 20: 43; Admin Dose 5 MG; Start 09/01/16 at 21:00 Bisacodyl (Dulcolax Supp) 10 mg DAILY PRN [place] CONSTIPATION; Start 09/01/16 at 01 :30 Chlorhexidine Gluconate (Peridex) 15 ml BID MM Last administered on 09/07/16 09:45; Admin Dose 15 ML; Start 09/01/16 at 09:00 Diphenhydramine HCl (Benadryl) 50 mg Q6H PRN GTB ITCHING; Start 09/01/16 at 01: 30 Docusate Sodium (Colace Liquid Cup) 100 mg DAILY GTB Last administered on 09:45; Admin Dose 100 MG; Start 09/01/16 at 09:00 Lisinopril (Zestril) 2.5 mg DAILY GTB Last administered on 09/01/16 09:00; Admin Dose 2.5 MG; Start 09/01/16 at 09:00; Status Future Hold Lorazepam (Ativan) 1 mg Q6 PRN GTB ANXIETY; Start 09/01/16 at 01:30 Magnesium Hydroxide (Milk Of Mag) 30 ml DAILY PRN GTB CONSTIPATION; Start 09/01 at 01:30 Mineral Oil (Fleet Mineral Oil Enema) 133 ml DAILY PRN [place] CONSTIPATION; Start 09/01/16 at 01:30 Multivitamins/ Minerals (Theragran-M) 1 tab BID GTB Last administered on 09:45; Admin Dose 1 TAB; Start 09/01/16 at 09:00 Famotidine (Pepcid) 20 mg DAILY PO Last administered on 09/07/16 09:45; Admin Dose 20 MG; Start 09/01/16 at 09:00 Levetiracetam (Keppra Liquid) 500 mg Q12H GTB Last administered on 09/07/16 13 :42; Admin Dose 500 MG; Start 09/01/16 at 02:30 Ferrous Sulfate (Feosol Liquid Cup) 300 mg TID GTB Last administered on 13:42; Admin Dose 300 MG; Start 09/01/16 at 09:00 Amikacin Sulfate (Amikacin Iv Per Pharmacy) AMIKACIN PER PHARMACY NOTE XX ; Start 09/01/16 at 15:30 Diagnostic Test (Pha) (Accu-Chek) 1 ea 02 XX ; Start 09/02/16 at 02:00 Miscellaneous Information 1 ea NOTE XX ; Start 09/01/16 at 20:30 Glucose (Glutose) 15 gm Q15M PRN PO DECREASED GLUCOSE; Start 09/01/16 at 20:30 Glucose (Glutose) 22.5 gm Q15M PRN PO DECREASED GLUCOSE; Start 09/01/16 at 20: 30 Dextrose (D50w Syringe) 25 ml Q15M PRN IV DECREASED GLUCOSE; Start 09/01/16 at 20:30 Dextrose (D50w Syringe) 50 ml Q15M PRN IV DECREASED GLUCOSE; Start 09/01/16 at 20:30 Glucagon (Glucagen) 1 mg Q15M PRN IM DECREASED GLUCOSE; Start 09/01/16 at 20:30 Glucose (Glutose) 15 gm Q15M PRN BUCCAL DECREASED GLUCOSE; Start 09/01/16 at 20 :30 Insulin Aspart (Novolog Insulin Pen) NOVOLOG *MODERATE* ALGORITHM Q6 SC ; Start 09/02/16 at 12:00 Fluconazole 100 mg 100 mg DAILY GTB Last administered on 09/07/16 09:45; Admin Dose 100 MG; Start 09/02/16 at 14:00 Amikacin Sulfate/ Sodium Chloride (Amikacin/NS) 103.8 ml @ 102 mls/hr Q48H IVPB Last administered on 09/07/16 17:57; Admin Dose 102 MLS/HR; Start at 18:00 Metoclopramide HCl 10 mg 10 mg Q6H PRN IV VOMITTING Last administered on 14:03; Admin Dose 10 MG; Start 09/03/16 at 06:36 Dextrose/Sodium Chloride (D5-1/2ns) 1,000 ml @ 75 mls/hr [id number] IV Last administered on 09/07/16 17:16; Admin Dose 75 MLS/HR; Start 09/04/16 at 11:00 DEJA ARIAS NP Sep 07, 2016 20:19
[2016-09-07] MEDS: ATORVASTATIN 10 MG TAB GTB SCH (21:04)
[2016-09-08] VITALS (24 sets, daily range): BP systolic 129–160; BP diastolic 67–82; PULSE 77–88; RESP 14–22
[2016-09-08] MEDS: ACCU-CHEK XX SCH (02:18)
[2016-09-08] MEDS: LEVETIRACETAM (100 MG/ML) 5ML CUP GTB SCH ×2 (02:37→14:27)
[2016-09-08] MEDS: INSULIN ASPART [NOVOLOG] 3 ML PEN SC SCH ×5 (05:54→23:45)
[2016-09-08 06:04] LABS: ADD SCAN DIFF NO
[2016-09-08 06:10] LABS: BASOPHIL # 0.1 10^3/ul (0.0-0.1); BASOPHILS % 0.4 % (0.0-2.0); EOSINOPHILS # 0.4 10^3/ul (0.0-0.5); EOSINOPHILS % 3.4 % (0.0-7.0); HEMATOCRIT 25.3 % (42.0-52.0); HEMOGLOBIN 8.1 g/dl (14.0-18.0); LYMPHOCYTES # 1.9 10^3/ul (0.8-2.9); LYMPHOCYTES % 16.4 % (15.0-51.0); MEAN CORPUSCULAR HEMOGLOBIN 29.3 pg (29.0-33.0); MEAN CORPUSCULAR VOLUME 91.7 fl (82.0-101.0); MEAN PLATELET VOLUME 10.3 fl (7.4-10.4); MONOCYTE # 0.8 10^3/ul (0.3-0.9); MONOCYTES % 7.2 % (0.0-11.0); NEUTROPHIL # 8.3 10^3/ul (1.6-7.5); NEUTROPHILS % 72.3 % (39.0-77.0); PLATELET COUNT 214 10^3/UL (140-415); RED BLOOD COUNT 2.76 10^6/ul (4.70-6.10); WHITE BLOOD COUNT 11.5 10^3/ul (4.8-10.8)
[2016-09-08 07:36] LABS: CALCIUM 7.5 mg/dl (8.4-10.2); CREATININE 0.8 mg/dl (0.61-1.24); POTASSIUM 3.5 mmol/L (3.5-5.1)
[2016-09-08] MEDS: IPRATROPIUM (HFA) 12.9 GM INHALER INH SCH ×4 (07:37→19:56)
[2016-09-08] MEDS: FERROUS SULFATE 60 MG/ML 5ML CUP GTB SCH ×3 (08:14→20:45)
[2016-09-08] MEDS: FLUCONAZOLE 100 MG TAB GTB SCH (08:14)
[2016-09-08] MEDS: DOCUSATE SODIUM 10 MG/ML (10ML CUP) GTB SCH (08:14)
[2016-09-08] MEDS: MULTIVITAMINS/MINERALS TAB GTB SCH ×2 (08:14→20:45)
[2016-09-08] MEDS: CHLORHEXIDINE GLUCONATE 15 ML UD CUP MM SCH ×2 (08:14→20:45)
[2016-09-08] MEDS: LINEZOLID 600 MG/D5W (PMX) 300 ML IVPB SCH ×2 (08:14→20:45)
[2016-09-08] MEDS: DEXTROSE 5%-0.45% NACL 1,000 ML IV SCH (08:17)
[2016-09-08] MEDS: FAMOTIDINE 20 MG TAB PO SCH (08:17)
[2016-09-08] MEDS: ENOXAPARIN 30 MG/0.3 ML SYG SC SCH (08:20)
[2016-09-08] MEDS: COLISTIMETHATE (25 MG/ML INHAL SYG) NEB SCH ×2 (09:12→20:02)
[2016-09-08] MEDS: ALBUTEROL 18 GM INHALER INH SCH ×4 (09:12→19:57)
[2016-09-08 11:39] LABS: CALCIUM 8.1 mg/dl (8.4-10.2); CREATININE 0.86 mg/dl (0.61-1.24); POTASSIUM 3.9 mmol/L (3.5-5.1)
--- NOTE | 2016-09-08 13:51 | CONS ---
Date/Time of Note Date/Time of Note DATE: 09/08/16 TIME: 13:49 Consult Date/Type/Reason Admit Date/Time Aug 31, 2016 at 22:10 Initial Consult Date 09/01/16 Type of Consultation: pulmonary Ordering Provider: ARNULFO BAY DO Subjective Patient appears comfortable on mechanical ventilation no respiratory distress Objective Vital Signs Date Time Temp Pulse Resp B/P Pulse Ox O2 Delivery O2 Flow Rate FiO2 09/08/16 13:05 82 22 98 30 09/08/16 11:08 99.1 150/77 Intake and Output 09/07/16 09/07/16 09/08/16 15:00 23:00 07:00 Intake Total 300 ml 1770 ml 2045 ml Output Total 1800 ml 2000 ml Balance 300 ml -30 ml 45 ml Exam PHYSICAL EXAMINATION GENERAL: Elderly gentleman, on mechanical ventilation appears comfortable at rest VITAL SIGNS: see below. HEENT: Pupils equal, round, and reactive to light. Tracheostomy site clean and intact. CARDIAC: S1, S2, 1/6 systolic ejection murmur CHEST: Diminished air entry bilaterally. ABDOMEN: Mildly distended. Bowel sounds present no guarding or rebound EXTREMITIES: No cyanosis, clubbing or edema. NEUROLOGIC: Unable to assess Results/Medications Result Diagram: 09/08/16 0550 09/08/16 0820 Results 24 hrs Laboratory Tests Test 09/07/16 17:12 09/08/16 01:22 09/08/16 05:49 09/08/16 05:50 Bedside Glucose 90 112 123 White Blood Count 11.5 H Red Blood Count 2.76 L Hemoglobin 8.1 L Hematocrit 25.3 L Mean Corpuscular Volume 91.7 Mean Corpuscular Hemoglobin 29.3 Mean Corpuscular Hemoglobin Concent 32.0 Red Cell Distribution Width 16.0 H Platelet Count 214 Mean Platelet Volume 10.3 Neutrophils % 72.3 Lymphocytes % 16.4 Monocytes % 7.2 Eosinophils % 3.4 Basophils % 0.4 Nucleated Red Blood Cells % 0.0 Neutrophils # 8.3 H Lymphocytes # 1.9 Monocytes # 0.8 Eosinophils # 0.4 Basophils # 0.1 Nucleated Red Blood Cells # 0.0 Test 09/08/16 08:02 09/08/16 08:20 09/08/16 10:32 09/08/16 11:33 Bedside Glucose 125 121 Sodium Level 129 L Potassium Level 3.9 Chloride Level 91 L Carbon Dioxide Level 32 H Anion Gap 10 Blood Urea Nitrogen 18 Creatinine 0.86 Glucose Level 140 # Calcium Level 8.1 L Lab Scanned Report REFERENCE LAB Medications Current Medications Nitroglycerin (Nitroglycerin (Sl Tab) 0.4 Mg) 1 tab Q5M PRN SL CHEST PAIN; Start 09/01/16 at 01:30 Enoxaparin Sodium 30 mg 30 mg DAILY SC Last administered on 09/08/16 08:20; Admin Dose 30 MG; Start 09/01/16 at 09:00 Linezolid (Zyvox 600mg/D5W (Pmx)) 300 ml @ 300 mls/hr Q12 IVPB Last administered on 09/08/16 08:14; Admin Dose 300 MLS/HR; Start 09/01/16 at 09:00 Acetaminophen (Tylenol Tab) 650 mg Q4H PRN GTB MILD PAIN LEVEL 1-3; Start 09/01 at 01:30 Atorvastatin Calcium (Lipitor) 5 mg QHS GTB Last administered on 09/07/16 21: 04; Admin Dose 5 MG; Start 09/01/16 at 21:00 Bisacodyl (Dulcolax Supp) 10 mg DAILY PRN [place] CONSTIPATION; Start 09/01/16 at 01 :30 Chlorhexidine Gluconate (Peridex) 15 ml BID MM Last administered on 09/08/16 08:14; Admin Dose 15 ML; Start 09/01/16 at 09:00 Diphenhydramine HCl (Benadryl) 50 mg Q6H PRN GTB ITCHING; Start 09/01/16 at 01: 30 Docusate Sodium (Colace Liquid Cup) 100 mg DAILY GTB Last administered on 08:14; Admin Dose 100 MG; Start 09/01/16 at 09:00 Lisinopril (Zestril) 2.5 mg DAILY GTB Last administered on 09/01/16 09:00; Admin Dose 2.5 MG; Start 09/01/16 at 09:00; Status Future Hold Lorazepam (Ativan) 1 mg Q6 PRN GTB ANXIETY; Start 09/01/16 at 01:30 Magnesium Hydroxide (Milk Of Mag) 30 ml DAILY PRN GTB CONSTIPATION; Start 09/01 at 01:30 Mineral Oil (Fleet Mineral Oil Enema) 133 ml DAILY PRN [place] CONSTIPATION; Start 09/01/16 at 01:30 Multivitamins/ Minerals (Theragran-M) 1 tab BID GTB Last administered on 08:14; Admin Dose 1 TAB; Start 09/01/16 at 09:00 Famotidine (Pepcid) 20 mg DAILY PO Last administered on 09/08/16 08:17; Admin Dose 20 MG; Start 09/01/16 at 09:00 Levetiracetam (Keppra Liquid) 500 mg Q12H GTB Last administered on 09/08/16 02 :37; Admin Dose 500 MG; Start 09/01/16 at 02:30 Ferrous Sulfate (Feosol Liquid Cup) 300 mg TID GTB Last administered on 13:48; Admin Dose 300 MG; Start 09/01/16 at 09:00 Amikacin Sulfate (Amikacin Iv Per Pharmacy) AMIKACIN PER PHARMACY NOTE XX ; Start 09/01/16 at 15:30 Diagnostic Test (Pha) (Accu-Chek) 1 ea 02 XX Last administered on 09/08/16 02: 18; Admin Dose 1 EA; Start 09/02/16 at 02:00 Miscellaneous Information 1 ea NOTE XX ; Start 09/01/16 at 20:30 Glucose (Glutose) 15 gm Q15M PRN PO DECREASED GLUCOSE; Start 09/01/16 at 20:30 Glucose (Glutose) 22.5 gm Q15M PRN PO DECREASED GLUCOSE; Start 09/01/16 at 20: 30 Dextrose (D50w Syringe) 25 ml Q15M PRN IV DECREASED GLUCOSE; Start 09/01/16 at 20:30 Dextrose (D50w Syringe) 50 ml Q15M PRN IV DECREASED GLUCOSE; Start 09/01/16 at 20:30 Glucagon (Glucagen) 1 mg Q15M PRN IM DECREASED GLUCOSE; Start 09/01/16 at 20:30 Glucose (Glutose) 15 gm Q15M PRN BUCCAL DECREASED GLUCOSE; Start 09/01/16 at 20 :30 Insulin Aspart (Novolog Insulin Pen) NOVOLOG *MODERATE* ALGORITHM Q6 SC ; Start 09/02/16 at 12:00 Fluconazole 100 mg 100 mg DAILY GTB Last administered on 09/08/16 08:14; Admin Dose 100 MG; Start 09/02/16 at 14:00 Amikacin Sulfate/ Sodium Chloride (Amikacin/NS) 103.8 ml @ 102 mls/hr Q48H IVPB Last administered on 09/07/16 17:57; Admin Dose 102 MLS/HR; Start at 18:00 Metoclopramide HCl 10 mg 10 mg Q6H PRN IV VOMITTING Last administered on 14:03; Admin Dose 10 MG; Start 09/03/16 at 06:36 Dextrose/Sodium Chloride (D5-1/2ns) 1,000 ml @ 75 mls/hr [id number] IV Last administered on 09/08/16 08:17; Admin Dose 75 MLS/HR; Start 09/04/16 at 11:00 Assessment/Plan Chief Complaint/Hosp Course Assessment 1. Vent dependent respiratory failure 2. Polymicrobial sepsis 3. Anemia likely of chronic disease 4. Dysphagia with G-tube 5. History of CVA 6. Hyponatremia Plan 1. Continue antibiotics 2. Continue mechanical ventilation 3. Monitor electrolytes 4. Tube feeding as tolerated 5. Consider DC IV fluids 6. Consider transfusion 1 unit packed red blood cells Disposition Consider Irizarry evaluation Problems: FEMI EL MD, [facility] Sep 08, 2016 13:51
--- NOTE | 2016-09-08 15:16 | PN ---
Date/Time of Note Date/Time of Note DATE: 09/08/16 TIME: 15:09 Assessment/Plan VTE Prophylaxis VTE Prophylaxis Intervention: LMWH Lines/Catheters IV Catheter Type (from Nrsg): PICC Line Central line still needed: Yes Urinary Cath still in place: Yes Reason Cath still needed: other (indicate) Assessment/Plan Assessment/Plan 71 M from [facility] p/w sepsis and res distress. 1. Sepsis - sec to UTI /P NA. * Ucx = + ESBL ecoli and Kimberlyn. * Res cx = ESBL ecoli, Citrobacter, and Pseudomonas all positive. 2. Chronic respiratory failure, ventilator dependent 3. Atrial fibrillation - rate controlled - monitor HR, 4. Seizure disorder - continue keppra 5. Hypertension - stable, monitor 6. Diabetes - continue ISS 7. Status post tracheostomy 8. Leaking G-tube: resolved 8. 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 ARF - improved 10. 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 Hyponatremia PLAN Continue current regimen / patient is stable and without fever D/c IVF as patient is also getting free water q6h Case mgt working on placement Continue supportive care PROPHYLAXIS: PPI / lovenox Exam/Review of Systems Vital Signs Vitals Vital Signs Date Time Temp Pulse Resp B/P Pulse Ox O2 Delivery O2 Flow Rate FiO2 09/08/16 13:05 82 22 98 30 09/08/16 11:08 99.1 150/77 Intake and Output 09/07/16 09/07/16 09/08/16 15:00 23:00 07:00 Intake Total 300 ml 1770 ml 2045 ml Output Total 1800 ml 2000 ml Balance 300 ml -30 ml 45 ml Exam Constitutional: non-verbal, other (obese, elderly, Patient barely responsive, not following commands or tracking), Eyes open spontaneously, No oriented, No distress Psych: other (unable to assess) Head: normocephalic, atraumatic Eyes: PERRL, No icteric ENMT: No mucosa pink and moist (dry) Neck: non-tender Respiratory: diminished breath sounds, No labored breathing Cardiovascular: regular rate and rhythm, No murmurs/extra sounds Gastrointestinal: soft, non-tender, bowel sounds, other (PEG tube noted with no cellulitis or discharge) Genitourinary - Female: nl external genitalia Extremities: Chronically contracted Neurological: lethargic, other (altered, eyes opening spontaneously but no tracking or following commands), No nl mental status, No nl speech, No nl strength Results Result Diagram: 09/08/16 0550 09/08/16 0820 Results 24 hrs Laboratory Tests Test 09/07/16 17:12 09/08/16 01:22 09/08/16 05:49 09/08/16 05:50 Bedside Glucose 90 112 123 White Blood Count 11.5 H Red Blood Count 2.76 L Hemoglobin 8.1 L Hematocrit 25.3 L Mean Corpuscular Volume 91.7 Mean Corpuscular Hemoglobin 29.3 Mean Corpuscular Hemoglobin Concent 32.0 Red Cell Distribution Width 16.0 H Platelet Count 214 Mean Platelet Volume 10.3 Neutrophils % 72.3 Lymphocytes % 16.4 Monocytes % 7.2 Eosinophils % 3.4 Basophils % 0.4 Nucleated Red Blood Cells % 0.0 Neutrophils # 8.3 H Lymphocytes # 1.9 Monocytes # 0.8 Eosinophils # 0.4 Basophils # 0.1 Nucleated Red Blood Cells # 0.0 Test 09/08/16 08:02 09/08/16 08:20 09/08/16 10:32 09/08/16 11:33 Bedside Glucose 125 121 Sodium Level 129 L Potassium Level 3.9 Chloride Level 91 L Carbon Dioxide Level 32 H Anion Gap 10 Blood Urea Nitrogen 18 Creatinine 0.86 Glucose Level 140 # Calcium Level 8.1 L Lab Scanned Report REFERENCE LAB Medications Medications Current Medications Nitroglycerin (Nitroglycerin (Sl Tab) 0.4 Mg) 1 tab Q5M PRN SL CHEST PAIN; Start 09/01/16 at 01:30 Enoxaparin Sodium 30 mg 30 mg DAILY SC Last administered on 09/08/16 08:20; Admin Dose 30 MG; Start 09/01/16 at 09:00 Linezolid (Zyvox 600mg/D5W (Pmx)) 300 ml @ 300 mls/hr Q12 IVPB Last administered on 09/08/16 08:14; Admin Dose 300 MLS/HR; Start 09/01/16 at 09:00 Acetaminophen (Tylenol Tab) 650 mg Q4H PRN GTB MILD PAIN LEVEL 1-3; Start 09/01 at 01:30 Atorvastatin Calcium (Lipitor) 5 mg QHS GTB Last administered on 09/07/16 21: 04; Admin Dose 5 MG; Start 09/01/16 at 21:00 Bisacodyl (Dulcolax Supp) 10 mg DAILY PRN [place] CONSTIPATION; Start 09/01/16 at 01 :30 Chlorhexidine Gluconate (Peridex) 15 ml BID MM Last administered on 09/08/16 08:14; Admin Dose 15 ML; Start 09/01/16 at 09:00 Diphenhydramine HCl (Benadryl) 50 mg Q6H PRN GTB ITCHING; Start 09/01/16 at 01: 30 Docusate Sodium (Colace Liquid Cup) 100 mg DAILY GTB Last administered on 08:14; Admin Dose 100 MG; Start 09/01/16 at 09:00 Lisinopril (Zestril) 2.5 mg DAILY GTB Last administered on 09/01/16 09:00; Admin Dose 2.5 MG; Start 09/01/16 at 09:00; Status Future Hold Lorazepam (Ativan) 1 mg Q6 PRN GTB ANXIETY; Start 09/01/16 at 01:30 Magnesium Hydroxide (Milk Of Mag) 30 ml DAILY PRN GTB CONSTIPATION; Start 09/01 at 01:30 Mineral Oil (Fleet Mineral Oil Enema) 133 ml DAILY PRN [place] CONSTIPATION; Start 09/01/16 at 01:30 Multivitamins/ Minerals (Theragran-M) 1 tab BID GTB Last administered on 08:14; Admin Dose 1 TAB; Start 09/01/16 at 09:00 Famotidine (Pepcid) 20 mg DAILY PO Last administered on 09/08/16 08:17; Admin Dose 20 MG; Start 09/01/16 at 09:00 Levetiracetam (Keppra Liquid) 500 mg Q12H GTB Last administered on 09/08/16 14 :27; Admin Dose 500 MG; Start 09/01/16 at 02:30 Ferrous Sulfate (Feosol Liquid Cup) 300 mg TID GTB Last administered on 13:48; Admin Dose 300 MG; Start 09/01/16 at 09:00 Amikacin Sulfate (Amikacin Iv Per Pharmacy) AMIKACIN PER PHARMACY NOTE XX ; Start 09/01/16 at 15:30 Diagnostic Test (Pha) (Accu-Chek) 1 ea 02 XX Last administered on 09/08/16 02: 18; Admin Dose 1 EA; Start 09/02/16 at 02:00 Miscellaneous Information 1 ea NOTE XX ; Start 09/01/16 at 20:30 Glucose (Glutose) 15 gm Q15M PRN PO DECREASED GLUCOSE; Start 09/01/16 at 20:30 Glucose (Glutose) 22.5 gm Q15M PRN PO DECREASED GLUCOSE; Start 09/01/16 at 20: 30 Dextrose (D50w Syringe) 25 ml Q15M PRN IV DECREASED GLUCOSE; Start 09/01/16 at 20:30 Dextrose (D50w Syringe) 50 ml Q15M PRN IV DECREASED GLUCOSE; Start 09/01/16 at 20:30 Glucagon (Glucagen) 1 mg Q15M PRN IM DECREASED GLUCOSE; Start 09/01/16 at 20:30 Glucose (Glutose) 15 gm Q15M PRN BUCCAL DECREASED GLUCOSE; Start 09/01/16 at 20 :30 Insulin Aspart (Novolog Insulin Pen) NOVOLOG *MODERATE* ALGORITHM Q6 SC ; Start 09/02/16 at 12:00 Fluconazole 100 mg 100 mg DAILY GTB Last administered on 09/08/16 08:14; Admin Dose 100 MG; Start 09/02/16 at 14:00 Amikacin Sulfate/ Sodium Chloride (Amikacin/NS) 103.8 ml @ 102 mls/hr Q48H IVPB Last administered on 09/07/16 17:57; Admin Dose 102 MLS/HR; Start at 18:00 Metoclopramide HCl 10 mg 10 mg Q6H PRN IV VOMITTING Last administered on 14:03; Admin Dose 10 MG; Start 09/03/16 at 06:36 Dextrose/Sodium Chloride (D5-1/2ns) 1,000 ml @ 75 mls/hr [id number] IV Last administered on 09/08/16 08:17; Admin Dose 75 MLS/HR; Start 09/04/16 at 11:00 MINESH JOLLEY Sep 08, 2016 15:16
--- NOTE | 2016-09-08 15:18 | PN ---
Date/Time of Note Date/Time of Note DATE: 09/08/16 TIME: 15:13 Assessment/Plan VTE Prophylaxis VTE Prophylaxis Intervention: SCD's Lines/Catheters IV Catheter Type (from Nrs): PICC Line Central line still needed: Yes Urinary Cath still in place: Yes Reason Cath still needed: urinary retention Assessment/Plan Assessment/Plan Abdominal distension resolved * Ileus resolved * CT abdomen /pelvis 09/03/2016 * 1. Small benign bilateral renal cysts. 2. Atherosclerosis. 3. IVC filter in satisfactory position. 4. Bernstein catheter in the bladder. 5. Gastrostomy tube tip in the stomach. 6. Mildly distended distal small bowel and ascending colon which may indicate ileus. No definite evidence of obstruction. Follow-up advised. 7. Degenerative changes of the spine. * Leaking Gastrostomy Tube resolved * Sepsis * UTI * Ventilator dependent sec to chronic respiratory failure Plan * continue present management * stable from GI point of view Subjective 24 Hr Interval Summary Free Text/Dictation * Course reviewed with RN * patient seen and examined * Tolerating g tube feeding no residuals Exam/Review of Systems Vital Signs Vitals Vital Signs Date Time Temp Pulse Resp B/P Pulse Ox O2 Delivery O2 Flow Rate FiO2 09/08/16 15:09 98.8 74 19 139/67 98 09/08/16 13:05 30 Intake and Output 09/07/16 09/07/16 09/08/16 15:00 23:00 07:00 Intake Total 300 ml 1770 ml 2045 ml Output Total 1800 ml 2000 ml Balance 300 ml -30 ml 45 ml Exam Constitutional: frail, non-verbal Neck: supple Respiratory: clear to auscultation, diminished breath sounds, other (trach to vent) Cardiovascular: nl pulses, regular rate and rhythm Gastrointestinal: nl liver, spleen, non-tender, other (G tube in placed), soft Skin: other (multiple decubitus) Results Result Diagram: 09/08/16 0550 09/08/16 0820 Results 24 hrs Laboratory Tests Test 09/07/16 17:12 09/08/16 01:22 09/08/16 05:49 09/08/16 05:50 Bedside Glucose 90 112 123 White Blood Count 11.5 H Red Blood Count 2.76 L Hemoglobin 8.1 L Hematocrit 25.3 L Mean Corpuscular Volume 91.7 Mean Corpuscular Hemoglobin 29.3 Mean Corpuscular Hemoglobin Concent 32.0 Red Cell Distribution Width 16.0 H Platelet Count 214 Mean Platelet Volume 10.3 Neutrophils % 72.3 Lymphocytes % 16.4 Monocytes % 7.2 Eosinophils % 3.4 Basophils % 0.4 Nucleated Red Blood Cells % 0.0 Neutrophils # 8.3 H Lymphocytes # 1.9 Monocytes # 0.8 Eosinophils # 0.4 Basophils # 0.1 Nucleated Red Blood Cells # 0.0 Test 09/08/16 08:02 09/08/16 08:20 09/08/16 10:32 09/08/16 11:33 Bedside Glucose 125 121 Sodium Level 129 L Potassium Level 3.9 Chloride Level 91 L Carbon Dioxide Level 32 H Anion Gap 10 Blood Urea Nitrogen 18 Creatinine 0.86 Glucose Level 140 # Calcium Level 8.1 L Lab Scanned Report REFERENCE LAB Medications Medications Current Medications Nitroglycerin (Nitroglycerin (Sl Tab) 0.4 Mg) 1 tab Q5M PRN SL CHEST PAIN; Start 09/01/16 at 01:30 Enoxaparin Sodium 30 mg 30 mg DAILY SC Last administered on 09/08/16 08:20; Admin Dose 30 MG; Start 09/01/16 at 09:00 Linezolid (Zyvox 600mg/D5W (Pmx)) 300 ml @ 300 mls/hr Q12 IVPB Last administered on 09/08/16 08:14; Admin Dose 300 MLS/HR; Start 09/01/16 at 09:00 Acetaminophen (Tylenol Tab) 650 mg Q4H PRN GTB MILD PAIN LEVEL 1-3; Start 09/01 at 01:30 Atorvastatin Calcium (Lipitor) 5 mg QHS GTB Last administered on 09/07/16 21: 04; Admin Dose 5 MG; Start 09/01/16 at 21:00 Bisacodyl (Dulcolax Supp) 10 mg DAILY PRN [place] CONSTIPATION; Start 09/01/16 at 01 :30 Chlorhexidine Gluconate (Peridex) 15 ml BID MM Last administered on 09/08/16 08:14; Admin Dose 15 ML; Start 09/01/16 at 09:00 Diphenhydramine HCl (Benadryl) 50 mg Q6H PRN GTB ITCHING; Start 09/01/16 at 01: 30 Docusate Sodium (Colace Liquid Cup) 100 mg DAILY GTB Last administered on 08:14; Admin Dose 100 MG; Start 09/01/16 at 09:00 Lisinopril (Zestril) 2.5 mg DAILY GTB Last administered on 09/01/16 09:00; Admin Dose 2.5 MG; Start 09/01/16 at 09:00; Status Future Hold Lorazepam (Ativan) 1 mg Q6 PRN GTB ANXIETY; Start 09/01/16 at 01:30 Magnesium Hydroxide (Milk Of Mag) 30 ml DAILY PRN GTB CONSTIPATION; Start 09/01 at 01:30 Mineral Oil (Fleet Mineral Oil Enema) 133 ml DAILY PRN [place] CONSTIPATION; Start 09/01/16 at 01:30 Multivitamins/ Minerals (Theragran-M) 1 tab BID GTB Last administered on 08:14; Admin Dose 1 TAB; Start 09/01/16 at 09:00 Famotidine (Pepcid) 20 mg DAILY PO Last administered on 09/08/16 08:17; Admin Dose 20 MG; Start 09/01/16 at 09:00 Levetiracetam (Keppra Liquid) 500 mg Q12H GTB Last administered on 09/08/16 14 :27; Admin Dose 500 MG; Start 09/01/16 at 02:30 Ferrous Sulfate (Feosol Liquid Cup) 300 mg TID GTB Last administered on 13:48; Admin Dose 300 MG; Start 09/01/16 at 09:00 Amikacin Sulfate (Amikacin Iv Per Pharmacy) AMIKACIN PER PHARMACY NOTE XX ; Start 09/01/16 at 15:30 Diagnostic Test (Pha) (Accu-Chek) 1 ea 02 XX Last administered on 09/08/16 02: 18; Admin Dose 1 EA; Start 09/02/16 at 02:00 Miscellaneous Information 1 ea NOTE XX ; Start 09/01/16 at 20:30 Glucose (Glutose) 15 gm Q15M PRN PO DECREASED GLUCOSE; Start 09/01/16 at 20:30 Glucose (Glutose) 22.5 gm Q15M PRN PO DECREASED GLUCOSE; Start 09/01/16 at 20: 30 Dextrose (D50w Syringe) 25 ml Q15M PRN IV DECREASED GLUCOSE; Start 09/01/16 at 20:30 Dextrose (D50w Syringe) 50 ml Q15M PRN IV DECREASED GLUCOSE; Start 09/01/16 at 20:30 Glucagon (Glucagen) 1 mg Q15M PRN IM DECREASED GLUCOSE; Start 09/01/16 at 20:30 Glucose (Glutose) 15 gm Q15M PRN BUCCAL DECREASED GLUCOSE; Start 09/01/16 at 20 :30 Insulin Aspart (Novolog Insulin Pen) NOVOLOG *MODERATE* ALGORITHM Q6 SC ; Start 09/02/16 at 12:00 Fluconazole 100 mg 100 mg DAILY GTB Last administered on 09/08/16 08:14; Admin Dose 100 MG; Start 09/02/16 at 14:00 Amikacin Sulfate/ Sodium Chloride (Amikacin/NS) 103.8 ml @ 102 mls/hr Q48H IVPB Last administered on 09/07/16 17:57; Admin Dose 102 MLS/HR; Start at 18:00 Metoclopramide HCl 10 mg 10 mg Q6H PRN IV VOMITTING Last administered on 14:03; Admin Dose 10 MG; Start 09/03/16 at 06:36 Dextrose/Sodium Chloride (D5-1/2ns) 1,000 ml @ 75 mls/hr [id number] IV Last administered on 09/08/16 08:17; Admin Dose 75 MLS/HR; Start 09/04/16 at 11:00 BIANKA LEAL MD Sep 08, 2016 15:18
--- NOTE | 2016-09-08 15:36 | CONS ---
Date/Time of Note Date/Time of Note DATE: 09/08/16 TIME: 15:35 Assessment/Plan Assessment/Plan Chief Complaint/Hosp Course SUBJECTIVE: No acute events, no fevers/vomiting/diarrhea, tolerates TF, nad ANTIMICROBIALS: 1. Amikacin 2. Fluconazole. 3. [place] INH INDWELLINGS: Trach, PEG, Bernstein. PHYSICAL EXAMINATION: GENERAL: Fragile, elderly man in no distress. HEENT: Head atraumatic, normocephalic. Sclerae anicteric. Buccal mucosa dry. NECK: Supple. Tracheostomy present. CHEST: Rise symmetrical. Breath sounds diminished to bases. HEART: S1, S2. ABDOMEN: Distended, soft. Bowel sounds present. EXTREMITIES: Without cyanosis. SKIN: No jaundice, no cyanosis. ASSESSMENT: 1. Urinary tract infection===> culture grew Escherichia coli ESBL and Kimberlyn albicans, on amikacin and Diflucan. 2. 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 3. Chronic encephalopathy. 4. Dysphagia. 5. Anemia. 6. Ileus PLAN: Remains stable, continue present care, f/u pulmonary/GI rec-s, complete abx DW staff Problems: Consultation Date/Type/Reason Admit Date/Time Aug 31, 2016 at 22:10 Initial Consult Date 09/01/16 Type of Consultation: id Referring Provider: ARNULFO BAY DO Exam/Review of Systems Vital Signs Vitals Vital Signs Date Time Temp Pulse Resp B/P Pulse Ox O2 Delivery O2 Flow Rate FiO2 09/08/16 15:09 98.8 74 19 139/67 98 09/08/16 13:05 30 Intake and Output 09/07/16 09/07/16 09/08/16 15:00 23:00 07:00 Intake Total 300 ml 1770 ml 2045 ml Output Total 1800 ml 2000 ml Balance 300 ml -30 ml 45 ml Results Result Diagram: 09/08/16 0550 09/08/16 0820 Results 24 hrs Laboratory Tests Test 09/07/16 17:12 09/08/16 01:22 09/08/16 05:49 09/08/16 05:50 Bedside Glucose 90 112 123 White Blood Count 11.5 H Red Blood Count 2.76 L Hemoglobin 8.1 L Hematocrit 25.3 L Mean Corpuscular Volume 91.7 Mean Corpuscular Hemoglobin 29.3 Mean Corpuscular Hemoglobin Concent 32.0 Red Cell Distribution Width 16.0 H Platelet Count 214 Mean Platelet Volume 10.3 Neutrophils % 72.3 Lymphocytes % 16.4 Monocytes % 7.2 Eosinophils % 3.4 Basophils % 0.4 Nucleated Red Blood Cells % 0.0 Neutrophils # 8.3 H Lymphocytes # 1.9 Monocytes # 0.8 Eosinophils # 0.4 Basophils # 0.1 Nucleated Red Blood Cells # 0.0 Test 09/08/16 08:02 09/08/16 08:20 09/08/16 10:32 09/08/16 11:33 Bedside Glucose 125 121 Sodium Level 129 L Potassium Level 3.9 Chloride Level 91 L Carbon Dioxide Level 32 H Anion Gap 10 Blood Urea Nitrogen 18 Creatinine 0.86 Glucose Level 140 # Calcium Level 8.1 L Lab Scanned Report REFERENCE LAB Medications Medications Current Medications Nitroglycerin (Nitroglycerin (Sl Tab) 0.4 Mg) 1 tab Q5M PRN SL CHEST PAIN; Start 09/01/16 at 01:30 Enoxaparin Sodium 30 mg 30 mg DAILY SC Last administered on 09/08/16 08:20; Admin Dose 30 MG; Start 09/01/16 at 09:00 Linezolid (Zyvox 600mg/D5W (Pmx)) 300 ml @ 300 mls/hr Q12 IVPB Last administered on 09/08/16 08:14; Admin Dose 300 MLS/HR; Start 09/01/16 at 09:00 Acetaminophen (Tylenol Tab) 650 mg Q4H PRN GTB MILD PAIN LEVEL 1-3; Start 09/01 at 01:30 Atorvastatin Calcium (Lipitor) 5 mg QHS GTB Last administered on 09/07/16 21: 04; Admin Dose 5 MG; Start 09/01/16 at 21:00 Bisacodyl (Dulcolax Supp) 10 mg DAILY PRN [place] CONSTIPATION; Start 09/01/16 at 01 :30 Chlorhexidine Gluconate (Peridex) 15 ml BID MM Last administered on 09/08/16 08:14; Admin Dose 15 ML; Start 09/01/16 at 09:00 Diphenhydramine HCl (Benadryl) 50 mg Q6H PRN GTB ITCHING; Start 09/01/16 at 01: 30 Docusate Sodium (Colace Liquid Cup) 100 mg DAILY GTB Last administered on 08:14; Admin Dose 100 MG; Start 09/01/16 at 09:00 Lisinopril (Zestril) 2.5 mg DAILY GTB Last administered on 09/01/16 09:00; Admin Dose 2.5 MG; Start 09/01/16 at 09:00; Status Future Hold Lorazepam (Ativan) 1 mg Q6 PRN GTB ANXIETY; Start 09/01/16 at 01:30 Magnesium Hydroxide (Milk Of Mag) 30 ml DAILY PRN GTB CONSTIPATION; Start 09/01 at 01:30 Mineral Oil (Fleet Mineral Oil Enema) 133 ml DAILY PRN [place] CONSTIPATION; Start 09/01/16 at 01:30 Multivitamins/ Minerals (Theragran-M) 1 tab BID GTB Last administered on 08:14; Admin Dose 1 TAB; Start 09/01/16 at 09:00 Levetiracetam (Keppra Liquid) 500 mg Q12H GTB Last administered on 09/08/16 14 :27; Admin Dose 500 MG; Start 09/01/16 at 02:30 Ferrous Sulfate (Feosol Liquid Cup) 300 mg TID GTB Last administered on 13:48; Admin Dose 300 MG; Start 09/01/16 at 09:00 Amikacin Sulfate (Amikacin Iv Per Pharmacy) AMIKACIN PER PHARMACY NOTE XX ; Start 09/01/16 at 15:30 Diagnostic Test (Pha) (Accu-Chek) 1 ea 02 XX Last administered on 09/08/16 02: 18; Admin Dose 1 EA; Start 09/02/16 at 02:00 Miscellaneous Information 1 ea NOTE XX ; Start 09/01/16 at 20:30 Glucose (Glutose) 15 gm Q15M PRN PO DECREASED GLUCOSE; Start 09/01/16 at 20:30 Glucose (Glutose) 22.5 gm Q15M PRN PO DECREASED GLUCOSE; Start 09/01/16 at 20: 30 Dextrose (D50w Syringe) 25 ml Q15M PRN IV DECREASED GLUCOSE; Start 09/01/16 at 20:30 Dextrose (D50w Syringe) 50 ml Q15M PRN IV DECREASED GLUCOSE; Start 09/01/16 at 20:30 Glucagon (Glucagen) 1 mg Q15M PRN IM DECREASED GLUCOSE; Start 09/01/16 at 20:30 Glucose (Glutose) 15 gm Q15M PRN BUCCAL DECREASED GLUCOSE; Start 09/01/16 at 20 :30 Insulin Aspart (Novolog Insulin Pen) NOVOLOG *MODERATE* ALGORITHM Q6 SC ; Start 09/02/16 at 12:00 Fluconazole 100 mg 100 mg DAILY GTB Last administered on 09/08/16 08:14; Admin Dose 100 MG; Start 09/02/16 at 14:00 Amikacin Sulfate/ Sodium Chloride (Amikacin/NS) 103.8 ml @ 102 mls/hr Q48H IVPB Last administered on 09/07/16 17:57; Admin Dose 102 MLS/HR; Start at 18:00 Metoclopramide HCl (Reglan) 10 mg Q6H PRN IV VOMITTING Last administered on 14:03; Admin Dose 10 MG; Start 09/03/16 at 06:36 Lansoprazole (Prevacid) 30 mg DAILY@06 GTB ; Start 09/09/16 at 06:00 DEJA ARIAS NP Sep 08, 2016 15:36
[2016-09-08] MEDS: ATORVASTATIN 10 MG TAB GTB SCH (20:45)
[2016-09-09] VITALS (26 sets, daily range): BP systolic 99–152; BP diastolic 57–73; PULSE 65–92; RESP 14–20
[2016-09-09] MEDS: ACCU-CHEK XX SCH (01:15)
[2016-09-09] MEDS: LEVETIRACETAM (100 MG/ML) 5ML CUP GTB SCH ×2 (01:53→14:45)
[2016-09-09] MEDS ORDERED: LANSOPRAZOLE 30 MG CAP GTB SCH (06:00)
[2016-09-09] MEDS: INSULIN ASPART [NOVOLOG] 3 ML PEN SC SCH ×3 (06:00→17:55)
[2016-09-09 06:34] LABS: ADD SCAN DIFF NO
[2016-09-09 06:40] LABS: BASOPHIL # 0.1 10^3/ul (0.0-0.1); BASOPHILS % 0.6 % (0.0-2.0); EOSINOPHILS # 0.5 10^3/ul (0.0-0.5); EOSINOPHILS % 4.9 % (0.0-7.0); HEMATOCRIT 26.8 % (42.0-52.0); HEMOGLOBIN 8.4 g/dl (14.0-18.0); LYMPHOCYTES % 20.4 % (15.0-51.0); MEAN CORPUSCULAR HEMOGLOBIN 28.8 pg (29.0-33.0); MEAN CORPUSCULAR HGB CONC 31.3 g/dl (32.0-37.0); MEAN CORPUSCULAR VOLUME 91.8 fl (82.0-101.0); MEAN PLATELET VOLUME 10.1 fl (7.4-10.4); MONOCYTE # 0.8 10^3/ul (0.3-0.9); MONOCYTES % 7.7 % (0.0-11.0); NEUTROPHIL # 6.5 10^3/ul (1.6-7.5); PLATELET COUNT 213 10^3/UL (140-415); RED BLOOD COUNT 2.92 10^6/ul (4.70-6.10); WHITE BLOOD COUNT 9.8 10^3/ul (4.8-10.8)
[2016-09-09 07:05] LABS: POTASSIUM 3.8 mmol/L (3.5-5.1)
[2016-09-09 07:08] LABS: CREATININE 0.94 mg/dl (0.61-1.24)
[2016-09-09 07:09] LABS: CALCIUM 8.6 mg/dl (8.4-10.2)
[2016-09-09] MEDS: COLISTIMETHATE (25 MG/ML INHAL SYG) NEB SCH (07:35)
[2016-09-09] MEDS: ALBUTEROL 18 GM INHALER INH SCH ×4 (07:36→19:44)
[2016-09-09] MEDS: IPRATROPIUM (HFA) 12.9 GM INHALER INH SCH ×4 (07:36→19:43)
[2016-09-09] MEDS: FERROUS SULFATE 60 MG/ML 5ML CUP GTB SCH ×3 (09:36→21:03)
[2016-09-09] MEDS: MULTIVITAMINS/MINERALS TAB GTB SCH ×2 (09:36→21:03)
[2016-09-09] MEDS: FLUCONAZOLE 100 MG TAB GTB SCH (09:36)
[2016-09-09] MEDS: CHLORHEXIDINE GLUCONATE 15 ML UD CUP MM SCH ×2 (09:36→21:03)
[2016-09-09] MEDS: LINEZOLID 600 MG/D5W (PMX) 300 ML IVPB SCH (09:36)
[2016-09-09] MEDS: DOCUSATE SODIUM 10 MG/ML (10ML CUP) GTB SCH (09:36)
[2016-09-09] MEDS: ENOXAPARIN 30 MG/0.3 ML SYG SC SCH (09:37)
--- NOTE | 2016-09-09 10:40 | CONS ---
Date/Time of Note Date/Time of Note DATE: 09/09/16 TIME: 10:38 Assessment/Plan Assessment/Plan Additional Assessment/Plan Ventilator settings; AC of 14, tidal volume 500, PEEP of 5, 30% FiO2. Assessment recommendations; 1. Patient admitted for sepsis and UTI with significant clinical improvement. 2. Chronic respiratory failure, ventilator dependent. 3. Multiple other comorbidities including atrial fibrillation, advanced dementia, anemia. Continue current treatment. Patient awaiting transfer to custodial. Prognosis remains poor. Consultation Date/Type/Reason Admit Date/Time Aug 31, 2016 at 22:10 Initial Consult Date 09/01/16 Type of Consultation: Pulmonary Referring Provider: ARNULFO BAY DO 24 HR Interval Summary Free Text/Dictation Patient condition remains unchanged. Remains awake but unresponsive. Has remained hemodynamically stable. General exam; elderly male, on ventilator via tracheostomy currently in no distress. Awake. Exam/Review of Systems Vital Signs Vitals Vital Signs Date Time Temp Pulse Resp B/P Pulse Ox O2 Delivery O2 Flow Rate FiO2 09/09/16 08:27 66 09/09/16 07:56 98.9 17 99/57 97 09/09/16 07:20 35 Intake and Output 09/08/16 09/08/16 09/09/16 15:00 23:00 07:00 Intake Total 1745 ml Output Total 2000 ml Balance -255 ml Exam HEENT exam is; supple neck, positive JVD. No lymphadenopathy. The ostomy placed with clean insertion site. Chest chest examination : Diminished but clear breath sound bilaterally. S1-S2 audible, no murmurs. Irregular rhythm. Abdomen exam is; soft, G-tube in place. Bowel sounds audible. No organomegaly. Extremity exam is; no peripheral edema. [employer] examination; patient is awake but does not follow any commands. Results Result Diagram: 09/09/16 0607 09/09/16 0607 Results 24 hrs Laboratory Tests Test 09/08/16 11:33 09/08/16 16:15 09/08/16 18:03 09/08/16 18:07 Bedside Glucose 121 112 Osmolality 279 L Urine Osmolality 339 Urine Random Sodium 112 H Test 09/08/16 23:37 09/09/16 06:03 09/09/16 06:07 Bedside Glucose 112 102 White Blood Count 9.8 Red Blood Count 2.92 L Hemoglobin 8.4 L Hematocrit 26.8 L Mean Corpuscular Volume 91.8 Mean Corpuscular Hemoglobin 28.8 L Mean Corpuscular Hemoglobin Concent 31.3 L Red Cell Distribution Width 16.0 H Platelet Count 213 Mean Platelet Volume 10.1 Neutrophils % 66.0 Lymphocytes % 20.4 Monocytes % 7.7 Eosinophils % 4.9 Basophils % 0.6 Nucleated Red Blood Cells % 0.0 Neutrophils # 6.5 Lymphocytes # 2.0 Monocytes # 0.8 Eosinophils # 0.5 Basophils # 0.1 Nucleated Red Blood Cells # 0.0 Sodium Level 134 L Potassium Level 3.8 Chloride Level 91 L Carbon Dioxide Level 32 H Anion Gap 15 Blood Urea Nitrogen 17 Creatinine 0.94 Glucose Level 91 # Calcium Level 8.6 Medications Medications Current Medications Nitroglycerin (Nitroglycerin (Sl Tab) 0.4 Mg) 1 tab Q5M PRN SL CHEST PAIN; Start 09/01/16 at 01:30 Enoxaparin Sodium 30 mg 30 mg DAILY SC Last administered on 09/09/16 09:37; Admin Dose 30 MG; Start 09/01/16 at 09:00 Linezolid (Zyvox 600mg/D5W (Pmx)) 300 ml @ 300 mls/hr Q12 IVPB Last administered on 09/09/16 09:36; Admin Dose 300 MLS/HR; Start 09/01/16 at 09:00 Acetaminophen (Tylenol Tab) 650 mg Q4H PRN GTB MILD PAIN LEVEL 1-3; Start 09/01 at 01:30 Atorvastatin Calcium (Lipitor) 5 mg QHS GTB Last administered on 09/08/16 20: 45; Admin Dose 5 MG; Start 09/01/16 at 21:00 Bisacodyl (Dulcolax Supp) 10 mg DAILY PRN [place] CONSTIPATION; Start 09/01/16 at 01 :30 Chlorhexidine Gluconate (Peridex) 15 ml BID MM Last administered on 09/09/16 09:36; Admin Dose 15 ML; Start 09/01/16 at 09:00 Diphenhydramine HCl (Benadryl) 50 mg Q6H PRN GTB ITCHING; Start 09/01/16 at 01: 30 Docusate Sodium (Colace Liquid Cup) 100 mg DAILY GTB Last administered on 09:36; Admin Dose 100 MG; Start 09/01/16 at 09:00 Lisinopril (Zestril) 2.5 mg DAILY GTB Last administered on 09/01/16 09:00; Admin Dose 2.5 MG; Start 09/01/16 at 09:00; Status Future Hold Lorazepam (Ativan) 1 mg Q6 PRN GTB ANXIETY; Start 09/01/16 at 01:30 Magnesium Hydroxide (Milk Of Mag) 30 ml DAILY PRN GTB CONSTIPATION; Start 09/01 at 01:30 Mineral Oil (Fleet Mineral Oil Enema) 133 ml DAILY PRN [place] CONSTIPATION; Start 09/01/16 at 01:30 Multivitamins/ Minerals (Theragran-M) 1 tab BID GTB Last administered on 09:36; Admin Dose 1 TAB; Start 09/01/16 at 09:00 Levetiracetam (Keppra Liquid) 500 mg Q12H GTB Last administered on 09/09/16 01 :53; Admin Dose 500 MG; Start 09/01/16 at 02:30 Ferrous Sulfate (Feosol Liquid Cup) 300 mg TID GTB Last administered on 09:36; Admin Dose 300 MG; Start 09/01/16 at 09:00 Amikacin Sulfate (Amikacin Iv Per Pharmacy) AMIKACIN PER PHARMACY NOTE XX ; Start 09/01/16 at 15:30 Diagnostic Test (Pha) (Accu-Chek) 1 ea 02 XX Last administered on 09/08/16 02: 18; Admin Dose 1 EA; Start 09/02/16 at 02:00 Miscellaneous Information 1 ea NOTE XX ; Start 09/01/16 at 20:30 Glucose (Glutose) 15 gm Q15M PRN PO DECREASED GLUCOSE; Start 09/01/16 at 20:30 Glucose (Glutose) 22.5 gm Q15M PRN PO DECREASED GLUCOSE; Start 09/01/16 at 20: 30 Dextrose (D50w Syringe) 25 ml Q15M PRN IV DECREASED GLUCOSE; Start 09/01/16 at 20:30 Dextrose (D50w Syringe) 50 ml Q15M PRN IV DECREASED GLUCOSE; Start 09/01/16 at 20:30 Glucagon (Glucagen) 1 mg Q15M PRN IM DECREASED GLUCOSE; Start 09/01/16 at 20:30 Glucose (Glutose) 15 gm Q15M PRN BUCCAL DECREASED GLUCOSE; Start 09/01/16 at 20 :30 Insulin Aspart (Novolog Insulin Pen) NOVOLOG *MODERATE* ALGORITHM Q6 SC ; Start 09/02/16 at 12:00 Fluconazole 100 mg 100 mg DAILY GTB Last administered on 09/09/16 09:36; Admin Dose 100 MG; Start 09/02/16 at 14:00 Amikacin Sulfate/ Sodium Chloride (Amikacin/NS) 103.8 ml @ 102 mls/hr Q48H IVPB Last administered on 09/07/16 17:57; Admin Dose 102 MLS/HR; Start at 18:00 Metoclopramide HCl (Reglan) 10 mg Q6H PRN IV VOMITTING Last administered on 14:03; Admin Dose 10 MG; Start 09/03/16 at 06:36 Lansoprazole (Prevacid) 30 mg DAILY@06 GTB Last administered on 09/09/16 06:03 ; Admin Dose 30 MG; Start 09/09/16 at 06:00 AUGUST TERAN Sep 09, 2016 10:40
--- NOTE | 2016-09-09 10:44 | PN ---
Date/Time of Note Date/Time of Note DATE: 09/09/16 TIME: 10:42 Assessment/Plan VTE Prophylaxis VTE Prophylaxis Intervention: LMWH Lines/Catheters IV Catheter Type (from Nrsg): PICC Line Central line still needed: Yes Urinary Cath still in place: Yes Reason Cath still needed: other (indicate) Assessment/Plan Assessment/Plan 71 M from [facility] p/w sepsis and res distress. 1. Sepsis - sec to UTI /P NA. * Ucx = + ESBL ecoli and Kimberlyn. * Res cx = ESBL ecoli, Citrobacter, and Pseudomonas all positive. 2. Chronic respiratory failure, ventilator dependent 3. Atrial fibrillation - rate controlled - monitor HR, 4. Seizure disorder - continue keppra 5. Hypertension - stable, monitor 6. Diabetes - continue ISS 7. Status post tracheostomy 8. Leaking G-tube: resolved 8. 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 ARF - improved 10. 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 Hyponatremia: much improved PLAN Continue current regimen / patient is stable and without fever Continue tube feeds and free water Case mgt working on placement Continue supportive care PROPHYLAXIS: PPI / lovenox Subjective 24 Hr Interval Summary Subjective hx not possible: pt non-verbal Exam/Review of Systems Vital Signs Vitals Vital Signs Date Time Temp Pulse Resp B/P Pulse Ox O2 Delivery O2 Flow Rate FiO2 09/09/16 08:27 66 09/09/16 07:56 98.9 17 99/57 97 09/09/16 07:20 35 Intake and Output 09/08/16 09/08/16 09/09/16 15:00 23:00 07:00 Intake Total 1745 ml Output Total 2000 ml Balance -255 ml Exam Constitutional: non-verbal, other (obese, elderly, Patient barely responsive, not following commands or tracking), Eyes open spontaneously, No oriented, No distress Psych: other (unable to assess) Head: normocephalic, atraumatic Eyes: PERRL, No icteric ENMT: No mucosa pink and moist (dry) Neck: non-tender Respiratory: diminished breath sounds, No labored breathing Cardiovascular: regular rate and rhythm, No murmurs/extra sounds Gastrointestinal: soft, non-tender, bowel sounds, other (PEG tube noted with no cellulitis or discharge) Genitourinary - Female: nl external genitalia Extremities: Chronically contracted Neurological: lethargic, other (altered, eyes opening spontaneously but no tracking or following commands), No nl mental status, No nl speech, No nl strength Results Result Diagram: 09/09/16 0607 09/09/16 0607 Results 24 hrs Laboratory Tests Test 09/08/16 11:33 09/08/16 16:15 09/08/16 18:03 09/08/16 18:07 Bedside Glucose 121 112 Osmolality 279 L Urine Osmolality 339 Urine Random Sodium 112 H Test 09/08/16 23:37 09/09/16 06:03 09/09/16 06:07 Bedside Glucose 112 102 White Blood Count 9.8 Red Blood Count 2.92 L Hemoglobin 8.4 L Hematocrit 26.8 L Mean Corpuscular Volume 91.8 Mean Corpuscular Hemoglobin 28.8 L Mean Corpuscular Hemoglobin Concent 31.3 L Red Cell Distribution Width 16.0 H Platelet Count 213 Mean Platelet Volume 10.1 Neutrophils % 66.0 Lymphocytes % 20.4 Monocytes % 7.7 Eosinophils % 4.9 Basophils % 0.6 Nucleated Red Blood Cells % 0.0 Neutrophils # 6.5 Lymphocytes # 2.0 Monocytes # 0.8 Eosinophils # 0.5 Basophils # 0.1 Nucleated Red Blood Cells # 0.0 Sodium Level 134 L Potassium Level 3.8 Chloride Level 91 L Carbon Dioxide Level 32 H Anion Gap 15 Blood Urea Nitrogen 17 Creatinine 0.94 Glucose Level 91 # Calcium Level 8.6 Medications Medications Current Medications Nitroglycerin (Nitroglycerin (Sl Tab) 0.4 Mg) 1 tab Q5M PRN SL CHEST PAIN; Start 09/01/16 at 01:30 Enoxaparin Sodium 30 mg 30 mg DAILY SC Last administered on 09/09/16 09:37; Admin Dose 30 MG; Start 09/01/16 at 09:00 Linezolid (Zyvox 600mg/D5W (Pmx)) 300 ml @ 300 mls/hr Q12 IVPB Last administered on 09/09/16 09:36; Admin Dose 300 MLS/HR; Start 09/01/16 at 09:00 Acetaminophen (Tylenol Tab) 650 mg Q4H PRN GTB MILD PAIN LEVEL 1-3; Start 09/01 at 01:30 Atorvastatin Calcium (Lipitor) 5 mg QHS GTB Last administered on 09/08/16 20: 45; Admin Dose 5 MG; Start 09/01/16 at 21:00 Bisacodyl (Dulcolax Supp) 10 mg DAILY PRN [place] CONSTIPATION; Start 09/01/16 at 01 :30 Chlorhexidine Gluconate (Peridex) 15 ml BID MM Last administered on 09/09/16 09:36; Admin Dose 15 ML; Start 09/01/16 at 09:00 Diphenhydramine HCl (Benadryl) 50 mg Q6H PRN GTB ITCHING; Start 09/01/16 at 01: 30 Docusate Sodium (Colace Liquid Cup) 100 mg DAILY GTB Last administered on 09:36; Admin Dose 100 MG; Start 09/01/16 at 09:00 Lisinopril (Zestril) 2.5 mg DAILY GTB Last administered on 09/01/16 09:00; Admin Dose 2.5 MG; Start 09/01/16 at 09:00; Status Future Hold Lorazepam (Ativan) 1 mg Q6 PRN GTB ANXIETY; Start 09/01/16 at 01:30 Magnesium Hydroxide (Milk Of Mag) 30 ml DAILY PRN GTB CONSTIPATION; Start 09/01 at 01:30 Mineral Oil (Fleet Mineral Oil Enema) 133 ml DAILY PRN [place] CONSTIPATION; Start 09/01/16 at 01:30 Multivitamins/ Minerals (Theragran-M) 1 tab BID GTB Last administered on 09:36; Admin Dose 1 TAB; Start 09/01/16 at 09:00 Levetiracetam (Keppra Liquid) 500 mg Q12H GTB Last administered on 09/09/16 01 :53; Admin Dose 500 MG; Start 09/01/16 at 02:30 Ferrous Sulfate (Feosol Liquid Cup) 300 mg TID GTB Last administered on 09:36; Admin Dose 300 MG; Start 09/01/16 at 09:00 Amikacin Sulfate (Amikacin Iv Per Pharmacy) AMIKACIN PER PHARMACY NOTE XX ; Start 09/01/16 at 15:30 Diagnostic Test (Pha) (Accu-Chek) 1 ea 02 XX Last administered on 09/08/16 02: 18; Admin Dose 1 EA; Start 09/02/16 at 02:00 Miscellaneous Information 1 ea NOTE XX ; Start 09/01/16 at 20:30 Glucose (Glutose) 15 gm Q15M PRN PO DECREASED GLUCOSE; Start 09/01/16 at 20:30 Glucose (Glutose) 22.5 gm Q15M PRN PO DECREASED GLUCOSE; Start 09/01/16 at 20: 30 Dextrose (D50w Syringe) 25 ml Q15M PRN IV DECREASED GLUCOSE; Start 09/01/16 at 20:30 Dextrose (D50w Syringe) 50 ml Q15M PRN IV DECREASED GLUCOSE; Start 09/01/16 at 20:30 Glucagon (Glucagen) 1 mg Q15M PRN IM DECREASED GLUCOSE; Start 09/01/16 at 20:30 Glucose (Glutose) 15 gm Q15M PRN BUCCAL DECREASED GLUCOSE; Start 09/01/16 at 20 :30 Insulin Aspart (Novolog Insulin Pen) NOVOLOG *MODERATE* ALGORITHM Q6 SC ; Start 09/02/16 at 12:00 Fluconazole 100 mg 100 mg DAILY GTB Last administered on 09/09/16 09:36; Admin Dose 100 MG; Start 09/02/16 at 14:00 Amikacin Sulfate/ Sodium Chloride (Amikacin/NS) 103.8 ml @ 102 mls/hr Q48H IVPB Last administered on 09/07/16 17:57; Admin Dose 102 MLS/HR; Start at 18:00 Metoclopramide HCl (Reglan) 10 mg Q6H PRN IV VOMITTING Last administered on 14:03; Admin Dose 10 MG; Start 09/03/16 at 06:36 Lansoprazole (Prevacid) 30 mg DAILY@06 GTB Last administered on 09/09/16 06:03 ; Admin Dose 30 MG; Start 09/09/16 at 06:00 MINESH JOLLEY Sep 09, 2016 10:44
[2016-09-09] MEDS ORDERED: Amikacin Iv Per Pharmacy XX (16:12)
[2016-09-09] MEDS ORDERED: FLUC100T GTB (16:12)
[2016-09-09] MEDS ORDERED: LANS30CA GTB (16:12)
[2016-09-09] MEDS ORDERED: COLI150V7 NEB (16:12)
[2016-09-09] MEDS ORDERED: DIPH50CA30 GTB (16:12)
--- NOTE | 2016-09-09 17:18 | PN ---
Date/Time of Note Date/Time of Note DATE: 09/09/16 TIME: 17:11 Assessment/Plan VTE Prophylaxis VTE Prophylaxis Intervention: SCD's Lines/Catheters IV Catheter Type (from Nrs): PICC Line Central line still needed: Yes Urinary Cath still in place: Yes Reason Cath still needed: urinary retention Assessment/Plan Assessment/Plan Diarrhea and vomiting r/o C difficile Abdominal distension resolved * Ileus resolved * CT abdomen /pelvis 09/03/2016 * 1. Small benign bilateral renal cysts. 2. Atherosclerosis. 3. IVC filter in satisfactory position. 4. Bernstein catheter in the bladder. 5. Gastrostomy tube tip in the stomach. 6. Mildly distended distal small bowel and ascending colon which may indicate ileus. No definite evidence of obstruction. Follow-up advised. 7. Degenerative changes of the spine. * Leaking Gastrostomy Tube resolved * Sepsis * UTI * Ventilator dependent sec to chronic respiratory failure Plan * continue present management * stool for c difficile * resume g tube feeding Subjective 24 Hr Interval Summary Free Text/Dictation * course reviewed with RN * vomited 3x today with diarrhea watery x3 * patient seen and examined * tube feeding on hold Exam/Review of Systems Vital Signs Vitals Vital Signs Date Time Temp Pulse Resp B/P Pulse Ox O2 Delivery O2 Flow Rate FiO2 09/09/16 15:18 98.7 87 18 117/67 95 09/09/16 12:07 35 Intake and Output 09/08/16 09/08/16 09/09/16 15:00 23:00 07:00 Intake Total 1745 ml Output Total 2000 ml Balance -255 ml Exam Constitutional: frail Respiratory: diminished breath sounds, other (trach to vent) Gastrointestinal: other (g tube in placed), soft Skin: other (multiple decubitus ulcer) Results Result Diagram: 09/09/16 0607 09/09/16 0607 Results 24 hrs Laboratory Tests Test 09/08/16 18:03 09/08/16 18:07 09/08/16 23:37 09/09/16 06:03 Bedside Glucose 112 112 102 Urine Osmolality 339 Urine Random Sodium 112 H Test 09/09/16 06:07 09/09/16 12:24 09/09/16 13:45 White Blood Count 9.8 Red Blood Count 2.92 L Hemoglobin 8.4 L Hematocrit 26.8 L Mean Corpuscular Volume 91.8 Mean Corpuscular Hemoglobin 28.8 L Mean Corpuscular Hemoglobin Concent 31.3 L Red Cell Distribution Width 16.0 H Platelet Count 213 Mean Platelet Volume 10.1 Neutrophils % 66.0 Lymphocytes % 20.4 Monocytes % 7.7 Eosinophils % 4.9 Basophils % 0.6 Nucleated Red Blood Cells % 0.0 Neutrophils # 6.5 Lymphocytes # 2.0 Monocytes # 0.8 Eosinophils # 0.5 Basophils # 0.1 Nucleated Red Blood Cells # 0.0 Sodium Level 134 L Potassium Level 3.8 Chloride Level 91 L Carbon Dioxide Level 32 H Anion Gap 15 Blood Urea Nitrogen 17 Creatinine 0.94 Glucose Level 91 # Calcium Level 8.6 Bedside Glucose 120 Stool Occult Blood NEGATIVE Medications Medications Current Medications Nitroglycerin (Nitroglycerin (Sl Tab) 0.4 Mg) 1 tab Q5M PRN SL CHEST PAIN; Start 09/01/16 at 01:30 Enoxaparin Sodium 30 mg 30 mg DAILY SC Last administered on 09/09/16 09:37; Admin Dose 30 MG; Start 09/01/16 at 09:00; Status Future Hold Linezolid (Zyvox 600mg/D5W (Pmx)) 300 ml @ 300 mls/hr Q12 IVPB Last administered on 09/09/16 09:36; Admin Dose 300 MLS/HR; Start 09/01/16 at 09:00 Acetaminophen (Tylenol Tab) 650 mg Q4H PRN GTB MILD PAIN LEVEL 1-3; Start 09/01 at 01:30 Atorvastatin Calcium (Lipitor) 5 mg QHS GTB Last administered on 09/08/16 20: 45; Admin Dose 5 MG; Start 09/01/16 at 21:00 Bisacodyl (Dulcolax Supp) 10 mg DAILY PRN [place] CONSTIPATION; Start 09/01/16 at 01 :30 Chlorhexidine Gluconate (Peridex) 15 ml BID MM Last administered on 09/09/16 09:36; Admin Dose 15 ML; Start 09/01/16 at 09:00 Diphenhydramine HCl (Benadryl) 50 mg Q6H PRN GTB ITCHING; Start 09/01/16 at 01: 30 Docusate Sodium (Colace Liquid Cup) 100 mg DAILY GTB Last administered on 09:36; Admin Dose 100 MG; Start 09/01/16 at 09:00 Lisinopril (Zestril) 2.5 mg DAILY GTB Last administered on 09/01/16 09:00; Admin Dose 2.5 MG; Start 09/01/16 at 09:00; Status Future Hold Lorazepam (Ativan) 1 mg Q6 PRN GTB ANXIETY; Start 09/01/16 at 01:30 Magnesium Hydroxide (Milk Of Mag) 30 ml DAILY PRN GTB CONSTIPATION; Start 09/01 at 01:30 Mineral Oil (Fleet Mineral Oil Enema) 133 ml DAILY PRN [place] CONSTIPATION; Start 09/01/16 at 01:30 Multivitamins/ Minerals (Theragran-M) 1 tab BID GTB Last administered on 09:36; Admin Dose 1 TAB; Start 09/01/16 at 09:00 Levetiracetam (Keppra Liquid) 500 mg Q12H GTB Last administered on 09/09/16 14 :45; Admin Dose 500 MG; Start 09/01/16 at 02:30 Ferrous Sulfate (Feosol Liquid Cup) 300 mg TID GTB Last administered on 13:10; Admin Dose 300 MG; Start 09/01/16 at 09:00 Amikacin Sulfate (Amikacin Iv Per Pharmacy) AMIKACIN PER PHARMACY NOTE XX ; Start 09/01/16 at 15:30 Diagnostic Test (Pha) (Accu-Chek) 1 ea 02 XX Last administered on 09/08/16 02: 18; Admin Dose 1 EA; Start 09/02/16 at 02:00 Miscellaneous Information 1 ea NOTE XX ; Start 09/01/16 at 20:30 Glucose (Glutose) 15 gm Q15M PRN PO DECREASED GLUCOSE; Start 09/01/16 at 20:30 Glucose (Glutose) 22.5 gm Q15M PRN PO DECREASED GLUCOSE; Start 09/01/16 at 20: 30 Dextrose (D50w Syringe) 25 ml Q15M PRN IV DECREASED GLUCOSE; Start 09/01/16 at 20:30 Dextrose (D50w Syringe) 50 ml Q15M PRN IV DECREASED GLUCOSE; Start 09/01/16 at 20:30 Glucagon (Glucagen) 1 mg Q15M PRN IM DECREASED GLUCOSE; Start 09/01/16 at 20:30 Glucose (Glutose) 15 gm Q15M PRN BUCCAL DECREASED GLUCOSE; Start 09/01/16 at 20 :30 Insulin Aspart (Novolog Insulin Pen) NOVOLOG *MODERATE* ALGORITHM Q6 SC ; Start 09/02/16 at 12:00 Fluconazole 100 mg 100 mg DAILY GTB Last administered on 09/09/16 09:36; Admin Dose 100 MG; Start 09/02/16 at 14:00 Amikacin Sulfate/ Sodium Chloride (Amikacin/NS) 103.8 ml @ 102 mls/hr Q48H IVPB Last administered on 09/07/16 17:57; Admin Dose 102 MLS/HR; Start at 18:00 Metoclopramide HCl (Reglan) 10 mg Q6H PRN IV VOMITTING Last administered on 14:03; Admin Dose 10 MG; Start 09/03/16 at 06:36; Status Future Hold Lansoprazole (Prevacid) 30 mg DAILY@06 GTB Last administered on 09/09/16 06:03 ; Admin Dose 30 MG; Start 09/09/16 at 06:00 Metoclopramide HCl (Reglan) 10 mg Q6 IV ; Start 09/09/16 at 16:00 Lactobacillus Acidophilus/ Rhamnosus (Culturelle) 1 cap TID GTB ; Start at 21:00 BIANKA LEAL MD Sep 09, 2016 17:18
[2016-09-09] MEDS: METOCLOPRAMIDE 10 MG INJ IV SCH ×2 (17:56→17:58)
--- NOTE | 2016-09-09 18:03 | DS ---
DATE OF ADMISSION: 08/31/2016 DATE OF DISCHARGE: 09/09/2016 FINAL DIAGNOSES: 1. Sepsis secondary to extended-spectrum beta-lactamase Escherichia coli and Kimberlyn urinary tract infection and extended-spectrum beta-lactamase Citrobacter and Pseudomonas pneumonia. 2. Chronic respiratory failure, chronically ventilator dependent via tracheostomy. 3. Chronic atrial fibrillation, rate controlled. 4. Chronic seizure disorder, stable on Keppra. 5. Hypertension, uncontrolled. 6. Diabetes, insulin-dependent, controlled. 7. Status post leaky G-tube, now replaced. 8. Chronic multi-infarct dementia. 9. Acute renal failure, improved. 10. Chronic encephalopathy with contractions, likely secondary to previous cerebrovascular accident . 11. Acute hypernatremia that has significantly improved. CONSULTS ON THE CASE: 1. Dr. Stew Sanchez for pulmonary. 2. Dr. Kel De Leon for ID. 3. Dr. Rodney Pires for Gastroenterology. 4. Dr. Scott for pulmonary hospitalization course plus interventions. This patient was brought in from [facility] by ambulance because of respiratory distress a nd in the emergency room was placed on the ventilator. His respiratory status prior to arrival is n ot very clear, but his respiratory distress was said to have improved after being started on the cally tilator. The patient states that he had just been recently admitted for sepsis secondary to urinary tract infection. The initial imaging studies included a chest x-ray that showed no new infiltrate, but then he also went ahead and had a CT of the abdomen and pelvis that showed an IVC filter in sat isfactory condition, renal cysts, atherosclerosis, gastrostomy tube into the stomach and some ileus without obstruction. The patient then went ahead and had blood, urine and respiratory cultures, and the findings are summarized above. Based on this, he was diagnosed as septic secondary to urinary tract infection and a respiratory infection. He was managed aggressively with antibiotics and has i mproved significantly. At this time, he is stable without fevers and is being transferred to [facility] ____ continued management. DISCHARGE MEDICATIONS: 1. Benadryl via G tube every 6 hours p.r.n. itching. 2. Amikacin IV per pharmacy to complete a 2-week course of therapy. 3. Colistin inhalation 2-week course. 4. Diflucan via G-tube 100 mg to complete a 2-week course as well. 5. Linezolid 600 mg q.12h, also to complete a 2-week course. 6. Albuterol. 7. Ipratropium inhalation every 6 hours. 8. Lovenox 30 mg subq daily. 9. Ferrous sulfate 300 mg via G-tube 3 times a day. 10. Lipitor 5 mg via G-tube at bedtime. 11. Lisinopril 2.5 via G-tube daily. 12. Digoxin 2.5 mL via G-tube daily, to hold if apical pulse is less than 60. 13. Tylenol as needed. 14. Lorazepam as needed. 15. Keppra 500 mL via G-tube q.12h. 16. Peridex mouthwash twice a day. 17. Colace 100 mg twice a day. 18. Mineral oil as needed. 19. Lansoprazole 30 mg via G-tube daily. 20. Multivitamin tablet b.i.d. 21. Pro-Stat liquid as well b.i.d. 22. For diabetic control, the patient is controlled in the hospital only on a Diabetisource feeding s and sliding scale. 23. Reglan 10 mg every 6 hours via NG tube. For an accurate list of his discharge medications, please review the final discharge medication robert nciliation sheet. DISCHARGE DIET: Diabetisource with a goal 40 mL an hour with 100 mL of free water every 6 hours. DISCHARGE CONDITION: stable. ACTIVITY: Patient is chronically encephalopathic and bedbound. DISPOSITION: [place]. Time spent on discharge coordination has been more than 35 minutes. Dictated By: MINESH JOLELY MD, BA/SALOME Conf#: [id number] DID#: [id number]
--- NOTE | 2016-09-09 18:50 | PN ---
DATE: 09/09/2016 SUBJECTIVE: No acute events overnight. The patient is lying comfortably in bed, not communicative. he opens eyes and tracks. He tolerates tube feeding. WBC 9.8, platelets 213, no shift, no bands. BUN 17, creatinine 0.94. ANTIMICROBIALS: The patient remains on 1. Colistin inhalation. 2. Fluconazole day #8. 3. Amikacin day #8. 4. Zyvox day #9. INDWELLINGS: Trach, PEG, Bernstein PHYSICAL EXAMINATION: GENERAL: This is a chronically ill-appearing, elderly man who is in no distress. HEENT: Head atraumatic, normocephalic. Sclerae anicteric. Buccal mucosa dry. NECK: Supple. Tracheostomy present. CHEST: Rise symmetrical. Breath sounds diminished to bases. HEART: S1, S2. ABDOMEN: Soft, bowel tones present. EXTREMITIES: Without cyanosis. ASSESSMENT: 1. Resolving sepsis. 2. Status post urinary tract infection and pneumonia. 3. Chronic respiratory failure. 4. Dysphagia. 5. Anemia. PLAN: The patient remains stable. We are going to discontinue Zyvox and colistin inhalation. Cont inue amikacin for a couple more days. Continue fluconazole pending discharge planning. Dictated By: DEJA ARIAS HOIST CYLINDER LOADER for MARINO BOWEN/SALOME Conf#: [id number] DID#: [id number]
[2016-09-09] MEDS: AMIKACIN 950 MG in SOD CHLORIDE 0.9% 100 ML IVPB SCH (18:51)
[2016-09-09] MEDS ORDERED: LACTOBACILLUS RHAMNOSUS CAP GTB SCH (21:00)
[2016-09-09] MEDS: ATORVASTATIN 10 MG TAB GTB SCH (21:03)
[2016-09-09] MEDS ORDERED: AMIK500V2 IM (22:17)
== END 2016-09-09 23:20 | DRG 870 ==
LOC: E/R 19:59 → TEL 22:10
PROVIDERS: ADMIT Family Medicine; ATTEND Family Medicine
PROC: 5A1955Z Respiratory Ventilation, Greater than 96 Consecutive Hours (ICD-10-PCS; principal; 2016-09-01)
DX: A41.9 Sepsis, unspecified organism (principal); N17.9 Acute kidney failure, unspecified; G93.40 Encephalopathy, unspecified; Z99.11 Dependence on respirator [ventilator] status; J15.1 Pneumonia due to Pseudomonas; J96.10 Chronic respiratory failure, unspecified whether with hypoxia or hypercapnia; N39.0 Urinary tract infection, site not specified; B37.49 Other urogenital candidiasis; E87.0 Hyperosmolality and hypernatremia; K56.7 Ileus, unspecified; B96.89 Other specified bacterial agents as the cause of diseases classified elsewhere; B96.20 Unspecified Escherichia coli [E. coli] as the cause of diseases classified elsewhere; Z16.12 Extended spectrum beta lactamase (ESBL) resistance; Z93.0 Tracheostomy status; I10 Essential (primary) hypertension; G40.909 Epilepsy, unspecified, not intractable, without status epilepticus; F01.50 Vascular dementia, unspecified severity, without behavioral disturbance, psychotic disturbance, mood disturbance, and anxiety; I69.998 Other sequelae following unspecified cerebrovascular disease; K94.29 Other complications of gastrostomy; I48.91 Unspecified atrial fibrillation; E11.9 Type 2 diabetes mellitus without complications; Z79.4 Long term (current) use of insulin; R14.0 Abdominal distension (gaseous); R19.7 Diarrhea, unspecified
CPT/HCPCS: 36415; 36600; 71010; 74000; 74177; 80048; 80053; 80150; 81001; 81003; 82270; 82803; 82962; 83605; 83735; 83930; 83935; 84100; 84300; 84484; 85014; 85018; 85025; 85610; 85730; 87040; 87070; 87075; 87086; 93005; 94002; 94003; 94640; 96365; 96368; J0278; J1650; J1815; J1956; J2765; J2997; J3475; J3480; J7030; J7042; Q9967

== ENCOUNTER 2017-03-21 16:51 | Inpatient (IN) | payer MEDICARE, OTHER ==
[~2017-03-21] VITALS: Wt 75.0 kg
[~2017-03-21 16:51] MED LIST changes: +Amikacin Iv Per Pharmacy XX; +COLI150V7 NEB; -FAMO20TA18 GTB; -FLEETOIL PR; +FLUC100T GTB; +LANS30CA GTB; +MINE133E23 PR; -PANT40VI7 IV
--- NOTE | 2017-03-21 17:49 | RADRPT ---
PROCEDURE: XR Chest. CLINICAL INDICATION: Chest Pain. TECHNIQUE: Single frontal view of the chest was obtained. COMPARISON: Chest x-ray from 10/13/2016 FINDINGS: The tracheostomy is unchanged in position. The heart and mediastinum are within normal limits. The lungs are again noted to be hyperexpanded with mild prominence of interstitial markings, likely due to chronic / senescent changes. No definite focal infiltrates are identified. There is no significant pleural effusion or pneumothorax. IMPRESSION: Hyperexpanded lungs with stable mild prominence of interstitial markings consistent with chronic / s enescent changes. No definite focal infiltrates or effusions. RPTAT: EE Physician Perez Date Time Electronically viewed and signed by Physician Perez on 03/21/2017 17:48 /
[2017-03-21] MEDS ORDERED: LACT1CAP57 G-TUBE (18:11)
[2017-03-21] MEDS ORDERED: ALBU2.5V3 NEB ×2 (18:11)
[2017-03-21] MEDS ORDERED: DOCU-144 GTB (18:12)
[2017-03-21] MEDS ORDERED: CRAN425C2 GTB (18:13)
[2017-03-21] MEDS ORDERED: ENOX40DI14 SC (18:15)
[2017-03-21] MEDS ORDERED: METO-448 (18:16)
[2017-03-21] MEDS ORDERED: CRAN3875 GTB (18:17)
[2017-03-21] MEDS ORDERED: METO5TAB11 GTB (18:17)
[2017-03-21] MEDS ORDERED: VIT500LI GTB (18:21)
[2017-03-21] MEDS ORDERED: CLOP75TA27 GTB (18:21)
[2017-03-21] MEDS ORDERED: ACETAMINOPHEN 325 MG TAB PO PRN (20:00)
[2017-03-21] MEDS ORDERED: ONDANSETRON 4 MG INJ IV PRN ×2 (20:00→23:00)
--- NOTE | 2017-03-21 20:07 | ERD ---
ER Documentation Chief Complaint Chief Complaint BLEEDING FROM TRACH FROM SUCTIONING. MILD BLEEDING NOTED. NO SOB. ON VENT HPI This is a 72-year-old male who is chronic encephalopathy and chronic ventilator dependence who presents to the emergency room after bleeding from suctioning at alf facility. The patient had some bleeding upon EMS arrival. And still had some mild bleeding despite gentle suctioning by my RT. Patient is nonverbal and cannot provide further history. ROS All systems reviewed and are negative except as per history of present illness. Medications Home Meds Active Scripts Lansoprazole* (Lansoprazole*) 30 Mg Capsule.dr, 30 MG GTB DAILY@06 for 30 Days Prov:SHOLAMINESH Berger 09/09/16 Reported Medications Clopidogrel Bisulfate (Clopidogrel) 75 Mg Tablet, 75 MG GTB DAILY, #30 TAB 03/21/17 Vit C-Ascorbate Ca-Ascorb Sod (Vitamin C) 500 Mg/15 Ml Liquid, 500 MG GTB DAILY , ML 03/21/17 Cran/Vitc/Mannose/Inulin/Brom (Uti-Stat Liquid) 3,875 Mg/30 Ml Liquid, 3875 MG GTB DAILY 03/21/17 Metoclopramide Hcl* (Metoclopramide Hcl*) 5 Mg Tablet, 5 MG GTB TID Y for GASTROINTESTINAL UPSET, TAB 03/21/17 Metoprolol Tartrate* (Lopressor*) 25 Mg Tab, 12.5 MG BID, #60 TAB 03/21/17 Enoxaparin Sodium* (Lovenox*) 40 Mg/0.4 Ml Syringe, 40 MG SC DAILY, SYR 03/21/17 Cranberry Extract (Cranberry) 425 Mg Capsule, 425 MG GTB DAILY, CAP 03/21/17 Docusate Sodium* (Colace*) 100 Mg Capsule, 200 MG GTB DAILY Y for CONSTIPATION, #30 CAP 03/21/17 Albuterol Sulfate* (Albuterol Sulfate* Neb) 0.083%-3 Ml Neb, 2.5 MG NEB Q6, #30 VIAL 03/21/17 Albuterol Sulfate* (Albuterol Sulfate* Neb) 0.083%-3 Ml Neb, 2.5 MG NEB Q3H Y for WHEEZING AND SOB, #30 VIAL 03/21/17 Lactobacillus Rhamnosus* (Culturelle*) 1 Each Cap.sprink, 1 CAP G-TUBE BID, CAP 03/21/17 Ipratropium-Albuterol (Ipratropium-Albuterol) 0.5-3 Mg/3 Ml Ampul.neb, 3 ML INHALATION Q6, #30 VIAL 07/30/16 Acetaminophen* (Tylenol*) 325 Mg Tablet, 650 MG GTB Q4H Y for MILD PAIN LEVEL 1- 3, TAB 07/30/16 Digoxin* (Lanoxin*) 0.125 Mg/2.5 Ml Solution, 2.5 ML GTB DAILY, ML HOLD IF APICAL PULSE<60BPM 07/30/16 Ferrous Sulfate* (Ferrous Sulfate*) 220 Mg/5 Ml Solution, 7.5 ML GTB TID, ML 07/30/16 Levetiracetam* (Keppra* (Ped)) 100 Mg/Ml Liq, 5 ML GTB Q12H for 30 Days, BOTTLE 07/30/16 Multivits,Ca,Minerals/Iron/FA (Thera M Plus Tablet) 1 Each Tablet, 1 EACH GTB BID, TAB 07/30/16 Acetaminophen* (Acetaminophen*) 500 MG Extra Strength Tablet, 1000 MG GTB Q8H Y for MILD PAIN 4-11/01, TAB 07/05/16 Bisacodyl* (Bisacodyl*) 10 Mg Supp, 10 MG NH DAILY Y for CONSTIPATION, SUPP 07/05/16 Magnesium Hydroxide* (Milk Of Magnesia*) 400 Mg/5 Ml Oral.susp, 30 ML GTB DAILY Y for CONSTIPATION, ML 07/05/16 Lisinopril* (Lisinopril*) 2.5 Mg Tablet, 2.5 MG GTB DAILY, #30 TAB HOLD IF SBP<100 AND CALL MD 07/05/16 Chlorhexidine Gluconate (Peridex) 473 Ml Mouthwash, 15 ML MM BID, BOTTLE 07/05/16 Atorvastatin Calcium (Atorvastatin Calcium) 10 Mg Tablet, 5 MG GTB QHS, #30 TAB 07/05/16 Discontinued Reported Medications Docusate Sodium* (Docusate Sodium* Liq) 50 Mg/5 Ml Liquid, 10 ML GTB DAILY, ML 07/30/16 Amino Acids/Protein Hydrolys (PRO-STAT LIQUID) 30 Ml Liquid.pkt, 30 ML GTB BID SUGAR FREE 07/30/16 Mineral Oil* (Fleet* Mineral Oil Enema) 133 Ml Oil, 133 ML NH DAILY Y for CONSTIPATION, ENEMA 07/05/16 Lorazepam* (Lorazepam*) 1 Mg Tablet, 1 MG GTB Q6 Y for ANXIETY, #30 TAB 07/05/16 Discontinued Scripts Fluconazole* (Diflucan*) 100 Mg Tablet, 100 MG GTB DAILY for 8 Days, TAB Prov:MINESH JOLLEY. 09/09/16 Colistin (Colistimethate Na) (Colistimethate) 150 Mg Vial, 75 MG NEB BID RESP THERAPY for 8 Days, VIAL Prov:MINESH JOLLEY. 09/09/16 [Amikacin Iv Per Pharmacy] 1 EA EACH No Conflict Check, 0 EA XX NOTE for 8 Days Prov:MINESH JOLLEY. 09/09/16 Diphenhydramine Hcl (BANOPHEN) 50 Mg Capsule, 25 MG GTB Q6H Y for PRN for 30 Days, CAP Prov:MINESH JOLLEY. 09/09/16 Allergies Allergies: Coded Allergies: aspirin (Verified Allergy, Unknown, 07/30/16) piperacillin (Verified Adverse Reaction, Intermediate, Rash, itching possibly drug related, 08/01/16) Rash, itching possibly drug related, occurred 08/01 1999 tazobactam (Verified Adverse Reaction, Intermediate, Rash, itching possibly drug related, 08/01/16) Rash, itching possibly drug related, occurred 08/01 1999 vancomycin (Verified Adverse Reaction, Unknown, Rash, itching possibly drug related, 08/01/16) Rash, itching possibly drug related, occurred 08/01 1999 PMhx/Soc History of Surgery: Yes (trach, gtube) Anesthesia Reaction: No Hx Neurological Disorder: Yes (epilepsy) Hx Respiratory Disorders: Yes (chronic respiratory failure-TRACH TO VENT) Hx Cardiac Disorders: Yes (afib) Hx Psychiatric Problems: No Hx Miscellaneous Medical Probl: Yes (DM type 2) Hx Alcohol Use: No (unable to obtain) Hx Substance Use: No (unable to obtain) Hx Tobacco Use: No (unable to obtain) Smoking Status: Unknown if ever smoked FmHx Family History: No diabetes Physical Exam Vitals Vital Signs Date Time Temp Pulse Resp B/P Pulse Ox O2 Delivery O2 Flow Rate FiO2 03/21/17 19:10 95 12 128/72 100 Mechanical Ventilator 03/21/17 17:15 98.6 88 22 129/87 95 03/21/17 17:15 101 20 100 50 03/21/17 17:03 95 12 129/69 99 Mechanical Ventilator Physical Exam General: No significant distress Head: Normocephalic, atraumatic. Eyes: Pupils equally reactive, EOM intact ENT: Moist mucous membranes small amount of blood noted at the tracheostomy site and trach tube without active hemorrhage. Neck: Supple, no lymphadenopathy Respiratory: Mechanical breath sounds bilaterally Cardiovascular: RRR, no murmurs, rubs, or gallops Abdominal: Soft, non-tender, non-distended, no peritoneal signs : Deferred MSK: Limited movement of all 4 extremities, no bony abnormalities Neurologic: Limited exam, and encephalopathic, limited movement of all 4 extremities Skin: No rash, no significant breakdown Psych: Unable to assess Result Diagram: 03/21/17183903/21/17 1840 Results 24 hrs Laboratory Tests Test 03/21/17 18:40 White Blood Count 14.110^3/ul Red Blood Count 2.9110^6/ul Hemoglobin 8.5g/dl Hematocrit 27.7% Mean Corpuscular Volume 95.2fl Mean Corpuscular Hemoglobin 29.2pg Mean Corpuscular Hemoglobin Concent 30.7g/dl Red Cell Distribution Width 15.6% Platelet Count 94099^3/UL Mean Platelet Volume 9.6fl Neutrophils % 79.1% Lymphocytes % 10.5% Monocytes % 8.6% Eosinophils % 1.0% Basophils % 0.4% Nucleated Red Blood Cells % 0.0/100WBC Neutrophils # 11.110^3/ul Lymphocytes # 1.510^3/ul Monocytes # 1.210^3/ul Eosinophils # 0.110^3/ul Basophils # 0.110^3/ul Nucleated Red Blood Cells # 0.010^3/ul Prothrombin Time 12.6Sec Prothrombin Time Ratio 1.0 INR International Normalized Ratio 0.94 Activated Partial Thromboplast Time 33.9Sec Sodium Level 137mmol/L Potassium Level 4.9mmol/L Chloride Level 91mmol/L Carbon Dioxide Level 39mmol/L Anion Gap 12 Blood Urea Nitrogen 51mg/dl Creatinine 1.07mg/dl Glucose Level 94mg/dl Calcium Level 9.8mg/dl Current Medications Medications (Trade) Dose Ordered Sig/Emma Route PRN Reason Start Time Stop Time Status Last Admin Dose Admin Ondansetron HCl (Zofran Inj) 4 mg ER BRIDGE PRN IV NAUSEA AND/OR VOMITING 03/21/17 20:00 03/22/17 19:59 Acetaminophen (Tylenol Tab) 650 mg ER BRIDGE PRN PO MILD PAIN/FEVER 03/21/17 20:00 03/22/17 19:59 Procedures/MDM EKG, MONITORS, & DIAGNOSTIC IMAGING: EKG: I reviewed and interpreted a 12-lead EKG. Rhythm: Normal sinus rhythm Ectopy: None Intervals: No abnormalities ST segments: No elevations or depressions T waves: No contiguous inversions Chest x-ray: I reviewed and interpreted a 1 view of the chest Mediastinum: No enlargement Cardiac silhouette: No cardiomegaly Airspace: Clear lung bosch bilaterally without evidence of pneumothorax Bones: No evidence of fracture Tracheostomy appears to be in good position LAB INTERPRETATION: Anemia but consistent with baseline values, no significant coagulopathy noted MEDICAL DECISION MAKING: The patient has evidence of bleeding from tracheostomy but this is most consistent with likely irritation or dislodgment of granulation tissue from aggressive suctioning. The patient only has mild bleeding at this time without evidence of significant hemorrhage. Low clinical concern for acute pulmonary hemorrhage or diffuse alveolar hemorrhage. ER COURSE: I was able to speak to Dr. Nunez, ENT. He recommends conservative management. He states that if the bleeding is controlled he does not need to be scoped. He states that if the patient has persistent bleeding then he should be called. The bleeding has since resolved and improved. He does recommend hospitalization for serial exams and trending hemoglobin. The patient continues to be hemodynamically stable and resting comfortably at this time. No evidence of pneumonia. I kept the patient and/or family informed of laboratory and diagnostic imaging results throughout the emergency room course. DISPOSITION PLAN: Telemetry admission CONSULTATION: Accepting care team and consultations: I discussed the current laboratory data, diagnostic imaging and emergency care provided. Admitting team: Dr. Aggarwal Admitting team indication: Insurance directed Departure Diagnosis: Primary Impression: Tracheostomy hemorrhage Additional Impressions: Chronic respiratory failure Respiratory failure complication: unspecified whether with hypoxia or hypercapnia Qualified Code: J96.10 - Chronic respiratory failure, unspecified whether with hypoxia or hypercapnia Encephalopathy chronic Anemia Anemia type: unspecified type Qualified Code: D64.9 - Anemia, unspecified type Condition: Stable BORM, VIRGIE A., MD Mar 21, 2017 20:06
[2017-03-21] MEDS ORDERED: SOD CHLORIDE 0.9% 500 ML IV ONE (22:30)
[2017-03-21] MEDS ORDERED: NACL 0.9% 3 ML SYG IV SCH (23:00)
[2017-03-21] MEDS ORDERED: BISACODYL 10 MG SUPP PR PRN (23:00)
[2017-03-21] MEDS ORDERED: LORAZEPAM 2 MG INJ IV PRN (23:00)
[2017-03-21] MEDS ORDERED: ALBUTEROL/IPRATROPIUM (NEB) 3 ML AMP HHN PRN (23:00)
[2017-03-21] MEDS ORDERED: MAGNESIUM HYDROXIDE 30ML CUP GTB PRN (23:00)
[2017-03-21] MEDS: SOD CHLORIDE 0.9% 1,000 ML IV SCH (23:17)
[2017-03-22] VITALS (9 sets, daily range): BP systolic 130–140; BP diastolic 70–82; PULSE 87–101; RESP 16–19; TEMP 97.9
[2017-03-22] MEDS: LEVETIRACETAM (100 MG/ML) 5ML CUP GTB SCH ×3 (03:02→21:45)
[2017-03-22] MEDS ORDERED: LEVOFLOXACIN 500MG/D5W (PMX) 100 ML IVPB SCH ×2 (06:00→09:00)
--- NOTE | 2017-03-22 06:32 | HP ---
Date/Time of Note Date/Time of Note DATE: 03/22/17 TIME: 06:20 Assessment/Plan VTE Prophylaxis VTE Prophylaxis Intervention: SCD's Lines/Catheters IV [facility]ter [facility] (from [facility]): Saline Lock Assessment/Plan Assessment/Plan ASSESSMENT 72-year-old male with chronic encephalopathy, trach/vent dependent respiratory failure, A. fib, seizure, G-tube for feeding who was sent from [facility] facility after blood was suctioned from his trach. Upon presentation to the ER , patient meets sepsis criteria PLAN Admit to telemetry unit Monitor tracheal bleeding closely. No coagulopathy or thrombocytopenia noted. If bleeding continues, ENT to evaluate patient IV antibiotic given fever and tachycardia Follow-up culture results Continue vent/trach support. Place pulmonary consult Monitor H&H closely and transfuse as needed Continue outpatient medications adjustment as needed HPI/ROS Admit Date/Time Admit Date/Time Hx of Present Illness This is a 72-year-old male with chronic encephalopathy, trach/vent dependent respiratory failure, A. fib, seizure, G-tube for feeding who was sent from [facility] after blood was noted on his trach. When patient arrived to the ER, he had a temp of 101.5 and heart rate 101, otherwise blood pressure was within normal limits. Labs shows hemoglobin of 8.5, WBC 14,000 and a bicarb 39. Small amount of blood was suctioned from his trach by RT but small amount of bleeding persisted. A consult was placed to ENT, : Who said he would see the patient if bleeding continued. Chest x-ray showed Hyperexpanded lungs with stable mild prominence of interstitial markings consistent with chronic / senescent changes. Note that I am not able to get information from the patient because of his chronic encephalopathic state. PMH/Family/Social Past Surgical History Past Surgical Hx: other Social History Smoking Status: Unknown if ever smoked Exam/Review of Systems Vital Signs Vitals Vital Signs Date Time Temp Pulse Resp B/P Pulse Ox O2 Delivery O2 Flow Rate FiO2 03/22/17 04:45 84 15 98 40 03/22/17 04:29 98.6 113/68 Mechanical Ventilator Exam Constitutional: non-verbal Eyes: PERRL Neck: other (Some bleeding noted on the trach tube) Respiratory: other (Decreased breath sounds at the bases bilaterally) Cardiovascular: nl pulses, regular rate and rhythm Gastrointestinal: other (G-tube in place), soft Extremities: normal pulses Labs Result Diagram: 03/21/17 1840 03/21/17 1840 Medications Medications Current Medications Sodium Chloride (NS) 1,000 ml @ 100 mls/hr Q10H IV Last administered on 23:17; Admin Dose 100 MLS/HR; Start 03/21/17 at 22:58 Lorazepam (Ativan) 0.5 mg Q6H PRN IV ANXIETY; Start 03/21/17 at 23:00 Ondansetron HCl (Zofran Inj) 4 mg Q6H PRN IV NAUSEA AND/OR VOMITING; Start at 23:00 Morphine Sulfate (morphine) 2 mg Q4H PRN IV PAIN LEVEL 7-10; Start 03/21/17 at 23:00 Famotidine (Pepcid Iv) 20 mg Q12 IV ; Start 03/22/17 at 09:00 Atorvastatin Calcium (Lipitor) 5 mg QHS GTB ; Start 03/22/17 at 21:00 Bisacodyl (Dulcolax Supp) 10 mg DAILY PRN [place] CONSTIPATION; Start 03/21/17 at 23:00 Chlorhexidine Gluconate (Peridex) 15 ml BID MM ; Start 03/22/17 at 09:00 Ferrous Sulfate (Feosol Liquid Cup) 300 mg TID GTB ; Start 03/22/17 at 09:00 Levetiracetam (Keppra Liquid) 500 mg Q12 GTB Last administered on 03/22/17 03 :02; Admin Dose 500 MG; Start 03/21/17 at 23:00 Magnesium Hydroxide (Milk Of Mag) 30 ml DAILY PRN GTB CONSTIPATION; Start at 23:00 Multivitamins (Multivitamin) 30 ml BID GTB ; Start 03/22/17 at 09:00 Digoxin 0.125 mg 0.125 mg DAILY@13 GTB ; Start 03/22/17 at 13:00 Levofloxacin/ Dextrose 100 ml @ 100 mls/hr DAILY@06 IVPB Last administered on 03/22/17 05:49; Admin Dose 100 MLS/HR; Start 03/22/17 at 06:00 Levofloxacin/ Dextrose (Levaquin 500mg/ D5W 100 ml (Pmx)) 100 ml @ 100 mls/hr Q12 IVPB ; Start 03/22/17 at 09:00; Status SANDRAV PAUL RHOADES MD Mar 22, 2017 06:30
[2017-03-22] MEDS: FAMOTIDINE 20 MG INJ IV SCH ×2 (08:34→21:51)
[2017-03-22] MEDS: SOD CHLORIDE 0.9% 1,000 ML IV SCH ×3 (08:35→18:58)
[2017-03-22] MEDS: MULTIVITAMINS 30 ML CUP GTB SCH ×2 (09:25→21:51)
[2017-03-22] MEDS: CHLORHEXIDINE GLUCONATE 15 ML UD CUP MM SCH ×2 (09:26→21:46)
[2017-03-22] MEDS: FERROUS SULFATE 60 MG/ML 5ML CUP GTB SCH ×3 (09:26→21:45)
[2017-03-22] MEDS: DIGOXIN GTB SCH (13:49)
[2017-03-22] MEDS ORDERED: PENDING SANTYL ORDER FOR WOUND CARE XX PRN (18:30)
[2017-03-22] MEDS: ATORVASTATIN 10 MG TAB GTB SCH (21:46)
[2017-03-22] MEDS ORDERED: GLUCOSE GEL 15 GRAM TUBE PO PRN ×2 (23:00)
[2017-03-22] MEDS ORDERED: DEXTROSE 50% 50 ML SYRINGE IV PRN ×2 (23:00)
[2017-03-22] MEDS ORDERED: GLUCOSE GEL 15 GRAM TUBE BUCCAL PRN (23:00)
[2017-03-22] MEDS ORDERED: GLUCAGON 1 MG INJ IM PRN (23:00)
[2017-03-23] VITALS (23 sets, daily range): BP systolic 106–138; BP diastolic 53–71; PULSE 70–89; RESP 16–23
[2017-03-23] MEDS: INSULIN ASPART [NOVOLOG] 3 ML PEN SC SCH ×6 (01:00→21:00)
[2017-03-23] MEDS ORDERED: ACETAMINOPHEN 325 MG TAB GTB PRN (02:00)
[2017-03-23] MEDS: SOD CHLORIDE 0.9% 1,000 ML IV SCH ×2 (02:42→13:25)
[2017-03-23] MEDS ORDERED: LEVOFLOXACIN 500MG/D5W (PMX) 100 ML IVPB SCH (06:00)
[2017-03-23] MEDS: LEVETIRACETAM (100 MG/ML) 5ML CUP GTB SCH ×2 (10:12→21:00)
[2017-03-23] MEDS: FAMOTIDINE 20 MG INJ IV SCH ×2 (10:12→21:31)
[2017-03-23] MEDS: CHLORHEXIDINE GLUCONATE 15 ML UD CUP MM SCH ×2 (10:12→21:31)
[2017-03-23] MEDS: MULTIVITAMINS 30 ML CUP GTB SCH ×2 (10:12→21:00)
[2017-03-23] MEDS: FERROUS SULFATE 60 MG/ML 5ML CUP GTB SCH ×4 (10:13→21:00)
[2017-03-23] MEDS: morphine 2 MG INJ IV PRN ×2 (10:47→15:52)
--- NOTE | 2017-03-23 12:27 | PN ---
Date/Time of Note Date/Time of Note DATE: 03/23/17 TIME: 12:26 Assessment/Plan VTE Prophylaxis VTE Prophylaxis Intervention: SCD's Lines/Catheters [facility] Peripheral IV Urinary Cath still in place: No Assessment/Plan Chief Complaint/Hosp Course 1. Sepsis with underlying urinary tract infection, abdominal wall cellulitis, and Clostridium difficile colitis. Continue antimicrobials. Will involve infectious diseases on the case. 2. Bleeding from tracheostomy site. Resolved. H&H is stable. 3. Normocytic, normochromic anemia. Etiology unclear. Will obtain an iron panel. 4. Chronic respiratory failure. The patient has tracheostomy connected to mechanical ventilator. Will involve pulmonology in the case. 5. Dysfunctional G-tube. Obtain gastroenterology consult. 6. Essential hypertension. BP fairly well controlled of antihypertensives. 7. 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 8. Diabetes mellitus. Continue sliding scale insulin. 9. History of paroxysmal atrial fibrillation. Currently in sinus rhythm with frequent PVCs. Continue digoxin. 10. Fluids, electrolytes, and nutrition. Continue G-tube feedings. 11. DVT prophylaxis. Bilateral sequential compression devices. 12. Plan. Obtain gastroenterology consult for leaking G-tube. Obtain infectious disease consult for antibiotic management. Case discussed with Dr. Wang. Problems: Subjective 24 Hr Interval Summary Free Text/Dictation The patient continues to have febrile illness. Exam/Review of Systems Vital Signs Vitals Vital Signs Date Time Temp Pulse Resp B/P Pulse Ox O2 Delivery O2 Flow Rate FiO2 03/23/17 11:39 99.9 85 19 123/63 99 03/23/17 11:15 40 03/22/17 14:50 Mechanical Ventilator Intake and Output 03/22/17 03/22/17 03/23/17 15:00 23:00 07:00 Intake Total 90 ml 250 ml Balance 90 ml 250 ml Exam General: Chronically ill 72 year-old male lying in bed in no apparent distress. HEENT: Normocephalic, atraumatic. Eyes: Anicteric sclerae, conjunctivae clear. ENT: Nasal septum midline, oral mucosa is dry. Neck supple. Ileostomy ileostomy midline., no JVD noticed. Respiratory: Bilaterally clear breath sounds. No use of accessory muscles of respiration. No adventitious breath sounds. Cardiovascular: S1, S2 heard. Occasional skipped beats. Abdomen: Soft, nontender, and nondistended. Bowel sounds positive in all 4 quadrants. Genitourinary: Deferred. Extremities: No cyanosis, no clubbing, no edema. Peripheral pulses palpable. Neurologic: The patient is obtunded. Results Result Diagram: 03/22/17 1620 03/22/17 1620 Results 24 hrs Laboratory Tests Test 03/22/17 13:29 03/22/17 16:20 03/23/17 01:40 03/23/17 06:14 Urine Color YELLOW Urine Clarity SLIGHTLY CLOUDY A Urine pH 7.0 Urine Specific Pharr 1.009 Urine Ketones TRACE A Urine Nitrite POSITIVE A Urine Bilirubin NEGATIVE Urine Urobilinogen NEGATIVE Urine Leukocyte Esterase 3+ H Urine Microscopic RBC 25 H Urine Microscopic WBC 144 H Urine Bacteria MODERATE Urine Mucus FEW A Urine Hemoglobin 2+ H Urine Glucose NEGATIVE Urine Total Protein 1+ H White Blood Count 9.0 # Red Blood Count 3.52 #L Hemoglobin 10.4 #L Hematocrit 32.6 L Mean Corpuscular Volume 92.6 Mean Corpuscular Hemoglobin 29.5 Mean Corpuscular Hemoglobin Concent 31.9 L Red Cell Distribution Width 15.6 H Platelet Count 194 # Mean Platelet Volume 9.3 Neutrophils % 74.3 Lymphocytes % 13.5 L Monocytes % 10.2 Eosinophils % 1.2 Basophils % 0.4 Nucleated Red Blood Cells % 0.0 Neutrophils # 6.7 Lymphocytes # 1.2 Monocytes # 0.9 Eosinophils # 0.1 Basophils # 0.0 Nucleated Red Blood Cells # 0.0 Sodium Level 141 Potassium Level 4.9 Chloride Level 99 Carbon Dioxide Level 31 Anion Gap 16 Blood Urea Nitrogen 36 #H Creatinine 0.97 Glucose Level 77 Lactic Acid Level 1.3 Calcium Level 8.8 Phosphorus Level 2.7 Magnesium Level 1.7 Total Bilirubin 0.4 Direct Bilirubin 0.00 Indirect Bilirubin 0.4 Aspartate Amino Transf (AST/SGOT) 39 Alanine Aminotransferase (ALT/SGPT) 41 Alkaline Phosphatase 93 Total Protein 8.1 Albumin 4.0 Globulin 4.10 H Albumin/Globulin Ratio 0.97 Triglycerides Level 79 Cholesterol Level 112 LDL Cholesterol, Calculated 67 HDL Cholesterol 29 L Cholesterol/HDL Ratio 3.8 Bedside Glucose 105 106 Test 03/23/17 09:53 Bedside Glucose 102 Medications Medications Current Medications Sodium Chloride (NS) 1,000 ml @ 100 mls/hr Q10H IV Last administered on 02:42; Admin Dose 100 MLS/HR; Start 03/21/17 at 22:58 Lorazepam (Ativan) 0.5 mg Q6H PRN IV ANXIETY; Start 03/21/17 at 23:00 Ondansetron HCl (Zofran Inj) 4 mg Q6H PRN IV NAUSEA AND/OR VOMITING; Start at 23:00 Morphine Sulfate (morphine) 2 mg Q4H PRN IV PAIN LEVEL 7-10 Last administered on 03/23/17 10:47; Admin Dose 2 MG; Start 03/21/17 at 23:00 Famotidine (Pepcid Iv) 20 mg Q12 IV Last administered on 03/23/17 10:12; Admin Dose 20 MG; Start 03/22/17 at 09:00 Atorvastatin Calcium (Lipitor) 5 mg QHS GTB Last administered on 03/22/17 21: 46; Admin Dose 5 MG; Start 03/22/17 at 21:00 Bisacodyl (Dulcolax Supp) 10 mg DAILY PRN [place] CONSTIPATION; Start 03/21/17 at 23:00 Chlorhexidine Gluconate (Peridex) 15 ml BID MM Last administered on 03/23/17 10:12; Admin Dose 15 ML; Start 03/22/17 at 09:00 Ferrous Sulfate (Feosol Liquid Cup) 300 mg TID GTB Last administered on 10:13; Admin Dose 300 MG; Start 03/22/17 at 09:00 Levetiracetam (Keppra Liquid) 500 mg Q12 GTB Last administered on 03/23/17 10 :12; Admin Dose 500 MG; Start 03/21/17 at 23:00 Magnesium Hydroxide (Milk Of Mag) 30 ml DAILY PRN GTB CONSTIPATION; Start at 23:00 Multivitamins (Multivitamin) 30 ml BID GTB Last administered on 03/23/17 10: 12; Admin Dose 30 ML; Start 03/22/17 at 09:00 Digoxin 0.125 mg 0.125 mg DAILY@13 GTB Last administered on 03/22/17 13:49; Admin Dose 0.125 MG; Start 03/22/17 at 13:00 Levofloxacin/ Dextrose (Levaquin 500mg/ D5W 100 ml (Pmx)) 100 ml @ 100 mls/hr Q24H IVPB Last administered on 03/23/17 06:07; Admin Dose 100 MLS/HR; Start 03/23/17 at 06:00 Miscellaneous Information (Pending Santyl Order For Wound Care) This patient aguiar... PRN PRN XX WOUND CARE; Start 03/22/17 at 18:30 Insulin Aspart (Novolog Insulin Pen) NOVOLOG *MILD* ALGORI... Q4 SC ; Start at 01:00 Miscellaneous Information 1 ea NOTE XX ; Start 03/22/17 at 23:00 Glucose (Glutose) 15 gm Q15M PRN PO DECREASED GLUCOSE; Start 03/22/17 at 23:00 Glucose (Glutose) 22.5 gm Q15M PRN PO DECREASED GLUCOSE; Start 03/22/17 at 23: 00 Dextrose (D50w Syringe) 25 ml Q15M PRN IV DECREASED GLUCOSE; Start 03/22/17 at 23:00 Dextrose (D50w Syringe) 50 ml Q15M PRN IV DECREASED GLUCOSE; Start 03/22/17 at 23:00 Glucagon (Glucagen) 1 mg Q15M PRN IM DECREASED GLUCOSE; Start 03/22/17 at 23: 00 Glucose (Glutose) 15 gm Q15M PRN BUCCAL DECREASED GLUCOSE; Start 03/22/17 at 23:00 Acetaminophen (Tylenol Tab) 650 mg Q6H PRN GTB PAIN AND OR ELEVATED TEMP Last administered on 03/23/17 02:38; Admin Dose 650 MG; Start 03/23/17 at 02:00 RENA JAY NP Mar 23, 2017 12:27 RENA JAY NP Mar 23, 2017 12:27
[2017-03-23] MEDS: DIGOXIN GTB SCH (13:00)
[2017-03-23] MEDS: metroNIDAZOLE 500 MG/NS (PMX) 100 ML IVPB SCH ×2 (13:24→21:52)
[2017-03-23] MEDS ORDERED: ACETAMINOPHEN 650 MG SUPP PR PRN (15:30)
[2017-03-23] MEDS ORDERED: VANCOMYCIN IV PER PHARMACY XX SCH (17:00)
[2017-03-23] MEDS: ERTAPENEM SODIUM 1 GM in SOD CHLORIDE 0.9% 100 ML IVPB SCH (17:58)
[2017-03-23] MEDS: ATORVASTATIN 10 MG TAB GTB SCH (21:00)
[2017-03-23] MEDS: LINEZOLID 600 MG/D5W (PMX) 300 ML IVPB SCH (21:31)
--- NOTE | 2017-03-23 21:36 | CONS ---
DATE OF ADMISSION: 03/21/2017 DATE OF CONSULTATION: 03/23/2017 TYPE OF CONSULTATION: Infectious Disease. REASON FOR CONSULTATION: Antibiotic management. HISTORY OF PRESENT ILLNESS: The patient is a 72-year-old male with numerous problems, who comes in with sepsis and is being seen for antibiotic management. His past problems include: 1. Chronic encephalopathy. 2. Ventilator-dependent respiratory failure, status post tracheostomy. 3. Atrial fibrillation. 4. Seizures. 5. Dysphagia, status post G-tube feeding. The patient was sent from his SNF after blood was noted on his trach. His temperature was 101.5, he art rate 101, blood pressure within normal limits. On admission, his white count was 14.18, H and H of 8.5 and 27.7, platelet count 250,000. BUN and c reatinine 51/1.07, glucose of 94. PAST MEDICAL HISTORY/OPERATIONS: As outlined. FAMILY HISTORY: Noncontributory. SOCIAL HISTORY: He lives in a prison facility. No known history of smoking, drinking or a buse of drugs. ALLERGIES: NONE TO PENICILLIN, SULFA OR FOODS. MEDICATIONS: Per chart. REVIEW OF SYSTEMS: As per HPI. PHYSICAL EXAMINATION: GENERAL: The patient is a well-developed, chronically ill-appearing male who is nonverbal. He has a trach and a PEG. VITAL SIGNS: He is afebrile. SKIN: Without generalized rash. HEENT: Within normal limits. NECK: Supple. Tracheostomy in place. LYMPH NODES: None palpable. CHEST: Decreased breath sounds at the bases. HEART: Without murmur or gallop. ABDOMEN: Soft, nontender, without organosplenomegaly or masses. G-tube in place. EXTREMITIES: Without cyanosis, clubbing, or edema. RECTAL AND GENITAL: Deferred. NEUROLOGICAL: No focal neurological abnormalities. IMPRESSION AND PLAN: The patient obviously is chronically debilitated with chronic encephalitis. M icrobiology shows he has gram-negative rods in his urine, gram-positive cocci in clusters in 2 sets of blood cultures drawn at least 20 minutes apart. The abdominal drain is growing out gram-negative rods and Kimberlyn albicans. A chest x-ray showed hyperexpanded lungs with stable mild prominence of the interstitial markings consistent with chronic senescent changes. No definite focal infiltrates or effusions. Patient was felt to have sepsis with underlying urinary tract infection, also abdomi nal wall cellulitis. His laboratory also showed C. difficile positivity, so he has multiple problem s, including urinary tract infection, abdominal wall cellulitis, C. Difficile, and positive blood cu ltures for gram-positive cocci. The bleeding from his tracheostomy has resolved. He has a dysfunct ional G-tube. Currently he is on metronidazole and Levaquin; however, since he has gram-positive co cci in chains and clusters, it is unclear whether this is strep or probably Staph aureus, especially methicillin-resistant Staphylococcus, so we are going to switch him over to vancomycin and continue the Flagyl and place him on cefepime. I will dictate my findings to the hospitalist. Dictated By: MARINO LOGAN MD, JD/SALOME Conf#: [id number] DID#: [id number]
[2017-03-24] VITALS (21 sets, daily range): BP systolic 115–143; BP diastolic 59–66; PULSE 70–87; RESP 13–24
[2017-03-24] MEDS: INSULIN ASPART [NOVOLOG] 3 ML PEN SC SCH ×5 (01:00→17:00)
[2017-03-24] MEDS: metroNIDAZOLE 500 MG/NS (PMX) 100 ML IVPB SCH ×2 (05:43→13:51)
[2017-03-24] MEDS: SOD CHLORIDE 0.9% 1,000 ML IV SCH ×2 (05:44→10:12)
[2017-03-24] MEDS: LEVETIRACETAM (100 MG/ML) 5ML CUP GTB SCH (07:31)
[2017-03-24] MEDS: FERROUS SULFATE 60 MG/ML 5ML CUP GTB SCH ×2 (07:31→13:00)
[2017-03-24] MEDS: MULTIVITAMINS 30 ML CUP GTB SCH (07:32)
--- NOTE | 2017-03-24 07:39 | PN ---
Date/Time of Note Date/Time of Note DATE: 03/24/17 TIME: 07:38 Exam/Review of Systems Vital Signs Vitals Exam Results Result Diagram: 03/22/17 1620 03/22/17 1620 Results 24 hrs Laboratory Tests Test 03/23/17 09:53 03/23/17 13:23 03/23/17 14:03 03/23/17 17:15 Bedside Glucose 102 85 80 Hemoglobin A1c 5.2 Iron Level 11 L Total Iron Binding Capacity 206 L Percent Iron Saturation 5 L Ferritin 992.0 H Test 03/23/17 21:50 03/24/17 05:49 Bedside Glucose 79 78 Medications Medications Current Medications Sodium Chloride (NS) 1,000 ml @ 100 mls/hr Q10H IV Last administered on 05:44; Admin Dose 100 MLS/HR; Start 03/21/17 at 22:58 Lorazepam (Ativan) 0.5 mg Q6H PRN IV ANXIETY; Start 03/21/17 at 23:00 Ondansetron HCl (Zofran Inj) 4 mg Q6H PRN IV NAUSEA AND/OR VOMITING; Start at 23:00 Morphine Sulfate (morphine) 2 mg Q4H PRN IV PAIN LEVEL 7-10 Last administered on 03/23/17 15:52; Admin Dose 2 MG; Start 03/21/17 at 23:00 Famotidine (Pepcid Iv) 20 mg Q12 IV Last administered on 03/23/17 21:31; Admin Dose 20 MG; Start 03/22/17 at 09:00 Atorvastatin Calcium (Lipitor) 5 mg QHS GTB Last administered on 03/22/17 21: 46; Admin Dose 5 MG; Start 03/22/17 at 21:00 Bisacodyl (Dulcolax Supp) 10 mg DAILY PRN RI CONSTIPATION; Start 03/21/17 at 23:00 Chlorhexidine Gluconate (Peridex) 15 ml BID MM Last administered on 03/23/17 21:31; Admin Dose 15 ML; Start 03/22/17 at 09:00 Ferrous Sulfate (Feosol Liquid Cup) 300 mg TID GTB Last administered on 10:13; Admin Dose 300 MG; Start 03/22/17 at 09:00 Levetiracetam (Keppra Liquid) 500 mg Q12 GTB Last administered on 03/23/17 10 :12; Admin Dose 500 MG; Start 03/21/17 at 23:00 Magnesium Hydroxide (Milk Of Mag) 30 ml DAILY PRN GTB CONSTIPATION; Start at 23:00 Multivitamins (Multivitamin) 30 ml BID GTB Last administered on 03/23/17 10: 12; Admin Dose 30 ML; Start 03/22/17 at 09:00 Digoxin (Digoxin Liquid) 0.125 mg DAILY@13 GTB Last administered on 03/22/17 13:49; Admin Dose 0.125 MG; Start 03/22/17 at 13:00 [facility]isc[facility] This patient aguiar... PRN PRN XX WOUND CARE; Start 03/22/17 at 18:30 Insulin Aspart (Novolog Insulin Pen) NOVOLOG *MILD* ALGORI... Q4 SC ; Start at 01:00 Miscellaneous Information 1 ea NOTE XX ; Start 03/22/17 at 23:00 Glucose (Glutose) 15 gm Q15M PRN PO DECREASED GLUCOSE; Start 03/22/17 at 23:00 Glucose (Glutose) 22.5 gm Q15M PRN PO DECREASED GLUCOSE; Start 03/22/17 at 23: 00 Dextrose (D50w Syringe) 25 ml Q15M PRN IV DECREASED GLUCOSE; Start 03/22/17 at 23:00 Dextrose (D50w Syringe) 50 ml Q15M PRN IV DECREASED GLUCOSE; Start 03/22/17 at 23:00 Glucagon (Glucagen) 1 mg Q15M PRN IM DECREASED GLUCOSE; Start 03/22/17 at 23: 00 Glucose (Glutose) 15 gm Q15M PRN BUCCAL DECREASED GLUCOSE; Start 03/22/17 at 23:00 Acetaminophen 650 mg 650 mg Q6H PRN GTB PAIN AND OR ELEVATED TEMP Last administered on 03/23/17 02:38; Admin Dose 650 MG; Start 03/23/17 at 02:00 Metronidazole (Flagyl 500 Mg (Pmx)) 100 ml @ 100 mls/hr Q8 IVPB Last administered on 03/24/17 05:43; Admin Dose 100 MLS/HR; Start 03/23/17 at 14: 00 Acetaminophen 650 mg 650 mg Q4H PRN RI PAIN OR TEMP ABOVE 38C Last administered on 03/23/17 16:19; Admin Dose 650 MG; Start 03/23/17 at 15:30 Ertapenem 1 gm/ Sodium Chloride 100 ml @ 200 mls/hr Q24H IVPB Last administered on 03/23/17 17:58; Admin Dose 200 MLS/HR; Start 03/23/17 at 17: 00 Linezolid (Zyvox 600mg/D5W (Pmx)) 300 ml @ 300 mls/hr Q12 IVPB Last administered on 03/23/17 21:31; Admin Dose 300 MLS/HR; Start 03/23/17 at 21: 00 RENA JAY NP Mar 24, 2017 07:39 Percent Iron Saturation 5 L Ferritin 992.0 H Test 03/23/17 21:50 03/24/17 05:49 Bedside Glucose 79 78 Medications Medications Current Medications Sodium Chloride (NS) 1,000 ml @ 100 mls/hr Q10H IV Last administered on 05:44; Admin Dose 100 MLS/HR; Start 03/21/17 at 22:58 Lorazepam (Ativan) 0.5 mg Q6H PRN IV ANXIETY; Start 03/21/17 at 23:00 Ondansetron HCl (Zofran Inj) 4 mg Q6H PRN IV NAUSEA AND/OR VOMITING; Start at 23:00 Morphine Sulfate (morphine) 2 mg Q4H PRN IV PAIN LEVEL 7-10 Last administered on 03/23/17 15:52; Admin Dose 2 MG; Start 03/21/17 at 23:00 Famotidine (Pepcid Iv) 20 mg Q12 IV Last administered on 03/23/17 21:31; Admin Dose 20 MG; Start 03/22/17 at 09:00 Atorvastatin Calcium (Lipitor) 5 mg QHS GTB Last administered on 03/22/17 21: 46; Admin Dose 5 MG; Start 03/22/17 at 21:00 Bisacodyl (Dulcolax Supp) 10 mg DAILY PRN RI CONSTIPATION; Start 03/21/17 at 23:00 Chlorhexidine Gluconate (Peridex) 15 ml BID MM Last administered on 03/23/17 21:31; Admin Dose 15 ML; Start 03/22/17 at 09:00 Ferrous Sulfate (Feosol Liquid Cup) 300 mg TID GTB Last administered on 10:13; Admin Dose 300 MG; Start 03/22/17 at 09:00 Levetiracetam (Keppra Liquid) 500 mg Q12 GTB Last administered on 03/23/17 10 :12; Admin Dose 500 MG; Start 03/21/17 at 23:00 Magnesium Hydroxide (Milk Of Mag) 30 ml DAILY PRN GTB CONSTIPATION; Start at 23:00 Multivitamins (Multivitamin) 30 ml BID GTB Last administered on 03/23/17 10: 12; Admin Dose 30 ML; Start 03/22/17 at 09:00 Digoxin (Digoxin Liquid) 0.125 mg DAILY@13 GTB Last administered on 03/22/17 13:49; Admin Dose 0.125 MG; Start 03/22/17 at 13:00 Miscellaneous Information (Pending [facility] Order For Wound Care) This patient aguiar... PRN PRN XX WOUND CARE; Start 03/22/17 at 18:30 Insulin Aspart (Novolog Insulin Pen) NOVOLOG *MILD* ALGORI... Q4 SC ; Start at 01:00 Miscellaneous Information 1 ea NOTE XX ; Start 03/22/17 at 23:00 Glucose (Glutose) 15 gm Q15M PRN PO DECREASED GLUCOSE; Start 03/22/17 at 23:00 Glucose (Glutose) 22.5 gm Q15M PRN PO DECREASED GLUCOSE; Start 03/22/17 at 23: 00 Dextrose (D50w Syringe) 25 ml Q15M PRN IV DECREASED GLUCOSE; Start 03/22/17 at 23:00 Dextrose (D50w Syringe) 50 ml Q15M PRN IV DECREASED GLUCOSE; Start 03/22/17 at 23:00 Glucagon (Glucagen) 1 mg Q15M PRN IM DECREASED GLUCOSE; Start 03/22/17 at 23: 00 Glucose (Glutose) 15 gm Q15M PRN BUCCAL DECREASED GLUCOSE; Start 03/22/17 at 23:00 Acetaminophen 650 mg 650 mg Q6H PRN GTB PAIN AND OR ELEVATED TEMP Last administered on 10/30/17at 02:38; Admin Dose 650 MG; Start 03/23/17 at 02:00 Metronidazole (Flagyl 500 Mg (Pmx)) 100 ml @ 100 mls/hr Q8 IVPB Last administered on 03/24/17 05:43; Admin Dose 100 MLS/HR; Start 03/23/17 at 14: 00 Acetaminophen 650 mg 650 mg Q4H PRN RI PAIN OR TEMP ABOVE 38C Last administered on 03/23/17 16:19; Admin Dose 650 MG; Start 03/23/17 at 15:30 Ertapenem 1 gm/ Sodium Chloride 100 ml @ 200 mls/hr Q24H IVPB Last administered on 03/23/17 17:58; Admin Dose 200 MLS/HR; Start 03/23/17 at 17: 00 Linezolid (Zyvox 600mg/D5W (Pmx)) 300 ml @ 300 mls/hr Q12 IVPB Last administered on 03/23/17 21:31; Admin Dose 300 MLS/HR; Start 03/23/17 at 21: 00 RENA JAY NP Mar 24, 2017 07:39
[2017-03-24] MEDS: FAMOTIDINE 20 MG INJ IV SCH (10:02)
[2017-03-24] MEDS: LINEZOLID 600 MG/D5W (PMX) 300 ML IVPB SCH (10:02)
[2017-03-24] MEDS: CHLORHEXIDINE GLUCONATE 15 ML UD CUP MM SCH (10:12)
[2017-03-24] MEDS: morphine 2 MG INJ IV PRN ×2 (10:12→14:21)
--- NOTE | 2017-03-24 11:15 | CONS ---
Date/Time of Note Date/Time of Note DATE: 03/24/17 TIME: 10:35 Assessment/Plan Assessment/Plan Chief Complaint/Hosp Course Summary Assessment and Plan: Assessment: Dysphagia With malfunctioning G-tube Chronic encephalopathy. Ventilator-dependent respiratory failure, status post tracheostomy. Atrial fibrillation. Seizures. Plan: PEG care QID and PRN Start IV PPI BID Manipulated G-tube Will continue to monitor Will likely need to remove currently g-tube- let heal, intermediately place NG tube for TF and place new PEG in near future Pt seen in collaboration with Dr. Pires Chief Complaint/Reason for Visit: Dysphagia with malfunctioning G-tube History of Present Illness: This is a 72-year-old male with multiple comorbidities including chronic encephalopathy, trach/vent dependent respiratory failure, and dysphagia with [facility] after blood was noted on his trach. When patient arrived to the ER, he had a temp of 101.5 and heart rate 101, found to have positive blood cultures, positive UTI, positive for C. difficile, and positive for MRSA nares. GI has been consulted for dysfunctioning of G- tube. It is noted during hospitalization, when medication or fluids is pushed through G-tube,such fluids is noted to come out from ostomy site. Extensive excoriation noted on abdomen. Bowel sounds are present. G-tube is a 28 [place] with ostomy slightly bigger than G-tube. Upon evaluation it was noted only to have 3 ml of fluid in G-tube balloon. This fluid was aspirated, discarded and replaced with 9 mL of normal saline. Stopper was then manipulated to fit appropriately. Plan to start PPI twice daily to reduce acid aspiration leading to excoriation of abdomen. PEG care 4 times a day and as needed. We will continue to monitor need to remove old G-tube, let ostomy heal, placing NGT and eventually placing a new PEG. History obtained from medical records, as patient is nonverbal Past Medical History: Dysphagia With G-tube Chronic encephalopathy. Ventilator-dependent respiratory failure, status post tracheostomy. Atrial fibrillation. Seizures. Allergies: Aspirin Vancomycin piperacillin Tazobactam Family History: Unable to assess Social History: Lives in a nursing facility PHYSICAL EXAMINATION: GENERAL: Chronically ill appearing, well nourished, nonverbal SKIN: No lesions, no stigmata chronic liver disease, no evidence of bleeding diathesis, excoriation to abdomen, G-tube LYMPHATIC: No palpable lymphadenopathy. HEAD: Normocephalic, atraumatic, no tenderness. EYES: Pupils equal reactive to light and accommodation, full extraocular movements, sclera clear, non-icteric, no discharge. EARS/NOSE AND THROAT: Ears normal, nose normal, oropharynx normal, oral membranes well hydrated without lesions. NECK: Supple, no masses, trach in place CHEST: Inspection within normal limits. CARDIOVASCULAR: Heart: Irregular rate and rhythm, RESPIRATORY: Lungs clear to auscultation GASTROINTESTINAL AND LIVER: Abdomen: Soft, non tenderness, non-distended, no hernias, no masses, no organomegaly, no ascites, no guarding, no rebound tenderness, normoactive bowel sounds. 28 Australian G-tube in place rectal: Deferred. GENITOURINARY: Male genitalia within normal limits. Problems: Consultation Date/Type/Reason Admit Date/Time Date of Consultation: Mar 24, 2017 Type of Consultation: GI Reason for Consultation PEG Dysfunction Subjective hx not possible: pt non-verbal Past Medical History Medical History: other (Unable to assess) Past Surgical History Past Surgical Hx: other (Trach, PEG) Social History Alcohol Use: other (Unable to assess) Smoking Status: Unknown if ever smoked Drug Use: other (Unable to assess) Exam/Review of Systems Vital Signs Vitals Vital Signs Date Time Temp Pulse Resp B/P Pulse Ox O2 Delivery O2 Flow Rate FiO2 03/24/17 09:00 85 16 96 40 03/24/17 07:09 99.5 115/59 03/22/17 14:50 Mechanical Ventilator Intake and Output 03/23/17 03/23/17 03/24/17 15:00 23:00 07:00 Intake Total 510 ml 100 ml Balance 510 ml 100 ml Results Result Diagram: 03/24/17 0746 03/24/17 0746 Results 24 hrs Laboratory Tests Test 03/23/17 13:23 03/23/17 14:03 03/23/17 17:15 03/23/17 21:50 Bedside Glucose 85 80 79 Hemoglobin A1c 5.2 Iron Level 11 L Total Iron Binding Capacity 206 L Percent Iron Saturation 5 L Ferritin 992.0 H Test 03/24/17 05:49 03/24/17 07:46 03/24/17 10:01 Bedside Glucose 78 84 White Blood Count 11.8 #H Red Blood Count 2.99 L Hemoglobin 8.8 L Hematocrit 28.5 L Mean Corpuscular Volume 95.3 Mean Corpuscular Hemoglobin 29.4 Mean Corpuscular Hemoglobin Concent 30.9 L Red Cell Distribution Width 16.0 H Platelet Count 156 Mean Platelet Volume 10.5 H Neutrophils % Segmented Neutrophils % (Manual) 64 Band Neutrophils % (Manual) 18 H Lymphocytes % Lymphocytes % (Manual) 14 L Monocytes % Monocytes % (Manual) 2 Eosinophils % Eosinophils % (Manual) 1 Basophils % Basophils % (Manual) 1 Nucleated Red Blood Cells % 0.0 Neutrophils # Neutrophils # (Manual) 7.8 H Band Neutrophils # 2.1 H Absolute Lymphocytes (Manual) 1.6 Lymphocytes # Monocytes # Absolute Monocytes (Manual) 0.2 L Eosinophils # Basophils # Basophils # (Manual) 0.1 H Nucleated Red Blood Cells # Platelet Estimate NORMAL Giant Platelets 1 H Polychromasia 2+ Ovalocytes 1+ Sodium Level 146 H Potassium Level 4.6 Chloride Level 112 H Carbon Dioxide Level 27 Anion Gap 12 Blood Urea Nitrogen 20 # Creatinine 0.95 Glucose Level 76 Calcium Level 7.7 L Phosphorus Level 2.3 L Magnesium Level 1.3 L Medications Medications Current Medications Sodium Chloride (NS) 1,000 ml @ 100 mls/hr Q10H IV Last administered on 10:12; Admin Dose 100 MLS/HR; Start 03/21/17 at 22:58 Lorazepam (Ativan) 0.5 mg Q6H PRN IV ANXIETY; Start 03/21/17 at 23:00 Ondansetron HCl (Zofran Inj) 4 mg Q6H PRN IV NAUSEA AND/OR VOMITING; Start at 23:00 Morphine Sulfate (morphine) 2 mg Q4H PRN IV PAIN LEVEL 7-10 Last administered on 03/24/17 10:12; Admin Dose 2 MG; Start 03/21/17 at 23:00 Famotidine (Pepcid Iv) 20 mg Q12 IV Last administered on 03/24/17 10:02; Admin Dose 20 MG; Start 03/22/17 at 09:00 Atorvastatin Calcium (Lipitor) 5 mg QHS GTB Last administered on 03/22/17 21: 46; Admin Dose 5 MG; Start 03/22/17 at 21:00 Bisacodyl (Dulcolax Supp) 10 mg DAILY PRN IN CONSTIPATION; Start 03/21/17 at 23:00 Chlorhexidine Gluconate (Peridex) 15 ml BID MM Last administered on 03/24/17 10:12; Admin Dose 15 ML; Start 03/22/17 at 09:00 Ferrous Sulfate (Feosol Liquid Cup) 300 mg TID GTB Last administered on 10:13; Admin Dose 300 MG; Start 03/22/17 at 09:00 Levetiracetam (Keppra Liquid) 500 mg Q12 GTB Last administered on 03/23/17 10 :12; Admin Dose 500 MG; Start 03/21/17 at 23:00 Magnesium Hydroxide (Milk Of Mag) 30 ml DAILY PRN GTB CONSTIPATION; Start at 23:00 Multivitamins (Multivitamin) 30 ml BID GTB Last administered on 03/23/17 10: 12; Admin Dose 30 ML; Start 03/22/17 at 09:00 Digoxin (Digoxin Liquid) 0.125 mg DAILY@13 GTB Last administered on 03/22/17 13:49; Admin Dose 0.125 MG; Start 03/22/17 at 13:00 Miscellaneous Information (Pending [facility] Order For Wound Care) This patient aguiar... PRN PRN XX WOUND CARE; Start 03/22/17 at 18:30 Insulin Aspart (Novolog Insulin Pen) NOVOLOG *MILD* ALGORI... Q4 SC ; Start at 01:00 Miscellaneous Information 1 ea NOTE XX ; Start 03/22/17 at 23:00 Glucose (Glutose) 15 gm Q15M PRN PO DECREASED GLUCOSE; Start 03/22/17 at 23:00 Glucose (Glutose) 22.5 gm Q15M PRN PO DECREASED GLUCOSE; Start 03/22/17 at 23: 00 Dextrose (D50w Syringe) 25 ml Q15M PRN IV DECREASED GLUCOSE; Start 03/22/17 at 23:00 Dextrose (D50w Syringe) 50 ml Q15M PRN IV DECREASED GLUCOSE; Start 03/22/17 at 23:00 Glucagon (Glucagen) 1 mg Q15M PRN IM DECREASED GLUCOSE; Start 03/22/17 at 23: 00 Glucose (Glutose) 15 gm Q15M PRN BUCCAL DECREASED GLUCOSE; Start 03/22/17 at 23:00 Acetaminophen 650 mg 650 mg Q6H PRN GTB PAIN AND OR ELEVATED TEMP Last administered on 03/23/17 02:38; Admin Dose 650 MG; Start 03/23/17 at 02:00 Metronidazole (Flagyl 500 Mg (Pmx)) 100 ml @ 100 mls/hr Q8 IVPB Last administered on 03/24/17 05:43; Admin Dose 100 MLS/HR; Start 03/23/17 at 14: 00 Acetaminophen 650 mg 650 mg Q4H PRN IN PAIN OR TEMP ABOVE 38C Last administered on 03/23/17 16:19; Admin Dose 650 MG; Start 03/23/17 at 15:30 Ertapenem 1 gm/ Sodium Chloride 100 ml @ 200 mls/hr Q24H IVPB Last administered on 03/23/17 17:58; Admin Dose 200 MLS/HR; Start 03/23/17 at 17: 00 Linezolid (Zyvox 600mg/D5W (Pmx)) 300 ml @ 300 mls/hr Q12 IVPB Last administered on 03/24/17 10:02; Admin Dose 300 MLS/HR; Start 03/23/17 at 21: 00 DUANE SAXENA Mar 24, 2017 11:14
--- NOTE | 2017-03-24 12:13 | CONS ---
Date/Time of Note Date/Time of Note DATE: 03/24/17 TIME: 12:09 Assessment/Plan Assessment/Plan Additional Assessment/Plan Ventilator setting; AC of 12, tidal volume 500, PEEP of 5, 40% FiO2. Chest x-ray was reviewed from of this month which is showing emphysematous changes. Patient has had positive blood cultures for gram-positive organisms as well as multiple organisms cultured from decubitus wound. Assessment and recommendations; 1. Patient admitted with sepsis with gram-positive bacteremia source likely is a sacral decubitus wound. Currently on appropriate antibiotic regimen. 2. Chronic ventilator dependent respiratory failure due to advanced anoxic brain injury. Continue current supportive care. Consultation Date/Type/Reason Admit Date/Time Date of Consultation: Mar 24, 2017 Type of Consultation: Pulmonary Reason for Consultation Pulmonary consultation requested for evaluation of chronic respiratory failure. Patient admitted from custodial with bleeding from tracheostomy. Discovered to have gram-positive sepsis as well as decubitus wound infection. History of presenting illness; patient is a 72-year-old white male who was transferred over from custodial with complaints of blood coming through tracheostomy circuit. Upon further evaluation in ER a chest x-ray was done which has been unremarkable however the patient has a positive blood cultures growing gram-positive organisms as well as sacral decubitus wound growing multiple organisms. Patient has been started on appropriate antibiotic regimen. Patient has history of advanced dementia and was unable to give any history whatsoever. History was obtained from medical records. Past medical history; 1. Patient with history of advanced anoxic brain injury with chronic ventilator dependent respiratory failure. 2. Status post tracheostomy and G-tube placement. Medications; reviewed. Allergies; vancomycin, penicillin and aspirin. As well as Azactam. Social history; not available. Family history, occupational histories not available. Review systems; unable to be obtained. General exam; elderly male, on ventilator, does not respond to any commands. Currently in no distress. Past Medical History Medical History: other Past Surgical History Past Surgical Hx: other Social History Alcohol Use: other Smoking Status: Unknown if ever smoked Drug Use: other Exam/Review of Systems Vital Signs Vitals Vital Signs Date Time Temp Pulse Resp B/P Pulse Ox O2 Delivery O2 Flow Rate FiO2 03/24/17 11:22 98.8 73 18 143/66 99 03/24/17 11:05 40 03/22/17 14:50 Mechanical Ventilator Intake and Output 03/23/17 03/23/17 03/24/17 15:00 23:00 07:00 Intake Total 510 ml 100 ml Balance 510 ml 100 ml Exam HEENT exam; supple neck, no JVD. No lymphadenopathy. Midline trachea. No thyromegaly. Tracheostomy in place. No active bleeding seen around the tracheostomy. Next Chest exam; clear to auscultation. S1-S2 audible, no murmurs. Regular rhythm. Abdomen exam; soft, G-tube in place. Bowel sounds audible. No organomegaly. Extremity exam; no peripheral edema. 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 Results Result Diagram: 03/24/17 0746 03/24/17 0746 Results 24 hrs Laboratory Tests Test 03/23/17 13:23 03/23/17 14:03 03/23/17 17:15 03/23/17 21:50 Bedside Glucose 85 80 79 Hemoglobin A1c 5.2 Iron Level 11 L Total Iron Binding Capacity 206 L Percent Iron Saturation 5 L Ferritin 992.0 H Test 03/24/17 05:49 03/24/17 07:46 03/24/17 10:01 Bedside Glucose 78 84 White Blood Count 11.8 #H Red Blood Count 2.99 L Hemoglobin 8.8 L Hematocrit 28.5 L Mean Corpuscular Volume 95.3 Mean Corpuscular Hemoglobin 29.4 Mean Corpuscular Hemoglobin Concent 30.9 L Red Cell Distribution Width 16.0 H Platelet Count 156 Mean Platelet Volume 10.5 H Neutrophils % Segmented Neutrophils % (Manual) 64 Band Neutrophils % (Manual) 18 H Lymphocytes % Lymphocytes % (Manual) 14 L Monocytes % Monocytes % (Manual) 2 Eosinophils % Eosinophils % (Manual) 1 Basophils % Basophils % (Manual) 1 Nucleated Red Blood Cells % 0.0 Neutrophils # Neutrophils # (Manual) 7.8 H Band Neutrophils # 2.1 H Absolute Lymphocytes (Manual) 1.6 Lymphocytes # Monocytes # Absolute Monocytes (Manual) 0.2 L Eosinophils # Basophils # Basophils # (Manual) 0.1 H Nucleated Red Blood Cells # Platelet Estimate NORMAL Giant Platelets 1 H Polychromasia 2+ Ovalocytes 1+ Sodium Level 146 H Potassium Level 4.6 Chloride Level 112 H Carbon Dioxide Level 27 Anion Gap 12 Blood Urea Nitrogen 20 # Creatinine 0.95 Glucose Level 76 Calcium Level 7.7 L Phosphorus Level 2.3 L Magnesium Level 1.3 L Medications Medications Current Medications Sodium Chloride (NS) 1,000 ml @ 100 mls/hr Q10H IV Last administered on 10:12; Admin Dose 100 MLS/HR; Start 03/21/17 at 22:58 Lorazepam (Ativan) 0.5 mg Q6H PRN IV ANXIETY; Start 03/21/17 at 23:00 Ondansetron HCl (Zofran Inj) 4 mg Q6H PRN IV NAUSEA AND/OR VOMITING; Start at 23:00 Morphine Sulfate (morphine) 2 mg Q4H PRN IV PAIN LEVEL 7-10 Last administered on 03/24/17 10:12; Admin Dose 2 MG; Start 03/21/17 at 23:00 Atorvastatin Calcium (Lipitor) 5 mg QHS GTB Last administered on 03/22/17 21: 46; Admin Dose 5 MG; Start 03/22/17 at 21:00 Bisacodyl (Dulcolax Supp) 10 mg DAILY PRN MA CONSTIPATION; Start 03/21/17 at 23:00 Chlorhexidine Gluconate (Peridex) 15 ml BID MM Last administered on 03/24/17 10:12; Admin Dose 15 ML; Start 03/22/17 at 09:00 Ferrous Sulfate (Feosol Liquid Cup) 300 mg TID GTB Last administered on 10:13; Admin Dose 300 MG; Start 03/22/17 at 09:00 Levetiracetam (Keppra Liquid) 500 mg Q12 GTB Last administered on 03/23/17 10 :12; Admin Dose 500 MG; Start 03/21/17 at 23:00 Magnesium Hydroxide (Milk Of Mag) 30 ml DAILY PRN GTB CONSTIPATION; Start at 23:00 Multivitamins (Multivitamin) 30 ml BID GTB Last administered on 03/23/17 10: 12; Admin Dose 30 ML; Start 03/22/17 at 09:00 Digoxin (Digoxin Liquid) 0.125 mg DAILY@13 GTB Last administered on 03/22/17 13:49; Admin Dose 0.125 MG; Start 03/22/17 at 13:00 Miscellaneous Information ([facility] This patient aguiar... PRN PRN XX WOUND CARE; Start 03/22/17 at 18:30 Insulin Aspart (Novolog Insulin Pen) NOVOLOG *MILD* ALGORI... Q4 SC ; Start at 01:00 Miscellaneous Information 1 ea NOTE XX ; Start 03/22/17 at 23:00 Glucose (Glutose) 15 gm Q15M PRN PO DECREASED GLUCOSE; Start 03/22/17 at 23:00 Glucose (Glutose) 22.5 gm Q15M PRN PO DECREASED GLUCOSE; Start 03/22/17 at 23: 00 Dextrose (D50w Syringe) 25 ml Q15M PRN IV DECREASED GLUCOSE; Start 03/22/17 at 23:00 Dextrose (D50w Syringe) 50 ml Q15M PRN IV DECREASED GLUCOSE; Start 03/22/17 at 23:00 Glucagon (Glucagen) 1 mg Q15M PRN IM DECREASED GLUCOSE; Start 03/22/17 at 23: 00 Glucose (Glutose) 15 gm Q15M PRN BUCCAL DECREASED GLUCOSE; Start 03/22/17 at 23:00 Acetaminophen 650 mg 650 mg Q6H PRN GTB PAIN AND OR ELEVATED TEMP Last administered on 03/23/17 02:38; Admin Dose 650 MG; Start 03/23/17 at 02:00 Metronidazole (Flagyl 500 Mg (Pmx)) 100 ml @ 100 mls/hr Q8 IVPB Last administered on 03/24/17 05:43; Admin Dose 100 MLS/HR; Start 03/23/17 at 14: 00 Acetaminophen 650 mg 650 mg Q4H PRN MA PAIN OR TEMP ABOVE 38C Last administered on 03/23/17 16:19; Admin Dose 650 MG; Start 03/23/17 at 15:30 Ertapenem 1 gm/ Sodium Chloride 100 ml @ 200 mls/hr Q24H IVPB Last administered on 03/23/17 17:58; Admin Dose 200 MLS/HR; Start 03/23/17 at 17: 00 Linezolid (Zyvox 600mg/D5W (Pmx)) 300 ml @ 300 mls/hr Q12 IVPB Last administered on 03/24/17 10:02; Admin Dose 300 MLS/HR; Start 03/23/17 at 21: 00 Pantoprazole (Protonix Iv) 40 mg BID@06,18 IV ; Start 03/24/17 at 18:00 AUGUST TERAN Mar 24, 2017 12:13
[2017-03-24] MEDS: DIGOXIN GTB SCH (13:00)
[2017-03-24] MEDS ORDERED: MAGNESIUM SULFATE 3 GM in SOD CHLORIDE 0.9% 100 ML IVPB ONE (14:00)
--- NOTE | 2017-03-24 14:24 | PN ---
Date/Time of Note Date/Time of Note DATE: 03/24/17 TIME: 13:54 Assessment/Plan VTE Prophylaxis VTE Prophylaxis Intervention: SCD's Lines/Catheters IV [facility]ter Type (from [facility]): Peripheral IV Urinary Cath still in place: No Assessment/Plan Chief Complaint/Hosp Course 1. Sepsis with underlying urinary tract infection, abdominal wall cellulitis, and Clostridium difficile colitis. Continue antimicrobials. Infectious diseases on the case. 2. Bleeding from tracheostomy site. Resolved. H&H is stable. 3. Normocytic, normochromic anemia. Etiology unclear. Iron panel showing iron deficiency. Continue iron supplements. 4. Chronic respiratory failure. The patient has a tracheostomy connected to mechanical ventilator. Pulmonology on the case. 5. Dysfunctional G-tube. Gastroenterology on the case. Tube feedings on hold at this time. 6. Essential hypertension. Blood pressure stable off antihypertensives. 7. 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 8. Diabetes mellitus. Continue sliding scale insulin. 9. History of paroxysmal atrial fibrillation. Currently in sinus rhythm with frequent PVCs. Continue digoxin. 10. Fluids, electrolytes, and nutrition. Continue G-tube feedings. 11. DVT prophylaxis. Bilateral sequential compression devices. 12. Plan. Continue antimicrobials as per infectious diseases. Replete magnesium. Case discussed with Dr. Wang. Problems: Subjective 24 Hr Interval Summary Free Text/Dictation The patient had a febrile episode in the morning. Exam/Review of Systems Vital Signs Vitals Vital Signs Date Time Temp Pulse Resp B/P Pulse Ox O2 Delivery O2 Flow Rate FiO2 03/24/17 13:05 92 13 98 40 03/24/17 11:22 98.8 143/66 03/22/17 14:50 Mechanical Ventilator Intake and Output 03/23/17 03/23/17 03/24/17 15:00 23:00 07:00 Intake Total 510 ml 100 ml Balance 510 ml 100 ml Exam General: Chronically ill 72 year-old male lying in bed in no apparent distress. HEENT: Normocephalic, atraumatic. Eyes: Anicteric sclerae, conjunctivae clear. ENT: Nasal septum midline, oral mucosa is dry. Neck supple. Ileostomy ileostomy midline., no JVD noticed. Respiratory: Bilaterally clear breath sounds. No use of accessory muscles of respiration. No adventitious breath sounds. Cardiovascular: S1, S2 heard. Occasional skipped beats. Abdomen: Soft, nontender, and nondistended. Bowel sounds positive in all 4 quadrants. Genitourinary: Deferred. Extremities: No cyanosis, no clubbing, no edema. Peripheral pulses palpable. Neurologic: The patient is obtunded. Results Result Diagram: 03/24/17 0746 03/24/17 0746 Results 24 hrs Laboratory Tests Test 03/23/17 14:03 03/23/17 17:15 03/23/17 21:50 03/24/17 05:49 Hemoglobin A1c 5.2 Iron Level 11 L Total Iron Binding Capacity 206 L Percent Iron Saturation 5 L Ferritin 992.0 H Bedside Glucose 80 79 78 Test 03/24/17 07:46 03/24/17 10:01 White Blood Count 11.8 #H Red Blood Count 2.99 L Hemoglobin 8.8 L Hematocrit 28.5 L Mean Corpuscular Volume 95.3 Mean Corpuscular Hemoglobin 29.4 Mean Corpuscular Hemoglobin Concent 30.9 L Red Cell Distribution Width 16.0 H Platelet Count 156 Mean Platelet Volume 10.5 H Neutrophils % Segmented Neutrophils % (Manual) 64 Band Neutrophils % (Manual) 18 H Lymphocytes % Lymphocytes % (Manual) 14 L Monocytes % Monocytes % (Manual) 2 Eosinophils % Eosinophils % (Manual) 1 Basophils % Basophils % (Manual) 1 Nucleated Red Blood Cells % 0.0 Neutrophils # Neutrophils # (Manual) 7.8 H Band Neutrophils # 2.1 H Absolute Lymphocytes (Manual) 1.6 Lymphocytes # Monocytes # Absolute Monocytes (Manual) 0.2 L Eosinophils # Basophils # Basophils # (Manual) 0.1 H Nucleated Red Blood Cells # Platelet Estimate NORMAL Giant Platelets 1 H Polychromasia 2+ Ovalocytes 1+ Sodium Level 146 H Potassium Level 4.6 Chloride Level 112 H Carbon Dioxide Level 27 Anion Gap 12 Blood Urea Nitrogen 20 # Creatinine 0.95 Glucose Level 76 Calcium Level 7.7 L Phosphorus Level 2.3 L Magnesium Level 1.3 L Bedside Glucose 84 Medications Medications Current Medications Sodium Chloride (NS) 1,000 ml @ 100 mls/hr Q10H IV Last administered on t 10:12; Admin Dose 100 MLS/HR; Start 03/21/17 at 22:58 Lorazepam (Ativan) 0.5 mg Q6H PRN IV ANXIETY; Start 03/21/17 at 23:00 Ondansetron HCl (Zofran Inj) 4 mg Q6H PRN IV NAUSEA AND/OR VOMITING; Start at 23:00 Morphine Sulfate (morphine) 2 mg Q4H PRN IV PAIN LEVEL 7-10 Last administered on 03/24/17 10:12; Admin Dose 2 MG; Start 03/21/17 at 23:00 Atorvastatin Calcium (Lipitor) 5 mg QHS GTB Last administered on 03/22/17 21: 46; Admin Dose 5 MG; Start 03/22/17 at 21:00 Bisacodyl (Dulcolax Supp) 10 mg DAILY PRN OR CONSTIPATION; Start 03/21/17 at 23:00 Chlorhexidine Gluconate (Peridex) 15 ml BID MM Last administered on 03/24/17 10:12; Admin Dose 15 ML; Start 03/22/17 at 09:00 Ferrous Sulfate (Feosol Liquid Cup) 300 mg TID GTB Last administered on 10:13; Admin Dose 300 MG; Start 03/22/17 at 09:00 Levetiracetam (Keppra Liquid) 500 mg Q12 GTB Last administered on 03/23/17 10 :12; Admin Dose 500 MG; Start 03/21/17 at 23:00 Magnesium Hydroxide (Milk Of Mag) 30 ml DAILY PRN GTB CONSTIPATION; Start at 23:00 Multivitamins (Multivitamin) 30 ml BID GTB Last administered on 03/23/17 10: 12; Admin Dose 30 ML; Start 03/22/17 at 09:00 Digoxin (Digoxin Liquid) 0.125 mg DAILY@13 GTB Last administered on 03/22/17 13:49; Admin Dose 0.125 MG; Start 03/22/17 at 13:00 Miscellaneous Information (Pending [facility] Order For Wound Care) This patient aguiar... PRN PRN XX WOUND CARE; Start 03/22/17 at 18:30 Insulin Aspart (Novolog Insulin Pen) NOVOLOG *MILD* ALGORI... Q4 SC ; Start at 01:00 Miscellaneous Information 1 ea NOTE XX ; Start 03/22/17 at 23:00 Glucose (Glutose) 15 gm Q15M PRN PO DECREASED GLUCOSE; Start 03/22/17 at 23:00 Glucose (Glutose) 22.5 gm Q15M PRN PO DECREASED GLUCOSE; Start 03/22/17 at 23: 00 Dextrose (D50w Syringe) 25 ml Q15M PRN IV DECREASED GLUCOSE; Start 03/22/17 at 23:00 Dextrose (D50w Syringe) 50 ml Q15M PRN IV DECREASED GLUCOSE; Start 03/22/17 at 23:00 Glucagon (Glucagen) 1 mg Q15M PRN IM DECREASED GLUCOSE; Start 03/22/17 at 23: 00 Glucose (Glutose) 15 gm Q15M PRN BUCCAL DECREASED GLUCOSE; Start 03/22/17 at 23:00 Acetaminophen 650 mg 650 mg Q6H PRN GTB PAIN AND OR ELEVATED TEMP Last administered on 03/23/17 02:38; Admin Dose 650 MG; Start 03/23/17 at 02:00 Metronidazole (Flagyl 500 Mg (Pmx)) 100 ml @ 100 mls/hr Q8 IVPB Last administered on 03/24/17 05:43; Admin Dose 100 MLS/HR; Start 03/23/17 at 14: 00 Acetaminophen 650 mg 650 mg Q4H PRN OR PAIN OR TEMP ABOVE 38C Last administered on 03/23/17 16:19; Admin Dose 650 MG; Start 03/23/17 at 15:30 Ertapenem 1 gm/ Sodium Chloride 100 ml @ 200 mls/hr Q24H IVPB Last administered on 03/23/17 17:58; Admin Dose 200 MLS/HR; Start 03/23/17 at 17: 00 Linezolid (Zyvox 600mg/D5W (Pmx)) 300 ml @ 300 mls/hr Q12 IVPB Last administered on 03/24/17 10:02; Admin Dose 300 MLS/HR; Start 03/23/17 at 21: 00 Pantoprazole 40 mg 40 mg BID@06,18 IV ; Start 03/24/17 at 18:00 Magnesium Sulfate/ Sodium Chloride (Magnesium Sulfate/NS) 106 ml @ 35.333 mls/ hr ONCE ONCE IVPB ; Start 03/24/17 at 14:00; Stop 03/24/17 at 16:59 RENA JAY NP Mar 24, 2017 14:04 RENA JAY NP Mar 24, 2017 14:04
[2017-03-24] MEDS ORDERED: SOD FERRIC GLUC COMPLX 125 MG in SOD CHLORIDE 0.9% 100 ML IVPB SCH (15:00)
--- NOTE | 2017-03-24 16:17 | PDOCDIS ---
Discharge Instructions DIAGNOSIS Discharge Diagnosis SEPSIS CONDITION Patient Condition: Fair HOME CARE INSTRUCTIONS: Special Diet: npo OTHER ORDERS: Other Orders: 1. Discharge the [facility] about [facility]. 2. Medications as per medication list. 3. Nothing through the G-tube until cleared by gastroenterology. RENA JAY NP Mar 24, 2017 16:17
--- NOTE | 2017-03-24 16:22 | DS ---
Date/Time of Note Date/Time of Note DATE: 03/24/17 TIME: 16:22 Discharge Summary Admission/Discharge Info Admit Date/Time Discharge Date/Time Hx of Present Illness Home Meds Active Scripts Lansoprazole* (Lansoprazole*) 30 Mg Capsule., 30 MG GTB DAILY@06 for 30 Days Prov:MINESH JOLLEY 09/09/16 Reported Medications Clopidogrel Bisulfate (Clopidogrel) 75 Mg Tablet, 75 MG GTB DAILY, #30 TAB 03/21/17 Vit C-Ascorbate Ca-Ascorb Sod (Vitamin C) 500 Mg/15 Ml Liquid, 500 MG GTB DAILY , ML 03/21/17 Cran/Vitc/Mannose/Inulin/Brom (Uti-Stat Liquid) 3,875 Mg/30 Ml Liquid, 3875 MG GTB DAILY 03/21/17 Metoclopramide Hcl* (Metoclopramide Hcl*) 5 Mg Tablet, 5 MG GTB TID Y for GASTROINTESTINAL UPSET, TAB 03/21/17 Metoprolol Tartrate* (Lopressor*) 25 Mg Tab, 12.5 MG BID, #60 TAB 03/21/17 Enoxaparin Sodium* (Lovenox*) 40 Mg/0.4 Ml Syringe, 40 MG SC DAILY, SYR 03/21/17 Cranberry Extract (Cranberry) 425 Mg Capsule, 425 MG GTB DAILY, CAP 03/21/17 Docusate Sodium* (Colace*) 100 Mg Capsule, 200 MG GTB DAILY Y for CONSTIPATION, #30 CAP 03/21/17 Albuterol Sulfate* (Albuterol Sulfate* Neb) 0.083%-3 Ml Neb, 2.5 MG NEB Q6, #30 VIAL 03/21/17 Albuterol Sulfate* (Albuterol Sulfate* Neb) 0.083%-3 Ml Neb, 2.5 MG NEB Q3H Y for WHEEZING AND SOB, #30 VIAL 03/21/17 Lactobacillus Rhamnosus* (Culturelle*) 1 Each Cap.sprink, 1 CAP G-TUBE BID, CAP 03/21/17 Ipratropium-Albuterol (Ipratropium-Albuterol) 0.5-3 Mg/3 Ml Ampul.neb, 3 ML INHALATION Q6, #30 VIAL 07/30/16 Acetaminophen* (Tylenol*) 325 Mg Tablet, 650 MG GTB Q4H Y for MILD PAIN LEVEL 1- 3, TAB 07/30/16 Digoxin* (Lanoxin*) 0.125 Mg/2.5 Ml Solution, 2.5 ML GTB DAILY, ML HOLD IF APICAL PULSE<60BPM 07/30/16 Ferrous Sulfate* (Ferrous Sulfate*) 220 Mg/5 Ml Solution, 7.5 ML GTB TID, ML 07/30/16 Levetiracetam* (Keppra* (Ped)) 100 Mg/Ml Liq, 5 ML GTB Q12H for 30 Days, BOTTLE 07/30/16 Multivits,Ca,Minerals/Iron/FA (Thera M Plus Tablet) 1 Each Tablet, 1 EACH GTB BID, TAB 07/30/16 Acetaminophen* (Acetaminophen*) 500 MG Extra Strength Tablet, 1000 MG GTB Q8H Y for MILD PAIN -11/01, TAB 07/05/16 Bisacodyl* (Bisacodyl*) 10 Mg Supp, [address] DAILY Y for CONSTIPATION, SUPP 07/05/16 Magnesium Hydroxide* (Milk Of Magnesia*) 400 Mg/5 Ml Oral.susp, 30 ML GTB DAILY Y for CONSTIPATION, ML 07/05/16 Lisinopril* (Lisinopril*) 2.5 Mg Tablet, 2.5 MG GTB DAILY, #30 TAB HOLD IF SBP<100 AND CALL MD 07/05/16 Chlorhexidine Gluconate (Peridex) 473 Ml Mouthwash, 15 ML MM BID, BOTTLE 07/05/16 Atorvastatin Calcium (Atorvastatin Calcium) 10 Mg Tablet, 5 MG GTB QHS, #30 TAB 07/05/16 Discontinued Reported Medications Docusate Sodium* (Docusate Sodium* Liq) 50 Mg/5 Ml Liquid, 10 ML GTB DAILY, ML 07/30/16 Amino Acids/Protein Hydrolys (PRO-STAT LIQUID) 30 Ml Liquid.pkt, 30 ML GTB BID SUGAR FREE 07/30/16 Mineral Oil* (Fleet* Mineral Oil Enema) 133 Ml Oil, [address] DAILY Y for CONSTIPATION, ENEMA 07/05/16 Lorazepam* (Lorazepam*) 1 Mg Tablet, 1 MG GTB Q6 Y for ANXIETY, #30 TAB 07/05/16 Discontinued Scripts Fluconazole* (Diflucan*) 100 Mg Tablet, 100 MG GTB DAILY for 8 Days, TAB Prov:MINESH JOLLEY. 09/09/16 Colistin (Colistimethate Na) (Colistimethate) 150 Mg Vial, 75 MG NEB BID RESP THERAPY for 8 Days, VIAL Prov:MINESH JOLLEY. 09/09/16 [Amikacin Iv Per Pharmacy] 1 EA EACH No Conflict Check, 0 EA XX NOTE for 8 Days Prov:MINESH JOLLEY. 09/09/16 Diphenhydramine Hcl (BANOPHEN) 50 Mg Capsule, 25 MG GTB Q6H Y for PRN for 30 Days, CAP Prov:MINESH JOLLEY. 09/09/16 Primary Care Provider RENA JAY NP Mar 24, 2017 16:22 Discontinued Scripts Fluconazole* (Diflucan*) 100 Mg Tablet, 100 MG GTB DAILY for 8 Days, TAB Prov:MINESH JOLLEY. 09/09/16 Colistin (Colistimethate Na) (Colistimethate) 150 Mg Vial, 75 MG NEB BID RESP THERAPY for 8 Days, VIAL Prov:MINESH JOLLEY. 09/09/16 [Amikacin Iv Per Pharmacy] 1 EA EACH No Conflict Check, 0 EA XX NOTE for 8 Days Prov:MINESH JOLLEY. 09/09/16 Diphenhydramine Hcl (BANOPHEN) 50 Mg Capsule, 25 MG GTB Q6H Y for PRN for 30 Days, CAP Prov:MINESH JOLLEY. 09/09/16 Primary Care Provider Trino Hendrickson Pending Labs Laboratory Tests Test 03/23/17 17:15 03/23/17 21:50 03/24/17 05:49 03/24/17 07:46 Bedside Glucose 80mg/dL (70-220) 79mg/dL (70-220) 78mg/dL (70-220) White Blood Count 11.810^3/ul (4.8-10.8) Red Blood Count 2.9910^6/ul (4.70-6.10) Hemoglobin 8.8g/dl (14.0-18.0) Hematocrit 28.5% (42.0-52.0) Mean Corpuscular Volume 95.3fl (82.0-101.0) Mean Corpuscular Hemoglobin 29.4pg (29.0-33.0) Mean Corpuscular Hemoglobin Concent 30.9g/dl (32.0-37.0) Red Cell Distribution Width 16.0% (11.5-14.5) Platelet Count 39689^3/UL (140-415) Mean Platelet Volume 10.5fl (7.4-10.4) Neutrophils % % (39.0-77.0) Segmented Neutrophils % (Manual) 64% (39-77) Band Neutrophils % (Manual) 18% (0-4) Lymphocytes % % (15.0-51.0) Lymphocytes % (Manual) 14% (15-51) Monocytes % % (0.0-11.0) Monocytes % (Manual) 2% (0-11) Eosinophils % % (0.0-7.0) Eosinophils % (Manual) 1% (0-7) Basophils % % (0.0-2.0) Basophils % (Manual) 1% (0-2) Nucleated Red Blood Cells % 0.0/100WBC (0.0-0.0) Neutrophils # 10^3/ul (1.6-7.5) Neutrophils # (Manual) 7.810^3/ul (1.7-7.5) Band Neutrophils # 2.110^3/ul (0.0-0.6) Absolute Lymphocytes (Manual) 1.610^3/ul (0.8-2.9) Lymphocytes # 10^3/ul (0.8-2.9) Monocytes # 10^3/ul (0.3-0.9) Absolute Monocytes (Manual) 0.210^3/ul (0.3-0.9) Eosinophils # 10^3/ul (0.0-0.5) Basophils # 10^3/ul (0.0-0.1) Basophils # (Manual) 0.110^3/ul (0.0-0.0) Nucleated Red Blood Cells # 10^3/ul (0.0-0.0) Platelet Estimate NORMAL Giant Platelets 1% (0-0) Polychromasia 2+ (0-0) Ovalocytes 1+ (0-0) Sodium Level 146mmol/L (135-144) Potassium Level 4.6mmol/L (3.5-5.1) Chloride Level 112mmol/L (97-110) Carbon Dioxide Level 27mmol/L (21-31) Anion Gap 12 (8-16) Blood Urea Nitrogen 20mg/dl (7-20) Creatinine 0.95mg/dl (0.61-1.24) Glucose Level 76mg/dl (70-220) Calcium Level 7.7mg/dl (8.4-10.2) Phosphorus Level 2.3mg/dl (2.5-4.9) Magnesium Level 1.3mg/dl (1.7-2.5) Test 03/24/17 10:01 03/24/17 13:50 Bedside Glucose 84mg/dL (70-220) 96mg/dL (70-220) RENA JAY WHARF TALLY CLERK Mar 24, 2017 16:22 Magnesium Level 1.3mg/dl (1.7-2.5) Test 03/24/17 10:01 03/24/17 13:50 Bedside Glucose 84mg/dL (70-220) 96mg/dL (70-220) RENA JAY WHARF TALLY CLERK Mar 24, 2017 16:22
[2017-03-24] MEDS ORDERED: PANTOPRAZOLE 40 MG INJ IV SCH (18:00)
[2017-03-24] MEDS: ERTAPENEM SODIUM 1 GM in SOD CHLORIDE 0.9% 100 ML IVPB SCH (18:13)
[2017-03-24] MEDS ORDERED: PERMETHRIN 5% 60 GM CR TOP ONE (21:00)
[2017-03-24] MEDS ORDERED: LEVETIRACETAM 500 MG (PMX) 100 ML IVPB SCH (21:00)
[2017-03-24] MEDS ORDERED: MUPIROCIN 2% 22 GM OINT TOP SCH (21:00)
[2017-03-24] MEDS ORDERED: NYSTATIN 15 GM OINT TOP SCH (21:00)
--- NOTE | 2017-03-24 21:17 | PN ---
DATE: 03/24/2017 SUBJECTIVE: No acute changes. The patient is afebrile, status post fever of 102.2 yesterday. LABORATORY DATA: WBC today 11.8, H and H 8.8 and 28.5, platelets 156. BUN 20, creatinine 0.95. INDWELLINGS: Trach, PEG. MICROBIOLOGY: Stool for C. diff on admission was positive. Urine culture growing E. coli ESBL. Bl ood culture growing Staphylococcus species. Sputum culture growing gram-negative rods. Nares swab positive for MRSA. ANTIMICROBIALS: The patient is on Zyvox, Invanz, Flagyl. ALLERGIES: ZOSYN AND VANCOMYCIN. PHYSICAL EXAMINATION: GENERAL: This is a chronically ill-appearing, elderly man who is in no distress. HEENT: Head atraumatic, normocephalic. Sclerae anicteric. Buccal mucosa dry. NECK: Supple. CHEST: Rise symmetrical. Breath sounds diminished to bases. HEART: S1, S2. ABDOMEN: Distended, soft. Bowel tones hypoactive. EXTREMITIES: Wasted without cyanosis. SKIN: With severe excoriation around the G-tube site and also diffuse body rash in various stages o f healing. ASSESSMENT: 1. Sepsis. 2. Clostridium difficile colitis. 3. Bacteremia with blood culture growing Staphylococcus species. 4. Escherichia coli extended-spectrum beta-lactamase urinary tract infection. 5. Methicillin-resistant Staphylococcus aureus nares colonization. 6. Gastrostomy tube malfunction with cellulitis around it secondary to gastric contents leak. 7. Chronic encephalopathy. 8. Chronic respiratory failure. 9. Decubitus. PLAN: The patient remains stable, on appropriate antibiotics, we are going to add nystatin topical around G-tube site. Will give him on empiric Elimite treatment today. Follow repeat blood cultures . Add Bactroban to nares. Follow recommendations of consultants. Dictated By: DEJA ARIAS HAND BOOKED FOLDER AND STITCHER for MARINO BOWEN/SALOME Conf#: [id number] DID#: [id number]
--- NOTE | 2017-03-24 21:17 | PN ---
DATE: 03/24/2017 SUBJECTIVE: No acute changes. The patient is afebrile, status post fever of 102.2 yesterday. LABORATORY DATA: WBC today 11.8, H and H 8.8 and 28.5, platelets 156. BUN 20, creatinine 0.95. INDWELLINGS: Trach, PEG. MICROBIOLOGY: Stool for C. diff on admission was positive. Urine culture growing E. coli ESBL. Bl ood culture growing Staphylococcus species. Sputum culture growing gram-negative rods. Nares swab positive for MRSA. ANTIMICROBIALS: The patient is on Zyvox, Invanz, Flagyl. ALLERGIES: ZOSYN AND VANCOMYCIN. PHYSICAL EXAMINATION: GENERAL: This is a chronically ill-appearing, elderly man who is in no distress. HEENT: Head atraumatic, normocephalic. Sclerae anicteric. Buccal mucosa dry. NECK: Supple. CHEST: Rise symmetrical. Breath sounds diminished to bases. HEART: S1, S2. ABDOMEN: Distended, soft. Bowel tones hypoactive. EXTREMITIES: Wasted without cyanosis. SKIN: With severe excoriation around the G-tube site and also diffuse body rash in various stages o f healing. ASSESSMENT: 1. Sepsis. 2. Clostridium difficile colitis. 3. Bacteremia with blood culture growing Staphylococcus species. 4. Escherichia coli extended-spectrum beta-lactamase urinary tract infection. 5. Methicillin-resistant Staphylococcus aureus nares colonization. 6. Gastrostomy tube malfunction with cellulitis around it secondary to gastric contents leak. 7. Chronic encephalopathy. 8. Chronic respiratory failure. 9. Decubitus. PLAN: The patient remains stable, on appropriate antibiotics, we are going to add nystatin topical around G-tube site. Will give him on empiric Elimite treatment today. Follow repeat blood cultures . Add Bactroban to nares. Follow recommendations of consultants. Dictated By: DEJA ARIAS [employer] for MARINO BOWEN/SALOME Conf#: [id number] DID#: [id number]
--- NOTE | 2017-03-25 09:18 | DS ---
DATE OF ADMISSION: 03/21/2017 DATE OF DISCHARGE: 03/24/2017 DISPOSITION: [facility]. FINAL DIAGNOSES: 1. Sepsis secondary to underlying urinary tract infection, abdominal wall cellulitis, and Clostridium difficile colitis. 2. Urinary tract infection with Eschericia coli, extended-spectrum beta- lactamase. 3. Gram-positive bacteremia. 4. Aspiration pneumonia. 5. Bleeding from tracheostomy site. 6. Normocytic, normochromic anemia. 7. Iron deficiency. 8. Chronic respiratory failure. 9. Dysfunctional gastrostomy tube. 10. Essential hypertension. 11. Chronic encephalopathy. 12. Diabetes mellitus. 13. History of paroxysmal atrial fibrillation. 14. Multiple pressure ulcers. 15. Chronic bedridden status. CONSULTANTS: 1. Kel De Leon MD, Infectious Diseases. 2. Rodney Pires MD, Gastroenterology. 3. Stew Sanchez MD, Pulmonology. HOSPITAL COURSE: This is a 72-year-old male with chronic encephalopathy, who has tracheostomy and vent dependent, who was brought in from a senior living facility after blood was noted around his trach. In the emergency room, the patient was noticed to be febrile. The patient had some leukocytosis. The patient was admitted to inpatient setting for further evaluation. An ENT consult was obtained for further evaluation of tracheostomy bleeding. However, the patient's tracheostomy bleeding stopped by itself without any intervention. Meanwhile, the patient was noticed to have underlying sepsis with gram-positive bacteremia, urinary tract infection, abdominal wall cellulitis, and C difficile colitis. The patient's urine culture showed positive E. coli ESBL. The patient's abdominal wall drain was showing E coli ESBL, Kimberlyn albicans and Strep agalactiae. Infectious Disease was following the patient, and the patient was maintained on appropriate antibiotics as per Infectious Disease. The patient had no evidence of any septic shock. The patient was being followed by Pulmonology for his underlying chronic respiratory failure. The patient has a G-tube because of dysphagia. The patient's G-tube site was noticed to have some evidence of cellulitis with leaking of G-tube. Consequently, Gastroenterology consult was obtained. Gastroenterology held the patient's tube feedings. Therefore, the patient's routine medications were switched to parenteral foam. The patient has underlying essential hypertension. The patient's blood pressure remained stable off antihypertensives. He has underlying diabetes mellitus. He was maintained on sliding-scale insulin. He has a history of paroxysmal atrial fibrillation. The patient was in sinus rhythm with frequent PVCs during the patient's hospital course. The patient was maintained on digoxin. The patient has chronic encephalopathy with contractures and is chronically bedridden. The patient has multiple pressure ulcers. The patient was being provided with local wound care. The patient is chronically ill, and currently has multiple infectious processes going on. The patient needs long-term IV antibiotics, and the patient may benefit from [facility] admission for further management. Therefore, the patient will be discharged to [facility]. DISCHARGE DISPOSITION/PLAN: The patient will be discharged to [facility]. The patient will take medications as per medication list, which are listed below. The patient will remain n.p.o. All the consultants will follow the patient at [facility]. DISCHARGE CONDITION: Stable. DISCHARGE MEDICATIONS: 1. Keppra 500 mg IV b.i.d. 2. Bactroban 1 application b.i.d. 3. Protonix 40 mg IV b.i.d. 4. Ferrlecit IV piggyback q.24 hours. 5. Linezolid 600 mg IV piggyback q.12 hours. 6. Atropine 1 g IV piggyback every 24 hours. 7. Flagyl 500 mg IV piggyback every 8 hours. 8. NovoLog insulin as per sliding scale. 9. Atorvastatin 5 mg via G-tube at bedtime. 10. Digoxin 0.125 mg via G-tube daily. 11. Morphine 2 mg IV q.4 hours p.r.n. pain. 12. DuoNeb inhalation q.2 hours p.r.n. lumbar spasms. PERTINENT LAB AND DIAGNOSTIC DATA: 1. Abdominal drain culture positive for E. coli ESBL, Kimberlyn albicans, gram-negative rods, strep agalactiae, and bacillus species. 2. Stool for Clostridium difficile positive. 3. Urine culture positive for E. coli ESBL. 4. Blood culture x2 positive for Staphylococcus species. 5. Sputum culture positive for gram-negative rods. 6. Chest x-ray: Hyperexpanded lungs with stable prominence of interstitial markings consistent with chronic changes. 7. Hemoglobin A1c 5.2. 8. Fasting lipid panel: Triglycerides 79, total cholesterol 112, LDL 67, HDL 29,. 9. Iron panel: Iron 11, TIBC 206, iron saturation 5, ferritin 992. 10. Latest CBC: WBC 11.8, hemoglobin 8.8, hematocrit 28.5, platelet count 156,000. 11. Latest BMP: Sodium 146, potassium 4.6, chloride 102, carbon dioxide 25, anion gap 12, BUN 20, creatinine 0.95, glucose 76, calcium 7.7, phosphorus 2.3, magnesium 1.3. At this time I would like to thank all the consultants for seeing the patient, doing the necessary procedures, and providing clinical recommendations. The case and management of this patient was fully discussed with Dr. Wang. Approximately 40 minutes were spent on coordinating the discharge of this patient. Dictated By: Duane Narayanan NP /erasmo/keo /Document#: [id number] OVIDIO
== END 2017-03-24 20:31 | DRG 871 ==
LOC: E/R 16:51 → TEL 20:00 → OBSVTOIN 20:00
PROVIDERS: ADMIT Internal Medicine; ATTEND Internal Medicine
PROC: 5A1945Z Respiratory Ventilation, 24-96 Consecutive Hours (ICD-10-PCS; principal; 2017-03-21)
PROC: 30233N1 Transfusion of Nonautologous Red Blood Cells into Peripheral Vein, Percutaneous Approach (ICD-10-PCS; 2017-03-22)
DX: A41.1 Sepsis due to other specified staphylococcus (principal); G93.49 Other encephalopathy; G93.1 Anoxic brain damage, not elsewhere classified; J96.10 Chronic respiratory failure, unspecified whether with hypoxia or hypercapnia; L89.303 Pressure ulcer of unspecified buttock, stage 3; A04.72 Enterocolitis due to Clostridium difficile, not specified as recurrent; K94.23 Gastrostomy malfunction; N39.0 Urinary tract infection, site not specified; L03.311 Cellulitis of abdominal wall; Z43.0 Encounter for attention to tracheostomy; I69.998 Other sequelae following unspecified cerebrovascular disease; E11.9 Type 2 diabetes mellitus without complications; Z22.322 Carrier or suspected carrier of Methicillin resistant Staphylococcus aureus; B96.20 Unspecified Escherichia coli [E. coli] as the cause of diseases classified elsewhere; B96.4 Proteus (mirabilis) (morganii) as the cause of diseases classified elsewhere; B95.1 Streptococcus, group B, as the cause of diseases classified elsewhere; B96.89 Other specified bacterial agents as the cause of diseases classified elsewhere; B95.7 Other staphylococcus as the cause of diseases classified elsewhere; B96.5 Pseudomonas (aeruginosa) (mallei) (pseudomallei) as the cause of diseases classified elsewhere; L89.011 Pressure ulcer of right elbow, stage 1; Z74.01 Bed confinement status
CPT/HCPCS: 36415; 36430; 36600; 71010; 80048; 80053; 80061; 81001; 82728; 82803; 82962; 83036; 83540; 83605; 83735; 84100; 85025; 85610; 85730; 86850; 86900; 86901; 86920; 87040; 87070; 87075; 87081; 87086; 93005; 94002; 94003; 96374; 96375; A4310; C9113; J1335; J1815; J1953; J1956; J2270; J2916; J3475; J7030; J7040; P9016